=== PATIENT | female | born 1985 | race Caucasian/White ===

== ENCOUNTER 2019-12-02 07:46 | Emergency (ER) | payer MEDICAID, SELFPAY ==
[2019-12-02 07:59] VITALS: BP 133/84; PULSE 75; RESP 17; TEMP 36.7; O2SAT 100; BMI 31.4
--- NOTE | 2019-12-02 08:18 | ED_ITS ---
HPI - Headache General Chief Complaint: Headache Stated Complaint: HEADACHE NAUSEA Time Seen by Provider: 12/02/19 08:18 Source: patient Mode of arrival: ambulatory Limitations: no limitations and language barrier History of Present Illness HPI Narrative: migraine complaining of headache since last night especially behind the eyes similar to headaches in the past with photosensitivity and nausea MD elicited complaint: migraine Location: frontal and retro-orbital Severity: moderate Quality & Timing: throbbing Exacerbating factors: light and noise Context: occurred at rest Associated symptoms: nausea Treatments prior to arrival: ibuprofen Related Data Previous Rx's Medication Instructions Recorded xftfanevlo-hequqdgxqudrb-cscm 1 cap PO Q6H PRN #20 cap 12/02/19 [Fioricet] ondansetron 4 mg PO Q6H PRN #20 tab 12/02/19 sumatriptan succinate [Imitrex] 50 mg PO Q2H PRN #10 tab 12/02/19 Allergies Allergy/AdvReac Type Severity Reaction Status Date / Time Iodinated Contrast Media Allergy Mild NAUSEA & Verified 12/02/19 08:04 [IV CONTRAST] VOMITING Review of Systems Review of Systems: REVIEW OF SYSTEMS: Pertinent positives and negatives are stated above in the history. GEN: no fevers, chills, fatigue HEENT: no nasal congestion, sore throat, ear pain NEURO: no dizziness, focal weakness PULM: no cough, shortness of breath CV: no chest pain, palpitations, LE edema ABD: no abdominal pain vomiting, diarrhea : no dysuria, urgency, frequency SKIN: no rash ROS otherwise negative x 10 PMFSH Past Medical History Medical History Diabetes High blood pressure Social History Social History Alcohol intake: unknown Use of substances other than those prescribed or required for medical reasons: Unknown Advance Directives: No Advance Directives Information Provided: No Physical Exam Vital Signs and I&O and Narrative: Vital Signs and I&O: Vital Signs Temp 98.0 F 12/02/19 07:59 Pulse 81 12/02/19 10:02 Resp 17 12/02/19 07:59 BP 155/95 H 12/02/19 10:02 Pulse Ox 100 12/02/19 10:02 Intake & Output 10/10/1212/02/19 12/02/19 18:59 06:59 18:59 Weight 85.729 kg Body Mass Index 31.4 Appearance: Alert. Oriented X3. No acute distress. Eyes: Pupils equal, round and reactive to light. ENT: Pharynx normal. Neck: Normal inspection. Neck supple. CVS: Normal heart rate and rhythm. Pulses normal. Respiratory: No respiratory distress. Breath sounds normal. Abdomen: Soft and nontender. Skin: Skin warm and dry. Normal skin color. Normal skin turgor. Extremities: No lower extremity edema. No lower extremity edema. Neuro: Oriented X 3. No motor deficit. No sensory deficit. Course Course Course Narrative: patient feeling better after Imitrex will discharge her home on Imitrex, Fioricet, Zofran Discharge Plan Discharge Clinical Impression: Migraine Patient Disposition: Home, Self-Care Instructions: Migraine Headache (ED) Additional Instructions: take medication as prescribed and follow with primary care doctor Prescriptions: New sumatriptan succinate [Imitrex] 50 mg tablet 50 mg PO Q2H PRN (Reason: migraine headache) Qty: 10 RF: 0 ondansetron 4 mg tablet,disintegrating 4 mg PO Q6H PRN (Reason: nausea and vomiting) Qty: 20 RF: 0 aqsegcdxgc-sjuimhrrozpyw-ngdl [Fioricet] 50-300-40 mg capsule 1 cap PO Q6H PRN (Reason: pain) Qty: 20 RF: 0 Print Language: Armenian
--- NOTE | 2019-12-02 09:51 | PC.NURSE ---
INTRODUCED SELF TO PT. REPORTING IMPROVEMENT WITH PAIN 4/10 AND NAUSEA. ONGOING DISCOMFORT IN FOREHEAD AREA. IN NAD. INSTRUCTED ON USE OF CALL DAUGHERTY. WILL CONTINUE TO MONITOR.
[2019-12-02 10:02] VITALS: BP 155/95; PULSE 81; O2SAT 100
== END 2019-12-02 10:58 | disposition home or self-care (01) ==
PROVIDERS: Emergency Provider Internal Medicine
DX: G43.909 Migraine, unspecified, not intractable, without status migrainosus (principal); Z79.899 Other long term (current) drug therapy
CPT/HCPCS: 96372; 99284; J3030

== ENCOUNTER → 2020-04-10 12:50 | Outpatient (BNVA) | payer MEDICAID, SELFPAY | PROVIDERS: PCP Family Medicine; Visit Provider Student in an Organized Health Care Education/Training Program | DX: M79.7 Fibromyalgia (principal) | CPT/HCPCS: 99212 ==

== ENCOUNTER 2020-04-19 09:06 | Outpatient (REF) | payer MEDICAID, SELFPAY ==
[2020-04-20 08:59] LABS: BV Int Neg Control Negative (Negative); BV Int Pos Control Positive (Positive)
[2020-04-20 14:02] LABS: C. trachomatis RNA TMA NOT DETECTED (NOT DETECTED); N. gonorrhoeae RNA TMA NOT DETECTED (NOT DETECTED)
== END 2020-04-19 09:07 | disposition home or self-care (01) ==
LOC: HO.LAB 09:06
PROVIDERS: Visit Provider Advanced Practice Midwife
DX: Z01.419 Encounter for gynecological examination (general) (routine) without abnormal findings (principal); R32 Unspecified urinary incontinence; Z86.19 Personal history of other infectious and parasitic diseases; Z20.2 Contact with and (suspected) exposure to infections with a predominantly sexual mode of transmission; Z79.899 Other long term (current) drug therapy
CPT/HCPCS: 36415; 87480; 87491; 87510; 87591; 87660

== ENCOUNTER 2020-05-03 15:00 | Outpatient (RCR) | payer MEDICAID, SELFPAY ==
[2020-04-16 14:53] VITALS: BP 140/70; PULSE 93
--- NOTE | 2020-04-17 08:45 | MHC.PT.EP ---
[facility] [place] Office [place] Office [place] Office [address] Sandrine Roman [address] [phone] F: [phone] F: [phone] F: [phone] F: [phone] Physical Therapy Plan of Care Date of Evaluation: 04/16/20 Date of Surgery: NA Diagnosis: Bilateral Shoulder and Neck Pain Assessment: Catalina is a 34-year-old female presenting to physical therapy with a diagnosis of bilateral shoulder and neck pain. She was also diagnosed with fibromyalgia one year ago. Pt reports that she is undergoing a lot of stress at home raising her three young children. She displays limitations in cervical ROM, cervical muscle strength, bilateral UE strength, and impaired posture. These impairments limit her tolerance to performing ADLs, caring for her family, and participating in recreational activities. Catalina would benefit from skilled therapy to address the aforementioned impairments, reduce her pain, and improve her overall quality of life. Frequency and Duration: The patient will be seen 2 visits per week for 6 weeks. Short Term Goals: 1.) Pt will report <2/10 pain at rest within 3 weeks to allow her to perform leisure activities without aggravating her symptoms. 2.) Pt will display >75 degrees of B cervical rotation to allow her to check blind spots when driving within 3 weeks. Chcf Goals: 1.) Pt will be independent with HEP for symptom management and maintenance following discharge within 6 weeks. 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 Treatment Plan: Modalities to reduce pain, spasms and effusion. Manual therapy to restore motion and function. Therapeutic exercise to improve strength and flexibility. Neuromuscular re-education for posture and balance. Therapeutic activities to return to functional activities of daily living. Electronically signed by: Mary Lou Thomas, PT, DPT Please sign and return to therapist. Thank you for your referral.
--- NOTE | 2020-05-21 15:21 | MHC.PT.DC ---
[facility] [place] Office [place] Office [place] Office [address] Sandrine Roman [address] [phone] F: [phone] F: [phone] F: [phone] F: [phone] Physical Therapy Discharge Report Diagnosis: Bilateral Shoulder and Neck Pain Date of Surgery: NA Date of Evaluation: 04/16/20 Date of Discharge: 05/21/20 Treatments to Date: 4 Cancellations to Date: 0 No Shows to Date: 5 Discharge Status: Visit Non-compliance Discharge Summary: Pt was d/c from therapy for non compliance. Electronically signed by: Mary Lou Thomas DPT Please sign and return to therapist. Thank you for your referral.
== END 2020-05-21 15:22 | disposition other institution (70) ==
LOC: HO.PT 15:00
PROVIDERS: PCP Emergency Medicine; Visit Provider Student in an Organized Health Care Education/Training Program
DX: M79.7 Fibromyalgia (principal)
CPT/HCPCS: 97110; 97112; 97140; 97162

== ENCOUNTER 2020-11-09 23:42 | Emergency (ER) | payer MEDICAID, SELFPAY ==
[2020-11-10 00:20] VITALS: BP 141/100; PULSE 88; RESP 18; TEMP 36.1; O2SAT 98; BMI 34.4
--- NOTE | 2020-11-10 00:32 | ED.GENADULT ---
HPI - General Adult General Chief complaint: General Medical Stated complaint: Headache/Earache/Nausea Time Seen by Provider: 11/10/20 00:32 Source: patient Mode of arrival: ambulatory Limitations: no limitations History of Present Illness HPI narrative: Patient with history of migraine headache fibromyalgia complain of headache for last 1 week with nausea and vomiting lead sensitivity no fever or chills patient been fully vaccinated against COVID-19 Related Data Home Medications Medication Instructions Recorded Confirmed amitriptyline 25 mg tablet 25 mg PO BEDTIME 04/10/20 04/19/20 escitalopram oxalate 5 mg tablet 5 mg PO DAILY 04/10/20 04/19/20 (Lexapro) lurasidone 20 mg tablet (Latuda) 20 mg PO DAILY 04/10/20 04/19/20 metformin 500 mg tablet 500 mg PO BID 04/10/20 04/19/20 Previous Rx's Medication Instructions Recorded ondansetron 4 mg disintegrating 4 mg PO Q6H PRN #20 tab 12/02/19 tablet metronidazole 0.75 % vaginal gel 1 appful VAGINAL BEDTIME 5 Days 05/08/20 (Metrogel Vaginal) #70 g eksezmhujd-wdbiqvbrhycmz-sjinqaon 1 cap PO Q6H PRN #20 cap 11/10/20 50 mg-300 mg-40 mg capsule (Fioricet) Allergies Allergy/AdvReac Type Severity Reaction Status Date / Time Iodinated Contrast Media Allergy Mild NAUSEA & Verified 04/19/20 09:16 [IV CONTRAST] VOMITING Review of Systems Review of Systems: Yes all other systems are reviewed and are negative PMFSH Past Medical History Medical History Diabetes Fibromyalgia High blood pressure Surgical History Hx of section Hx of hernia repair Family History Family History Father Diabetes Mother HTN (hypertension) Social History Social History Alcohol intake: never Advance Directives: No Patient : No Gender identity: Female Physical Exam Vital Signs: Vital Signs: Last Vital Signs Temp 97 F 11/10/20 00:20 Pulse 88 11/10/20 00:20 Resp 18 11/10/20 00:20 BP 141/100 H 11/10/20 00:20 Pulse Ox 98 11/10/20 00:20 Body Mass Index 34.4 Appearance: Alert. Oriented X3. No acute distress. Eyes: PERRLA, No Nystagmus ENT: Pharynx normal. Oral Mucosa moist Neck: Normal inspection. Neck supple. CVS: Normal heart rate and rhythm. Pulses normal. Respiratory: No respiratory distress. Equal air entry bilateral, no wheezing/rales/rhonchi Abdomen: Soft and nontender. Bowel sounds are present, no mass palpable, no CVA tenderness Skin: Skin warm and dry. Normal skin color. Normal skin turgor. Extremities: No lower extremity edema. No calf tenderness Neuro: Oriented X 3. No motor deficit. No sensory deficit.No cerebellar signs , cranial nerves II-XII intact Medical Decision Making MDM Narrative Medical decision making narrative: Patient with migraine headache give her Fioricet Toradol and Zofran and discharged her home Discharge Plan Discharge Clinical Impression: Migraine Qualifiers: Migraine type: without aura Status migrainosus presence: without status migrainosus Intractability: not intractable Qualified Code(s): G43.009 - Migraine without aura, not intractable, without status migrainosus Patient Disposition: Home, Self-Care Instructions: Migraine Headache (ED) Additional Instructions: Take medication as prescribed for headaches and follow with PCP Prescriptions: New yohlfulpha-fsquexngcfpiw-rooi [Fioricet] 50-300-40 mg capsule 1 cap PO Q6H PRN (Reason: Headache) Qty: 20 RF: 0 No Action metronidazole [Metrogel Vaginal] 0.75 % gel 1 appful vaginal BEDTIME 5 Days Qty: 70 RF: 0 ondansetron 4 mg tablet,disintegrating 4 mg PO Q6H PRN (Reason: nausea and vomiting) Qty: 20 RF: 0 metformin 500 mg tablet 500 mg PO BID RF: 0 amitriptyline 25 mg tablet 25 mg PO BEDTIME RF: 0 Latuda 20 mg tablet 20 mg PO DAILY RF: 0 escitalopram oxalate [Lexapro] 5 mg tablet 5 mg PO DAILY RF: 0
[2020-11-10] MEDS: Ketorolac Tromethamine 60 MG/2 ML VIAL IM (01:02)
[2020-11-10] MEDS: Butalb/Acetamin/Caff 50/325/40 TABLET 1 TAB PO (01:02)
[2020-11-10] MEDS: Ondansetron ODT 4 MG TAB.RAPDIS TRANSLINGU (01:03)
== END 2020-11-10 01:07 | disposition home or self-care (01) ==
PROVIDERS: Emergency Provider Internal Medicine
DX: G43.009 Migraine without aura, not intractable, without status migrainosus (principal); M79.7 Fibromyalgia; Z79.899 Other long term (current) drug therapy
CPT/HCPCS: 96372; 99283; 99284; J1885

== ENCOUNTER → 2021-01-28 14:51 | Outpatient (BNVA) | payer MEDICAID, SELFPAY | PROVIDERS: PCP Family Medicine; Referring Provider Family Medicine; Visit Provider Surgery | DX: K64.8 Other hemorrhoids (principal) | CPT/HCPCS: 46600 ==

== ENCOUNTER → 2021-04-10 11:14 | Outpatient (BNVA) | payer MEDICAID, SELFPAY | PROVIDERS: PCP Family Medicine; Visit Provider Nurse Practitioner Family | DX: M79.7 Fibromyalgia (principal) | CPT/HCPCS: 99212 ==

== ENCOUNTER 2021-05-16 11:00 | Outpatient (RCR) | payer MEDICAID, SELFPAY ==
--- NOTE | 2021-05-08 14:59 | MHC.PT.EP ---
[facility] [place] Office [place] Office [place] Office [address] Sandrine Roman [address] [phone] F: [phone] F: [phone] F: [phone] F: [phone] Physical Therapy Plan of Care Date of Evaluation: Date of Surgery: Diagnosis: LBP, FIBROMYALGIA Assessment: 35 YO FEMALE REF TO PT W 2 YR H/O FIBROMYALGIA AND 2 WK H/O LBP. 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 OBJECTIVE FINDINGS INCLUDE: DECR POSTURAL AWARENESS, INCR / COMPENSATORY LUMBAR PS MM USAGE AND SOFT TISSUE TENSION, LIMITED TRUNK AROM, DECR HIP FLEXIBILITY, AND PAIN IN HER LB (ALSO GLOBALLY AT TIMES DUE TO HER FIBROMYALGIA FLAREUPS). FUNCTIONALLY, Pt HAS DECR DOMINIK TO LIFTING, BENDING, VACUUMING- AND , SHE HAS DECR MECHANICS AND STABILITY W FUNCTIONAL SQUAT MECHANICS. Pt WOULD BENEFIT FROM PT TO ADDRESS PAIN MGMT, DEV A HEP/ SELF-SX STRATEGIES, EASE TISSUE TENSION, AND IMPROVE OVERALL FUNCT MOB DOMINIK FOR HER POSTURAL SYNDROME/ LBP EXACERBATION. Frequency and Duration: The patient will be seen 2x WK x 5 WKS Short Term Goals: *Pt'S LBP DECR TO 2-3/10 IN 2 WKS *Pt DEMON WFL IN DARIEN HIP ROTAT / HS IN 2 WKS * Pt DEMON PROPER FUNCT SQUAT AND POSTURAL SELF-CORRECT TECHN IN 2 WKS Mcc Goals: *Pt SIMUL 3:3 ADLs / WORK TASKS W PROPER MECHANICS IN 5 WKS *Pt DEMON IMPROVED CORE STAB/ STRENGTH EVIDENT IN IMPROVED OSWESTRY SCORE BY 3-5 POINTS (7/50 AT EVAL) IN 5 WKS *Pt INDEP W HEP, PROGRESSIVE STRENGTHENING, AND SELF-SX MGMT STRATEGIES IN 5 WKS Treatment Plan: Modalities to reduce pain, spasms and effusion. Manual therapy to restore motion and function. Therapeutic exercise to improve strength and flexibility. Neuromuscular re-education for posture and balance. Therapeutic activities to return to functional activities of daily living. Electronically signed by: Kell Wilson,PT Please sign and return to therapist. Thank you for your referral.
--- NOTE | 2021-05-29 07:09 | MHC.PT.DC ---
[facility] [place] Office [place] Office [place] Office [address] Sandrine Roman 140 [facility] [phone] F: [phone] F: [phone] F: [phone] F: [phone] Physical Therapy Discharge Report Diagnosis: LBP, FIBROMYALGIA Date of Surgery: Date of Evaluation: 05/08/21 Date of Discharge: 05/29/21 Treatments to Date: 3 Cancellations to Date: No Shows to Date: 3 Discharge Status: Visit Non-compliance Discharge Summary: AN HEP WAS ESTABLISHED W Pt IN PT TO ADDRESS HER LBP, HOWEVER, HER ATTENDANCE HAS WANED AND DESPITE OUR REMINDER CALLS, Pt IS D/C'D AT THIS TIME IN ACCORDANCE W THE PT DEPT NO-SHOW POLICY- SHE DID NOT MEET HER PT GOALS TO FULL POTENTIAL AT THIS TIME. Electronically signed by: Kell Wilson,PT Please sign and return to therapist. Thank you for your referral.
== END 2021-05-29 07:12 | disposition home or self-care (01) ==
LOC: HO.PT 11:00
PROVIDERS: PCP Family Medicine; Visit Provider Nurse Practitioner Family
DX: M79.7 Fibromyalgia (principal); M54.50 Low back pain, unspecified
CPT/HCPCS: 97110; 97140; 97162

== ENCOUNTER → 2022-04-10 10:27 | Outpatient (BNVA) | payer MEDICAID, SELFPAY | PROVIDERS: PCP Family Medicine; Visit Provider Nurse Practitioner Family | DX: M79.7 Fibromyalgia (principal) | CPT/HCPCS: 36415; 80053; 85652; 86140; 99212 ==

== ENCOUNTER 2022-04-10 11:33 | Outpatient (REF) | payer MEDICAID, SELFPAY ==
[2022-04-10 13:48] LABS: Alanine Aminotransferase 11 U/L (0-31); Albumin Level 4.1 g/dL (3.5-5.0); Alkaline Phosphatase 73 U/L (39-117); Anion Gap 14 (12-20); Aspartate Amino Transferase 12 U/L (5-31); Bilirubin Total 0.3 mg/dL (0.0-1.0); Blood Urea Nitrogen 9 mg/dL (9-16); C Reactive Protein 1.18 mg/dL (< or = 0.50); Calcium 9.4 mg/dL (8.4-10.2); Carbon Dioxide 26 mmol/L (22-29); Chloride 104 mmol/L (96-108); Estimated Glomerular Filt Rate > 60; Glucose Random 89 mg/dL (60-115); Potassium 3.7 mmol/L (3.3-5.1); Sodium 140 mmol/L (135-145); Total Protein 6.8 g/dL (6.5-8.0)
[2022-04-10 14:19] LABS: Erythrocyte Sedimentation Rate 14 MM/HR (0-20)
== END 2022-04-10 11:34 | disposition home or self-care (01) ==
LOC: HO.10HDL 11:33
PROVIDERS: Visit Provider Nurse Practitioner Family
DX: M79.7 Fibromyalgia (principal); M54.50 Low back pain, unspecified
CPT/HCPCS: 36415; 80053; 85652; 86140

== ENCOUNTER 2022-07-14 10:08 | Outpatient (REF) | payer MEDICAID, SELFPAY ==
[2022-07-15 06:27] LABS: CT PCR NOT DETECTED (Not Detect.); NG PCR NOT DETECTED (Not Detect.)
[2022-07-15 08:56] LABS: BV Int Neg Control Negative (Negative); BV Int Pos Control Positive (Positive)
[2022-07-17 09:23] LABS: HPV mRNA E6/E7 rflx Not Detected (Not Detected)
== END 2022-07-14 10:09 | disposition home or self-care (01) ==
LOC: HO.LNP 10:08
PROVIDERS: PCP Family Medicine; Visit Provider Advanced Practice Midwife
DX: Z01.419 Encounter for gynecological examination (general) (routine) without abnormal findings (principal); M79.7 Fibromyalgia; I10 Essential (primary) hypertension; E11.9 Type 2 diabetes mellitus without complications; Z79.899 Other long term (current) drug therapy; Z98.891 History of uterine scar from previous surgery; Z79.84 Long term (current) use of oral hypoglycemic drugs; Z20.2 Contact with and (suspected) exposure to infections with a predominantly sexual mode of transmission
CPT/HCPCS: 0353U; 87480; 87510; 87624; 87660; 88142

== ENCOUNTER → 2022-07-15 09:26 | Outpatient (BNVA) | payer MEDICAID, SELFPAY | PROVIDERS: PCP Family Medicine; Visit Provider Physician Assistant Surgical ==

== ENCOUNTER 2022-09-08 19:13 | Outpatient (REF) | payer MEDICAID, SELFPAY ==
[2022-09-08 20:14] LABS: Influenza A PCR NEGATIVE (Negative); Influenza B PCR NEGATIVE (Negative); Resp Syncy Virus RNA Qual PCR NEGATIVE (Negative); SARS COV2 PCR INHOUSE NEGATIVE (Negative)
== END 2022-09-08 19:14 | disposition home or self-care (01) ==
LOC: HO.HHCLNP 19:13
PROVIDERS: Visit Provider Internal Medicine
DX: Z20.822 Contact with and (suspected) exposure to COVID-19 (principal); B34.9 Viral infection, unspecified
CPT/HCPCS: 0241U

== ENCOUNTER 2023-01-22 21:44 | Emergency (ER) | payer MEDICAID, SELFPAY ==
--- NOTE | ~2023-01-22 | XR_ITS ---
EXAMINATION: XR CHEST CLINICAL INFORMATION: Cough for one week. COMPARISON: Chest radiograph 09/30/2019. TECHNIQUE: 2 views of the chest were obtained. FINDINGS: No significant abnormality is noted involving the heart, lungs, mediastinum, bony thorax or soft tissues. XR/XR chest 2V IMPRESSION: Unremarkable examination.
[2023-01-22 21:48] VITALS: BP 143/74; PULSE 74; RESP 18; TEMP 36; O2SAT 97; BMI 31.1
[2023-01-22 22:21] LABS: Appearance Urine Cloudy; Color Urine Yellow; Glucose Urine UA Negative (Negative); Leukocyte Esterase Urine Negative (Negative); Nitrite Urine Negative (Negative); Specific Gravity - Urine >= 1.030 (1.005-1.025); UMIC TRIGGER UACC YES; Urine Blood Moderate (2+) (Negative); Urine Ketones Trace mg/dL (Negative); Urine Protein 30 (1+) mg/dL (Neg-Trace)
[2023-01-22 22:21] LABS: MANUAL DIFF FLAG NO
[2023-01-22 22:22] LABS: Basophils Absolute Auto 0.1 X10*3/uL (0.0-0.2); Basophils Percent Auto 0.7 % (0-2); Eosinophils Absolute Auto 0.4 X10*3/uL (0.0-0.4); Eosinophils Percent Auto 5.3 % (0-4); Hematocrit 35.9 % (37.0-47.0); Hemoglobin 11.8 g/dl (12.0-16.0); Imm Gran Abs Auto 0.02 X10*3/uL (0.00-0.03); Imm Gran Pct Auto 0.2 % (0.0-0.4); Lymphocytes Absolute Auto 2.2 X10*3/uL (1.2-4.9); Mean Corpuscular HGB Conc 32.9 g/dl (31.0-35.0); Mean Corpuscular Hemoglobin 26.7 pg (27.0-33.0); Mean Corpuscular Volume 81.2 fL (80.0-98.0); Mean Platelet Volume 9.2 fL (9.4-12.3); Monocytes Absolute Auto 0.6 X10*3/uL (0.1-1.2); Monocytes Percent Auto 6.8 % (2-11); Neutrophils Absolute Auto 4.9 x10*3/uL (2.0-8.3); Platelet Count 475 X10*3/uL (160-400); Red Blood Count 4.42 X10*6/uL (4.20-5.50); Red Cell Distribution Width 13.7 % (11.0-16.0); White Blood Count 8.1 X10*3/uL (4.8-10.8)
[2023-01-22 22:23] LABS: UPreg QC Valid YES; Urine Pregnancy NEGATIVE (NEGATIVE)
[2023-01-22 22:26] LABS: Bacteria Urine 2+ (None Seen); Hyaline Casts Urine 0-2 /LPF (0-2); RBC Urine >20 /HPF (0-2); Squamous Epithelial Cell Urine >20 /HPF (0-2); WBC Urine 0-5 /HPF (0-5)
[2023-01-22 22:37] LABS: Anion Gap 12 (12-20); Blood Urea Nitrogen 13 mg/dL (9-16); Calcium 9.4 mg/dL (8.4-10.2); Carbon Dioxide 28 mmol/L (22-29); Chloride 104 mmol/L (96-108); Creatinine Clr Calc Pharmacy 130.6; Estimated Glomerular Filt Rate > 60; Glucose Random 102 mg/dL (60-115); Potassium 3.5 mmol/L (3.3-5.1); Sodium 140 mmol/L (135-145)
[2023-01-22 22:58] LABS: Influenza A PCR NEGATIVE (Negative); Influenza B PCR NEGATIVE (Negative); Resp Syncy Virus RNA Qual PCR NEGATIVE (Negative); SARS COV2 PCR INHOUSE POSITIVE (Negative)
[2023-01-23 01:50] LABS: Alanine Aminotransferase 10 U/L (0-31); Albumin Level 4.1 g/dL (3.5-5.0); Alkaline Phosphatase 70 U/L (39-117); Aspartate Amino Transferase 13 U/L (5-31); Bilirubin Direct 0.1 mg/dL (0.0-0.5); Bilirubin Total 0.3 mg/dL (0.0-1.0); Lipase 23 U/L (8-78); Total Protein 7.8 g/dL (6.5-8.0)
--- NOTE | 2023-01-23 01:50 | ED_ITS ---
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 Patient reports that she has been having abdominal pain for about 1 week since . She describes the pain as burning, Center abdomen and rising up into her chest And she reports a history of GERD and she has a take omeprazole but has not been on it for several months She states that she is in between primary doctor Denies any history abdominal surgeries Denies any fevers or chills She complains of a headache but also has been COVID positive for the last 5 days Reports mild intermittent cough but no shortness of breath Related Data Home Medications Medication Instructions Recorded Confirmed escitalopram oxalate 5 mg tablet 5 mg PO DAILY 04/10/20 07/14/22 (Lexapro) lurasidone 20 mg tablet (Latuda) 20 mg PO DAILY 04/10/20 07/14/22 metformin 500 mg tablet 500 mg PO BID 04/10/20 07/14/22 albuterol sulfate 90 mcg/actuation 2 puff PO Q4-6H PRN 01/28/21 07/14/22 aerosol inhaler (ProAir HFA) cholecalciferol (vitamin D3) 25 25 mcg PO DAILY 01/28/21 07/14/22 mcg (1,000 unit) tablet dulaglutide 0.75 mg/0.5 mL mg subcut QWEEK 01/28/21 07/14/22 subcutaneous pen injector (Trulicity) hydroxyzine pamoate 25 mg capsule 25 mg PO BID PRN 01/28/21 07/14/22 losartan 25 mg tablet 25 mg PO DAILY 01/28/21 07/14/22 zolpidem 5 mg tablet 5 mg PO BEDTIME PRN 01/28/21 07/14/22 Previous Rx's Medication Instructions Recorded kywypwriii-rusbqpbwhgeui-vzdkvkbq 1 cap PO Q6H PRN Headache #20 caps 11/10/20 50 mg-300 mg-40 mg capsule (Fioricet) metronidazole 0.75 % (37.5 mg/5 1 appful vaginal BEDTIME 5 days 07/15/22 gram) vaginal gel #70 grams omeprazole 20 mg capsule,delayed 20 mg PO DAILY #30 caps 01/23/23 release ondansetron 4 mg disintegrating 4 mg PO Q8H PRN nausea and 01/23/23 tablet vomiting #20 tabs Allergies Allergy/AdvReac Type Severity Reaction Status Date / Time Iodinated Contrast Media Allergy Mild NAUSEA & Verified 07/14/22 10:36 [IV CONTRAST] VOMITING Review of Systems 2 Constitutional: Constitutional: Denies body ache(s), Denies chills, Denies fever(s) and Reports headache(s) ENT: Reports headache(s) and Denies sore throat Cardiovascular: Cardiovascular: Denies chest pain and Denies dyspnea Respiratory: Respiratory: Reports cough and Denies dyspnea Gastrointestinal: Gastrointestinal: Reports abdominal pain, Reports nausea and Denies vomiting Genitourinary: Genitourinary: Denies difficulty voiding Musculoskeletal: Musculoskeletal: Denies back pain Integumentary/Breasts: Skin/Breast: Denies rash Neurologic: Reports headache(s) Psychiatric: Psychiatric: Denies depression [facility] Past Medical History Medical History (Updated 01/23/23 @ 01:56 by Fabrizio Lopez) Prolapsed hemorrhoids Fibromyalgia High blood pressure Diabetes Surgical History (Updated 07/14/22 @ 11:46 by Rasheeda Urias CNM) Hx of section Hx of hernia repair Family History Family History Father Diabetes Mother HTN (hypertension) Social History Social History Alcohol intake: never Patient Tobacco Use Status: Never used Tobacco Advance Directives: No Advance Directives Information Provided: No Gender identity: Female Physical Exam ED Vital Signs: Vital Signs - 24 hr 01/22/23 21:48 Temperature 96.8 F Pulse Rate 74 Respiratory Rate 18 Blood Pressure 143/74 H Pulse Oximetry 97 Oxygen Delivery Method Room Air BMI result Body Mass Index 31.1 Const General: healthy appearing, comfortable, no acute distress, alert and awake Nutritional Appearance: well nourished Orientation/consciousness: patient oriented x3 HENMT Head: Yes normocephalic and Yes atraumatic Eyes Eyelids: Yes eyelids normal Conjunctivae: conjunctivae normal Sclerae: sclerae normal Corneas: corneas normal Pupils: Equal, round and reactive pupils present EOM: EOMs intact bilaterally Neck Neck: Yes full ROM Resp Effort & Inspection: normal respiratory effort, able to speak in complete sentences and not labored GI Inspection: No distended Palpation (GI): Soft to palpation, not firm, Tenderness to palpation present (GI) in the epigastrum, in the LUQ and in the RUQ; Nicholas's sign negative and with no rebound tenderness, no guarding and not rigid Auscultation: normoactive bowel sounds Skin General skin exam: elasticity normal Neuro General: patient oriented x3 Cranial nerves: Yes Equal, round and reactive pupils present and Yes Bilaterally intact EOM present Cognition (Neuro): normal cognition Extrem Other: Moving all extremities well without any obvious deformities Medical Decision Making Medical Decision Making [facility] Narrative: 37-year-old female presents for evaluation of upper abdominal pain that she describes as burning with nausea worse after eating. She is postmenopausal and has been noncompliant as she has not had medication at home. Will treat with GI cocktail. I added on LFTs to evaluate for biliary disease but I feel that there obstruction is less likely as her pain is described as burning as unsure where pain isn't present for a week, she has no leukocytosis. Differential Diagnosis Differential Diagnoses: The differential diagnosis associated with the presentation includes GERD Cholelithiasis Cholecystitis Gastroenteritis Gastritis Peptic ulcer disease Abdominal pain COVID-19 Lab Data [facility] Lab Attestation statement: I reviewed the patient's lab results. No leukocytosis, patient has a mild anemia consistent with her baseline. This is a normocytic anemia. There is no left shift. Chemistries without any significant abnormalities 01/22/23 22:15 01/22/23 22:15 Labs: Lab Results 01/22/23 01/22/23 Range/Units 22:09 22:15 WBC 8.1 (4.8-10.8) X10*3/uL RBC 4.42 (4.20-5.50) X10*6/uL Hgb 11.8 L (12.0-16.0) g/dl Hct 35.9 L (37.0-47.0) % MCV 81.2 (80.0-98.0) fL MCH 26.7 L (27.0-33.0) pg MCHC 32.9 (31.0-35.0) g/dl RDW 13.7 (11.0-16.0) % Plt Count 475 H (160-400) X10*3/uL MPV 9.2 L (9.4-12.3) fL Immature Gran % (Auto) 0.2 (0.0-0.4) % Neut % (Auto) 60.0 (45-73) % Lymph % (Auto) 27.0 (20-40) % [place] % (Auto) 6.8 (2-11) % Eos % (Auto) 5.3 H (0-4) % Baso % (Auto) 0.7 (0-2) % Lymph # (Auto) 2.2 (1.2-4.9) X10*3/uL [place] # (Auto) 0.6 (0.1-1.2) X10*3/uL Eos # (Auto) 0.4 (0.0-0.4) X10*3/uL Baso # (Auto) 0.1 (0.0-0.2) X10*3/uL Abs Immat Gran (auto) 0.02 (0.00-0.03) X10*3/uL Absolute Neuts (auto) 4.9 (2.0-8.3) x10*3/uL Absolute Nucleated RBC 0.000 (0.0-0.012) X10*3/uL Nucleated RBC % (auto) 0.0 (0.0-0.2) /100WBC Sodium 140 (135-145) mmol/L Potassium 3.5 (3.3-5.1) mmol/L Chloride 104 (96-108) mmol/L Carbon Dioxide 28 (22-29) mmol/L Anion Gap 12 (12-20) BUN 13 (9-16) mg/dL Creatinine 0.64 (0.5-1.4) mg/dL Estim Creat Clear Calc 130.6 Estimated GFR > 60 Random Glucose 102 (60-115) mg/dL Calcium 9.4 (8.4-10.2) mg/dL Total Bilirubin 0.3 (0.0-1.0) mg/dL Direct Bilirubin 0.1 (0.0-0.5) mg/dL AST 13 (5-31) U/L ALT 10 (0-31) U/L Alkaline Phosphatase 70 (39-117) U/L Total Protein 7.8 (6.5-8.0) g/dL Albumin 4.1 (3.5-5.0) g/dL Lipase 23 (8-78) U/L Urine Color Yellow Urine Appearance Cloudy Urine pH 6.0 (5.0-9.0) Ur Specific [place] >= 1.030 H (1.005-1.025) Urine Protein 30 (1+) H (Neg-Trace) mg/dL Urine Glucose (UA) Negative (Negative) mg/dL Urine Ketones Trace (Negative) mg/dL Urine Blood Moderate (2+) H (Negative) Urine Nitrite Negative (Negative) Ur Leukocyte Esterase Negative (Negative) Urine RBC >20 H (0-2) /HPF Urine WBC 0-5 (0-5) /HPF Ur Squamous Epith Cells >20 (0-2) /HPF Urine Bacteria 2+ (None Seen) Hyaline Casts 0-2 (0-2) /LPF Urine Test NEGATIVE (NEGATIVE) Influenza Type A (PCR) NEGATIVE (Negative) Influenza Type B (PCR) NEGATIVE (Negative) RSV RNA Qual (PCR) NEGATIVE (Negative) SARS-CoV-2 RNA (RT-PCR) POSITIVE A (Negative) Discharge Plan Discharge Clinical Impression: Abdominal pain, COVID Patient Disposition: Home, Self-Care Instructions: Gastroesophageal Reflux Disease (ED) Additional Instructions: Your workup in the emergency from today was reassuring. Your symptoms are most likely related to GERD/heartburn Start taking omeprazole daily for heartburn Use Zofran for nausea/vomiting Return for new or worsening symptoms Follow-up with GI at the number provided Prescriptions: New ondansetron 4 mg tablet,disintegrating 4 mg PO Q8H PRN (Reason: nausea and vomiting) Qty: 20 0RF omeprazole 20 mg capsule,delayed release(DR/EC) 20 mg PO DAILY Qty: 30 0RF No Action metronidazole 0.75 % (37.5mg/5 gram) gel 1 appful vaginal BEDTIME 5 Days Qty: 70 0RF lxuhvazxbn-tadwitvweljsk-lcuw [Fioricet] 50-300-40 mg capsule 1 cap PO Q6H PRN (Reason: Headache) Qty: 20 0RF metformin 500 mg tablet 500 mg PO BID Latuda 20 mg tablet 20 mg PO DAILY Rx Instructions: must administer with food (at least 350 calories) escitalopram oxalate [Lexapro] 5 mg tablet 5 mg PO DAILY albuterol sulfate [ProAir HFA] 90 mcg/actuation HFA aerosol inhaler 2 puff PO Q4-6H PRN zolpidem 5 mg tablet 5 mg PO BEDTIME PRN losartan 25 mg tablet 25 mg PO DAILY Trulicity 0.75 mg/0.5 mL pen injector subcut QWEEK hydroxyzine pamoate 25 mg capsule 25 mg PO BID PRN cholecalciferol (vitamin D3) 25 mcg (1,000 unit) tablet 25 mcg PO DAILY Referrals: Mykel Bonner MD [Physician] - (GERD)
[2023-01-23] MEDS: Mag&Al/Sim/Diphenhyd/Lidocaine 10 ML ORAL.SUSP PO (02:22)
[2023-01-23] MEDS: Magnesium Hydrox/Alum Hydrox 30 ML ORAL.SUSP PO (02:22)
[2023-01-23] MEDS: Ondansetron ODT 4 MG TAB.RAPDIS TRANSLINGU (02:22)
== END 2023-01-23 02:29 | disposition home or self-care (01) ==
PROVIDERS: Physician Assistant; Emergency Provider Student in an Organized Health Care Education/Training Program
DX: U07.1 COVID-19 (principal); R10.9 Unspecified abdominal pain; R05.9 Cough, unspecified; R10.11 Right upper quadrant pain; Z79.899 Other long term (current) drug therapy
CPT/HCPCS: 0241U; 71046; 80048; 80076; 81001; 81025; 83690; 85025; 99282; 99283

== ENCOUNTER 2023-02-20 22:24 | Emergency (ER) | payer MEDICAID, SELFPAY ==
[2023-02-20 22:36] VITALS: BP 124/67; PULSE 95; RESP 18; TEMP 36.9; O2SAT 99; BMI 31.1
--- NOTE | 2023-02-20 23:30 | MHC.EDTECH ---
Patient brought into triage area,Labs,Urine,and a Sars/Flu/Rsv obtained and sent to lab,Patient brought back to waiting area.
[2023-02-20 23:36] LABS: Basophils Absolute Auto 0.1 X10*3/uL (0.0-0.2); Basophils Percent Auto 0.6 % (0-2); Eosinophils Absolute Auto 0.3 X10*3/uL (0.0-0.4); Hematocrit 34.6 % (37.0-47.0); Hemoglobin 11.2 g/dl (12.0-16.0); Imm Gran Abs Auto 0.02 X10*3/uL (0.00-0.03); Imm Gran Pct Auto 0.2 % (0.0-0.4); Lymphocytes Absolute Auto 1.7 X10*3/uL (1.2-4.9); Lymphocytes Percent Auto 20.8 % (20-40); MANUAL DIFF FLAG NO; Mean Corpuscular HGB Conc 32.4 g/dl (31.0-35.0); Mean Corpuscular Hemoglobin 26.2 pg (27.0-33.0); Mean Corpuscular Volume 80.8 fL (80.0-98.0); Mean Platelet Volume 9.1 fL (9.4-12.3); Monocytes Absolute Auto 0.4 X10*3/uL (0.1-1.2); Monocytes Percent Auto 5.1 % (2-11); Neutrophils Absolute Auto 5.6 x10*3/uL (2.0-8.3); Neutrophils Percent Auto 69.3 % (45-73); Platelet Count 420 X10*3/uL (160-400); Red Blood Count 4.28 X10*6/uL (4.20-5.50); White Blood Count 8.1 X10*3/uL (4.8-10.8)
[2023-02-20 23:39] LABS: UPreg QC Valid YES; Urine Pregnancy NEGATIVE (NEGATIVE)
[2023-02-20 23:43] LABS: Appearance Urine Clear; Color Urine Yellow; Glucose Urine UA Negative (Negative); Leukocyte Esterase Urine Negative (Negative); Nitrite Urine Negative (Negative); PH 6.5 (5.0-9.0); Specific Gravity - Urine 1.025 (1.005-1.025); UMIC TRIGGER UACC YES; Urine Blood Moderate (2+) (Negative); Urine Ketones Negative (Negative); Urine Protein Trace mg/dL (Neg-Trace)
[2023-02-20 23:47] LABS: Bacteria Urine Trace (None Seen); Hyaline Casts Urine 0-2 /LPF (0-2); RBC Urine >20 /HPF (0-2); WBC Urine 0-5 /HPF (0-5)
[2023-02-20 23:49] LABS: Alanine Aminotransferase 7 U/L (0-31); Alkaline Phosphatase 69 U/L (39-117); Anion Gap 13 (12-20); Aspartate Amino Transferase 10 U/L (5-31); Bilirubin Total 0.2 mg/dL (0.0-1.0); Blood Urea Nitrogen 11 mg/dL (9-16); Calcium 9.1 mg/dL (8.4-10.2); Carbon Dioxide 26 mmol/L (22-29); Chloride 104 mmol/L (96-108); Creatinine Clr Calc Pharmacy 121.2; Estimated Glomerular Filt Rate > 60; Glucose Random 121 mg/dL (60-115); Potassium 3.6 mmol/L (3.3-5.1); Sodium 139 mmol/L (135-145); Total Protein 7.3 g/dL (6.5-8.0)
[2023-02-21 00:14] LABS: Influenza A PCR NEGATIVE (Negative); Influenza B PCR NEGATIVE (Negative); Resp Syncy Virus RNA Qual PCR NEGATIVE (Negative); SARS COV2 PCR INHOUSE POSITIVE (Negative)
[2023-02-21 04:27] VITALS: BP 124/67; PULSE 95; RESP 18; TEMP 36.9; O2SAT 99
--- NOTE | 2023-02-21 04:28 | PC.NURSE ---
Pt ca&ox4, no signs of distress. Pt reports constipation x 4 days. Pt reports a 5/10 headache with n/v that started at 2200 Plan of care ongoing.
--- NOTE | 2023-02-21 06:15 | ED.ABDPAIN ---
HPI - Abdominal Pain General Chief Complaint: Abdominal Pain Stated Complaint: abd pain, nausea, vomiting, headache Time Seen by Provider: 02/21/23 06:06 Source: patient Mode of arrival: ambulatory Limitations: no limitations History of Present Illness HPI narrative: Patient comes to the emergency room complaining of constipation for 4 days. Patient states that she has history of chronic constipation, every time that she cannot move her bowels for 4+ more days, she starts having lightheadedness, feeling unwell, flank pain. Patient states that she takes religiously MiraLax twice a day without any significant results. Patient denies using any opiates, no drugs. Denies taking iron pills. Patient states that she does take psychiatric medications, but has run the list through her PCP and psychiatrist and both agree that her medications are not causing constipation. Patient also complaining of generalize malaise. Related Data Home Medications Medication Instructions Recorded Confirmed escitalopram oxalate 5 mg tablet 5 mg PO DAILY 04/10/20 07/14/22 (Lexapro) lurasidone 20 mg tablet (Latuda) 20 mg PO DAILY 04/10/20 07/14/22 metformin 500 mg tablet 500 mg PO BID 04/10/20 07/14/22 albuterol sulfate 90 mcg/actuation 2 puff PO Q4-6H PRN 01/28/21 07/14/22 aerosol inhaler (ProAir HFA) cholecalciferol (vitamin D3) 25 25 mcg PO DAILY 01/28/21 07/14/22 mcg (1,000 unit) tablet dulaglutide 0.75 mg/0.5 mL mg subcut QWEEK 01/28/21 07/14/22 subcutaneous pen injector (Trulicity) hydroxyzine pamoate 25 mg capsule 25 mg PO BID PRN 01/28/21 07/14/22 losartan 25 mg tablet 25 mg PO DAILY 01/28/21 07/14/22 zolpidem 5 mg tablet 5 mg PO BEDTIME PRN 01/28/21 07/14/22 Previous Rx's Medication Instructions Recorded [id number]-[id number]-[id number] 1 cap PO Q6H PRN Headache #20 caps 11/10/20 50 mg-300 mg-40 mg capsule (Fioricet) metronidazole 0.75 % (37.5 mg/5 1 appful vaginal BEDTIME 5 days 07/15/22 gram) vaginal gel #70 grams omeprazole 20 mg capsule,delayed 20 mg PO DAILY #30 caps 01/23/23 release ondansetron 4 mg disintegrating 4 mg PO Q8H PRN nausea and 01/23/23 tablet vomiting #20 tabs lactulose 10 gram/15 mL oral 10 g (15 mL) PO DAILY PRN laxative 02/21/23 solution effect #237 mL sodium phosphates 19 gram-7 118 ml [place] DAILY PRN constipation 02/21/23 gram/118 mL enema (Fleet Enema) #133 mL Allergies Allergy/AdvReac Type Severity Reaction Status Date / Time Iodinated Contrast Media Allergy Mild NAUSEA & Verified 07/14/22 10:36 [IV CONTRAST] VOMITING Review of Systems Review of Systems Constitutional : No Weight loss, No Fever, No Chills, No Night Sweats, complaining of generalized malaise ENT/Mouth : No Hearing loss, No Ear Pain, No Nasal Congestion, No Sinus Pain, No Hoarseness, No sore throat, No Rhinorrhea, No Swallowing Difficulty Eyes: No Eye Pain, No Swelling, No Redness, No Foreign Body, No Discharge, No Vision Changes Cardiovascular : No Chest Pain, No SOB, No Dyspnea on Exertion, No Orthopnea, No Edema, No Palpitations Respiratory : No Cough, No Sputum, No Wheezing, No Smoke Exposure, No Dyspnea Gastrointestinal : No Nausea, No Vomiting, No Diarrhea, complaining of Constipation, No abdominal Pain, No Hematochezia, No Melena Genitourinary : no irregular bleeding, No Dysuria, No Urinary Frequency, No Hematuria, No Urinary Incontinence, No Urgency, No Flank Pain, No Urinary Flow Changes, No Hesitancy Musculoskeletal : No joint pain, No Myalgias, No Joint Swelling Skin : No Skin Lesions, No rash Neuro : No Weakness, No Numbness, No Paresthesias, No Loss of Consciousness, No Dizziness, No Headache Psych : No Anxiety/Panic, No Depression, No SI/HI/AH/VH, No Social Issues, Heme/Lymph: No Bruising, No Bleeding,No Lymphadenopathy Endocrine : No Polyuria, No Polydipsia, No Temperature Intolerance PMFSH Past Medical History Medical History Prolapsed hemorrhoids Fibromyalgia High blood pressure Diabetes Surgical History Hx of section Hx of hernia repair Family History Family History Father Diabetes Mother HTN (hypertension) Social History Social History Alcohol intake: never Patient Tobacco Use Status: Never used Tobacco Smoked in Last 30 Days: No Use of substances other than those prescribed or required for medical reasons: No Advance Directives: No Advance Directives Information Provided: Yes Gender identity: Female Physical Exam ED Vital Signs: Vital Signs - 24 hr 02/20/23 22:36 02/21/23 04:27 Temperature 98.5 F 98.5 F Pulse Rate 95 95 Respiratory Rate 18 18 Blood Pressure 124/67 124/67 Pulse Oximetry 99 99 Oxygen Delivery Method Room Air Room Air BMI result Body Mass Index 31.1 Const Other: Appearance: Alert. Oriented X3. No acute distress. Eyes: Pupils equal, round and reactive to light. ENT: Pharynx normal. Neck: Normal inspection. Neck supple. No lymph nodes noted. No crepitus CVS: Normal heart rate and rhythm. Pulses normal. Normal S1 and S2 Respiratory: No respiratory distress. Breath sounds normal. No Wheezing. No rales Abdomen: Soft and nontender. No rigidity. No distention. Skin: Skin warm and dry. Normal skin color. Normal skin turgor. Extremities: No lower extremity edema. No Lacerations. No Rash Neuro: Oriented X 3. No motor deficit. No sensory deficit. Moving all extremities. No slurred speech. CN 2 through 12 grossly intact Psych: calm, cooperative, normal affect Medical Decision Making Medical Decision Making [facility] Narrative: -my interpretation of labs: Hematology and chemistry at baseline, patient tested positive for COVID-19. Differential Diagnosis Differential Diagnoses: The differential diagnosis associated with the presentation includes (Chronic constipation, COVID) Lab Data [facility] Lab Attestation statement: I reviewed the patient's lab results. 02/20/23 23:29 02/20/23 23:29 Labs: Lab Results 02/20/23 Range/Units 23:29 WBC 8.1 (4.8-10.8) X10*3/uL RBC 4.28 (4.20-5.50) X10*6/uL Hgb 11.2 L (12.0-16.0) g/dl Hct 34.6 L (37.0-47.0) % MCV 80.8 (80.0-98.0) fL MCH 26.2 L (27.0-33.0) pg MCHC 32.4 (31.0-35.0) g/dl RDW 14.0 (11.0-16.0) % Plt Count 420 H (160-400) X10*3/uL MPV 9.1 L (9.4-12.3) fL Immature Gran % (Auto) 0.2 (0.0-0.4) % Neut % (Auto) 69.3 (45-73) % Lymph % (Auto) 20.8 (20-40) % [place] % (Auto) 5.1 (2-11) % Eos % (Auto) 4.0 (0-4) % Baso % (Auto) 0.6 (0-2) % Lymph # (Auto) 1.7 (1.2-4.9) X10*3/uL [place] # (Auto) 0.4 (0.1-1.2) X10*3/uL Eos # (Auto) 0.3 (0.0-0.4) X10*3/uL Baso # (Auto) 0.1 (0.0-0.2) X10*3/uL Abs Immat Gran (auto) 0.02 (0.00-0.03) X10*3/uL Absolute Neuts (auto) 5.6 (2.0-8.3) x10*3/uL Absolute Nucleated RBC 0.000 (0.0-0.012) X10*3/uL Nucleated RBC % (auto) 0.0 (0.0-0.2) /100WBC Sodium 139 (135-145) mmol/L Potassium 3.6 (3.3-5.1) mmol/L Chloride 104 (96-108) mmol/L Carbon Dioxide 26 (22-29) mmol/L Anion Gap 13 (12-20) BUN 11 (9-16) mg/dL Creatinine 0.69 (0.5-1.4) mg/dL Estim Creat Clear Calc 121.2 Estimated GFR > 60 Random Glucose 121 H (60-115) mg/dL Calcium 9.1 (8.4-10.2) mg/dL Total Bilirubin 0.2 (0.0-1.0) mg/dL AST 10 (5-31) U/L ALT 7 (0-31) U/L Alkaline Phosphatase 69 (39-117) U/L Total Protein 7.3 (6.5-8.0) g/dL Albumin 4.0 (3.5-5.0) g/dL Urine Color Yellow Urine Appearance Clear Urine pH 6.5 (5.0-9.0) Ur Specific [place] 1.025 (1.005-1.025) Urine Protein Trace (Neg-Trace) mg/dL Urine Glucose (UA) Negative (Negative) mg/dL Urine Ketones Negative (Negative) mg/dL Urine Blood Moderate (2+) H (Negative) Urine Nitrite Negative (Negative) Ur Leukocyte Esterase Negative (Negative) Urine RBC >20 H (0-2) /HPF Urine WBC 0-5 (0-5) /HPF Ur Squamous Epith Cells 6-10 (0-2) /HPF Urine Bacteria Trace (None Seen) Hyaline Casts 0-2 (0-2) /LPF Urine Test NEGATIVE (NEGATIVE) Influenza Type A (PCR) NEGATIVE (Negative) Influenza Type B (PCR) NEGATIVE (Negative) RSV RNA Qual (PCR) NEGATIVE (Negative) SARS-CoV-2 RNA (RT-PCR) POSITIVE A (Negative) Discharge Plan Discharge Clinical Impression: Constipation, COVID-19 Patient Disposition: Home, Self-Care Instructions: Constipation (ED) Additional Instructions: Please follow-up with your primary care physician tomorrow. If you have any worsening or new symptoms, please return to the emergency room or call 911 Prescriptions: [place] Enema 19-7 gram/118 mL enema 118 ml [place] DAILY PRN (Reason: constipation) Qty: 133 2RF lactulose 10 gram/15 mL solution 10 g PO DAILY PRN (Reason: laxative effect) Qty: 237 0RF No Action metronidazole 0.75 % (37.5mg/5 gram) gel 1 appful vaginal BEDTIME 5 Days Qty: 70 0RF evfoqrqpgq-ypdtqvlewlaku-svrz [Fioricet] 50-300-40 mg capsule 1 cap PO Q6H PRN (Reason: Headache) Qty: 20 0RF ondansetron 4 mg tablet,disintegrating 4 mg PO Q8H PRN (Reason: nausea and vomiting) Qty: 20 0RF omeprazole 20 mg capsule,delayed release(DR/EC) 20 mg PO DAILY Qty: 30 0RF metformin 500 mg tablet 500 mg PO BID Latuda 20 mg tablet 20 mg PO DAILY Rx Instructions: must administer with food (at least 350 calories) escitalopram oxalate [Lexapro] 5 mg tablet 5 mg PO DAILY albuterol sulfate [ProAir HFA] 90 mcg/actuation HFA aerosol inhaler 2 puff PO Q4-6H PRN zolpidem 5 mg tablet 5 mg PO BEDTIME PRN losartan 25 mg tablet 25 mg PO DAILY Trulicity 0.75 mg/0.5 mL pen injector subcut QWEEK hydroxyzine pamoate 25 mg capsule 25 mg PO BID PRN cholecalciferol (vitamin D3) 25 mcg (1,000 unit) tablet 25 mcg PO DAILY Referrals: Mykel Bonner MD [Physician] - 02/24/23 (Chronic constipation)
== END 2023-02-21 06:45 | disposition home or self-care (01) ==
PROVIDERS: Emergency Provider Emergency Medicine
DX: U07.1 COVID-19 (principal); R11.2 Nausea with vomiting, unspecified; K59.00 Constipation, unspecified; Z79.899 Other long term (current) drug therapy
CPT/HCPCS: 0241U; 36415; 80053; 81001; 81025; 85025; 99283; 99284

== ENCOUNTER 2023-04-10 10:47 | Outpatient (AMB) | payer MEDICAID, SELFPAY ==
--- NOTE | 2023-04-10 10:49 | A.OFFVIS_ITS ---
Intake Vital Signs 04/10/23 10:57 Height 5 ft 5 in Weight 190 lb 11.198 oz BMI 31.7 BP 122/80 Blood Pressure Location Rt brachial Position Sitting Pulse 91 Pulse Source Pulse Oximeter Temp 97 F Temp Source Skin Pulse Oximetry (%) 99 Oxygen Delivery Method Room Air Intake Visit Reasons: fibromyalgia. Intake Note: Patient last seen 04/10/22 by Odette Jerez presents today for 1 yr follow up. c/o emily knee pain x 2-3 wks [employer] Required: Yes [employer] Estimator Name: [id number] Information Interpreted: clinical only Accompanied by: Self / Same As Patient Allergies Iodinated Contrast Media [IV CONTRAST] Allergy (Mild, Verified 04/10/23 10:57) NAUSEA & VOMITING HPI HPI Comments History of Present Illness Details 66yoF presents for follow-up of Fibromya lgia. Last visit was in March 2022. Her main concern today is her right knee. She reports she has been feeling some discomfort when she walks. This started two weeks ago when she wast at a concern and she got to walk and stumbled when it felt like her knees buckled. She wants to know if this is related to the fibromyalgia. Otherwise, the patient states that overall she has been feeling well. She reports chronic pain in her trapezius muscles, otherwise her fibromyalgia symptoms are stable. She has previously tried amitriptyline and gabapentin but did not find these medications helpful. She reports continued sleep disruption. She continues on Lexapro and Latuda, also takes hydroxyzine. Follows with psychiatry. She is using zolpidem to sleep at night. She denies any history of iritis, uveitis, inflammatory bowel, oral ulcer or Raynaud's. Denies history of miscarriage. [facility] Medical History (Updated 04/10/23 @ 11:26 by ARMIN Saleh-PATRICIO) Right knee pain Prolapsed hemorrhoids Fibromyalgia High blood pressure Diabetes Surgical History Hx of section Hx of hernia repair Family History Father Diabetes Mother HTN (hypertension) Social History Alcohol intake: never Patient Tobacco Use Status: Never used Tobacco Gender identity: Female Review of Systems Const All systems reviewed & are unremarkable except as noted in HPI and below Physical Exam APPEARANCE: Patient in no acute distress EYES: no redness, pupils equal and reactive to light, eyelids normal EARS: External ear normal, canal clear and tympanic membrane normal. NOSE/SINUS: Airflow through both nares, no nasal discharge, no bleeding THROAT: Oral mucosa moist, no ulcerations NECK: No thyromegaly or masses, no adenopathy, trachea midline. HEART: Regular rhythm, S1-S2 heard, no murmurs, rubs or gallops. LUNG: Clear to auscultation, respiratory rate regular nonlabored. ABD: Normal bowel sounds, abdomen soft, no tenderness. EXTREMITIES: No edema, no calf tenderness, normal peripheral pulses. NEURO: Oriented and alert x3. No focal weakness. Gait normal. SKIN: No inflammatory or neoplastic lesions. Normal color and turgor JOINT EXAM:?? Cervical Spine: Full range of motion without pain; no tenderness. Thoracic Spine: No scoliosis.? No tenderness on palpation. Lumbar Spine: Alignment normal.? Full range of motion without pain, no tenderness. Hands:? Normal pain-free range of motion without tenderness, swelling, increased warmth or erythema. Able to make a full fist and has a good finance director strength. Wrists:? Normal pain-free range of motion without tenderness, swelling, increased warmth or erythema. Elbows: Normal pain-free range of motion without tenderness, swelling, increased warmth or erythema. Widespread diffuse tenderness to palpation down both forearms. Shoulders:? Full range of motion without pain. No tenderness, weakness, swelling, increased warmth or erythema. Widespread diffuse tenderness to palpation over bilateral trapezius muscles and over bilateral upper arms. Hips: Full range of motion without pain. Hip bursa:? No tenderness. Knees:? Left: Normal pain-free range of motion without tenderness, swelling, increased warmth or erythema.? Right: mild tenderness to palpation at joint lines: There is no effusion or crepitation, swelling, increased warmth or erythema. Ankles: Normal pain-free range of motion without tenderness, swelling, increased warmth or erythema. Feet:? Normal pain-free range of motion without tenderness, swelling, increased warmth or erythema. Tender points: Tenderness to digital palpation at the occiput, trapezius, second rib, lateral epicondyle. Results Reviewed Results Reviewed: Laboratory Tests 02/20/23 23:29 WBC 8.1 RBC 4.28 Hgb 11.2 L Hct 34.6 L Plt Count 420 H AST 10 ALT 7 Assessment & Plan Assessment & Plan (1) Fibromyalgia: Code(s): M79.7 - Fibromyalgia Plan: (2) Right knee pain: Code(s): M25.561 - Pain in right knee Qualifiers: Chronicity: acute Qualified Code(s): M25.561 - Pain in right knee Plan #Right Knee pain: Pain is not constant per patient but feels dull discomfort with use. This is less than 6 weeks, If persists in 1 month, will refer to ortho. Will obtain Xray and give Voltaren. Previous serology with negative rheumatoid factor, negative CCP and negative NENO. There is no evidence active synovitis on exam to. Patient with widespread diffuse tenderness to palpation over muscles and multiple fibromyalgia tender points on exam. Patient understands management and process of fibromyalgia. It is a noninflammatory, non-autoimmune central afferent processing disorder leading to a diffuse pain syndrome. Reinforced that patient would benefit from increased physical activity, either through formal physical therapy or by joining a gym. Advised patient that she should start activity slowly and increase as tolerated. She will continue on current medications. Will also check inflammatory markers. Patient is on multiple mental health medications, will defer management of fibromyalgia to patient's PCP/mental health team. Follow-up 1 year or sooner if needed. 20 minutes spent reviewing chart, evaluating patient using medical support assistant and documenting. Orders: Orders XR knee RT 3V Today M25.561 - Pain in right knee C Reactive Protein Today M25.561 - Pain in right knee Erythrocyte Sedimentation Rate Today M25.561 - Pain in right knee Medications: New diclofenac sodium 1% (Voltaren Arthritis Pain) apply to single knee, ankle, foot; for foot includes sole/toes/top of foot 4 grams topical QID 100 grams 1RF M25.561 - Pain in right knee Coding Level of Care Code Est Pt Level 3 (97211) Diagnoses Fibromyalgia M79.7 Acute pain of right knee M25.561 Chronicity: acute
[2023-04-10 10:57] VITALS: BP 122/80; PULSE 91; TEMP 36.1; O2SAT 99; BMI 31.7
== END 2023-04-10 11:16 | disposition home or self-care (01) ==
PROVIDERS: PCP Family Medicine; Visit Provider Nurse Practitioner Family
DX: M79.7 Fibromyalgia (principal); M25.561 Pain in right knee
CPT/HCPCS: 99213

== ENCOUNTER → 2023-04-10 10:47 | Outpatient (BNVA) | payer MEDICAID, SELFPAY | PROVIDERS: PCP Family Medicine; Visit Provider Nurse Practitioner Family | DX: M79.7 Fibromyalgia (principal); M25.561 Pain in right knee | CPT/HCPCS: 99212 ==

== ENCOUNTER 2023-04-14 09:56 | Outpatient (REF) | payer MEDICAID, SELFPAY ==
--- NOTE | ~2023-04-14 | XR_ITS ---
EXAMINATION: XR KNEE, RIGHT CLINICAL INFORMATION: Pain in right knee. COMPARISON: None available. TECHNIQUE: Four views of the right knee. FINDINGS: No effusion. Small quadriceps enthesophyte. Small sclerotic focus at the distal femoral metaphysis, possibly a bone island. Mild medial joint space narrowing. Tiny medial marginal and posterior patellar osteophyte. XR/XR knee RT 3V IMPRESSION: Mild degenerative changes.
[2023-04-14 11:29] LABS: Hematocrit 38.5 % (37.0-47.0); Hemoglobin 12.3 g/dl (12.0-16.0); Mean Corpuscular HGB Conc 31.9 g/dl (31.0-35.0); Mean Corpuscular Hemoglobin 26.3 pg (27.0-33.0); Mean Corpuscular Volume 82.3 fL (80.0-98.0); Mean Platelet Volume 11.6 fL (9.4-12.3); Platelet Count 282 X10*3/uL (160-400); Red Blood Count 4.68 X10*6/uL (4.20-5.50); Red Cell Distribution Width 14.4 % (11.0-16.0); White Blood Count 7.2 X10*3/uL (4.8-10.8)
[2023-04-14 11:40] LABS: Estimated Average Glucose 97 mg/dL
[2023-04-14 12:06] LABS: Alanine Aminotransferase 12 U/L (0-31); Albumin Level 4.2 g/dL (3.5-5.0); Alkaline Phosphatase 75 U/L (39-117); Anion Gap 13 (12-20); Aspartate Amino Transferase 15 U/L (5-31); Bilirubin Total 0.4 mg/dL (0.0-1.0); Blood Urea Nitrogen 8 mg/dL (9-16); Calcium 9.4 mg/dL (8.4-10.2); Carbon Dioxide 24 mmol/L (22-29); Chloride 107 mmol/L (96-108); Cholesterol 225 mg/dL (<200); Estimated Glomerular Filt Rate > 60; Glucose Random 93 mg/dL (60-115); HDL Cholesterol 60 mg/dL (>40); LDL Cholesterol Calculated 147 mg/dL (<100); Potassium 3.7 mmol/L (3.3-5.1); Sodium 140 mmol/L (135-145); TSH reflex Free T4 1.28 uIU/mL (0.32-4.0); Total Protein 7.8 g/dL (6.5-8.0); Triglycerides 92 mg/dL (<150)
[2023-04-14 12:12] LABS: HBS Num1 68.83 mIU/mL (0-7.99); HBc Num1 0.06 S/CO (0.00-0.79); ~Hepatitis B Surface Antibody REACTIVE (Nonreactive)
[2023-04-14 12:13] LABS: HBsAGNum1 0.35 S/CO (0.00-0.99); HIV AB/AG Nonreactive (Nonreactive); HIV Num 1 0.06 S/CO (0.00-0.99); Hepatitis B Core Antibody Nonreactive (Nonreactive); Hepatitis B Surface Antigen Negative (Negative); ~Hepatitis C Antibody Nonreactive (Nonreactive)
[2023-04-14 12:16] LABS: C Reactive Protein 1.18 mg/dL (< or = 0.50)
[2023-04-14 12:27] LABS: Syphilis Screen Reactive (Nonreactive)
[2023-04-14 12:28] LABS: Creatinine Urine 225.07 mg/dL; Microalbum/Creatinine Ratio Ur 23.9 ug/mg cr (<30)
[2023-04-14 12:35] LABS: Folate 8.3 ng/mL (> or = 4.0); Vitamin B12 417 pg/mL (200-900)
[2023-04-14 13:23] LABS: Erythrocyte Sedimentation Rate 16 MM/HR (0-20)
[2023-04-14 13:41] LABS: CT PCR NOT DETECTED (Not Detect.); NG PCR NOT DETECTED (Not Detect.)
[2023-04-17 21:04] LABS: TS Negative Control Passed; TS Panel A 3; TS Panel B 3; TS Positive Control Passed; TSpotTB Negative (Negative)
[2023-04-19 15:34] LABS: RPR Quantitative Non-Reactive (Nonreactive)
[2023-04-19 15:35] LABS: T.Pallidum Particle Agg Test Reactive (Nonreactive)
== END 2023-04-14 09:57 | disposition home or self-care (01) ==
LOC: HO.HHCL 09:56
PROVIDERS: Absent Provider Nurse Practitioner Family; PCP Student in an Organized Health Care Education/Training Program; Visit Provider Student in an Organized Health Care Education/Training Program
DX: Z00.00 Encounter for general adult medical examination without abnormal findings (principal); M25.561 Pain in right knee; M79.7 Fibromyalgia; Z11.1 Encounter for screening for respiratory tuberculosis
CPT/HCPCS: 0353U; 36415; 73562; 80053; 80061; 82043; 82306; 82570; 82607; 82746; 83036; 84443; 85027; 85652; 86140; 86481; 86592; 86704; 86706; 86780; 86803; 87340; 87389

== ENCOUNTER 2023-04-25 06:39 | Emergency (ER) | payer MEDICAID, SELFPAY ==
[2023-04-25 06:42] VITALS: BP 148/85; PULSE 86; RESP 14; TEMP 35.7; O2SAT 100; BMI 31.9
--- NOTE | 2023-04-25 07:12 | ED.HA ---
HPI - Headache General Chief Complaint: Headache Stated Complaint: ?High blood pressure/Headache Time Seen by Provider: 04/25/23 07:02 History of Present Illness HPI Narrative: 37 years old history of hypertension presents today with having headaches that is mainly frontal in nature. Associated with some mild nausea. Patient does not think she is there is no coughing there has no fever no chills. There has no focal weakness. There was no trauma. Not on blood thinners. Has a history of migraine in the past. No chest pain or shortness of breath no diaphoresis. No abdominal pain. Symptoms been ongoing for 2 days. Been taking her blood pressure medication on and off. Related Data Home Medications Medication Instructions Recorded Confirmed escitalopram oxalate 5 mg tablet 5 mg PO DAILY 04/10/20 07/14/22 (Lexapro) lurasidone 20 mg tablet (Latuda) 20 mg PO DAILY 04/10/20 07/14/22 metformin 500 mg tablet 500 mg PO BID 04/10/20 07/14/22 albuterol sulfate 90 mcg/actuation 2 puff PO Q4-6H PRN 01/28/21 07/14/22 aerosol inhaler (ProAir HFA) cholecalciferol (vitamin D3) 25 25 mcg PO DAILY 01/28/21 07/14/22 mcg (1,000 unit) tablet dulaglutide 0.75 mg/0.5 mL mg subcut QWEEK 01/28/21 07/14/22 subcutaneous pen injector (Trulicity) hydroxyzine pamoate 25 mg capsule 25 mg PO BID PRN 01/28/21 07/14/22 losartan 25 mg tablet 25 mg PO DAILY 01/28/21 07/14/22 zolpidem 5 mg tablet 5 mg PO BEDTIME PRN 01/28/21 07/14/22 Previous Rx's Medication Instructions Recorded xjoxgfzzom-wweauuudgnlgk-ywgfkist 1 cap PO Q6H PRN Headache #20 caps 11/10/20 50 mg-300 mg-40 mg capsule (Fioricet) metronidazole 0.75 % (37.5 mg/5 1 appful vaginal BEDTIME 5 days 07/15/22 gram) vaginal gel #70 grams omeprazole 20 mg capsule,delayed 20 mg PO DAILY #30 caps 01/23/23 release ondansetron 4 mg disintegrating 4 mg PO Q8H PRN nausea and 01/23/23 tablet vomiting #20 tabs lactulose 10 gram/15 mL oral 10 g (15 mL) PO DAILY PRN laxative 02/21/23 solution effect #237 mL sodium phosphates 19 gram-7 118 ml [place] DAILY PRN constipation 02/21/23 gram/118 mL enema (Fleet Enema) #133 mL diclofenac sodium 1 % topical gel 4 g topical QID #100 grams 04/10/23 (Voltaren Arthritis Pain) ibuprofen 400 mg tablet 400 mg PO Q6H PRN pain #20 tabs 04/25/23 ondansetron 4 mg disintegrating 4 mg PO TID PRN nausea and 04/25/23 tablet vomiting 5 days #10 tabs Allergies Allergy/AdvReac Type Severity Reaction Status Date / Time Iodinated Contrast Media Allergy Mild NAUSEA & Verified 04/25/23 06:42 [IV CONTRAST] VOMITING Review of Systems Review of Systems: Positive headache Yes all other systems are reviewed and are negative PMFSH Past Medical History Attestation statement: The following information was validated with the patient. Medical History Right knee pain Prolapsed hemorrhoids Fibromyalgia High blood pressure Diabetes Surgical History Hx of section Hx of hernia repair Family History Family History Father Diabetes Mother HTN (hypertension) Social History Social History Alcohol intake: never Patient Tobacco Use Status: Never used Tobacco Advance Directives: No Advance Directives Information Provided: No Gender identity: Female Physical Exam Vital Signs: Vital Signs: Last Vital Signs Temp 96.2 F L 04/25/23 06:42 Pulse 86 04/25/23 06:42 Resp 14 04/25/23 06:42 BP 148/85 H 04/25/23 06:42 Pulse Ox 100 04/25/23 06:42 O2 Del Method Room Air 04/25/23 06:42 BMI result Body Mass Index 31.9 Appearance: Alert. Oriented X3. No acute distress. Eyes: Pupils equal, round and reactive to light. ENT: Pharynx normal. Neck: Normal inspection. Neck supple. No lymph nodes noted. No crepitus CVS: Normal heart rate and rhythm. Pulses normal. Normal S1 and S2 Respiratory: No respiratory distress. Breath sounds normal. No Wheezing. No rales Abdomen: Soft and nontender. No rigidity. No distention. good BS x4 Skin: Skin warm and dry. Normal skin color. Normal skin turgor. Extremities: No lower extremity edema. Neurovascular intact to all extremities. No Lacerations. No Rash Neuro: Oriented X 3. No motor deficit. No sensory deficit. Moving all extermities. No slurred speech Medications Administered Discontinued Medications Generic Name Dose Route Start Last Admin Trade Name Freq PRN Reason Stop Dose Admin Diphenhydramine HCl 50 mg 04/25/23 07:09 04/25/23 07:34 Diphenhydramine Hcl 50 Mg/Ml Vial IVPUSH 04/25/23 07:10 50 mg ONCE ONE Administration Sodium Chloride 1,000 mls @ 999 mls/hr 04/25/23 07:15 04/25/23 07:34 Ns IV 04/25/23 08:15 999 mls/hr .Q1H1M VALERY Administration Ketorolac Tromethamine 30 mg 04/25/23 07:09 04/25/23 07:34 Ketorolac Tromethamine 30 Mg/Ml Vial IVPUSH 04/25/23 07:10 30 mg ONCE ONE Administration Metoclopramide HCl 10 mg 04/25/23 07:08 04/25/23 07:34 Metoclopramide Hcl 10 Mg/2 Ml Vial IVPUSH 04/25/23 07:09 10 mg ONCE ONE Administration Medical Decision Making Medical Decision Making [facility] Narrative: Patient well-appearing neurologically intact there is no fever no signs of meningitis. Neurologically intact. Headache consistent with having migraine. History not consistent with having intracranial bleeding. Will discharge patient home. After treatment with Reglan Toradol IV fluids and Benadryl symptom resolved. Patient in no distress. test negative. COVID test negative. RSV flu negative. In stable condition Differential Diagnosis Differential Diagnoses: The differential diagnosis associated with the presentation includes Migraine headache, intracranial bleed, intracranial mass, meningitis Admission/Observation Consideration of admission/observation: Escalation of care including admission/observation considered Lab Data [facility] Lab Attestation statement: I reviewed the patient's lab results. 04/25/23 07:22 04/25/23 07:22 Labs: Lab Results 04/25/23 Range/Units 07:22 WBC 8.3 (4.8-10.8) X10*3/uL RBC 4.56 (4.20-5.50) X10*6/uL Hgb 12.3 (12.0-16.0) g/dl Hct 37.6 (37.0-47.0) % MCV 82.5 (80.0-98.0) fL MCH 27.0 (27.0-33.0) pg MCHC 32.7 (31.0-35.0) g/dl RDW 14.5 (11.0-16.0) % Plt Count 464 H D (160-400) X10*3/uL MPV 9.3 L (9.4-12.3) fL Immature Gran % (Auto) 0.2 (0.0-0.4) % Neut % (Auto) 61.1 (45-73) % Lymph % (Auto) 28.5 (20-40) % Bath % (Auto) 6.0 (2-11) % Eos % (Auto) 3.4 (0-4) % Baso % (Auto) 0.8 (0-2) % Lymph # (Auto) 2.4 (1.2-4.9) X10*3/uL Bath # (Auto) 0.5 (0.1-1.2) X10*3/uL Eos # (Auto) 0.3 (0.0-0.4) X10*3/uL Baso # (Auto) 0.1 (0.0-0.2) X10*3/uL Abs Immat Gran (auto) 0.02 (0.00-0.03) X10*3/uL Absolute Neuts (auto) 5.1 (2.0-8.3) x10*3/uL Absolute Nucleated RBC 0.000 (0.0-0.012) X10*3/uL Nucleated RBC % (auto) 0.0 (0.0-0.2) /100WBC Sodium 136 (135-145) mmol/L Potassium 4.0 (3.3-5.1) mmol/L Chloride 107 (96-108) mmol/L Carbon Dioxide 22 (22-29) mmol/L Anion Gap 11 L (12-20) BUN 9 (9-16) mg/dL Creatinine 0.63 (0.5-1.4) mg/dL Estim Creat Clear Calc 134.4 Estimated GFR > 60 Random Glucose 116 H (60-115) mg/dL Calcium 9.2 (8.4-10.2) mg/dL Beta HCG, Quant < 2 mIU/mL Influenza Type A (PCR) NEGATIVE (Negative) Influenza Type B (PCR) NEGATIVE (Negative) RSV RNA Qual (PCR) NEGATIVE (Negative) SARS-CoV-2 RNA (RT-PCR) NEGATIVE (Negative) Prescription Management I considered prescription management with: Pain Medication Discharge Plan Discharge Clinical Impression: Migraine Patient Disposition: Home, Self-Care Instructions: Migraine Headache (ED) Prescriptions: New ibuprofen 400 mg tablet 400 mg PO Q6H PRN (Reason: pain) Qty: 20 0RF ondansetron 4 mg tablet,disintegrating 4 mg PO TID PRN (Reason: nausea and vomiting) 5 Days Qty: 10 0RF No Action metronidazole 0.75 % (37.5mg/5 gram) gel 1 appful vaginal BEDTIME 5 Days Qty: 70 0RF kdikfzxqnf-wmmejcwtvuebn-rvkg [Fioricet] 50-300-40 mg capsule 1 cap PO Q6H PRN (Reason: Headache) Qty: 20 0RF ondansetron 4 mg tablet,disintegrating 4 mg PO Q8H PRN (Reason: nausea and vomiting) Qty: 20 0RF omeprazole 20 mg capsule,delayed release(DR/EC) 20 mg PO DAILY Qty: 30 0RF Fleet Enema 19-7 gram/118 mL enema 118 ml [place] DAILY PRN (Reason: constipation) Qty: 133 2RF lactulose 10 gram/15 mL solution 10 g PO DAILY PRN (Reason: laxative effect) Qty: 237 0RF metformin 500 mg tablet 500 mg PO BID Latuda 20 mg tablet 20 mg PO DAILY Rx Instructions: must administer with food (at least 350 calories) escitalopram oxalate [Lexapro] 5 mg tablet 5 mg PO DAILY albuterol sulfate [ProAir HFA] 90 mcg/actuation HFA aerosol inhaler 2 puff PO Q4-6H PRN zolpidem 5 mg tablet 5 mg PO BEDTIME PRN losartan 25 mg tablet 25 mg PO DAILY Trulicity 0.75 mg/0.5 mL pen injector subcut QWEEK hydroxyzine pamoate 25 mg capsule 25 mg PO BID PRN cholecalciferol (vitamin D3) 25 mcg (1,000 unit) tablet 25 mcg PO DAILY diclofenac sodium [Voltaren Arthritis Pain] 1 % gel 4 g topical QID Qty: 100 1RF Rx Instructions: apply to single knee, ankle, foot; for foot includes sole/toes/top of foot Referrals: Una Webb MD [Primary Care Provider] -
[2023-04-25 07:26] LABS: MANUAL DIFF FLAG NO
[2023-04-25 07:27] LABS: Basophils Absolute Auto 0.1 X10*3/uL (0.0-0.2); Basophils Percent Auto 0.8 % (0-2); Eosinophils Absolute Auto 0.3 X10*3/uL (0.0-0.4); Eosinophils Percent Auto 3.4 % (0-4); Hematocrit 37.6 % (37.0-47.0); Hemoglobin 12.3 g/dl (12.0-16.0); Imm Gran Abs Auto 0.02 X10*3/uL (0.00-0.03); Imm Gran Pct Auto 0.2 % (0.0-0.4); Lymphocytes Absolute Auto 2.4 X10*3/uL (1.2-4.9); Lymphocytes Percent Auto 28.5 % (20-40); Mean Corpuscular HGB Conc 32.7 g/dl (31.0-35.0); Mean Corpuscular Volume 82.5 fL (80.0-98.0); Mean Platelet Volume 9.3 fL (9.4-12.3); Monocytes Absolute Auto 0.5 X10*3/uL (0.1-1.2); Neutrophils Absolute Auto 5.1 x10*3/uL (2.0-8.3); Neutrophils Percent Auto 61.1 % (45-73); Platelet Count 464 X10*3/uL (160-400); Red Blood Count 4.56 X10*6/uL (4.20-5.50); Red Cell Distribution Width 14.5 % (11.0-16.0); White Blood Count 8.3 X10*3/uL (4.8-10.8)
[2023-04-25] MEDS: diphenhydrAMINE HCL 50 MG/ML VIAL IVPUSH (07:34)
[2023-04-25] MEDS: Metoclopramide HCl 10 MG/2 ML VIAL IVPUSH (07:34)
[2023-04-25] MEDS: 0.9 % Sodium Chloride 1,000 ML 999 ML IV (07:34)
[2023-04-25] MEDS: Ketorolac Tromethamine 30 MG/ML VIAL IVPUSH (07:34)
[2023-04-25 07:42] LABS: Anion Gap 11 (12-20); Blood Urea Nitrogen 9 mg/dL (9-16); Calcium 9.2 mg/dL (8.4-10.2); Carbon Dioxide 22 mmol/L (22-29); Chloride 107 mmol/L (96-108); Creatinine Clr Calc Pharmacy 134.4; Estimated Glomerular Filt Rate > 60; Glucose Random 116 mg/dL (60-115); Sodium 136 mmol/L (135-145)
--- NOTE | 2023-04-25 07:43 | PC.NURSE ---
patient reports two episodes of vomiting this morning, once prior to arrival and once while here. reports jello-like consistency. also complaining of a headache. IV established, labs drawn and sent. medicated per the APR w/ call da silva within reach.
[2023-04-25 07:49] LABS: HCG Quantitative < 2 mIU/mL
[2023-04-25 08:05] LABS: Influenza A PCR NEGATIVE (Negative); Influenza B PCR NEGATIVE (Negative); Resp Syncy Virus RNA Qual PCR NEGATIVE (Negative); SARS COV2 PCR INHOUSE NEGATIVE (Negative)
[2023-04-25 08:40] VITALS: BP 126/81; PULSE 78; RESP 16; TEMP 36.5; O2SAT 99
--- NOTE | 2023-04-25 08:43 | PC.NURSE ---
patient reports no vomiting since the medication. sleeping when this RN entered the room with discharge paperwork.
== END 2023-04-25 08:44 | disposition home or self-care (01) ==
PROVIDERS: Emergency Provider Emergency Medicine Emergency Medical Services; PCP Student in an Organized Health Care Education/Training Program
DX: G43.909 Migraine, unspecified, not intractable, without status migrainosus (principal); R11.0 Nausea; I10 Essential (primary) hypertension; E11.9 Type 2 diabetes mellitus without complications; Z79.899 Other long term (current) drug therapy; Z79.84 Long term (current) use of oral hypoglycemic drugs; Z79.85 Long-term (current) use of injectable non-insulin antidiabetic drugs; Z11.52 Encounter for screening for COVID-19; Z20.828 Contact with and (suspected) exposure to other viral communicable diseases
CPT/HCPCS: 0241U; 36415; 80048; 84702; 85025; 96361; 96374; 96375; 99284; 99285; J1200; J1885; J2765

== ENCOUNTER 2023-05-30 19:26 | Emergency (ER) | payer MEDICAID, SELFPAY ==
--- NOTE | ~2023-05-30 | CT_ITS ---
EXAMINATION: CT HEAD WITHOUT CONTRAST CLINICAL INFORMATION: Left facial numbness headache COMPARISON: None available. TECHNIQUE: Contiguous axial imaging was performed from the skull base to vertex without intravenous administration of contrast. This CT examination was performed using dose optimization techniques as appropriate, variously including the following: *Automated exposure control *Adjustment of mA and/or kV according to patient size (this includes techniques or standardized protocols for targeted exams where dose is matched to indication/reason for exam; i.e. extremities or head) *Use of iterative reconstruction technique DLP: 664 mGy-cm FINDINGS: There is no evidence of acute intracranial hemorrhage or territorial infarction. Hypodense focus in the right mid centrum semiovale measuring 3 mm (series 2, image 34) nonspecific though potentially representing a prominent Virchow Carter space. No abnormal mass effect or midline shift is seen. Navas to white matter differentiation is well preserved. No extra-axial fluid collections are identified. The ventricles are normal in size. There is no abnormal attenuation within the brain parenchyma. The osseous structures and soft tissues are normal. The mastoid air cells and visualized portions of the paranasal sinuses are well aerated. CT/CT head/brain wo IV con IMPRESSION: 1. No acute intracranial pathology. 2. Hypodense focus in the right centrum semiovale measuring 3 mm nonspecific though potentially representing a prominent Virchow Carter space.
[2023-05-30 20:25] VITALS: BP 148/84; PULSE 86; RESP 18; TEMP 36.1; O2SAT 99; BMI 31.9
--- NOTE | 2023-05-30 20:25 | ED.GENADULT ---
HPI - General Adult General Chief complaint: Headache Stated complaint: head pain/neck/shoulder/vomiting Related Data Home Medications ?Medication ?Instructions ?Recorded ?Confirmed escitalopram oxalate 5 mg tablet 5 mg PO DAILY 04/10/20 07/14/22 (Lexapro) lurasidone 20 mg tablet (Latuda) 20 mg PO DAILY 04/10/20 07/14/22 metformin 500 mg tablet 500 mg PO BID 04/10/20 07/14/22 albuterol sulfate 90 mcg/actuation 2 puff PO Q4-6H PRN 01/28/21 07/14/22 aerosol inhaler (ProAir HFA) cholecalciferol (vitamin D3) 25 25 mcg PO DAILY 01/28/21 07/14/22 mcg (1,000 unit) tablet dulaglutide 0.75 mg/0.5 mL mg subcut QWEEK 01/28/21 07/14/22 subcutaneous pen injector (Trulicity) hydroxyzine pamoate 25 mg capsule 25 mg PO BID PRN 01/28/21 07/14/22 losartan 25 mg tablet 25 mg PO DAILY 01/28/21 07/14/22 zolpidem 5 mg tablet 5 mg PO BEDTIME PRN 01/28/21 07/14/22 Previous Rx's ?Medication ?Instructions ?Recorded pjevwgdoyh-mhnqpmsoceyai-pojvjcmi 1 cap PO Q6H PRN Headache #20 caps 11/10/20 50 mg-300 mg-40 mg capsule (Fioricet) metronidazole 0.75 % (37.5 mg/5 1 appful vaginal BEDTIME 5 days 07/15/22 gram) vaginal gel #70 grams omeprazole 20 mg capsule,delayed 20 mg PO DAILY #30 caps 01/23/23 release ondansetron 4 mg disintegrating 4 mg PO Q8H PRN nausea and 01/23/23 tablet vomiting #20 tabs lactulose 10 gram/15 mL oral 10 g (15 mL) PO DAILY PRN laxative 02/21/23 solution effect #237 mL sodium phosphates 19 gram-7 118 ml [place] DAILY PRN constipation 02/21/23 gram/118 mL enema (Fleet Enema) #133 mL diclofenac sodium 1 % topical gel 4 g topical QID #100 grams 04/10/23 (Voltaren Arthritis Pain) ibuprofen 400 mg tablet 400 mg PO Q6H PRN pain #20 tabs 04/25/23 ondansetron 4 mg disintegrating 4 mg PO TID PRN nausea and 04/25/23 tablet vomiting 5 days #10 tabs Allergies Allergy/AdvReac Type Severity Reaction Status Date / Time Iodinated Contrast Media Allergy Mild NAUSEA & Verified 05/30/23 20:30 [IV CONTRAST] VOMITING PMFSH Past Medical History Medical History Right knee pain Prolapsed hemorrhoids Fibromyalgia High blood pressure Diabetes Surgical History Hx of section Hx of hernia repair Family History Family History Father Diabetes Mother HTN (hypertension) Social History Social History Alcohol intake: never Patient Tobacco Use Status: Never used Tobacco Advance Directives: No Advance Directives Information Provided: Yes Gender identity: Female Physical Exam ED Vital Signs: Vital Signs - 24 hr 05/30/23 20:25 05/30/23 22:22 Temperature 97 F 97.1 F Pulse Rate 86 83 Respiratory Rate 18 18 Blood Pressure 148/84 H 133/91 H Pulse Oximetry 99 99 Oxygen Delivery Method Room Air Room Air BMI result Body Mass Index 31.9 Course Course Course Narrative: This is a Rapid Medical Examination (RME) in triage, full HPI, ROS, assessment and plan per primary provider in the Main ED. 37 y/o female with history of migraines, HTN, diabetes presents today for evaluation of headaches, shoulder pain, malaise for 3 days. Yesterday had tingling and numbness of the left side of her face. Reports pain is strong today and more bothersome. Plan: CT head/brain w/o IV contrast Discharge Plan Discharge Clinical Impression: Headache Patient Disposition: Left W/O Completing Treatment Prescriptions: No Action metronidazole 0.75 % (37.5mg/5 gram) gel 1 appful vaginal BEDTIME 5 Days Qty: 70 0RF kmnwwqzszh-ihgrhfibivrjb-ttan [Fioricet] 50-300-40 mg capsule 1 cap PO Q6H PRN (Reason: Headache) Qty: 20 0RF ondansetron 4 mg tablet,disintegrating 4 mg PO Q8H PRN (Reason: nausea and vomiting) Qty: 20 0RF omeprazole 20 mg capsule,delayed release(DR/EC) 20 mg PO DAILY Qty: 30 0RF Fleet Enema 19-7 gram/118 mL enema 118 ml [place] DAILY PRN (Reason: constipation) Qty: 133 2RF lactulose 10 gram/15 mL solution 10 g PO DAILY PRN (Reason: laxative effect) Qty: 237 0RF ibuprofen 400 mg tablet 400 mg PO Q6H PRN (Reason: pain) Qty: 20 0RF ondansetron 4 mg tablet,disintegrating 4 mg PO TID PRN (Reason: nausea and vomiting) 5 Days Qty: 10 0RF metformin 500 mg tablet 500 mg PO BID Latuda 20 mg tablet 20 mg PO DAILY Rx Instructions: must administer with food (at least 350 calories) escitalopram oxalate [Lexapro] 5 mg tablet 5 mg PO DAILY albuterol sulfate [ProAir HFA] 90 mcg/actuation HFA aerosol inhaler 2 puff PO Q4-6H PRN zolpidem 5 mg tablet 5 mg PO BEDTIME PRN losartan 25 mg tablet 25 mg PO DAILY Trulicity 0.75 mg/0.5 mL pen injector subcut QWEEK hydroxyzine pamoate 25 mg capsule 25 mg PO BID PRN cholecalciferol (vitamin D3) 25 mcg (1,000 unit) tablet 25 mcg PO DAILY diclofenac sodium [Voltaren Arthritis Pain] 1 % gel 4 g topical QID Qty: 100 1RF Rx Instructions: apply to single knee, ankle, foot; for foot includes sole/toes/top of foot Discharge Date/Time: 05/31/23 00:57
[2023-05-30 22:22] VITALS: BP 133/91; PULSE 83; RESP 18; TEMP 36.2; O2SAT 99
== END 2023-05-31 00:57 | disposition left against medical advice (07) ==
PROVIDERS: Emergency Provider Emergency Medicine; PCP Student in an Organized Health Care Education/Training Program
DX: R51.9 Headache, unspecified (principal); R11.2 Nausea with vomiting, unspecified; M25.512 Pain in left shoulder; Z79.899 Other long term (current) drug therapy
CPT/HCPCS: 70450; 99281; 99284

== ENCOUNTER 2023-12-09 12:53 | Outpatient (AMB) | payer MEDICAID, SELFPAY ==
--- NOTE | 2023-12-09 13:08 | MHC.OFFVIS ---
Vital Signs 12/09/23 13:17 Height 5 ft 5 in Weight 194 lb 0.108 oz BMI 32.3 BP 125/84 Blood Pressure Location Lt brachial Position Sitting Pulse 100 Intake Visit Reasons: GERD, CIC Intake Note: Catalina presents in the office as a new patient for GERD and CIC. CC: She states that she is having acid reflux, constipation, and pains in the stomach. She states that she has inflammation in her stomach and her stomach will get very hard to the point that it hurts her and she feels that it is giving her a headache. She gets a hot sensation in her stomach. 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 Reports longtanding hx of retrosternal burning pain and bloating. Used to see a GI doc in [place]. Was last seen a year ago. USed to be on omeprazole but stopped after symptoms were controlled for a while. Now worse for the past few months. Also assoc with bloating. This is accompanied by severe constipation. Pain sometimes gets worse with defecation but not always related. No blood ins tool. No fam hx of crc. [facility] Medical History Right knee pain Prolapsed hemorrhoids Fibromyalgia High blood pressure Diabetes Surgical History Hx of colonoscopy Hx of section Hx of hernia repair Family History Father Diabetes Mother HTN (hypertension) Social History Alcohol intake: never Patient Tobacco Use Status: Never used Tobacco Gender identity: Female Review of Systems Const All systems reviewed & are unremarkable except as noted in HPI and below Physical Exam Vital Signs: Last Vital Signs Pulse 100 12/09/23 13:17 BP 125/84 12/09/23 13:17 BMI result Body Mass Index 32.3 No apparent distress Nonicteric Abdomen soft, nondistended Alert and oriented x3, normal gait Assessment & Plan Assessment & Plan (1) GERD (gastroesophageal reflux disease): Code(s): K21.9 - Gastro-esophageal reflux disease without esophagitis Category: Medical (2) Constipation: Code(s): K59.00 - Constipation, unspecified Category: Medical Plan 1. Discussed that sx likely gerd vs gastritis vs duodenitis vs PUD. Will reocmmend resuming omeprazole 20 Barium swallow Stay upright for at least 45-60 mins post meals 2. Constipation Some but not all criteria met for DGBI. Will check metabolic factors contributing to this. In the meantime, pt counseled to increase hydration Add fiber Take senna or miralax prn elevate legs while having BM Follow up after testing Orders: Orders Complete Blood Count no Diff 12/09/23 K59.00 - Constipation, unspecified TSH reflex Free T4 12/09/23 K59.00 - Constipation, unspecified Magnesium 12/09/23 K59.00 - Constipation, unspecified Calcium 12/09/23 K59.00 - Constipation, unspecified Comprehensive Met. Panel 12/09/23 K59.00 - Constipation, unspecified Transglutaminase IgA 12/09/23 K59.00 - Constipation, unspecified Immunoglobulin A 12/09/23 K59.00 - Constipation, unspecified [place] barium swallow 12/09/23 K21.9 - Gastro-esophageal reflux disease without esophagitis Medications: New omeprazole 20 mg PO DAILY 90 caps 0RF Coding Level of Care Code New Pt Level 4 (24248) Diagnoses GERD (gastroesophageal reflux disease) K21.9 Constipation K59.00
[2023-12-09 13:17] VITALS: BP 125/84; PULSE 100; BMI 32.3
== END 2023-12-09 14:39 | disposition home or self-care (01) ==
PROVIDERS: PCP Student in an Organized Health Care Education/Training Program; Visit Provider Internal Medicine
DX: K21.9 Gastro-esophageal reflux disease without esophagitis (principal); K59.00 Constipation, unspecified
CPT/HCPCS: 99204

== ENCOUNTER → 2023-12-09 12:53 | Outpatient (BNVA) | payer MEDICAID, SELFPAY | PROVIDERS: PCP Student in an Organized Health Care Education/Training Program; Visit Provider Internal Medicine | DX: K21.9 Gastro-esophageal reflux disease without esophagitis (principal); K59.04 Chronic idiopathic constipation | CPT/HCPCS: 99202 ==

== ENCOUNTER 2023-12-21 09:16 | Outpatient (REF) | payer MEDICAID, SELFPAY ==
[2023-12-21 11:32] LABS: Hematocrit 36.4 % (37.0-47.0); Hemoglobin 12.3 g/dl (12.0-16.0); Mean Corpuscular HGB Conc 33.8 g/dl (31.0-35.0); Mean Corpuscular Hemoglobin 28.3 pg (27.0-33.0); Mean Corpuscular Volume 83.9 fL (80.0-98.0); Mean Platelet Volume 9.3 fL (9.4-12.3); Platelet Count 458 X10*3/uL (160-400); Red Blood Count 4.34 X10*6/uL (4.20-5.50); Red Cell Distribution Width 13.9 % (11.0-16.0); White Blood Count 6.4 X10*3/uL (4.8-10.8)
[2023-12-21 11:43] LABS: Estimated Average Glucose 103 mg/dL; Hemoglobin A1C 103.5799 umol/L; Hemoglobin A1c % 5.2 % (<6.0); Total Hemoglobin (HGBA1C) 3069.4468 umol/L
[2023-12-21 11:58] LABS: Alanine Aminotransferase 10 U/L (0-31); Albumin Level 4.1 g/dL (3.5-5.0); Alkaline Phosphatase 75 U/L (39-117); Anion Gap 8 (12-20); Aspartate Amino Transferase 19 U/L (5-31); Bilirubin Total 0.3 mg/dL (0.0-1.0); Blood Urea Nitrogen 9 mg/dL (9-16); C Reactive Protein 0.83 mg/dL (< or = 0.50); Calcium 8.8 mg/dL (8.4-10.2); Carbon Dioxide 25 mmol/L (22-29); Chloride 107 mmol/L (96-108); Cholesterol 193 mg/dL (<200); Estimated Glomerular Filt Rate > 60; Glucose Random 86 mg/dL (60-115); HDL Cholesterol 49 mg/dL (>40); LDL Cholesterol Calculated 127 mg/dL (<100); Potassium 3.7 mmol/L (3.3-5.1); Sodium 136 mmol/L (135-145); Total Protein 7.3 g/dL (6.5-8.0); Triglycerides 87 mg/dL (<150)
[2023-12-21 12:07] LABS: Vitamin D 25-OH Total 26.2 ng/mL (>30)
[2023-12-21 12:11] LABS: Microalbum/Creatinine Ratio Ur 17.1 ug/mg cr (<30)
[2023-12-21 12:25] LABS: Folate 9.4 ng/mL (> or = 4.0); Vitamin B12 451 pg/mL (200-900)
[2023-12-21 12:29] LABS: TSH reflex Free T4 1.06 uIU/mL (0.32-4.0)
[2023-12-23 01:13] LABS: Immunoglobulin A 264 mg/dL (47-310)
[2023-12-23 21:14] LABS: Transglutaminase IgA <1.0 U/mL
== END 2023-12-21 09:17 | disposition home or self-care (01) ==
LOC: HO.HHCL 09:16
PROVIDERS: PCP Student in an Organized Health Care Education/Training Program; Referring Provider Nurse Practitioner Family; Visit Provider Internal Medicine
DX: Z00.00 Encounter for general adult medical examination without abnormal findings (principal); M25.561 Pain in right knee; K59.00 Constipation, unspecified; E11.9 Type 2 diabetes mellitus without complications
CPT/HCPCS: 36415; 80053; 80061; 82043; 82306; 82570; 82607; 82746; 82784; 83036; 83735; 84443; 85027; 86140; 86364

== ENCOUNTER 2024-01-06 07:24 | Outpatient (AMB) | payer MEDICAID, SELFPAY ==
--- NOTE | 2024-01-06 07:25 | A.OFFVIS_ITS ---
Vital Signs 01/06/24 07:30 Height 5 ft 5 in Weight 188 lb 7.924 oz BMI 31.4 BP 122/80 Blood Pressure Location Lt brachial Position Sitting Respiration 18 Pulse 104 H Pulse Source Pulse Oximeter Pulse Oximetry (%) 98 Oxygen Delivery Method Room Air Intake Visit Reasons: abnormal lab/CM Intake Note: Patient presents for abnormal lab. Peoplesoft Consultant Required: Yes Peoplesoft Consultant Language: Pipe Installer Services: Peoplesoft Consultant Present Peoplesoft Consultant Name: Jaya [id number] Information Interpreted: non-clinical & clinical Allergies Iodinated Contrast Media [IV CONTRAST] Allergy (Mild, Verified 01/06/24 07:29) NAUSEA & VOMITING Medication List - Last Reconciled 01/06/24 by Isela Martinez MD albuterol sulfate 90 mcg/actuation (ProAir HFA) 2 puffs PO Q4-6H PRN ihjbzqvfam-qlbjxsiqvwwat-dnae 50-300-40 mg (Fioricet) 1 cap PO Q6H PRN cetirizine 10 mg PO QAM cholecalciferol (vitamin D3) 25 mcg PO DAILY cholecalciferol (vitamin D3) 1,250 mcg PO QWEEK 90 days diclofenac sodium 1% 4 grams topical QID PRN ergocalciferol (vitamin D2) 1,250 mcg PO QWEEK escitalopram oxalate 10 mg PO BEDTIME esomeprazole magnesium 40 mg PO DAILY hydroxyzine pamoate 25 mg PO BID PRN losartan 25 mg PO DAILY lurasidone (Latuda) 20 mg PO DAILY magnesium oxide 400 mg PO DAILY metronidazole 0.75%(37.5mg/5gram) 1 appful vaginal BEDTIME 5 days omeprazole 20 mg PO DAILY ondansetron 4 mg PO TID PRN 5 days semaglutide (Ozempic) mg subcut sodium phosphates 19-7 gram/118 mL (Fleet Enema) 118 mL MD DAILY PRN topiramate 25 mg PO DAILY zolpidem 5 mg PO BEDTIME PRN HPI Comments Details: Patient is a 38-year-old female migraine headaches, hypertension, GERD and depression who presents for follow up of fibromyalgia Interval History: Last seen 04/10/2023 with Xiomara Tee. At that time patient was complaining of right knee pain. No injection was given at that time her other fibromyalgia symptoms were stable. Today patient reports pain involving her neck, upper back, lower back. Knee pain still persists Rheumatologic History: Patient referred for polyarthralgias and whole-body pain. Evaluation including history and physical exam consistent with fibromyalgia. She has trialed amitriptyline and gabapentin with no improvement in her pain Current Rheumatology Medication(s): [facility] Medical History Right knee pain Prolapsed hemorrhoids Fibromyalgia High blood pressure Diabetes Surgical History Hx of colonoscopy Hx of section Hx of hernia repair Family History Father Diabetes Mother HTN (hypertension) Social History Alcohol intake: never Patient Tobacco Use Status: Never used Tobacco Gender identity: Female Review of Systems Const Details: Review of Systems Constitutional: Denies fever, chills, weight loss ENT: Denies vision changes, eye pain or eye redness, dental caries, dry mouth GI: Denies nausea, vomiting, diarrhea, abdominal pain, change in BM Pulm: Denies SOB, VALENCIA, hemoptysis, wheezing Cards: Denies chest pain, palpitations Skin: Denies Raynaud's, rash, nail changes, photosensitivity, GROUP ART SUPERVISOR: Denies headaches, weakness, paresthesias, recurrent falls MSK: as per HPI All other systems reviewed and are unremarkable except noted above Physical Exam Vital Signs: Last Vital Signs Pulse 104 H 01/06/24 07:30 Resp 18 01/06/24 07:30 BP 122/80 01/06/24 07:30 Pulse Ox 98 01/06/24 07:30 Oxygen Delivery Method Room Air 01/06/24 07:30 BMI result Body Mass Index 31.4 Physical Examination CONSTITUITIONAL Patient alert and cooperative. Well appearing and in no apparent painful distress HEENT Conjunctiva and sclera clear. ?Pupils equal round and reactive to light. ?No lymphadenopathy. ?No oral or nasal ulcers noted. No evidence of discoid rash to the bekah of ears CHEST/RESPIRATORY SYSTEM Normal respiratory effort and able to speak in complete sentences. ?Clear to auscultation bilaterally. ?No crackles, rales, rhonchi, wheezes heard. CARDIAC SYSTEM Regular rate and rhythm. ?S1 and S2 heard no murmurs. ?Radial pulses intact bilaterally MSK Hands: ?Good lab support service tech strength bilaterally - 5/5. ?No deformities noted. ?No synovitis noted to the MCPs, PIPs or DIPs. ?No tenderness to palpation of these joints. Wrists: ?Full range of motion at the wrists without pain. ?No tenderness to palpation or synovitis noted to the wrists. Elbows: Full range of motion without pain. No tenderness, weakness, swelling, increased warmth or erythema. Shoulders: Full range of motion without pain. No tenderness, weakness, swelling, increased warmth or erythema. Hips: Full range of motion without pain. Hip bursa: Bilateral tenderness to palpation Knees: ?Full range of motion. ?No tenderness, swelling, increased warmth or erythema.?No effusion or crepitations Ankles: Full range of motion. ?No tenderness, swelling, increased warmth or erythema.? Feet: ?Negative squeeze test. ?No tenderness to palpation or swelling of the MTPs. Tender points:??Tenderness to palpation of the neck, shoulders, chest, elbows, hips, buttocks or knees. SKIN Skin intact without rashes. Results Reviewed Results Reviewed: Laboratory Tests 10/21/18 03/08/19 02/20/23 08:35 15:15 23:29 WBC RBC Hgb Hct Plt Count Sodium Potassium Chloride Carbon Dioxide BUN Creatinine AST ALT C-Reactive Protein TSH Urine Color Yellow Urine Appearance Clear Urine pH 6.5 Ur Specific Martell 1.025 Urine Protein Trace Urine Blood Moderate (2+) H Urine RBC >20 H Rheumatoid Factor < 15.0 Cycl Citrul Peptide IgG <16 NENO Screen Negative SS-A/Ro Antibody <1.0 SS-B/La Antibody <1.0 Complement C3 197 H Complement C4 57 12/21/23 09:20 WBC 6.4 RBC 4.34 Hgb 12.3 Hct 36.4 L Plt Count 458 H Sodium 136 Potassium 3.7 Chloride 107 Carbon Dioxide 25 BUN 9 Creatinine 0.62 AST 19 ALT 10 C-Reactive Protein 0.83 H TSH 1.06 Urine Color Urine Appearance Urine pH Ur Specific Martell Urine Protein Urine Blood Urine RBC Rheumatoid Factor Cycl Citrul Peptide IgG NENO Screen SS-A/Ro Antibody SS-B/La Antibody Complement C3 Complement C4 Assessment & Plan Assessment & Plan (1) Fibromyalgia: Code(s): M79.7 - Fibromyalgia Category: Medical Plan: #Fibromyalgia Patient with fibromyalgia. Had a long discussion with patient about lifestyle changes including stretches under warm shower. We will trial duloxetine. Patient also said that Flexeril helped so we will represcribe seen. Plan I spent 30 minutes reviewing the record and labs, seeing the patient, discussing the treatment plan and documenting in the medical record ? Orders: Orders Erythrocyte Sedimentation Rate Today M79.7 - Fibromyalgia Protein Creatinine Ratio, Ur Today M79.7 - Fibromyalgia Complete Blood Count Auto Diff Today M79.7 - Fibromyalgia Comprehensive Met. Panel Today M79.7 - Fibromyalgia C Reactive Protein Today M79.7 - Fibromyalgia UA w Microscopic Today M79.7 - Fibromyalgia Medications: New duloxetine (Cymbalta) 30 mg PO BID 180 caps 0RF M79.7 - Fibromyalgia cyclobenzaprine 5 mg PO BEDTIME PRN 90 tabs 0RF muscle spasm M79.7 - Fibromyalgia Coding Level of Care Code Est Pt Level 4 (47704) Diagnoses Fibromyalgia M79.7
[2024-01-06 07:30] VITALS: BP 122/80; PULSE 104; RESP 18; O2SAT 98; BMI 31.4
== END 2024-01-06 08:18 | disposition home or self-care (01) ==
PROVIDERS: PCP Student in an Organized Health Care Education/Training Program; Visit Provider Student in an Organized Health Care Education/Training Program
DX: M79.7 Fibromyalgia (principal)
CPT/HCPCS: 99214

== ENCOUNTER → 2024-01-06 07:24 | Outpatient (BNVA) | payer MEDICAID, SELFPAY | PROVIDERS: PCP Student in an Organized Health Care Education/Training Program; Visit Provider Student in an Organized Health Care Education/Training Program | DX: M79.7 Fibromyalgia (principal); G43.909 Migraine, unspecified, not intractable, without status migrainosus | CPT/HCPCS: 99212 ==

== ENCOUNTER 2024-02-02 08:02 | Outpatient (REF) | payer MEDICAID, SELFPAY ==
[2024-02-02 08:29] LABS: MANUAL DIFF FLAG NO
[2024-02-02 08:47] LABS: Basophils Absolute Auto 0.1 X10*3/uL (0.0-0.2); Basophils Percent Auto 0.8 % (0-2); Eosinophils Absolute Auto 0.6 X10*3/uL (0.0-0.4); Eosinophils Percent Auto 7.5 % (0-4); Hematocrit 35.3 % (37.0-47.0); Hemoglobin 11.7 g/dl (12.0-16.0); Imm Gran Abs Auto 0.02 X10*3/uL (0.00-0.03); Imm Gran Pct Auto 0.3 % (0.0-0.4); Lymphocytes Absolute Auto 2.4 X10*3/uL (1.2-4.9); Lymphocytes Percent Auto 31.9 % (20-40); Mean Corpuscular HGB Conc 33.1 g/dl (31.0-35.0); Mean Corpuscular Hemoglobin 27.5 pg (27.0-33.0); Mean Corpuscular Volume 83.1 fL (80.0-98.0); Mean Platelet Volume 9.1 fL (9.4-12.3); Monocytes Absolute Auto 0.5 X10*3/uL (0.1-1.2); Monocytes Percent Auto 7.1 % (2-11); Neutrophils Absolute Auto 3.9 x10*3/uL (2.0-8.3); Neutrophils Percent Auto 52.4 % (45-73); Platelet Count 437 X10*3/uL (160-400); Red Blood Count 4.25 X10*6/uL (4.20-5.50); Red Cell Distribution Width 14.5 % (11.0-16.0); White Blood Count 7.4 X10*3/uL (4.8-10.8)
[2024-02-02 09:02] LABS: Calcium 9.2 mg/dL (8.4-10.2)
[2024-02-02 09:12] LABS: Alanine Aminotransferase 14 U/L (0-31); Albumin Level 4.2 g/dL (3.5-5.0); Alkaline Phosphatase 67 U/L (39-117); Anion Gap 11 (12-20); Aspartate Amino Transferase 16 U/L (5-31); Bilirubin Total 0.5 mg/dL (0.0-1.0); Blood Urea Nitrogen 6 mg/dL (9-16); C Reactive Protein 1.54 mg/dL (< or = 0.50); Calcium 9.1 mg/dL (8.4-10.2); Carbon Dioxide 23 mmol/L (22-29); Chloride 107 mmol/L (96-108); Estimated Glomerular Filt Rate > 60; Glucose Random 88 mg/dL (60-115); Iron 36 mcg/dL (30-160); Percent Iron Saturation 13 % (15-50); Potassium 3.6 mmol/L (3.3-5.1); Sodium 137 mmol/L (135-145); Total Iron Binding Capacity 288 mcg/dL (228-428); Total Protein 7.7 g/dL (6.5-8.0); Unsaturated Iron Binding 252 ug/dL
[2024-02-02 09:12] LABS: Appearance Urine Clear; Color Urine Yellow; Glucose Urine UA Negative (Negative); Leukocyte Esterase Urine Trace (Negative); Nitrite Urine Negative (Negative); PH 8.5 (5.0-9.0); Specific Gravity - Urine 1.025 (1.005-1.025); UMIC TRIGGER UA YES; Urine Blood Large (3+) (Negative); Urine Ketones Negative (Negative); Urine Protein 30 (1+) mg/dL (Neg-Trace)
[2024-02-02 09:16] LABS: Alanine Aminotransferase 12 U/L (0-31); Albumin Level 4.2 g/dL (3.5-5.0); Alkaline Phosphatase 69 U/L (39-117); Anion Gap 11 (12-20); Aspartate Amino Transferase 18 U/L (5-31); Bilirubin Total 0.5 mg/dL (0.0-1.0); Blood Urea Nitrogen 6 mg/dL (9-16); Calcium 9.1 mg/dL (8.4-10.2); Carbon Dioxide 23 mmol/L (22-29); Chloride 107 mmol/L (96-108); Estimated Glomerular Filt Rate > 60; Glucose Random 88 mg/dL (60-115); Potassium 3.6 mmol/L (3.3-5.1); Sodium 137 mmol/L (135-145); Total Protein 7.7 g/dL (6.5-8.0)
[2024-02-02 09:18] LABS: Bacteria Urine None Seen (None Seen); Hyaline Casts Urine 0-2 /LPF (0-2); RBC Urine >20 /HPF (0-2); Squamous Epithelial Cell Urine 0-2 /HPF (0-2); WBC Urine 0-5 /HPF (0-5)
[2024-02-02 09:25] LABS: Erythrocyte Sedimentation Rate 18 MM/HR (0-20)
[2024-02-02 09:33] LABS: Ferritin 78 ng/mL (10-122); Vitamin D 25-OH Total 20.9 ng/mL (>30)
[2024-02-02 09:57] LABS: Creatinine Urine 245.17 mg/dL; Protein/Creatinine Ratio, Ur 0.07 (<0.2); Total Protein Urine Random 17 mg/dL (<12)
== END 2024-02-02 08:03 | disposition home or self-care (01) ==
LOC: HO.LAB 08:02
PROVIDERS: Absent Provider Student in an Organized Health Care Education/Training Program; PCP Student in an Organized Health Care Education/Training Program; Referring Provider Internal Medicine; Visit Provider Student in an Organized Health Care Education/Training Program
DX: M79.7 Fibromyalgia (principal); D75.839 Thrombocytosis, unspecified; E55.9 Vitamin D deficiency, unspecified; K59.00 Constipation, unspecified
CPT/HCPCS: 36415; 80053; 81001; 82306; 82310; 82570; 82728; 83540; 84156; 85025; 85652; 86140

== ENCOUNTER 2024-03-01 08:37 | Outpatient (REF) | payer MEDICAID, SELFPAY ==
--- NOTE | ~2024-03-01 | FL_ITS ---
EXAMINATION: XR FLUOROSCOPY UPPER GI WITH AIR CLINICAL INFORMATION: Reflux. COMPARISON: None TECHNIQUE: Fluoroscopic air contrast upper GI examination was performed utilizing standard techniques with thin and thick barium and effervescent granules. Numerous spot images were obtained. FINDINGS: Dual and single contrast images of the esophagus demonstrate normal caliber, contour, and mucosal pattern. No evidence of stricture, mass, or ulcerations identified. There is mild cricopharyngeal achalasia present. Esophageal peristalsis was normal. No evidence of hiatus hernia identified. No significant gastroesophageal reflux was seen during the course of the examination and on reflux views. Dual contrast and single contrast images of the stomach demonstrated normal contour and mucosal pattern without evidence of mass, ulceration, or other abnormality. Contrast freely passed into the gastric antrum and duodenal bulb without delay. Single and air-contrast images of the duodenal bulb demonstrate no abnormality. The duodenal sweep has a normal appearance, course, and mucosal fold appearance. The imaged proximal jejunum has a normal fold pattern and caliber. FLUOROSCOPY TIME: 3 minutes 20 seconds Number of Spot Images: 8 Number of Cine: 11 DOSE AREA PRODUCT: 2141 uGy-m2 (microgray-meter squared) FL/FL barium swallow IMPRESSION: 1. Mild cricopharyngeal achalasia, otherwise unremarkable upper GI series. This procedure was performed by Fabrizio Elmore PA-C, and supervised by Dr. Yao Electronically signed by: Ankush Bautista MD 03/03/2024 03:04 PM [facility] [place]
== END 2024-03-01 08:38 | disposition home or self-care (01) ==
LOC: HO.XRAY 08:37
PROVIDERS: PCP Student in an Organized Health Care Education/Training Program; Visit Provider Internal Medicine
DX: K21.9 Gastro-esophageal reflux disease without esophagitis (principal)
CPT/HCPCS: 74220

== ENCOUNTER → 2024-03-01 08:40 | Outpatient (BNV) | payer MEDICAID, SELFPAY | PROVIDERS: PCP Student in an Organized Health Care Education/Training Program; Visit Provider Physician Assistant Surgical | DX: K21.9 Gastro-esophageal reflux disease without esophagitis (principal) | CPT/HCPCS: 74246 ==

== ENCOUNTER 2024-03-14 12:36 | Outpatient (AMB) | payer MEDICAID, SELFPAY ==
--- NOTE | 2024-03-14 12:38 | MHC.OFFVIS ---
Vital Signs 03/14/24 12:47 Height 5 ft 5 in Weight 188 lb 4.396 oz BMI 31.3 BP 128/84 Blood Pressure Location Lt brachial Position Sitting Pulse 98 Pulse Source Pulse Oximeter Pulse Oximetry (%) 97 Oxygen Delivery Method Room Air Intake Visit Reasons: follow up BA swallow Intake Note: ESTABLISHED PATIENT Reason; FUV s/p BA FL Changes/concerns? No significant concerns (GI) per pt. Reservoir Engineer Required: Yes Reservoir Engineer Services: Reservoir Engineer Present Reservoir Engineer Name: Phyllis Bryant Information Interpreted: non-clinical & clinical Accompanied by: Self / Same As Patient Allergies Iodinated Contrast Media [IV CONTRAST] Allergy (Mild, Verified 03/14/24 12:39) NAUSEA & VOMITING HPI Comments Details: 38 y.o F with PMH who is here for reflux sx and constipation. Reports longtanding hx of retrosternal burning pain and bloating. Used to see a GI doc in [place]. Was last seen a year ago. Used to be on omeprazole but stopped after symptoms were controlled for a while. Now worse for the past few months. Also assoc with bloating. This is accompanied by severe constipation. Pain sometimes gets worse with defecation but not always related. No blood ins tool. No fam hx of crc. Barium swallow 03/01/24: Dual and single contrast images of the esophagus demonstrate normal caliber, contour, and mucosal pattern. No evidence of stricture, mass, or ulcerations identified. There is mild cricopharyngeal achalasia present. Esophageal peristalsis was normal. No evidence of hiatus hernia identified. No significant gastroesophageal reflux was seen during the course of the examination and on reflux views. Dual contrast and single contrast images of the stomach demonstrated normal contour and mucosal pattern without evidence of mass, ulceration, or other abnormality. Contrast freely passed into the gastric antrum and duodenal bulb without delay. Single and air-contrast images of the duodenal bulb demonstrate no abnormality. The duodenal sweep has a normal appearance, course, and mucosal fold appearance. The imaged proximal jejunum has a normal fold pattern and caliber. 03/14/24: Here for follow up. Seen with grocery bagger # [id number] Reports improvement with constipation. Has soft stool daily with senna. Tried miralax once daily x week without any effect. Pt also reports a hemorrhoid prolapsing that she can palpate but doesnt bleed or is painful. In terms of reflux, that is not better either. Taking omeprazole 20 once daily in the morning on empty stomach. Trying to avoid dietary triggers. [facility] Medical History Right knee pain Prolapsed hemorrhoids Fibromyalgia High blood pressure Diabetes Surgical History Hx of colonoscopy Hx of section Hx of hernia repair Family History Father Diabetes Mother HTN (hypertension) Social History Alcohol intake: never Patient Tobacco Use Status: Never used Tobacco Gender identity: Female Review of Systems Const All systems reviewed & are unremarkable except as noted in HPI and below Physical Exam Vital Signs: Last Vital Signs Pulse 98 03/14/24 12:47 BP 128/84 03/14/24 12:47 Pulse Ox 97 03/14/24 12:47 Oxygen Delivery Method Room Air 03/14/24 12:47 BMI result Body Mass Index 31.3 No apparent distress Nonicteric Abdomen soft, nondistended Alert and oriented x3, normal gait Results Reviewed Results Reviewed: Dual and single contrast images of the esophagus demonstrate normal caliber, contour, and mucosal pattern. No evidence of stricture, mass, or ulcerations identified. There is mild cricopharyngeal achalasia present. Esophageal peristalsis was normal. No evidence of hiatus hernia identified. No significant gastroesophageal reflux was seen during the course of the examination and on reflux views. Dual contrast and single contrast images of the stomach demonstrated normal contour and mucosal pattern without evidence of mass, ulceration, or other abnormality. Contrast freely passed into the gastric antrum and duodenal bulb without delay. Single and air-contrast images of the duodenal bulb demonstrate no abnormality. The duodenal sweep has a normal appearance, course, and mucosal fold appearance. The imaged proximal jejunum has a normal fold pattern and caliber. Assessment & Plan Assessment & Plan (1) GERD (gastroesophageal reflux disease): Code(s): K21.9 - Gastro-esophageal reflux disease without esophagitis Category: Medical (2) Constipation: Code(s): K59.00 - Constipation, unspecified Category: Medical Plan 1. Discussed with the pt that barium swallow without any significant reflux noted. ? EoE vs NERD vs hypersensitive esophagus. Plan: - EGD to be booked. Cricopharyngeal narrowing noted but pt not c/o dysphagia - Increase omeprazole 20 BID 2. Constipation Limited response to adding fiber, miralax and senna. Plan: - Add linzess 72 mcg - Pt advised to call us if minimal improvement x 1 week, to increase the dose. Follow up after egd Medications: New linaclotide (Linzess) 72 mcg PO DAILY 90 caps 0RF Changed From omeprazole 20 mg PO DAILY 90 caps 0RF To omeprazole 20 mg PO BID 180 caps 0RF Coding Level of Care Code Est Pt Level 4 (85844) Diagnoses GERD (gastroesophageal reflux disease) K21.9 Constipation K59.00
[2024-03-14 12:47] VITALS: BP 128/84; PULSE 98; O2SAT 97; BMI 31.3
== END 2024-03-14 13:17 | disposition home or self-care (01) ==
PROVIDERS: PCP Student in an Organized Health Care Education/Training Program; Visit Provider Internal Medicine
DX: K21.9 Gastro-esophageal reflux disease without esophagitis (principal); K59.00 Constipation, unspecified
CPT/HCPCS: 99214

== ENCOUNTER → 2024-03-14 12:36 | Outpatient (BNVA) | payer MEDICAID, SELFPAY | PROVIDERS: PCP Student in an Organized Health Care Education/Training Program; Visit Provider Internal Medicine | DX: K21.9 Gastro-esophageal reflux disease without esophagitis (principal); K59.00 Constipation, unspecified | CPT/HCPCS: 99212 ==

== ENCOUNTER 2024-03-20 23:22 | Emergency (ER) | payer MEDICAID, SELFPAY ==
--- NOTE | ~2024-03-20 | XR_ITS ---
CLINICAL HISTORY: fall, pain 3 view left elbow Comparison: None Findings: Bones intact. No dislocations. No significant loss of joint space, osteophytes, or erosions. No joint effusion. No radiopaque foreign body. There is a punctate ossific density along the inferior aspect of the medial epicondyle. IMPRESSION: Punctate ossific density at the inferior aspect of the medial epicondyle which may be a small dystrophic calcification versus small chip fracture. This document has been electronically signed by: Kyler Marquez MD on 03/21/2024 00:43:10
--- NOTE | ~2024-03-20 | XR_ITS ---
CLINICAL HISTORY: fall, pain 2 view left forearm Comparison: None Findings: Ulna minus variance. No fracture deformity identified. No joint effusion. No significant arthritic change. No radiopaque foreign body. IMPRESSION: 1. Normal left forearm This document has been electronically signed by: Kyler Marquez MD on 03/21/2024 00:41:40
[2024-03-20 23:25] VITALS: BP 127/84; PULSE 98; RESP 18; TEMP 36.1; O2SAT 99; BMI 30.8
[2024-03-21 01:05] VITALS: BP 147/95; PULSE 99; RESP 16; TEMP 36.9; O2SAT 99
--- OUTSIDE RECORDS SUMMARY | 2024-03-21 01:10 | XMS_ITS | Encounter Summary ---
Author Organization [employer] Address [address] [place] [address] [place] [address] Care Team Providers Care Fabrication Department Supervisor Name Role Phone Una Webb MD Primary Care Pro vider Morris Haney RN Unavailable [phone] Estefany Haney Unavailable Unavailable Reason for Visit * Reason Comments Med Change Request Encounter Details Date Type Department Care Team (Late st Contact Info) Description 05/21/2023 Refill [facility] [address] [place], [place] [phone] Una Webb MD [address], [place] [id number] Social History Tobacco Use Types Packs/Day Years Used Date Smoking Tobacco: Never Passive Smoke Exposure: Never Smokeless Tobacco: Never Alcohol Use Standard Drinks/Week Comments Not Currently 0 (1 standard drink = 0.6 oz pur e alcohol) Depression Answer Date Recorded Patient Health Questionnaire-9 Score 4 03/18/2023 Patient Health Questionnaire-9 Score 4 03/18/2023 Last PHQ-9: Questionnaire Data Not on file 0 03/18/2023 Housing Stability Answer Date Recorded What is your housing situation today? I have noe yimi 12/10/[address] you li ve. Do you have problems with any of the following? None of the above 12/10/2022 Food Insecurity Answer Date Recorded Within the past 12 months, y ou worried that your food would run out before you got money to buy more: Never True 12/10/2022 Within the past 12 months,th e food you bought just didn't last and you didn't have enough money to get more: Never True Transportation Answer Date Recorded In the past 12 months, has l ack of transportation kept you from medical appts, meetings, work or from getting things needed for daily living? No 12/10/2022 Utilities Answer Date Recorded In the past 12 months, has t he electric, gas, oil or water company threatened to shut off services in your home? No 12/10/2022 Depression Answer Date Recorded Patient Health Questionnaire-2 Score 2 03/18/2023 Comments Unknown Sex and Gender Information Value Date Recorded Sex Assigned at Female 12/23/2021 10:21 AM EDT Legal Sex Female 10:21 AM EDT Gender Identity Female 12/23/2021 10:21 AM EDT Sexual Orientation Straight 12/23/2021 10 :21 AM EDT documented as of this encounter Plan of Treatment Not on file documented as of this encounter Visit Diagnoses Not on filedocumented in this encounter Additional Health Concerns Assessment Noted Time PHQ-9 Depression Total Score: 4 03/18/19 24 11:06 AM EST documented as of this encounter Care Teams Fabrication Department Supervisor Relationship Specialty Start Date End Date Una Webb MD [address] [place] [id number] PCP - General Internal Medicine 11/17/22 Morris Haney RN [address] [place] [id number] Gem TechnicianSteam Table Worker 08/31/23 Estefany Haney Community Health Worker 09/09/23 documented as of this encounter
--- OUTSIDE RECORDS SUMMARY | 2024-03-21 01:10 | XMS_ITS | Clinical Summary ---
Author Organization [employer] Address [address] [place] [address] [address] [place] [address] Care Team Providers Care Tool Shaper Set Up Operator Name Role Phone Una Webb MD Primary Care Pro vider Morris Haney RN Unavailable [phone] Estefany Haney Unavailable Unavailable Allergies Active Allergy Reactions Criticality Noted Date Comments Green Dye Anaphylaxis High 11/12/2020 Iodinated Contrast Media 03/07/2024 Ioversol 10/07/2019 Prednisone & Diphenhydramine 022 Medications chlorhexidine (Peridex) 0.12 % solution Place 15 mL into mouth between cheek and gum every 12 (twelve) hours. 2 Active ketotifen (Zaditor) 0.025 % ophthalmic solution Administer 1 drop into affected eye(s) in the morning and 1 drop in the evening. 1 Active Blood Pressure Monitoring (Omron 3 Series BP Monitor) device USE DIRECTED DAILY 2 Active zolpidem (Ambien) 5 MG tablet Take 5 mg by mouth if needed at bedtime. 2 Active Latuda 20 MG tablet Take 20 mg by mouth in the morning. 2 Active hydrOXYzine pamoate (Vistaril) 25 MG capsule TAKE 1 CAPSULE BY MOUTH TWICE DAILY NEEDED 2 Active TRUEplus Lancets 33G misc 1 each 2 times daily. TEST BLOOD SUGAR TWICE A DAY 100 each 11 3 Active ondansetron (Zofran) 4 MG tabletIndications :Nausea and vomiting, unspecified vomiting type TAKE 1 TABLET BY MOUTH EVERY 12 HOURS IF NEEDED FOR NAUSEA OR VOMITING 10 tablet 3 Active albuterol 108 (90 Base) MCG/ACT inhaler Inhale 2 puffs every 4 (four) hours. 18 g 2 4 Active cetirizine (ZyrTEC) 10 MG tabletIndications :COVID-19 TAKE 1 TABLET BY MOUTH EVERY MORNING 90 tablet 4 Active FREESTYLE LITE test strip TEST BLOOD SUGAR TWICE DAILY 50 strip 5 4 Active riboflavin (vitamin B2) 100 mg tablet tabletIndications :Gastroesophageal reflux disease without esophagitis Take 1 tablet (100 mg) by mouth Once per day. 90 tablet 1 4 11/03/19 25 Active ergocalciferol (Vitamin D2) 1.25 MG (94293 UT) capsule Take 1 capsule (1.25 mg) by mouth 1 (one) time per week. 12 capsule 1 4 Active escitalopram (Lexapro) 10 MG tablet Take 1 tablet (10 mg) by mouth Once per day. 90 tablet 4 Active semaglutide (Ozempic, 1 MG/DOSE,) 2 MG/1.5ML solution pen-injectorIndic ations:Type 2 Diabetes Mellitus Inject 1 mg under the skin 1 (one) time per week. 3 mL 11 4 Active topiramate 50 MG tablet Take 1 tablet (50 mg) by mouth Once per day. 90 tablet 4 Active olmesartan (Benicar) 40 MG tabletIndications :Primary hypertension Take 1 tablet (40 mg) by mouth Once per day. 90 tablet 4 Active SUMAtriptan (Imitrex) 25 MG tabletIndications :Chronic migraine without aura without status migrainosus, not intractable TAKE 1 TABLET BY MOUTH AT ONSET OF MIGRAINE. MAY REPEAT ONCE AFTER 2 HOURS IF NEEDED. DO NOT EXCEED 2 DOSES IN 24 HOURS. 9 tablet 2 4 Active magnesium oxide (Mag-Ox) 400 (240 Mg) MG tablet TAKE 1 TABLET BY MOUTH EVERY DAY 90 tablet 1 4 Active cholecalciferol (Vitamin D-3) 25 MCG (1000 UT) tabletIndications :Vitamin D Deficiency Take 1 tablet (25 mcg) by mouth Once per day. 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 Tipped teeth 01/26/2023 Dental plaque 01/26/2023 Gingival bleeding 01/26/2023 Missing teeth, acquired 01/26/2023 Dental caries 01/26/2023 Gingivitis due to dental plaque 01/26/2023 Chronic idiopathic constipation 11/17/2022 Overview (11/17/2022): Care managed by GI Chronic, worsening Not improved with Miralax Also taking Docusate Sodium 100 mg BID Assessment & Plan (11/17/2022 2:15 PM EDT): Will task RN to locate ED records from recent ED visit Educated pt to call GI and request f/u appt Will increase Docusate sodium dose to 300 mg daily, cannot exceed 360mg/day per up to date Discontinue Miralax since it is not improving sx Drink 8 bottles water/day ED precautions: severe worsening rectal bleeding, vomiting blood, black tarry stools F/u 3 months with new PCP or sooner PRN Type 2 diabetes mellitus wit hout complication, without long-term current use of insulin 09/02/2022 Overview (11/17/2022): A1c: 5.7 on 07/30/22; increased from 5.0 on 10/04/21. Glucose controlled at home Pt wants to continue to lose weight Will increase Trulicity dose to 3mg/0.5ml Reports GI upset resolved with Metformin discontinuation Microalbumin/Cr:Alb: Not performed yet. Lipids: Elevated slightly 10/04/21 Eye exam: appt 07/02/22, no retinopathy or macular edema Dental: Discuss next visit PNA (PPSV, then PCV 13): Due PCV 20, discuss next visit TDap/Td: 07/30/22 Foot exam/peripheral pulses: Discuss next visit PETER/ARB: Olmesartan 20 mg Statin: None Assessment & Plan (11/17/2022 2:09 PM EDT): Glucose 103 on 11/17/22 Continue Trulicity as prescribed Educated pt on safe injection sites, rotate injection site weekly F/u PRN with new PCP Health care maintenance 07/30/2022 Overview (07/30/2022): Immunizations: Receive Tdap 07/30/22. All others up to date HIV: Non reactive 09/27/2013 Hep C: Non reactive 05/07/21 Hepatitis B: 2022 guidelines CDC recommends screen all adults aged 18 years and older at least once in their lifetime using a triple panel test. patients screen every . Discuss next visit Pap Smear: 07/14/22 NILM, HPV neg Colonoscopy: Not due Lung cancer: Never Primary hypertension 03/03/2022 Overview (09/02/2022): States taking Olmesartan 20 mg daily Reports she does not think medication is controlling her BP. Checks BID, in the morning before the medicine and before bedtime; Ranges 120/80s in the morning and some readings 140/90s 3-4 days in the last 2 weeks pt had symptoms of Migraine Headache, eye pain. Believes sx are r/t Blood pressure. Had 1 episode of feeling lightheaded and dizzy. States BP may have been low. Did not check BP at that time. Assessment & Plan (11/17/2022 2:06 PM EDT): BP elevated initially at clinic Took medication today, Pt was anxious, speaking rapidly, and fidgeting Checked BP again and it improved BP elevated most likely d/t agitation Continue Olmesartan 20 mg Encouraged pt to monitor BP at home daily F/u PRN Assessment & Plan (09/02/2022 8:28 PM EDT): BP appears well controlled on olmesartan Episodes of headache may be r/t poorly controlled migraines Continue Olmesartan Monitor for HTN sx of headache, chest pain, SOB and sx of low BP: dizziness Contact clinic if BP starts to trend < 90/60 or continue to have above sx. 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 Pt did not keep sched appts x 3. Letter sent to the referring source. Vitamin D deficiency 09/17/2012 Migraine 09/15/2012 Overview (09/02/2022): Now followed by neurology. continue magnesium as recommended by neurology continue Riboflavin 400mg daily Assessment & Plan (09/02/2022 8:27 PM EDT): Encouraged pt to call neurology and notify them of worsening migraines Discontinue nortryptiline 10 mg daily since pt states it is not improving her sx Will trial Sumatriptan, no known allergies to sumatriptan Educated on how to use, notify clinic if having > 2 migraines/week. RTC if migraines/headaches not improved F/u 3 months with new PCP or sooner PRN Allergic rhinitis 09/02/2012 Overview (11/17/2022): Worsening Aggravated by changes in the weather Assessment & Plan (11/17/2022 2:04 PM EDT): Rx zyrtec and Fluticasone spray F/u PRN Resolved Problems Problem Noted Date Diagnosed Date Resolved Date Viral illness 09/08/2022 09/08/2022 Indigestion 11/19/2017 03/03/2022 Encounters Date Type Department Care Team Description 03/07/2024 8:00 AM EST Office Visit [facility] [address] [facility], [place] [id number] Chun, Yoly Dental calculus (Primary Dx); Dental plaque 02/03/2024 Refill [facility] [address] [place] [address] Sariah Ramirez RN 02/02/2024 Orders Only GENERIC EXTERNAL DATA DEPARTMENT Provider, Generic External Data 01/25/2024 Refill [facility] [address] [place] [address] Una Webb MD 01/11/2024 Refill [facility] [address] [place] [address] Una Webb MD Chronic migraine without aura without status migrainosus, not intractable 01/01/2024 9:30 AM EST Office Visit [facility] [address] [place] [address] Una Webb MD Thrombocytosis (Primary Dx); Primary hypertension; Vitamin D deficiency; Encounter for immunization; Mixed hyperlipidemia; Chronic migraine without aura without status migrainosus, not intractable; Health care maintenance; Chronic depression; Type 2 diabetes mellitus without complication, without long-term current use of insulin ([facility]) 01/01/2024 Travel 12/21/2023 Orders Only GENERIC EXTERNAL DATA DEPARTMENT Provider, Generic External Data from Last 3 Months Immunizations Name Administration Dates Next Due HPV, Quadrivalent 09/17/2012,05/20/2012 Influenza injectable quadriv alent IIV4 with preservative 02/03/2019,01/22/2015 Influenza injectable quadriv alent preservative free 03/18/2023,11/12/2020 Influenza, IIV3, injectable 12/22/2011 Influenza, seasonal, injecta ble, preservative free 01/01/2024 Pfizer Covid-19 Vaccine 12+ 03/18/2023 Pneumococcal Conjugate PCV 20 07/28/2023 Tdap 07/30/2022,12/22/2011,08/16/2010 Family History Medical History Relation Name Comments heart dx Maternal Grandmother Lupus Mother's Sister Relation Name Status Comments Maternal Grandmother Mother's Sister Social History Tobacco Use Types Packs/Day Years Used Date Smoking Tobacco: Never Passive Smoke Exposure: Never Smokeless Tobacco: Never Tobacco Cessation:Counseling Given: Not Answered Alcohol Use Standard Drinks/Week Comments Not Currently 0 (1 standard drink = 0.6 oz pur e alcohol) Depression Answer Date Recorded Patient Health Questionnaire-9 Score 4 03/18/2023 Patient Health Questionnaire-9 Score 4 03/18/2023 Last PHQ-9: Questionnaire Data Not on file 0 03/18/2023 Housing Stability Answer Date Recorded What is your housing situation today? I have housing today, but I am worried about losing housing in the future 09/09/[address] you li ve. Do you have problems with any of the following? None of the above 09/09/2023 Food Insecurity Answer Date Recorded Within the past 12 months, y ou worried that your food would run out before you got money to buy more: Often true 09/09/2023 Within the past 12 months,th e food you bought just didn't last and you didn't have enough money to get more: Often true Transportation Answer Date Recorded In the past 12 months, has l ack of transportation kept you from medical appts, meetings, work or from getting things needed for daily living? Yes, it has kept me from medical appointments or getting medications. 09/09/2023 Utilities Answer Date Recorded In the past 12 months, has t he electric, gas, oil or water company threatened to shut off services in your home? No 07/28/2023 Depression Answer Date Recorded Patient Health Questionnaire-2 Score 2 03/18/2023 Internet Access Answer Date Recorded Internet Access Q1 No 10/26/2023 Internet Access Q2 I cannot afford it 10/26/2023 Comments No Sex and Gender Information Value Date Recorded Sex Assigned at Female 12/23/2021 10:21 AM EDT Legal Sex Female 10:21 AM EDT Gender Identity Female 12/23/2021 10:21 AM EDT Sexual Orientation Straight 12/23/2021 10 :21 AM EDT Last Filed Vital Signs Vital Sign Reading Time Taken Comments Blood Pressure 142/88 03/07/2024 8:07 AM EST Pulse 95 01/01/2024 10:07 AM EST Temperature 36.5 ??C (97.7 ??F) 01/01/2024 10:[address] Respiratory Rate 18 01/01/2024 10:07 AM EST Oxygen Saturation 100% 01/01/2024 10:07 AM EST Inhaled Oxygen Concentration - - Weight 86.5 kg (190 lb 9.6 oz) 01/01/2024 10:07 AM EST Height 165.1 cm (5' 5 ) 01/01/2024 10:07 AM EST Body Mass Index 31.72 01/01/2024 10:07 AM EST Plan of Treatment Health Maintenance Due Date Last Done Comments Diabetes: Foot Exam 1996 Eye Exam 1996 Alcohol/Substance Use Screening 1998 Family Planning (PISQ) 2001 Hepatitis B Vaccines (1 of 3 - 19+ 3-dose series) 2005 HPV Vaccines (3 - 3-dose series) 12/10/2012 09/17/2012, 05/20/2012 COVID-19 Vaccine ( season) 2023 03/18/2023, 02/18/2021, 08/17/2020, Additional history exists Depression Screening 03/18/2024 03/18/2023, 03/18/19 Diabetes: Hemoglobin A1C 06/20/2024 024, 11/03/2023, 04/14/2023, Additional history exists Dental Oral Exam 09/05/2024 03/07/2024, 05/2022, 03/14/2020, Additional history exists Dental Prophylaxis 09/05/2024 03/07/2024, 1 03/29/2022, 03/26/2020, Additional history exists SDOH Screening 09/08/2024 09/09/2023 Lipid Panel 12/20/2024 12/21/2023, 03/27, 10/04/2021, Additional history exists Diabetes: Urine Protein Screening 02/01/2025 02/02/2024, 12/21/2023, 04/14/2023, Additional history exists Tobacco Screening 03/07/2025 03/07/2024 Dental X-Ray: Bitewings 03/08/2025 03/07/19, 01/26/2023, 03/27/2020, Additional history exists Pap Smear 07/14/2025 07/14/2022 Dental X-Ray: Full Mouth 01/27/2026 01/26/2023, 11/23 Cervical Cancer Screening 07/15/2027 HPV/Cotest 07/15/2027 07/14/2022 DTaP/Tdap/Td Vaccines (4 - Td or Tdap) 07/30/2032 07/30/2022, 12/22/2011, 08/16/2010 Zoster Vaccines (1 of 2) 2036 RSV Patients and Patients Aged 60 years or older (1 - 1-dose 75+ series) 2061 HIV Screening Completed 04/14/2023 Hepatitis C Screening Completed 04/14/2023, 022 Pneumococcal Vaccine: Pediatrics (0 to 5 Years) and At-Risk Patients (6 to 64 Years) Completed 07/28/2023 Influenza Vaccine Completed 01/01/2024, , 11/12/2020, Additional history exists HIB Vaccines Aged Out No longer eligi ble based on patient's age to complete this topic Hepatitis A Vaccines Aged Out No long er eligible based on patient's age to complete this topic IPV Vaccines Aged Out No longer eligi ble based on patient's age to complete this topic Meningococcal Vaccine Aged Out No regina prabhakar eligible based on patient's age to complete this topic RSV under 20 months Aged Out No longe r eligible based on patient's age to complete this topic Rotavirus Vaccines Aged Out No longer eligible based on patient's age to complete this topic Procedures Procedure Name Priority Date/Time Associated Diagnosis Comments PERIODIC ORAL EVALUATION - ESTABLISHED PATIENT Routine 03/07/2024 8:00 AM EST BITEWINGS - 4 RADIOGRAPHIC IMAGES Routine 03/07/2024 8:00 AM EST ORAL HYGIENE INSTRUCTIONS Routine 03/07/2024 8:00 AM EST Dental calculus Dental plaque ADJUNCTIVE GENERAL SERVICES - PROFESSIONAL VISITS - CASE PRESENTATION, SUBSEQUENT TO DETAILED AND EXTENSIVE TREATMENT PLANNING Routine 03/07/2024 8:00 AM EST PROPHYLAXIS - ADULT Routine 03/07/2024 8 :00 AM EST Dental calculus Dental plaque FL ESOPHAGUS BARIUM SWALLOW Routine 03/01/2024 9:00 AM EST SED RATE BY MODIFIED WESTERGREN Routine 02/02/2024 8:28 AM EST COMPREHENSIVE METABOLIC PANEL Routine 02/02/2024 8:28 AM EST C-REACTIVE PROTEIN Routine 02/02/2024 8: 28 AM EST COMPREHENSIVE METABOLIC PANEL Routine 02/02/2024 8:28 AM EST CALCIUM Routine 02/02/2024 8:28 AM EST CBC WITH AUTO DIFFERENTIAL Routine 02/02/2024 8:28 AM EST VITAMIN D,25-OH,TOTAL,IA Routine 024 8:28 AM EST Vitamin D deficiency IRON AND TOTAL IRON BINDING CAPACITY Routine 02/02/2024 8:28 AM EST Thrombocytosis FERRITIN Routine 02/02/2024 8:28 AM EST Thrombocytosis PROTEIN CREATININE RATIO, URINE Routine 02/02/2024 8:27 AM EST URINALYSIS, COMPLETE Routine 02/02/2024 8:27 AM EST TISSUE TRANSGLUTAMINASE AB, IGA Routine 12/21/2023 9:20 AM EDT IMMUNOGLOBULIN A Routine 12/21/2023 9:20 AM EDT TSH W/REFLEX TO FT4 Routine 12/21/2023 9 :20 AM EDT C-REACTIVE PROTEIN Routine 12/21/2023 9: 20 AM EDT CBC Routine 12/21/2023 9:20 AM EDT LIPID PANEL, STANDARD Routine 12/21/2023 9:20 AM EDT Type 2 diabetes mellitus without complication, without long-term current use of insulin ([facility]) HEMOGLOBIN A1C Routine 12/21/2023 9:20 AM EDT Type 2 diabetes mellitus without complication, without long-term current use of insulin ([facility]) COMPREHENSIVE METABOLIC PANEL Routine 12/21/2023 9:20 AM EDT Type 2 diabetes mellitus without complication, without long-term current use of insulin (CMS/HCC) ALBUMIN, RANDOM URINE W/CREATININE Routine 12/21/2023 9:20 AM EDT Type 2 diabetes mellitus without complication, without long-term current use of insulin (CMS/HCC) VITAMIN B12/FOLATE, SERUM PANEL Routine 12/21/2023 8:05 AM EDT Type 2 diabetes mellitus without complication, without long-term current use of insulin (CMS/HCC) HEPATITIS C AB W/REFL TO HCV RNA, QN, PCR Routine 04/14/2023 10:03 AM EST Annual physical exam HIV 1/2 ANTIGEN/ANTIBODY, FOURTH GENERATION W/RFL Routine 04/14/2023 10:03 AM EST Annual physical exam DIAGNOSTIC - DIAGNOSTIC IMAGING - INTRAORAL - COMPREHENSIVE SERIES OF RADIOGRAPHIC IMAGES Routine 01/26/2023 10:00 AM EST Dental calculus Gingival bleeding Missing teeth, acquired Dental caries Gingivitis due to dental plaque HPV MRNA E6/E7 REFLEX TO HPV 16, 18/45 Routine 07/14/2022 11:43 AM EDT PAP SMEAR Routine 07/14/2022 11:43 AM EDT from Last 3 Months or Most Recently Relevant to Health Maintenance Results * FL Esophagus Barium Swallow (03/01/2024 9:00 AM EST) Anatomical Region Laterality Modality Head, Neck Radiographic Marta ging 03/01/2024 9:00 AM EST Narrative 03/03/2024 3:07 PM EST ? [facility] ?[address] ?[place] [address] ? Fluoroscopy Report ? Signed ? Patient: Tin,Catalina A ?M ?? R#: [id number] ? : 1985 ?Acct:[id number] ? Age/Sex: 38 / F ?ADM Date: 03/01/25 ? Loc: HO.XRAY ? Attending Dr: Sabra Godfrey MD ? Ordering Physician: Sabra Godfrey MD ?? Date of Service: 03/01/24 ?? Procedure(s): FL barium swallow ?? Accession Number(s): [id number] ? cc: Una Webb MD; Sabra Godfrey MD ? EXAMINATION: ?? XR FLUOROSCOPY UPPER GI WITH AIR ? CLINICAL INFORMATION: ?? Reflux. ? COMPARISON: ?? None ? TECHNIQUE: ?? Fluoroscopic air contrast upper GI examination was performed utilizing ?? standard techniques with thin and thick barium and effervescent ?? granules. Numerous spot images were obtained. ? FINDINGS: ?? Dual and single contrast images of the esophagus demonstrate normal ?? caliber, contour, and mucosal pattern. No evidence of stricture, mass, ?? or ulcerations identified. 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 Esophageal peristalsis was normal. ? No evidence of hiatus hernia identified. No significant ?? gastroesophageal reflux was seen during the course of the examination ?? and on reflux views. ? Dual contrast and single contrast images of the stomach demonstrated ?? normal contour and mucosal pattern without evidence of mass, ?? ulceration, or other abnormality. Contrast freely passed into the ?? gastric antrum and duodenal bulb without delay. ? Single and air-contrast images of the duodenal bulb demonstrate no ?? abnormality. The duodenal sweep has a normal appearance, course, and ?? mucosal fold appearance. The imaged proximal jejunum has a normal fold ?? pattern and caliber. ? FLUOROSCOPY TIME: ?? 3 minutes 20 seconds ? Number of Spot Images: 8 ?? Number of Cine: 11 ? DOSE AREA PRODUCT: ?? 2141 uGy-m2 (microgray-meter squared) ? FL/FL barium swallow ?? IMPRESSION: ?? 1. Mild cricopharyngeal achalasia, otherwise unremarkable upper GI ?? series. ? This procedure was performed by Fabrizio Elmore PA-C, and supervised by ?? Dr. Yao ? Electronically signed by: ??Ankush Lily MD ??03/03/2024 03:04 PM EST RP ? Dictated By: ?Fabrizio Elmore ? Signed By: ?<Electronically signed by Fabrizio Elmore in OV> ? 03/03/24 1504 ?<Electronically signed by Ankush S Lily MD in OV> ? 03/03/24 1507 ? DD/ 0900 ? TD/TT: 03/01/24 0920 ? Machine Cage Maker: ? Procedure Note Donotuseinterpreter, Image - 03/03/2024 [place] [address] Fluoroscopy Report Signed Patient: Catalina Castle AM R#: [id number] : 1985Acct:[id number] Age/Sex: 38 / FADM Date: 03/01/24 Loc: HO.BHARATHI Attending Dr: Sabra Godfrey MD Ordering Physician: Sabra Godfrey MD Date of Service: 03/01/24 Procedure(s): FL barium swallow Accession Number(s): [id number] cc: Una Webb MD; Sabra Godfrey MD EXAMINATION: XR FLUOROSCOPY UPPER GI WITH AIR CLINICAL INFORMATION: Reflux. COMPARISON: None TECHNIQUE: Fluoroscopic air contrast upper GI examination was performed utilizing standard techniques with thin and thick barium and effervescent granules. Numerous spot images were obtained. FINDINGS: Dual and single contrast images of the esophagus demonstrate normal caliber, contour, and mucosal pattern. No evidence of stricture, mass, or ulcerations identified. There is mild cricopharyngeal achalasia present. Esophageal peristalsis was normal. No evidence of hiatus hernia identified. No significant gastroesophageal reflux was seen during the course of the examination and on reflux views. Dual contrast and single contrast images of the stomach demonstrated normal contour and mucosal pattern without evidence of mass, ulceration, or other abnormality. Contrast freely passed into the gastric antrum and duodenal bulb without delay. Single and air-contrast images of the duodenal bulb demonstrate no abnormality. The duodenal sweep has a normal appearance, course, and mucosal fold appearance. The imaged proximal jejunum has a normal fold pattern and caliber. FLUOROSCOPY TIME: 3 minutes 20 seconds Number of Spot Images: 8 Number of Cine: 11 DOSE AREA PRODUCT: 2141 uGy-m2 (microgray-meter squared) FL/FL barium swallow IMPRESSION: 1. Mild cricopharyngeal achalasia, otherwise unremarkable upper GI series. This procedure was performed by Fabrizio Elmore PA-C, and supervised by Dr. Yao Electronically signed by: Ankush Bautista MD 03/03/2024 03:04 PM EST RP Dictated By: Fabrizio Elmore Signed By: <Electronically signed by Fabrizio Elmore in OV> 03/03/24 1504 <Electronically signed by Ankush Bautista MD in OV> 03/03/24 1507 DD/ 0900 TD/TT: 03/01/24 0920 Machine Cage Maker: [facility] External Provider IMG FLU OROSCOPY PROCEDURES Final Result * (ABNORMAL) Vitamin D, 25-Hydroxy, Total, Immunoassay (02/02/2024 8:28 AM EST) Vitamin D 25-OH Total 20.9(L) >30 ng/mL [facility] Comment:Health Based Referen ce Values*< 20 ng/mL Ulibaqpyh53-49 ng/mL Insufficient> 30 ng/mL Sufficient*[place] NYE. N Engl J Med. 2007;357:266-280Care must be taken in interpreting Vitamin D results fromdifferent laboratories and methodologies. Published datademonstrated that results from patients undergoinghemodialysis may show a negative bias when tested withvarious automated 25-OH vitamin D assays when compared toLC-MS/MS.When testing samples from patients whose predominant form ofVitamin D is Vitamin D2, such as patients receiving VitaminD2 supplementation, results that are subtherapeutic shouldbe confirmed with another method such as LC-MS/MS. Blood Venous blood specimen / Unknown 02/02/2024 8:28 AM EST 02/02/2024 8:28 AM EST Una Arenas MD LAB BLOOD ORDERAB LES Final Result [facility] [address] [place] [phone] * (ABNORMAL) CBC auto differential (02/02/2024 8:28 AM EST) White Blood Count 7.4 4.8 - 10.8 X10*3/uL [facility] Red Blood Count 4.25 4.20 - 5.50 X10*6/uL [facility] Hemoglobin 11.7(L) 12.0 - 16.0 g/dl [facility] Hematocrit 35.3(L) 37.0 - 47.0 % [facility] Mean Corpuscular Volume 83.1 80.0 - 98.0 fL [facility] Mean Corpuscular Hemoglobin 27.5 27.0 - 33.0 pg [facility] Mean Corpuscular HGB Conc 33.1 31.0 - 35.0 g/dl [facility] Red Cell Distribution Width 14.5 11.0 - 16.0 % [facility] Platelet Count 437(H) 160 - 400 X10*3/uL [facility] [facility] Mean Platelet Volume 9.1(L) 9.4 - 12.3 fL [facility] Neutrophils Percent Auto 52.4 45 - 73 % [facility] Imm Gran Pct Auto 0.3 0.0 - 0.4 % [facility] Lymphocytes Percent Auto 31.9 20 - 40 % [facility] Monocytes Percent Auto 7.1 2 - 11 % [facility] Eosinophils Percent Auto 7.5(H) 0 - 4 % [facility] Basophils Percent Auto 0.8 0 - 2 % [facility] NRBC Pct Auto 0.0 0.0 - 0.2 /100WBC [facility] Neutrophils Absolute Auto 3.9 2.0 - 8.3 x10*3/uL [facility] Imm Gran Abs Auto 0.02 0.00 - 0.03 X10*3/uL [facility] Lymphocytes Absolute Auto 2.4 1.2 - 4.9 X10*3/uL [facility] Monocytes Absolute Auto 0.5 0.1 - 1.2 X10*3/uL [facility] Eosinophils Absolute Auto 0.6(H) 0.0 - 0.4 X10*3/uL [facility] Basophils Absolute Auto 0.1 0.0 - 0.2 X10*3/uL [facility] NRBC Abs Auto 0.000 0.0 - 0.012 X10*3/uL [facility] 02/02/2024 8:28 AM EST 02/02/2024 8:28 AM EST us Generic External Data Provider LAB BLOOD ORDERAB LES Final Result Performing Organization Address [facility] Co de Phone Number [facility] [address] [place] [phone] * (ABNORMAL) Iron And Total Iron Binding Capacity (02/02/2024 8:28 AM EST) Iron 36 30 - 160 mcg/dL [facility] Total Iron Binding Capacity 288 228 - 428 mcg/dL [facility] Percent Iron Saturation 13(L) 15 - 50 % [facility] Unsaturated Iron Binding 252 ug/dL [facility] Blood Venous blood specimen / Unknown 02/02/2024 8:28 AM EST 02/02/2024 8:28 AM EST us Una Arenas MD LAB BLOOD ORDERAB LES Final Result Performing Organization Address [facility] de Phone Number [facility] [address] [place] [phone] * Sed Rate by Modified Benigno (02/02/2024 8:28 AM EST) Erythrocyte Sedimentation Rate 18 0 - 20 MM/HR [facility] Comment:Patients with polycy themia and many hemoglobin abnormalitiesmay have depressed sed rates whereas patients with anemiamay have elevated sed rates. 02/02/2024 8:2 8 AM EST 02/02/2024 8:28 AM EST us Generic External Data Provider LAB BLOOD ORDERAB LES Final Result Performing Organization Address [facility] Co de Phone Number [facility] [address] [place] [address] [phone] * (ABNORMAL) C-reactive Protein (02/02/2024 8:28 AM EST) Only the most recent of2 resultswithin the time period is included. C Reactive Protein 1.54(H) < or = 0.50 mg/dL [facility] 02/02/2024 8:28 AM EST 02/02/2024 8:28 AM EST us Generic External Data Provider LAB BLOOD ORDERAB LES Final Result Performing Organization Address [facility] Phone Number [facility] [address] [place] [address] [phone] * Ferritin (02/02/2024 8:28 AM EST) Ferritin 78 10 - 122 ng/mL [facility] Blood Venous blood specimen / Unknown 02/02/2024 8:28 AM EST 02/02/2024 8:28 AM EST us Una Arenas MD LAB BLOOD ORDERAB LES Final Result Performing Organization Address [facility] de Phone Number [facility] [address] [place] [address] [phone] * Calcium (02/02/2024 8:28 AM EST) Calcium 9.2 8.4 - 10.2 mg/dL [facility] 02/02/2024 8:28 AM EST 02/02/2024 8:28 AM EST us Generic External Data Provider LAB BLOOD ORDERAB LES Final Result Performing Organization Address [facility] Co de Phone Number [facility] [address] [place] [address] [phone] * (ABNORMAL) Comprehensive Metabolic Panel (02/02/2024 8:28 AM EST) Only the most recent of3 resultswithin the time period is included. Sodium 137 135 - 145 mmol/L [facility] Potassium 3.6 3.3 - 5.1 mmol/L [facility] Chloride 107 96 - 108 mmol/L [facility] Carbon Dioxide 23 22 - 29 mmol/L [facility] Anion Gap 11(L) 12 - 20 [facility] Urea Nitrogen (BUN) 6(L) 9 - 16 mg/dL [facility] Creatinine, Serum 0.72 0.5 - 1.4 mg/dL [facility] Estimated Glomerular Filt Rate >60 [facility] Comment:Chronic Kidney Disea se: Estimated GFR < 60 mL/min/1.24x4Hdaqzl Kidney Disease: Estimated GFR < 15 mL/min/1.73m2 Glucose 88 60 - 115 mg/dL [facility] Calcium 9.1 8.4 - 10.2 mg/dL [facility] Bilirubin, Total 0.5 0.0 - 1.0 mg/dL [facility] Aspartate Amino Transferase 18 5 - 31 U/L [facility] Alanine Aminotransferase 12 0 - 31 U/L [facility] Total Protein 7.7 6.5 - 8.0 g/dL [facility] Albumin Level 4.2 3.5 - 5.0 g/dL [facility] Alkaline Phosphatase 69 39 - 117 U/L [facility] 02/02/2024 8:28 AM EST 02/02/2024 8:28 AM EST us Generic External Data Provider LAB BLOOD ORDERAB LES Final Result [facility] [address] [place] [address] [phone] * (ABNORMAL) Protein Creatinine Ratio, Urine (02/02/2024 8:27 AM EST) Creatinine, Urine 245.17 mg/dL [facility] Protein, Total, Random Urine 17(H) <12 mg/dL [facility] Protein/Creati nine Ratio, Ur 0.07 <0.2 [facility] Comment:The spot urine prote in:creatinine ratio may increase to 0.3during normal . 02/02/2024 8:27 AM EST 02/02/2024 8:43 AM EST us Generic External Data Provider LAB URINE ORDERAB LES Final Result Performing Organization Address [facility] de Phone Number [facility] [address] [place] [address] [phone] * (ABNORMAL) Urinalysis Complete (02/02/2024 8:27 AM EST) Color Urine Yellow [facility] Appearance Urine Clear [facility] PH 8.5 5.0 - 9.0 [facility] Glucose Urine UA Negative Negative mg/dL [facility] Urine Blood Large (3+)(A) Negative [facility] Specific [place] - Urine 1.025 1.005 - 1.025 [facility] Urine Protein 30 (1+)(A) Neg-Trace mg/dL [facility] Urine Ketones Negative Negative mg/dL [facility] Nitrite Urine Negative Negative [facility] Leukocyte Esterase Urine Trace(A) Negative [facility] RBC Urine >20(A) 0 - 2 /HPF [facility] Urine WBC 0-5 0 - 5 /HPF [facility] Urine Squamous Epithelial Cell 0-2 0 - 2 /HPF [facility] Urine Bacteria None Seen None Seen [facility] Hyaline Casts, Urine 0-2 0 - 2 /LPF [facility] 02/02/2024 8:27 AM EST 02/02/2024 8:43 AM EST us Generic External Data Provider LAB URINE ORDERAB LES Final Result Performing Organization Address [facility] Co de Phone Number [facility] [address] [place] [phone] * TSH with Reflex to Free T4 (12/21/2023 9:20 AM EDT) TSH reflex Free T4 1.06 0.32 - 4.0 uIU/mL [facility] 12/21/2023 9:20 AM EDT 12/21/2023 11:10 AM EDT us Generic External Data Provider LAB BLOOD ORDERAB LES Final Result Performing Organization Address [facility] Co de Phone Number [facility] [address] [place] [address] [phone] * Albumin, Random Urine W/Creatinine (12/21/2023 9:20 AM EDT) Creatinine, Urine 250.90 mg/dL [facility] Microalbumin Urine 43.0 mg/L [facility] Microalbum Creatinine Ratio Ur 17.1 <30 ug/mg cr [facility] Comment:Albumin/Creatinine R atio Reference Ranges: Normal: < 30 ug/mg creatinine Microalbuminuria: 30 - 300 ug/mg creatinineClinical Albuminuria: > 300 ug/mg creatinine Urine (Urine, Random) 12/21/2023 9:20 AM EDT 12/21/2023 11:01 AM EDT us Una Arenas MD LAB URINE ORDERAB LES Final Result [facility] [address] [place] [phone] * Tissue Transglutaminase Antibody, IgA (12/21/2023 9:20 AM EDT) Transglutaminase IgA <1.0 U/mL [facility] Comment:Value Interpretation ----- <15.0 Antibody not detected> or = 15.0 Antibody detectedTHIS TEST WAS PERFORMED AT:[employer] [place] [id number] ULLOA MD 12/21/2023 9:20 AM EDT 12/21/2023 11:10 AM EDT us Generic External Data Provider LAB BLOOD ORDERAB LES Final Result [facility] [address] [place] [phone] [phone] * (ABNORMAL) CBC (12/21/2023 9:20 AM EDT) White Blood Count 6.4 4.8 - 10.8 X10*3/uL [facility] Red Blood Count 4.34 4.20 - 5.50 X10*6/uL [facility] Hemoglobin 12.3 12.0 - 16.0 g/dl [facility] Hematocrit 36.4(L) 37.0 - 47.0 % [facility] Mean Corpuscular Volume 83.9 80.0 - 98.0 fL [facility] Mean Corpuscular Hemoglobin 28.3 27.0 - 33.0 pg [facility] Mean Corpuscular HGB Conc 33.8 31.0 - 35.0 g/dl [facility] Red Cell Distribution Width 13.9 11.0 - 16.0 % [facility] Platelet Count 458(H) 160 - 400 X10*3/uL [facility] Mean Platelet Volume 9.3(L) 9.4 - 12.3 fL [facility] NRBC Pct Auto 0.0 0.0 - 0.2 /100WBC [facility] NRBC Abs Auto 0.000 0.0 - 0.012 X10*3/uL [facility] 12/21/2023 9:20 AM EDT 12/21/2023 11:10 AM EDT us Generic External Data Provider LAB BLOOD ORDERAB LES Final Result Performing Organization Address [facility]/ZIP Co de Phone Number [facility] [address] [place] [phone] * Hemoglobin A1c (12/21/2023 9:20 AM EDT) Hemoglobin A1c 5.2 <6.0 % [facility] Comment:Hemoglobin A1C Refer ence Range Adults: 4.8 - 6.0 % Non diabetic: < 6.0 % Goal: < 7.0 %Additional Action Suggested: > 8.0 %Note: Hemoglobin A1c results are invalid for patients with abnormal amounts of HbF. Blood transfusions may impact the HbA1c concentration in the patient sample. Estimated Average Glucose 103 mg/dL [facility] Comment:eAG = Estimated ave rage glucose which is %A1C expressed asaverage glucose, using the formula of the Y4P-XgxlhpmQhmdxir Glucose study (ADAG), Diabetes Care, Vol.31,#8,Sep. 2007 Blood Venous blood specimen / Unknown 12/21/2023 9:20 AM EDT 12/21/2023 11:20 AM EDT us Una Arenas MD LAB BLOOD ORDERAB LES Final Result Performing Organization Address [facility] Co de Phone Number [facility] [address] [place] [phone] * Immunoglobulin A (12/21/2023 9:20 AM EDT) Immunoglobulin A 264 47 - 310 mg/dL [facility] Comment:THIS TEST WAS PERFOR MED AT:[employer] [address] [id number] ULLOA MD 12/21/2023 9:20 AM EDT 12/21/2023 11:10 AM EDT us Generic External Data Provider LAB BLOOD ORDERAB LES Final Result Performing Organization Address [facility]/ZIP Co de Phone Number [facility] [address] [place] [address] [phone] * (ABNORMAL) Lipid Panel, Standard (12/21/2023 9:20 AM EDT) Triglycerides 87 <150 mg/dL [facility] Comment:Desirable Triglyceri de: less than 150 mg/dLBorderline High Triglyceride 150-199 mg/dLHigh Triglyceride: 200-499 mg/dLVery High Triglyceride: greater than or equal to 5OO mg/dL Cholesterol 193 <200 mg/dL [facility] Comment:Desirable Cholestero l: less than 200 mg/dLBorderline High Cholesterol: 200-239 mg/dLHigh Cholesterol: greater than 239 mg/dL LDL Cholesterol Calculated 127(H) <100 mg/dL [facility] Comment:Desirable LDL: less than 100 mg/dLNear Optimal/Above Optimal LDL: 110- 129 mg/dLBorderline High LDL: 130-159 mg/dLHigh LDL: 160-189 mg/dLVery High LDL: greater than or equal to 190 mg/dL HDL Cholesterol 49 >40 mg/dL [facility] Comment:Desirable HDL: great er than 40 mg/dL Note: This HDL assay may give artificially low results in patients with liver disease. Blood Venous blood specimen / Unknown 12/21/2023 9:20 AM EDT 12/21/2023 11:20 AM EDT us Una Arenas MD LAB BLOOD ORDERAB LES Final Result [facility] [address] [place] [phone] * Vitamin B12 (Cobalamin) and Folate Panel, Serum (12/21/2023 8:05 AM EDT) Vitamin B12 451 200 - 900 pg/mL [facility] Comment:NORMAL 200-900 PG/ML INDETERMINATE 160-199 PG/ML DEFICIENT < 160 PG/ML Folate 9.4 > or = 4.0 ng/mL [facility] Comment:Reference Values:> o r = 4.0 ng/mL< 4.0 ng/mL suggests folate deficiency Methotrexate, aminopterin and folinic acid(leucovorin) are chemotherapeutic agents whose molecularstructures are similar to folate; therefore, the Architectfolate assay cannot be used for patients using these drugs. Blood 12/21/2023 8:05 AM EDT 12/21/2023 11:10 AM EDT us Una Arenas MD LAB BLOOD ORDERAB LES Final Result Performing Organization Address [facility]/ZIP Co de Phone Number [facility] [address] [place] [phone] * Hepatitis C Antibody with Reflex to HCV, RNA, Quantitative, Real-Time PCR (04/14/2023 10:03 AM EST) Hepatitis C Antibody Nonreactive Nonreactive [facility] Comment:Antibodies to HCV no t detected; does not exclude early acuteHCV infection. Blood Venous blood specimen / Unknown 04/14/2023 10:03 AM EST 04/14/2023 11:22 AM EST us Una Arenas MD LAB BLOOD ORDERAB LES Final Result Performing Organization Address [facility] Co de Phone Number [facility] [address] [place] [phone] * HIV-1/2 Antigen and Antibodies, Fourth Generation, with Reflexes (04/14/2023 10:03 AM EST) HIV AB/AG Nonreactive Nonreactive [facility] Comment:HIV-1 p24 Ag and/or HIV-1/HIV-2 Ab not detected.A test result that is nonreactive does not exclude thepossibility of exposure to or infection with HIV-1 and/orHIV-2. Nonreactive results in this assay for individualswith prior exposure to HIV-1 and/or HIV-2 may be due toantigen and antibody levels that are below the limit ofdetection of this assay.The [employer] Alinity HIV Ag/Ab Combo assay result andsupplemental assay results should be interpreted inconjunction with the patient's clinical presentation,history and other laboratory results. If the results areinconsistent with clinical evidence, additional testing issuggested to confirm the result. Blood Venous blood specimen / Unknown 04/14/2023 10:03 AM EST 04/14/2023 11:22 AM EST Una Arenas MD LAB BLOOD ORDERAB LES Final Result Performing Organization Address [facility]/ZIP Co de Phone Number [facility] [address] [place] [phone] * HPV mRNA E6/E7 w/Reflex to HPV Genotypes 16, 18/45 (07/14/2022 11:43 AM EDT) HPV nRNA E6/E7 Not Detected Not Detected [facility] Comment:Methodology: Transcr iption-Mediated AmplificationThis assay detects E6/E7 viral messenger RNA (mRNA) from 14high-risk HPV types (16,18,31,33,35,39,45,51,52,56,58,59,66,68).Cervical sources are required for HPV testing.If a vaginal source from a patient who has had atotal hysterectomy with removal of cervix wassubmitted, please contact the testing laboratoryfor alternative testing options.For additional information, please refer [email or web address]/faq/FIK890c5(This link if provided for information/educational purposes only.)THIS TEST WAS PERFORMED AT:[employer] [place] [phone] ULLOA MD HPV mRNA E6/E7 [facility] HPV 16 RNA [facility] HPV 18/45 RNA [facility] 07/14/2022 11:4 3 AM EDT 07/15/2022 8:30 AM EDT [facility] External Provider LAB CYT OLOGY ORDERABLES Final Result Performing Organization Address [facility]/ZIP Co de Phone Number [facility] [address] [place] [phone] * Pap Smear (07/14/2022 11:43 AM EDT) 07/14/2022 11:4 3 AM EDT 07/15/2022 8:30 AM EDT Narrative [facility] - 07/28/2022 1:14 PM EDT ----- ------- Name: Catalina Castle ? Age/Sex: 36/F ? : 1985 Unit#: [id number] ?? Attend Dr: Rasheeda Urias CNM ?Re07/14/22 ?Status: DEP REF ? Location: HO.LNP ?Disch: ? ----- ------- SPEC : [id number] ? RECD: 07/15/22-829 ? STATUS: ??SOUT ? REQ NUM: [id number] ? VINCENT: 07/14/22-1143 ? SUBM DR: Rasheeda Urias CNM ? ENTERED: ??07/15/22-1007 ?SP TYPE: Pap Smr ?OTHR DR: Sara Newsome DO ? ORDERED: ??Pap Smear ? Interpretation ?? Satisfactory for evaluation. ?? Negative for intraepithelial lesion or malignancy. ?HPV mRNA E6/E7: ?NOT DETECTED ? This assay detects E6/E7 viral messenger RNA (mRNA) from 14 high-risk HPV types (16, 18, ?? 31, 33, 35, 39, 45, 51, 52, 56, 58, 59, 66, 68) ?? HPV testing performed by [facility], [place], [place]. ??See reference laboratory ?? pion of the EMR for entire report. ?Clinical Information LMP: 06/23/22 Previous PAP test: 10/30/16, WNL ? Material Received ?? ThinPrep-Cervical Copies To: ?? Sara Newsoem DO ?? [address] ?? [place] [address] ? Rasheeda Urias CNM ?? [address] ?? [place] [address] ?? [phone] ----- ------- Signed (signature on file) REBECCA Andrade ([facility]) 07/28/22 1314 ? ----- ------- ? END OF REPORT ? [facility] External Provider LAB [facility] ORDERABLES Final Result [facility] [address] [place], [place] [phone] from Last 3 Months or Most Recently Relevant to Health Maintenance Insurance [facility] [place] AD[place] Care Teams Tool Shaper Set Up Operator Relationship Specialty Start Date End Date Una Webb MD [address] [place] [phone] PCP - General Internal Medicine 11/17/22 Morris Haney RN [address] [place] [phone] Abalone FishermanEdger Machine Helper 08/31/23 Estefany Haney Community Health Worker 09/09/23
--- OUTSIDE RECORDS SUMMARY | 2024-03-21 01:10 | XMS_ITS | Encounter Summary ---
Author Organization [employer] Address [address] [place] [address] Care Team Providers Care Planer Setter Name Role Phone Una Webb MD Primary Care Pro vider Morris Haney RN Unavailable [phone] Estefany Haney Unavailable Unavailable Encounter Details Date Type Department Care Team (Late st Contact Info) Description 11/17/2022 Abstract [facility] [address] [place] [address] Cora Wolfe FNP [address] [place] [address] Dept [place] [address] Social History Tobacco Use Types Packs/Day Years Used Date Smoking Tobacco: Never Smokeless Tobacco: Never Alcohol Use Standard Drinks/Week Comments Not Currently 0 (1 standard drink = 0.6 oz pur e alcohol) Depression Answer Date Recorded Patient Health Questionnaire-9 Score 2 02/27/2022 Depression Answer Date Recorded Patient Health Questionnaire-2 Score 1 02/27/2022 Comments Unknown Sex and Gender Information Value [...] Assessment Noted Time PHQ-9 Depression Total Score: 2 02/27/19 23 10:36 AM EST documented as of this encounter Care Teams Planer Setter Relationship Specialty Start Date End Date Una Webb MD [address] [place] [phone] PCP - General Internal Medicine 11/17/22 Morris Haney RN [address] [place] [phone] Technical BuyerNamed Account Executive 08/31/23 Estefany Haney Community Health Worker 09/09/23 documented as of this encounter
--- OUTSIDE RECORDS SUMMARY | 2024-03-21 01:10 | XMS_ITS | Encounter Summary ---
Author Organization [employer] Address [address] [facility] 7t [place] [address] Care Team Providers Care Asset Protection Assistant Name Role Phone Una Webb MD Primary Care Pro vider Morris Haney RN Unavailable [phone] Estefany Haney Unavailable Unavailable Reason for Visit * Reason Comments Routine Cleaning Dental Exam Encounter Details Date Type Department Care Team (Late st Contact Info) Description 03/07/2024 8:00 AM EST Office Visit [facility] ADULT DENTAL [address] [place] [address] Yoly Chun Dental calculus (Primary Dx); Dental plaque Social History Tobacco Use Types Packs/Day Years [...] AM EDT documented as of this encounter Last Filed Vital Signs Vital Sign Reading Time Taken Comments Blood Pressure 142/88 03/07/2024 8:07 AM EST Pulse - - Temperature - - Respiratory Rate - - Oxygen Saturation - - Inhaled Oxygen Concentration - - Weight - - Height - - Body Mass Index - - documented in this encounter Progress Notes * Yoly Chun - 03/07/2024 8:00 AM EST Patient ID: Catalina Arenas is a 38 y.o. female. Time Out: Timeout Date: 03/07/24, Timeout Time: 805 (Dental Prophy Adult) Location: [facility] Tooth: Maxilla and Mandible Procedure: Exam, X-rays, and Prophylaxis Verified the above with patient, medical office assistant instructor, and provider. Confirmed via patient's chart, intraorally and by radiographs. Commercial Escrow Assistant: not applicable Medical Hx: Vitals: Blood pressure (!) 142/88. Medications, Med Hx reviewed with patient and updated in chart. Treatment Provided Dental procedures in this visit D1110 - PROPHYLAXIS - ADULT (Completed) Service provider: Yoly Yu provider: Dagoberto Witt DDS D1330 - ORAL HYGIENE INSTRUCTIONS (Completed) Service provider: Yoly Yu provider: Dagoberto Witt DDS D0274 - BITEWINGS - 4 RADIOGRAPHIC IMAGES (Completed) Service provider: Yoly Chun Billing provider: Dagoberto Witt DDS D9450 - CASE PRESENTATION, DETAILED AND EXTENSIVE TREATMENT PLANNING (Completed) Service provider: Yoly Chun Billing provider: Dagoberto Wtit DDS Instruments Used: Ultrasonic Scalers, Hand Scalers, Prophy angle, and floss Fluoride: N/A Oral Cancer Screening: No lesions Head/Neck Exam: No Lesions Calculus: Moderate, Generalized, and Subgingival Plaque: Moderate and Generalized Stain: Light and Generalized Bleeding: Moderate and Generalized Gingiva: Perio Charting Completed, Bleeding on probing, Erythematous, and Inflamed OH: Poor Perio Chart: Completed Patient presents with periodontal disease. Calculus present Subgingivally, Supragingivally, and Generalized that can be seen radiographically. BOP: Generalized and Moderate Exudate: Not Present Mobility: 0 Generalized Probing Depths Range: 4 to 6 mm Recession: 0 ranging from 0 to 0 mm. Gingiva: Inflamed and Erythematous Bone loss visible radiographically: Generalized Pre Authorization requested for SRP. SRP treatment needed to promote gingival health, arrest disease progression of periodontal disease and prevent tooth loss. Provider: Yoly Chun Oral hygiene instructions provided to patient including brushing technique and flossing. Recommendations: Pickett two times daily, modified mercado technique, Floss daily, Electric toothbrush, Soft bristle toothbrush, Pickett Tongue, Anti-sensitivity toothpaste Recall Frequency: 6 mo NV: 6mrc Hygienist: Yoly Chun RDH * Dagoberto Witt DDS - 03/07/2024 8:00 AM EST Dental procedures in this visit D1110 - PROPHYLAXIS - ADULT (Completed) Service provider: Yoly Chun Billing provider: Dagoberto Witt DDS D1330 - ORAL HYGIENE INSTRUCTIONS (Completed) Service provider: Yoly Chun Billing provider: Dagoberto Witt DDS D0274 - BITEWINGS - 4 RADIOGRAPHIC IMAGES (Completed) Service provider: Yoly Chun Billing provider: Dagoberto Witt DDS D9450 - CASE PRESENTATION, DETAILED AND EXTENSIVE TREATMENT PLANNING (Completed) Service provider: Yoly Chun Billing provider: MARA Mendiola120 - PERIODIC ORAL EVALUATION - ESTABLISHED PATIENT (Completed) Service provider: Dagoberto Witt DDS Billing provider: Dagoberto Witt DDS Patient ID: Catalina Arenas is a 38 y.o. female. Time Out: Timeout Date: 03/07/24, Timeout Time: 0806 (Dental Prophy Adult) Location: [facility] Tooth: Maxilla and Mandible Procedure: Exam, X-rays, and Prophylaxis Verified the above with patient, medical office assistant instructor, and provider. Confirmed via patient's chart, intraorally and by radiographs. Commercial Escrow Assistant: not applicable Chief Complaint Patient presents with Routine Cleaning Dental Exam Medical Hx: Vitals: Blood pressure (!) 142/88. Past Medical History: Diagnosis Date Anxiety Constipation GERD (gastroesophageal reflux disease) Medications: Outpatient Encounter Medications as of 03/07/2024 Medication Sig Dispense Refill albuterol 108 (90 Base) MCG/ACT inhaler Inhale 2 puffs every 4 (four) hours. 18 g 2 Blood Pressure Monitoring (Omron 3 Series BP Monitor) device USE DIRECTED DAILY cetirizine (ZyrTEC) 10 MG tablet TAKE 1 TABLET BY MOUTH EVERY MORNING 90 tablet 0 cholecalciferol (Vitamin D-3) 25 MCG (1000 UT) tablet Take 1 tablet (25 mcg) by mouth Once per day.90 tablet 3 ergocalciferol (Vitamin D2) 1.25 MG (50422 UT) capsule Take 1 capsule (1.25 mg) by mouth 1 (one) time per week. 12 capsule 1 escitalopram (Lexapro) 10 MG tablet Take 1 tablet (10 mg) by mouth Once per day. 90 tablet 0 FREESTYLE LITE test strip TEST BLOOD SUGAR TWICE DAILY 50 strip 5 hydrOXYzine pamoate (Vistaril) 25 MG capsule TAKE 1 CAPSULE BY MOUTH TWICE DAILY NEEDED ketotifen (Zaditor) 0.025 % ophthalmic solution Administer 1 drop into affected eye(s) in the morning and 1 drop in the evening. Latuda 20 MG tablet Take 20 mg by mouth in the morning. magnesium oxide (Mag-Ox) 400 (240 Mg) MG tablet TAKE 1 TABLET BY MOUTH EVERY DAY 90 tablet 1 olmesartan (Benicar) 40 MG tablet Take 1 tablet (40 mg) by mouth Once per day. 90 tablet 0 ondansetron (Zofran) 4 MG tablet TAKE 1 TABLET BY MOUTH EVERY 12 HOURS IF NEEDED FOR NAUSEA OR VOMITING 10 tablet 0 riboflavin (vitamin B2) 100 mg tablet tablet Take 1 tablet (100 mg) by mouth Once per day. 90 tablet 1 semaglutide (Ozempic, 1 MG/DOSE,) 2 MG/1.5ML solution pen-injector Inject 1 mg under the skin 1 (one) time per week. 3 mL 11 SUMAtriptan (Imitrex) 25 MG tablet TAKE 1 TABLET BY MOUTH AT ONSET OF MIGRAINE. MAY REPEAT ONCE AFTER 2 HOURS IF NEEDED. DO NOT EXCEED 2 DOSES IN 24 HOURS. 9 tablet 2 topiramate 50 MG tablet Take 1 tablet (50 mg) by mouth Once per day. 90 tablet 0 TRUEplus Lancets 33G misc 1 each 2 times daily. TEST BLOOD SUGAR TWICE A DAY 100 each 11 zolpidem (Ambien) 5 MG tablet Take 5 mg by mouth if needed at bedtime. chlorhexidine (Peridex) 0.12 % solution Place 15 mL into mouth between cheek and gum every 12 (twelve) hours. (Patient not taking: Reported on 03/07/2024) No facility-administered encounter medications on file as of 03/07/2024. Objective HPI Asymptomatic Head and Neck Exam: Lymph Nodes, Lips, Palate, Buccal Mucosa, Floor of Mouth, Tongue, Tonsils, Alveolar Ridges, Oropharynx, Salivary Ducts, and Vestibules normal appearance Details: Skin WNL OCS: negative Dental Exam As charted Third molar # 17 asymptomatic pending for extraction when pt decided Reference tooth chart for additional findings. Oral Cancer Risk: Low Risk Oral Hygiene Instructions: Pickett two times daily, modified mercado technique, Floss daily, Electric toothbrush, Soft bristle toothbrush, Pickett Tongue Caries Risk Assessment: Medium- one risk factor Assessment/Plan Patient tolerated procedure well, all questions answered and expressed understanding. Dismissed in good condition. NV: 6 mos recall Surgical Endoscopist: Yoly Chun Dentist: Dagoberto Witt DDS documented in this encounter Plan of Treatment Scheduled Orders Name Type Priority Associated Diagnoses Orde r Schedule UR UR PERIODONTAL SCALING AND ROOT PLANING - 4 OR MORE TEETH PER QUADRANT Dental Routine [address] arting 03/07/2024 UL UL PERIODONTAL SCALING AND ROOT PLANING - 4 OR MORE TEETH PER QUADRANT Dental Routine [address] arting 03/07/2024 LL LL PERIODONTAL SCALING AND ROOT PLANING - 1 TO 3 TEETH PER QUADRANT Dental Routine [address] arting 03/07/2024 LR LR PERIODONTAL SCALING AND ROOT PLANING - 4 OR MORE TEETH PER QUADRANT Dental Routine [address] arting 03/07/2024 documented as of this encounter Procedures Procedure Name Priority Date/Time Associated Diagnosis Comments PROPHYLAXIS - ADULT Routine 03/07/2024 8 :00 AM EST Dental calculus Dental plaque PERIODIC ORAL EVALUATION - ESTABLISHED PATIENT Routine 03/07/2024 8:00 AM EST ORAL HYGIENE INSTRUCTIONS Routine 03/07/2024 8:00 AM EST Dental calculus Dental plaque ADJUNCTIVE GENERAL SERVICES - PROFESSIONAL VISITS - CASE PRESENTATION, SUBSEQUENT TO DETAILED AND EXTENSIVE TREATMENT PLANNING Routine 03/07/2024 8:00 AM EST BITEWINGS - 4 RADIOGRAPHIC IMAGES Routine 03/07/2024 8:00 AM EST documented in this encounter Visit Diagnoses Diagnosis Dental calculus- Primary Accretions on teeth Dental plaque Accretions on teeth documented in this encounter Additional Health Concerns Assessment Noted Time PHQ-9 Depression Total Score: 4 03/18/19 11:06 AM EST documented as of this encounter Care Teams Asset Protection Assistant Relationship Specialty Start Date End Date Una Webb MD [address] [place] [address] PCP - General Internal Medicine 11/17/22 Morris Haney RN [address] [place] [address] Production Line WelderDeputy County Counsel 08/31/23 Estefany Haney Community Health Worker 09/09/23 documented as of this encounter
--- OUTSIDE RECORDS SUMMARY | 2024-03-21 01:10 | XMS_ITS | Encounter Summary ---
Author Organization [employer] Address [address] [place] [address] [place] [address] Care Team Providers Care Crime Specialist Name Role Phone nUa Webb MD Primary Care Pro vider Morris Haney RN Unavailable Estefany Haney Unavailable Unavailable Reason for Visit * Reason Onset Date Comments Med Refill 12/10/2022 Encounter Details Date Type Department Care Team (Late st Contact Info) Description 12/10/2022 Refill [facility] MEDICINE [address] [place] [address] Cora Wolfe FNP [address] [place] [address] Dept [place] [address] Type 2 diabetes mellitus without complication, without long-term current use of insulin (CMS/[facility]); Class 2 obesity due to excess calories without serious comorbidity in adult, unspecified BMI Social History Tobacco Use Types Packs/Day Years Used Date Smoking Tobacco: Never Smokeless Tobacco: Never Alcohol Use Standard Drinks/Week Comments Not Currently 0 (1 standard drink = 0.6 oz pur e alcohol) Depression Answer Date Recorded Patient Health Questionnaire-9 Score 2 02/27/2022 Housing Stability Answer Date Recorded What is your housing situation today? I have noe geller 12/10/[address] you li [...] documented as of this encounter Visit Diagnoses Diagnosis Type 2 diabetes mellitus without complication, without long-term current use of insulin ([facility]) Class 2 obesity due to excess calories without serious comorbidity in adult, unspecified BMI documented in this encounter Additional Health Concerns Assessment Noted Time PHQ-9 Depression Total Score: 2 02/27/19 23 10:36 AM EST documented as of this encounter Care Teams Crime Specialist Relationship Specialty Start Date End Date Una Webb MD [address] [place] [address] PCP - General Internal Medicine 11/17/22 Morris Haney RN [address] [place] [phone] Construction Project EngineerSeasonal Clerk 08/31/23 Estefany Haney Community Health Worker 09/09/23 documented as of this encounter
--- OUTSIDE RECORDS SUMMARY | 2024-03-21 01:10 | XMS_ITS | Encounter Summary ---
Author Organization [employer] Address [address] [facility] 7t [place] [address] Care Team Providers Care Electrical Engineering Designer Name Role Phone Una Webb MD Primary Care Pro vider Morris Haney RN Unavailable [phone] Estefany Haney Unavailable Unavailable Reason for Visit * Reason Onset Date Comments Med Refill 12/10/2022 Encounter Details Date Type Department Care Team (Late st Contact Info) Description 12/10/2022 Refill [facility] MEDICINE [address] [place] [address] Cora Wolfe FNP [address] [facility] Dept [place] [address] Primary hypertension Social History Tobacco Use Types Packs/Day Years [...] as of this encounter Visit Diagnoses Diagnosis Primary hypertension Unspecified essential hypertension documented in this encounter Additional Health Concerns Assessment Noted Time PHQ-9 Depression Total Score: 2 02/27/19 23 10:36 AM EST documented as of this encounter Care Teams Electrical Engineering Designer Relationship Specialty Start Date End Date Una Webb MD [address] [place] [address] PCP - General Internal Medicine 11/17/22 Morris Haney RN [address] [place] [address] Hospital InternshipAdvertising Sales Agent 08/31/23 Estefany Haney Community Health Worker 09/09/23 documented as of this encounter
--- OUTSIDE RECORDS SUMMARY | 2024-03-21 01:10 | XMS_ITS | Encounter Summary ---
Author Organization [employer] Address [address] [place] [address] [place] [address] Care Team Providers Care Rehab Manager Name Role Phone Una Webb MD Primary Care Pro vider Morris Haney RN Unavailable [phone] Estefany Haney Unavailable Unavailable Reason for Visit * Reason Comments Med Refill Encounter Details Date Type Department Care Team (Late st Contact Info) Description 10/04/2023 Refill [facility] MEDICINE [address] [place], [place] [phone] Una Webb MD [address] [place], [place] [phone] Social History Tobacco Use Types Packs/Day Years [...] Patient Health Questionnaire-2 Score 2 03/18/2023 Comments No Sex and Gender Information Value [...] documented as of this encounter Care Teams Rehab Manager Relationship Specialty Start Date End Date Una Webb MD [address] [place] [address] PCP - General Internal Medicine 11/17/22 Morris Haney RN [address] [place] [address] Apprentice EmbalmerForm Setter Supervisor 08/31/23 Estefany Haney Community Health Worker 09/09/23 documented as of this encounter
--- OUTSIDE RECORDS SUMMARY | 2024-03-21 01:10 | XMS_ITS | Encounter Summary ---
Author Organization [employer] Address [address] [facility] 7 [place] [address] Care Team Providers Care Cost Control Specialist Name Role Phone Una Webb MD Primary Care Pro vider Morris Haney RN Unavailable [phone] Estefany Haney Unavailable Unavailable Encounter Details Date Type Department Care Team (Late st Contact Info) Description 11/17/2022 Abstract [facility] MEDICINE [address] [place] [address] Cora Wolfe FNP [address] [place] [address] Dept [place] [address] Social History Tobacco Use Types Packs/Day Years [...] documented as of this encounter Care Teams Cost Control Specialist Relationship Specialty Start Date End Date Una Webb MD [address] [place] [address] PCP - General Internal Medicine 11/17/22 Morris Haney RN [address] [place] [address] Watch Engine OperatorPersonal Finance Instructor 08/31/23 Estefany Haney Community Health Worker 09/09/23 documented as of this encounter
--- OUTSIDE RECORDS SUMMARY | 2024-03-21 01:10 | XMS_ITS | Encounter Summary ---
Author Organization [employer] Address [address] [facility] 7 [place] [address] Care Team Providers Care Automation And Control Engineer Name Role Phone Una Webb MD Primary Care Pro vider Morris Haney RN Unavailable [phone] Estefany Haney Unavailable Unavailable Encounter Details Date Type Department Care Team (Late st Contact Info) Description 11/17/2022 Abstract [facility] MEDICINE [address] [place] [address] Cora Wolfe FNP [address] [place] [address] Dept [place] [address] Social History Tobacco Use Types Packs/Day Years [...] documented as of this encounter Care Teams Automation And Control Engineer Relationship Specialty Start Date End Date Una Webb MD [address] [place] [address] PCP - General Internal Medicine 11/17/22 Morris Haney RN [address] [place] [address] Semiconductor Package Symbol StamperEr Tech 08/31/23 Estefany Haney Community Health Worker 09/09/23 documented as of this encounter
--- OUTSIDE RECORDS SUMMARY | 2024-03-21 01:10 | XMS_ITS | Encounter Summary ---
Author Organization [employer] Address [address] [place] [address] [place] [address] Care Team Providers Care Accounting Specialist Name Role Phone Una Webb MD Primary Care Pro vider Morris Haney RN Unavailable [phone] Estefany Haney Unavailable Unavailable Reason for Visit * Reason Onset Date Comments Med Refill 11/17/2022 Encounter Details Date Type Department Care Team (Late st Contact Info) Description 11/17/2022 Refill [facility] MEDICINE [address] [place] [address] Cora Wolfe FNP [address] [place] [address] Dept [place] [address] Type 2 diabetes mellitus without complication, without long-term current use of insulin (CMS/[facility]); Class 2 obesity due to excess calories [...] complication, without long-term current use of insulin ([facility]) Class 2 obesity due to excess calories without serious comorbidity in adult, unspecified BMI documented in this encounter Additional Health Concerns Assessment Noted Time PHQ-9 Depression Total Score: 2 02/27/19 23 10:36 AM EST documented as of this encounter Care Teams Accounting Specialist Relationship Specialty Start Date End Date Una Webb MD [address] [place] [address] PCP - General Internal Medicine 11/17/22 Morris Haney RN [address] [place] [address] Associate AccountantRoller Skates Assembler 08/31/23 Estefany Haney Community Health Worker 09/09/23 documented as of this encounter
--- OUTSIDE RECORDS SUMMARY | 2024-03-21 01:10 | XMS_ITS | Encounter Summary ---
Author Organization [employer] Address [address] [place] [address] Care Team Providers Care Dark Room Attendant Name Role Phone Cora Wolfe Primary Care Provider [phone] Una Webb MD Primary Care Pro vider Morris Haney RN Unavailable [phone] Estefany Haney Unavailable Unavailable Encounter Details Date Type Department Care Team (Latest Contact Info) Description 03/26/2020 Abstract [facility] CONVERSIONS Dental, Provider, DDS Social History Tobacco Use Types Packs/Day Years Used Date Smoking Tobacco: Never Assessed Comments Unknown Sex and Gender Information Value Date Recorded Sex Assigned at Female 12/23/2021 10:21 AM EDT Legal Sex Female 10:21 AM EDT Gender Identity Female 12/23/2021 10:21 AM EDT Sexual Orientation Straight 12/23/2021 10 :21 AM EDT documented as of this encounter Plan of Treatment Not on file documented as of this encounter Visit Diagnoses Not on filedocumented in this encounter Care Teams Dark Room Attendant Relationship Specialty Start Date End Date Cora Wolfe FNP PCP - General Family Medicine 10/19/21 11/16/22 Una Webb MD [address] [place] [address] PCP - General Internal Medicine 11/17/22 Morris Haney RN [address] [place] [address] Associate Professor Of Library ScienceCircuit Board Assembler 08/31/23 Estefany Haney Community Health Worker 09/09/23 documented as of this encounter
--- NOTE | 2024-03-21 01:43 | ED.EXTPRO ---
HPI - Extremity Problem General Chief complaint: Extremity Injury, Upper Stated complaint: Left arm issue Time Seen by Provider: 03/21/24 01:25 Source: patient, RN notes reviewed and old records reviewed Mode of arrival: ambulatory Limitations: no limitations History of Present Illness ED Provider: Jessica HPI Narrative: 38-year-old female presents for evaluation of left elbow pain. Patient reports that she stubbed her toe and tripped onto her left side. She reports pain to the left elbow and indicates the medial aspect. She has good range of motion but has pain with extension. Denies hitting her head or losing consciousness. She is not anticoagulated. Her pain is 8/10, stabbing Related Data Home Medications ?Medication ?Instructions ?Recorded ?Confirmed lurasidone 20 mg tablet (Latuda) 20 mg PO DAILY 04/10/20 01/06/24 albuterol sulfate 90 mcg/actuation 2 puff PO Q4-6H PRN 01/28/21 01/06/24 aerosol inhaler (ProAir HFA) hydroxyzine pamoate 25 mg capsule 25 mg PO BID PRN 01/28/21 01/06/24 losartan 25 mg tablet 25 mg PO DAILY 01/28/21 01/06/24 zolpidem 5 mg tablet 5 mg PO BEDTIME PRN 01/28/21 01/06/24 cetirizine 10 mg tablet 10 mg PO QAM 12/09/23 01/06/24 ergocalciferol (vitamin D2) 1,250 1,250 mcg PO QWEEK 12/09/23 01/06/24 mcg (50,000 unit) capsule esomeprazole magnesium 40 mg 40 mg PO DAILY 12/09/23 01/06/24 capsule,delayed release magnesium oxide 400 mg (241.3 mg 400 mg PO DAILY 12/09/23 01/06/24 magnesium) tablet blood sugar diagnostic (FreeStyle #10 ea 03/14/24 Lite Strips) escitalopram oxalate 10 mg tablet 10 mg PO BEDTIME 03/14/24 riboflavin (vitamin B2) 100 mg 100 mg PO DAILY 03/14/24 tablet (Vitamin B-2) semaglutide 1 mg/dose (4 mg/3 mL) 1 mg subcut QWEEK 03/14/24 subcutaneous pen injector (Ozempic) topiramate 50 mg tablet 50 mg PO DAILY 03/14/24 Previous Rx's ?Medication ?Instructions ?Recorded [id number] 1 cap PO Q6H PRN Headache #20 caps 11/10/20 50 mg-300 mg-40 mg capsule (Fioricet) metronidazole 0.75 % (37.5 mg/5 1 appful vaginal BEDTIME 5 days 07/15/22 gram) vaginal gel #70 grams sodium phosphates 19 gram-7 118 ml OR DAILY PRN constipation 02/21/23 gram/118 mL enema (Fleet Enema) #133 mL ondansetron 4 mg disintegrating 4 mg PO TID PRN nausea and 04/25/23 tablet vomiting 5 days #10 tabs diclofenac sodium 1 % topical gel 4 g topical QID PRN for pain #100 10/28/23 grams cholecalciferol (vitamin D3) 1,250 1,250 mcg PO QWEEK 90 days #13 caps 12/24/23 mcg (50,000 unit) capsule cyclobenzaprine 5 mg tablet 5 mg PO BEDTIME PRN muscle spasm 01/06/24 #90 tabs duloxetine 30 mg capsule,delayed 30 mg PO BID #180 caps 01/06/24 release (Cymbalta) linaclotide 72 mcg capsule 72 mcg PO DAILY #90 caps 03/14/24 (Linzess) omeprazole 20 mg capsule,delayed 20 mg PO BID #180 caps 03/14/24 release Allergies Allergy/AdvReac Type Severity Reaction Status Date / Time Iodinated Contrast Media Allergy Mild NAUSEA & Verified 03/20/24 23:28 [IV CONTRAST] VOMITING Review of Systems Constitutional: Constitutional: Denies body ache(s), Denies chills, Denies fever(s) and Denies headache(s) Eyes: Eyes: Denies blurry vision ENT: Denies vertigo and Denies headache(s) Cardiovascular: Cardiovascular: Denies chest pain Musculoskeletal: Musculoskeletal: Reports arthralgias, Reports joint swelling and Reports limited range of motion Integumentary/Breasts: Skin/Breast: Denies rash Neurologic: Denies vertigo and Denies headache(s) [facility] Past Medical History Medical History (Reviewed 03/14/24 @ 12:39 by Song Haywood [facility]) Right knee pain Prolapsed hemorrhoids Fibromyalgia High blood pressure Diabetes Surgical History Hx of colonoscopy Hx of section Hx of hernia repair Family History Family History Father Diabetes Mother HTN (hypertension) Social History Social History Alcohol intake: never Patient Tobacco Use Status: Never used Tobacco Smoked in Last 30 Days: No Use of substances other than those prescribed or required for medical reasons: No Advance Directives: No Advance Directives Information Provided: Yes Do you have a plan to hurt others: No Plan Patient : No Gender identity: Female Physical Exam Vital Signs: Vital Signs: Last Vital Signs Temp 98.4 F 03/21/24 01:05 Pulse 99 03/21/24 01:05 Resp 16 03/21/24 01:05 BP 147/95 H 03/21/24 01:05 Pulse Ox 99 03/21/24 01:05 O2 Del Method Room Air 03/21/24 01:05 BMI result Body Mass Index 30.8 Const: General: healthy appearing, comfortable, no acute distress, alert and awake Nutritional Appearance: well nourished Orientation/consciousness: patient oriented x3 HEENT: Head: Yes normocephalic and Yes atraumatic Eyes: Eyelids: Yes eyelids normal Conjunctivae: conjunctivae normal Sclerae: sclerae normal Corneas: corneas normal Pupils: Equal, round and reactive pupils present EOM: EOMs intact bilaterally Neck: Neck: Yes full ROM Resp: Effort & Inspection: normal respiratory effort, able to speak in complete sentences and not labored Skin: General skin exam: elasticity normal Neuro: General: patient oriented x3 Cranial nerves: Yes Equal, round and reactive pupils present and Yes Bilaterally intact EOM present Cognition (Neuro): normal cognition Extrem: Other: Patient has good range of motion with flexion and extension of the left elbow. She does have some difficulty with supination of the left elbow. She is tender mostly over the medial epicondyle. This area is edematous. No open wounds or lacerations. No left wrist edema, tenderness Medical Decision Making Medical Decision Making MDM Narrative: 38-year-old female presents for evaluation of left elbow injury. She tripped after stubbing her toe. This was a nonsyncopal fall. X-ray show a possible avulsion fracture of the left medial epicondyle. This is the area of the patient's maximum pain and tenderness. This likely is an avulsion fracture and will be treated as such with a sling. We will discharge the patient with the orthopedic follow-up. There was no head strike, no headache or neck pain to warrant any additional imaging at this time. Differential Diagnosis Differential Diagnoses: The differential diagnosis associated with the presentation includes Elbow fracture Contusion Elbow sprain Dislocation Independent Interpretation I performed an independent interpretation of an: Plain X-Ray (Agree with Radiology interpretation, small avulsion fracture to the left medial epicondyle) Radiology Impression Discussion of test interpretation with radiology: I have reviewed the radiologist's reading. Radiologist Impression: Findings: Bones intact. No dislocations. No significant loss of joint space, osteophytes, or erosions. No joint effusion. No radiopaque foreign body. There is a punctate ossific density along the inferior aspect of the medial epicondyle. IMPRESSION: Punctate ossific density at the inferior aspect of the medial epicondyle which may be a small dystrophic calcification versus small chip fracture. This document has been electronically signed by: Kyler Marquez MD on 03/21/2024 00:43:10 Discharge Plan Discharge Clinical Impression: Closed fracture of left elbow Patient Disposition: Home, Self-Care Instructions: Elbow Fracture (ED) Additional Instructions: Your x-ray shows a very small fracture to the left elbow. This is an avulsion type fracture. You may use the sling throughout the day for comfort. Use ibuprofen/Tylenol for pain. You may also use ice to the swollen area. Follow up with Orthopedics at the number provided Prescriptions: No Action metronidazole 0.75 % (37.5mg/5 gram) gel 1 appful vaginal BEDTIME 5 Days Qty: 70 0RF diclofenac sodium 1 % gel 4 g topical QID PRN (Reason: for pain) Qty: 100 1RF cholecalciferol (vitamin D3) 1,250 mcg (50,000 unit) capsule 1,250 mcg PO QWEEK 90 Days Qty: 13 0RF gamrxmcmog-ldrqrhhsjntlg-kuxm [Fioricet] 50-300-40 mg capsule 1 cap PO Q6H PRN (Reason: Headache) Qty: 20 0RF Fleet Enema 19-7 gram/118 mL enema 118 ml OR DAILY PRN (Reason: constipation) Qty: 133 2RF ondansetron 4 mg tablet,disintegrating 4 mg PO TID PRN (Reason: nausea and vomiting) 5 Days Qty: 10 0RF Latuda 20 mg tablet 20 mg PO DAILY Rx Instructions: must administer with food (at least 350 calories) albuterol sulfate [ProAir HFA] 90 mcg/actuation HFA aerosol inhaler 2 puff PO Q4-6H PRN zolpidem 5 mg tablet 5 mg PO BEDTIME PRN losartan 25 mg tablet 25 mg PO DAILY hydroxyzine pamoate 25 mg capsule 25 mg PO BID PRN cetirizine 10 mg tablet 10 mg PO QAM ergocalciferol (vitamin D2) 1,250 mcg (50,000 unit) capsule 1,250 mcg PO QWEEK esomeprazole magnesium 40 mg capsule,delayed release(DR/EC) 40 mg PO DAILY magnesium oxide 400 mg (241.3 mg magnesium) tablet 400 mg PO DAILY escitalopram oxalate 10 mg tablet 10 mg PO BEDTIME Ozempic 1 mg/dose (4 mg/3 mL) pen injector 1 mg subcut QWEEK (DME) FreeStyle Lite Strips Strip See Rx Instructions .ROUTE BID Qty: 10 Rx Instructions: As directed riboflavin (vitamin B2) [Vitamin B-2] 100 mg tablet 100 mg PO DAILY topiramate 50 mg tablet 50 mg PO DAILY Linzess 72 mcg capsule 72 mcg PO DAILY Qty: 90 0RF omeprazole 20 mg capsule,delayed release(DR/EC) 20 mg PO BID Qty: 180 0RF duloxetine [Cymbalta] 30 mg capsule,delayed release(DR/EC) 30 mg PO BID Qty: 180 0RF cyclobenzaprine 5 mg tablet 5 mg PO BEDTIME PRN (Reason: muscle spasm) Qty: 90 0RF Referrals: Meng Cameron MD [Physician] - (left elbow avulsion fracture) Print Language: Nepali
[2024-03-21] MEDS: Ibuprofen 600 MG TABLET PO (01:52)
[2024-03-21 02:00] VITALS: BP 147/95; PULSE 99; RESP 16; TEMP 36.9; O2SAT 99
== END 2024-03-21 02:00 | disposition home or self-care (01) ==
PROVIDERS: Emergency Provider Emergency Medicine Emergency Medical Services; PCP Student in an Organized Health Care Education/Training Program
DX: S42.402A Unspecified fracture of lower end of left humerus, initial encounter for closed fracture (principal); W01.0XXA Fall on same level from slipping, tripping and stumbling without subsequent striking against object, initial encounter; M25.522 Pain in left elbow; Y93.9 Activity, unspecified; Y92.009 Unspecified place in unspecified non-institutional (private) residence as the place of occurrence of the external cause; Y99.9 Unspecified external cause status
CPT/HCPCS: 73070; 73090; 99283; 99284

== ENCOUNTER → 2024-03-20 23:40 | Outpatient (BNV) | payer MEDICAID, SELFPAY | PROVIDERS: PCP Student in an Organized Health Care Education/Training Program; Visit Provider Radiology Diagnostic Radiology | DX: M25.522 Pain in left elbow (principal); M79.632 Pain in left forearm | CPT/HCPCS: 73070; 73090 ==

== ENCOUNTER → 2024-03-25 13:48 | Outpatient (BNVA) | payer MEDICAID, SELFPAY | PROVIDERS: PCP Student in an Organized Health Care Education/Training Program; Visit Provider Physician Assistant | DX: S53.449A Ulnar collateral ligament sprain of unspecified elbow, initial encounter (principal) | CPT/HCPCS: 99212 ==

== ENCOUNTER 2024-04-04 08:51 | Outpatient (RCR) | payer MEDICAID, SELFPAY ==
--- NOTE | 2024-03-31 11:29 | MHC.OT.EP ---
[address] [phone] Occupational Therapy Plan of Care Patient Name: Catalina Arenas Date of Evaluation: 03/31/24 Diagnosis: Left ulnar collateral ligament sprain Pain Location: Left medial elbow Pain Score: 5 Pain Scale Used: Numeric (0 - 10) Aggravating Factors: Forceful grasp, weightbearing, full extension Alleviating Factors: Medicated cream Assessment: Catalina is a 38 year old right hand dominant female s/p trip and fall, landing on her left elbow. She presented to [facility] where x-rays were taken and referred to orthopedics. Pt noted to have avulsion fracture of the medial epicondyle from an ulnar collateral ligament strain. Pt presents with 5/10 pain in medial elbow, limited elbow extension, and difficulty performing IADLs. Pt. to avoid any pushing/pulling and carrying activities at work greater than 5 lb. Pt would benefit from skilled OT services to address noted barriers and regain strength. Frequency and Duration: The patient will be seen 2x/wk for 6 weeks Short Term Goals: Decrease elbow pain <3/10 IND with edema management techniques to reduce swelling by 50% Elbow extension WNL's Halfway Goals: Pain free with ADL's/IADLS Improve L living supervisor strength >35# Improve elbow strength to 4+/5 IND with HEP Treatment Plan: Therapeutic Exercise Therapeutic Activity Home Exercise Program Patient Education Edema Control Ultrasound Iontophoresis MHP Cold Packs Soft Tissue Mobilization Kinesiotaping Electronically Signed By: Radha Hickman MS OTR/L Please Sign and return to therapist. Thank you once again for your referral.
== END 2024-12-21 10:53 | disposition home or self-care (01) ==
LOC: HO.OT 08:51
PROVIDERS: PCP Student in an Organized Health Care Education/Training Program; Visit Provider Physician Assistant
DX: S53.442D Ulnar collateral ligament sprain of left elbow, subsequent encounter (principal)
CPT/HCPCS: 97035; 97110; 97140; 97165

== ENCOUNTER 2024-05-03 13:41 | Outpatient (AMB) | payer MEDICAID, SELFPAY ==
[2024-05-03 13:44] VITALS: BMI 30.8
--- NOTE | 2024-05-03 13:44 | MHC.OFFVIS ---
Vital Signs 05/03/24 13:44 Height 5 ft 5 in Weight 185 lb BMI 30.8 Intake Visit Reasons: OV- 6wk f/u left elbow sprain DOI 03/20/24 Intake Note: Catalina is a 38 year old right hand dominant [place] speaking female who presents today for a follow up of left elbow fracture, DOI 03/20/24. Patient last visit she was referred to OT to work on ROM of the elbow forearm and wrist. Patient reports she attended O.T sessions and felt it has improved. She was not able to attend the last few sessions due to work schedule. [employer] Attendant Name: Selena CHEW/BRENDA Allergies Iodinated Contrast Media [IV CONTRAST] Allergy (Mild, Verified 05/03/24 13:49) NAUSEA & VOMITING HPI HPI OV- 6wk f/u left elbow sprain DOI 03/20/24: Details: 38-year-old female returns to the office today for a follow-up left elbow sprain 03/20/2024. She states she has worked with physical therapy and has had great relief from this. She has mild discomfort if she leans on the elbow in a certain position overall she has no concerns today. 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 She has no tenderness to palpation. She has full range of motion in all planes. She can supinate and pronate without pain. No discomfort with resisted flexion or extension of the wrist. Neurovascularly intact. Assessment & Plan Assessment & Plan (1) Ulnar collateral ligament sprain: Code(s): S53.449A - Ulnar collateral ligament sprain of unspecified elbow, initial encounter Category: Medical Plan: At this time she can continue with her activities as tolerated. I did encourage her to avoid pressure on the elbow if there is discomfort until this fully resolves. If there is any concerns or she has symptoms that limit her activity she should contact our office otherwise follow up as needed. Coding Level of Care Code Est Pt Level 3 (70429) Complex EM visit Add On G2211 Diagnoses Ulnar collateral ligament sprain S53.449A
--- OUTSIDE RECORDS SUMMARY | 2024-05-03 16:40 | XMS_ITS | Encounter Summary ---
Author Organization [employer] Address [address] [place] [address] [address] [place] [address] Care Team Providers Care Manager Business Planning Name Role Phone Cora Wolfe [employer] MEDICAL SALES ASSOCIATE Primary Care Provider [phone] Una Webb MD Primary Care Pro vider Morris Haney RN Unavailable [phone] Estefany Haney Unavailable Unavailable Encounter Details Date Type Department Care Team (Latest Contact Info) Description 03/26/2020 Abstract [facility] CONVERSIONS Dental, Provider, DDS Social History Tobacco Use Types Packs/Day Years Used Date Smoking Tobacco: Never Assessed Comments Unknown Sex and Gender Information Value Date Recorded Sex Assigned at Female 12/23/2021 10:21 AM EDT Legal Sex Female 10:21 AM EDT Gender Identity Female 12/23/2021 10:21 AM EDT Sexual Orientation Straight 12/23/2021 10 :21 AM EDT documented as of this encounter Plan of Treatment Upcoming Encounters Date Type Department Care Team (Late st Contact Info) Description 05/16/2024 9:00 AM EDT Office Visit [facility] ADULT DENTAL [address] [place] [address] Yoly Chun 05/23/2024 9:00 AM EDT Office Visit [facility] AD[facility] DENT[facility] [address] [place] [address] Yoly Chun 06/07/2024 10:45 AM EDT Office Visit [facility] MEDICINE [address] [place] [address], [place] [phone] Una Webb MD [address] [place] [address] documented as of this encounter Visit Diagnoses Not on filedocumented in this encounter Care Teams Manager Business Planning Relationship Specialty Start Date End Date Cora Wolfe FNP PCP - General Family Medicine 10/19/21 11/16/22 Una Webb MD [address] [place] [id number] PCP - General Internal Medicine 11/17/22 Morris Haney RN [address] [place] [id number] [employer] Chief EngineerStorm Chaser 08/31/23 Estefany Haney Community Health Worker 09/09/23 documented as of this encounter
--- OUTSIDE RECORDS SUMMARY | 2024-05-03 16:40 | XMS_ITS | Clinical Summary ---
Author Organization [employer] Address [address] [place] [address] 7t [place] [address] Care Team Providers Care Bag Machine Helper Name Role Phone Una Webb MD Primary Care Pro vider Morris Haney RN Unavailable [phone] Estefany Haney Unavailable Unavailable Allergies Active Allergy Reactions Criticality Noted Date Comments Green Dye Anaphylaxis High 11/12/2020 Iodinated Contrast Media 03/07/2024 Ioversol 10/07/2019 Prednisone & Diphenhydramine 022 Medications chlorhexidine (Peridex) 0.12 % solution Place 15 mL into mouth between cheek and gum every 12 (twelve) hours. 03/13/19 22 Active ketotifen (Zaditor) 0.025 % ophthalmic solution Administer 1 drop into affected eye(s) in the morning and 1 drop in the evening. 11/28/19 21 Active Blood Pressure Monitoring (Omron 3 Series BP Monitor) device USE DIRECTED DAILY 05/08/19 22 Active zolpidem (Ambien) 5 MG tablet Take 5 mg by mouth if needed at bedtime. 01/29/20 22 Active Latuda 20 MG tablet Take 20 mg by mouth in the morning. 02/11/20 22 Active hydrOXYzine pamoate (Vistaril) 25 MG capsule TAKE 1 CAPSULE BY MOUTH TWICE DAILY NEEDED 01/29/20 22 Active TRUEplus Lancets 33G misc 1 each 2 times daily. TEST BLOOD SUGAR TWICE A DAY 100 each 11 06/06/19 23 Active ondansetron (Zofran) 4 MG tabletIndication s:Nausea and vomiting, unspecified vomiting type TAKE 1 TABLET BY MOUTH EVERY 12 HOURS IF NEEDED FOR NAUSEA OR VOMITING 10 tablet 12/12/19 23 Active albuterol 108 (90 Base) MCG/ACT inhaler Inhale 2 puffs every 4 (four) hours. 18 g 2 07/28/19 24 Active cetirizine (ZyrTEC) 10 MG tabletIndication s:COVID-19 TAKE 1 TABLET BY MOUTH EVERY MORNING 90 tablet 08/10/19 24 Active riboflavin (vitamin B2) 100 mg tablet tabletIndication s:Gastroesophage al reflux disease without esophagitis Take 1 tablet (100 mg) by mouth Once per day. 90 tablet 1 11/03/19 24 025 Active ergocalciferol (Vitamin D2) 1.25 MG (22529 UT) capsule Take 1 capsule (1.25 mg) by mouth 1 (one) time per week. 12 capsule 1 11/03/19 24 Active escitalopram (Lexapro) 10 MG tablet Take 1 tablet (10 mg) by mouth Once per day. 90 tablet 11/03/19 24 Active semaglutide (Ozempic, 1 MG/DOSE,) 2 MG/1.5ML solution pen-injectorIndi cations:Type 2 Diabetes Mellitus Inject 1 mg under the skin 1 (one) time per week. 3 mL 11 11/03/19 24 Active SUMAtriptan (Imitrex) 25 MG tabletIndication s:Chronic migraine without aura without status migrainosus, not intractable TAKE 1 TABLET BY MOUTH AT ONSET OF MIGRAINE. MAY REPEAT ONCE AFTER 2 HOURS IF NEEDED. DO NOT EXCEED 2 DOSES IN 24 HOURS. 9 tablet 2 01/12/20 24 Active magnesium oxide (Mag-Ox) 400 (240 Mg) MG tablet TAKE 1 TABLET BY MOUTH EVERY DAY 90 tablet 1 01/26/20 24 Active cholecalciferol (Vitamin D-3) 25 MCG (1000 UT) tabletIndication s:Vitamin D Deficiency Take 1 tablet (25 mcg) by mouth Once per day. 90 tablet 3 02/03/20 24 025 Active topiramate 50 MG tablet TAKE 1 TABLET BY MOUTH ONCE DAILY 90 tablet 04/13/19 25 Active olmesartan (BENIcar) 40 MG tabletIndication s:Primary hypertension TAKE 1 TABLET BY MOUTH ONCE DAILY 90 tablet 04/13/19 25 Active glucose blood (FREESTYLE LITE) test strip USE DIRECTED TO TEST BLOOD SUGAR TWICE DAILY 50 strip 5 05/03/19 Active FREESTYLE LITE test strip TEST BLOOD SUGAR TWICE DAILY 50 strip 5 10/12/19 025 Discontinued topiramate 50 MG tablet Take 1 tablet (50 mg) by mouth Once per day. 90 tablet 01/01/20 025 Discontinued olmesartan (Benicar) 40 MG tabletIndication s:Primary hypertension Take 1 tablet (40 mg) by mouth Once per day. 90 tablet 01/01/20 025 Discontinued Active Problems Problem Noted Date Diagnosed Date [...] Encounters Date Type Department Care Team Description 04/30/2024 Refill [facility] PEDS [address] [place], [place] [phone] Una Webb MD 04/12/2024 Refill [facility] MEDICINE [address] [place] [address] Una Webb MD Primary hypertension 03/20/2024 Orders Only [facility] External Provider, [facility] 03/07/2024 8:00 AM EST Office Visit [facility] ADULT DENTAL [address] [place], [place] [phone] Yoly Chun Dental calculus (Primary Dx); Dental plaque 02/03/2024 Refill [facility] MEDICINE [address] [place], [place] [phone] Sariah Ramirez, JAEL from Last 3 Months Immunizations Name Administration [...] 01/01/2024 10:07 AM EST Plan of Treatment Upcoming Encounters Date Type Department Care Team (Late st Contact Info) Description 05/16/2024 9:00 AM EDT Office Visit [facility] ADULT DENTAL [address] [place] [address] Yoly Chun 05/23/2024 9:00 AM EDT Office Visit [facility] ADULT DENTAL [address] [place] [address] Yoly Chun 06/07/2024 10:45 AM EDT Office Visit [facility] MEDICINE [address] [place] [phone] Una Webb MD [address] [place] [address] Health Maintenance Due Date Last Done Comments Alcohol/Substance Use Screening 1998 Family Planning (PISQ) 2001 Hepatitis B Vaccines (1 of 3 - 19+ 3-dose series) 2005 HPV Vaccines (3 - 3-dose series) 12/10/2012 09/17/2012, 05/20/2012 COVID-19 Vaccine ( season) 2023 03/18/2023, 02/18/2021, 08/17/2020, Additional history exists Depression Screening 03/18/2024 03/18/2023, 03/18/19 Dental Oral Exam 09/05/2024 03/07/2024, 05/2022, 03/14/2020, Additional history exists Dental Prophylaxis 09/05/2024 03/07/2024, 1 03/29/2022, 03/26/2020, Additional history exists SDOH Screening 09/08/2024 09/09/2023 Tobacco Screening 03/07/2025 03/07/2024 Dental X-Ray: Bitewings 03/08/2025 03/07/19, 01/26/2023, 03/27/2020, Additional history exists Pap Smear 07/14/2025 07/14/2022 Dental X-Ray: Full Mouth 01/27/2026 01/26/2023, 11/23 Cervical Cancer Screening 07/15/2027 HPV/Cotest 07/15/2027 07/14/2022 Lipid Panel 12/20/2028 12/21/2023, 03/27, 10/04/2021, Additional history exists DTaP/Tdap/Td Vaccines (4 - Td or Tdap) 07/30/2032 07/30/2022, 12/22/2011, 08/16/2010 Zoster Vaccines (1 of 2) 2036 RSV Patients and Patients Aged 60 years or older (1 - 1-dose 75+ series) 2061 HIV Screening Completed 04/14/2023 Hepatitis C Screening Completed 04/14/2023, 022 Pneumococcal Vaccine: Pediatrics (0 to 5 Years) and At-Risk Patients (6 to 49) Years) Aged Out 07/28/2023 No longer eligible based on patient's age to complete this topic Influenza Vaccine Completed 01/01/2024, , 11/12/2020, Additional [...] Procedure Name Priority Date/Time Associated Diagnosis Comments XR ELBOW 1-2 VIEWS LEFT Routine 03/21/2024 12:43 AM EST XR FOREARM 2 VIEWS LEFT Routine 03/21/2024 12:41 AM EST PERIODIC ORAL EVALUATION - ESTABLISHED PATIENT Routine 03/07/2024 8:00 AM EST BITEWINGS - 4 RADIOGRAPHIC IMAGES Routine 03/07/2024 8:00 AM EST ORAL HYGIENE INSTRUCTIONS Routine 03/07/2024 8:00 AM EST Dental calculus Dental plaque CASE PRESENTATION, DETAILED AND EXTENSIVE TREATMENT PLANNING Routine 03/07/2024 8:00 AM EST PROPHYLAXIS - ADULT Routine 03/07/2024 8 :00 AM EST Dental calculus Dental plaque FL ESOPHAGUS BARIUM SWALLOW Routine 03/01/2024 9:00 AM EST LIPID PANEL, STANDARD Routine 12/21/2023 9:20 AM EDT Type 2 diabetes mellitus without complication, without long-term current use of insulin (CMS/HCC) HEPATITIS C AB W/REFL TO HCV RNA, QN, PCR Routine 04/14/2023 10:03 AM EST Annual physical exam HIV 1/2 ANTIGEN/ANTIBODY, FOURTH GENERATION W/RFL Routine 04/14/2023 10:03 AM EST Annual physical exam INTRAORAL - COMPLETE SERIES OF RADIOGRAPHIC IMAGES Routine 01/26/2023 10:00 AM EST Dental calculus Gingival bleeding Missing teeth, acquired Dental caries Gingivitis due to dental plaque HPV MRNA E6/E7 REFLEX TO HPV 16, 18/45 Routine 07/14/2022 11:43 AM EDT PAP SMEAR Routine 07/14/2022 11:43 AM EDT from Last 3 Months or Most Recently Relevant to Health Maintenance Results * XR Elbow 1-2 Views Left (03/21/2024 12:43 AM EST) Anatomical Region Laterality Modality Upper Extremities, Elbow Left Radiogr aphic Imaging 03/21/2024 12:4 3 AM EST Narrative 03/21/2024 12:44 AM EST ? [facility] ?[address] ?[place] [address] ?XRay Report ? Signed ? Patient: Tin,Catalina A ?M ?? R#: [id number] ? : 1985 ?Acct:[id number] ? Age/Sex: 38 / F ?ADM Date: 01/26/25 ? Loc: HO.ED ? Attending Dr: ? Ordering Physician: Generic ED Physician ?? Date of Service: 03/20/24 ?? Procedure(s): XR elbow LT 2V ?? Accession Number(s): [id number] ? cc: Generic ED Physician; Una Webb MD ? CLINICAL HISTORY: fall, pain ? 3 view left elbow ? Comparison: None ? Findings: ?? Bones intact. No dislocations. ?? No significant loss of joint space, osteophytes, or erosions. ?? No joint effusion. ?? No radiopaque foreign body. ? There is a punctate ossific density along the inferior aspect of the ?? medial epicondyle. ? IMPRESSION: ?? Punctate ossific density at the inferior aspect of the medial epicondyle ?? which may be a small dystrophic calcification versus small chip fracture. ? This document has been electronically signed by: Kyler Marquez MD on ?? 03/21/2024 00:43:10 ? Dictated By: ?Kyler Marquez MD ? Signed By: ?<Electronically signed by Kyler Marquez MD in OV> ? 03/21/24 0044 ? DD/ 0043 ? TD/TT: 03/21/243 ? Signal Operator: ? Procedure Note Dondaphneangelesmarter, Image - 03/21/[address] [address] XRay Report Signed Patient: Catalina Castle AM R#: [id number] : 1985Acct:[id number] Age/Sex: 38 / FADM Date: 03/20/24 Loc: HO.ED Attending Dr: Ordering Physician: Generic ED Physician Date of Service: 03/20/24 Procedure(s): XR elbow LT 2V Accession Number(s): [id number] cc: Generic ED Physician; Una Webb MD CLINICAL HISTORY: fall, pain 3 view left elbow Comparison: None Findings: Bones intact. No dislocations. No significant loss of joint space, osteophytes, or erosions. No joint effusion. No radiopaque foreign body. There is a punctate ossific density along the inferior aspect of the medial epicondyle. IMPRESSION: Punctate ossific density at the inferior aspect of the medial epicondyle which may be a small dystrophic calcification versus small chip fracture. This document has been electronically signed by: Kyler Marquez MD on 03/21/2024 00:43:10 Dictated By: Kyler Marquez MD Signed By: <Electronically signed by Kyler Marquez MD in OV> 03/21/2443 DD/ TD/TT: 03/21/2442 Signal Operator: us [facility] External Provider IMG XR PROCEDURES Edited Result - Final * XR Forearm 2 Views Left (03/21/2024 12:41 AM EST) Anatomical Region Laterality Modality Upper Extremities, Forearm Left Radio graphic Imaging 03/21/2024 12:4 1 AM EST Narrative 03/21/2024 12:43 AM EST ? [facility] ?[address] ?[place] [address] ?XRay Report ? Signed ? Patient: Catalina Castle A ?M ?? R#: [id number] ? : 1985 ?Acct:[id number] ? Age/Sex: 38 / F ?ADM Date: 03/20/24 ? Loc: HO.ED ? Attending Dr: ? Ordering Physician: Generic ED Physician ?? Date of Service: 03/20/24 ?? Procedure(s): XR forearm LT 2V ?? Accession Number(s): [id number] ? cc: Generic ED Physician; Una Webb MD ? CLINICAL HISTORY: fall, pain ? 2 view left forearm ? Comparison: None ? Findings: ?? Ulna minus variance. ?? No fracture deformity identified. ?? No joint effusion. ?? No significant arthritic change. ?? No radiopaque foreign body. ? IMPRESSION: ?? 1. Normal left forearm ? This document has been electronically signed by: Kyler Marquez MD on ?? 03/21/2024 00:41:40 ? Dictated By: ?Kyler Marquez MD ? Signed By: ?<Electronically signed by Kyler Marquez MD in OV> ? 03/21/24 004 ? DD/ 004 ? TD/TT: 03/21/24 004 ? Signal Operator: ? Procedure Note Alysia, Ally - 03/21/2024 [address] [place] [address] XRay Report Signed Patient: Catalina Castle AM R#: [id number] : 1985Acct:[id number] Age/Sex: 38 / FADM Date: 03/20/24 Loc: HO.ED Attending Dr: Ordering Physician: Generic ED Physician Date of Service: 03/20/24 Procedure(s): XR forearm LT 2V Accession Number(s): [id number] cc: Generic ED Physician; Una Webb MD CLINICAL HISTORY: fall, pain 2 view left forearm Comparison: None Findings: Ulna minus variance. No fracture deformity identified. No joint effusion. No significant arthritic change. No radiopaque foreign body. IMPRESSION: 1. Normal left forearm This document has been electronically signed by: Kyler Marquez MD on 03/21/2024 00:41:40 Dictated By: Kyler Marquez MD Signed By: <Electronically signed by Kyler Marquez MD in OV> 03/21/242 DD/ TD/TT: 03/21/2440 Signal Operator: [facility] External Provider IMG XR PROCEDURES Edited Result - Final * FL Esophagus Barium Swallow (03/01/2024 9:00 AM EST) Anatomical Region Laterality Modality Head, Neck Radiographic Marta ging 03/01/2024 9:00 AM EST Narrative 03/03/2024 3:07 PM EST ? [facility] ?[address] ?[place] [address] ? Fluoroscopy Report ? Signed ? Patient: Tin,Catalina A ?M ?? R#: [id number] ? : 1985 ?Acct:[id number] ? Age/Sex: 38 / F ?ADM Date: 01/07/25 ? Loc: HO.XRAY ? Attending Dr: Sabra Godfrey MD ? Ordering Physician: Sabra Godfrey MD ?? Date of Service: 03/01/24 ?? Procedure(s): FL barium swallow ?? Accession Number(s): [id number] ? cc: Una Webb MD; Sabra Godfrey [...] DD/ 0900 ? TD/TT: 03/01/24 0920 ? Signal Operator: ? Procedure Note Alysia, Image - 01/09/[address] [address] Fluoroscopy Report Signed Patient: Catalina Castle AM R#: [id number] : 1985Acct:[id number] Age/Sex: 38 / FADM Date: 03/01/24 Loc: HO.XRAY Attending Dr: Sabra Godfrey MD Ordering Physician: Sabra Godfrey MD Date of Service: 03/01/24 Procedure(s): FL barium swallow Accession Number(s): [id number] cc: Una Webb MD; Sabra Godfrey MD [...] by: Ankush Bautista MD 03/03/2024 03:04 PM [facility] Dictated By: Fabrizio Elmore Signed By: <Electronically signed by Fabrizio Elmore in OV> 03/03/24 1504 <Electronically signed by Ankush Bautista MD in OV> 03/03/24 1507 DD/ 9 TD/TT: 03/01/24919 Signal Operator: [facility] External Provider IMG FLU OROSCOPY PROCEDURES Final Result * (ABNORMAL) Lipid Panel, Standard (12/21/2023 9:20 AM EDT) Triglycerides 87 <150 mg/dL [facility] Comment:Desirable Triglyceri de: less than 150 mg/dLBorderline High Triglyceride 150-199 mg/dLHigh Triglyceride: 200-499 mg/dLVery High Triglyceride: greater than or equal to 5OO mg/dL Cholesterol 193 <200 mg/dL [facility] Comment:Desirable Cholestero l: less than 200 mg/dLBorderline High Cholesterol: 200-239 mg/dLHigh Cholesterol: greater than 239 mg/dL LDL Cholesterol Calculated 127(H) <100 mg/dL [facility] Comment:Desirable LDL: less than 100 mg/dLNear Optimal/Above Optimal LDL: 110- 129 mg/dLBorderline High LDL: 130-159 mg/dLHigh LDL: 160-189 mg/dLVery High LDL: greater than or equal to 190 mg/dL HDL Cholesterol 49 >40 mg/dL [facility] Comment:Desirable HDL: great er than 40 mg/dL Note: This HDL assay may give artificially low results in patients with liver disease. Blood Venous blood specimen / Unknown 12/21/2023 9:20 AM EDT 12/21/2023 11:20 AM EDT Una Arenas MD LAB BLOOD ORDERAB LES Final Result [facility] [address] [place] [phone] * Hepatitis C Antibody with Reflex to HCV, RNA, Quantitative, Real-Time PCR (04/14/2023 10:03 AM EST) Hepatitis C Antibody Nonreactive Nonreactive [facility] Comment:Antibodies to HCV no t detected; does not exclude early acuteHCV infection. Blood Venous blood specimen / Unknown 04/14/2023 10:03 AM EST 04/14/2023 11:22 AM EST us Una Arenas MD LAB BLOOD ORDERAB LES Final Result Performing Organization Address City/[facility]/ZIP Co de Phone Number [facility] [address] [place] [phone] * HIV-1/2 Antigen and Antibodies, Fourth Generation, with Reflexes (04/14/2023 10:03 AM EST) HIV AB/AG Nonreactive Nonreactive [facility] Comment:HIV-1 p24 Ag and/or HIV-1/HIV-2 Ab not detected.A test result that is nonreactive does not exclude thepossibility of exposure to or infection with HIV-1 and/orHIV-2. Nonreactive results in this assay for individualswith prior exposure to HIV-1 and/or HIV-2 may be due toantigen and antibody levels that are below the limit ofdetection of this assay.The [employer] HIV Ag/Ab Combo assay result andsupplemental assay results should be interpreted inconjunction with the patient's clinical presentation,history and other laboratory results. If the results areinconsistent with clinical evidence, additional testing issuggested to confirm the result. Blood Venous blood specimen / Unknown 04/14/2023 10:03 AM EST 04/14/2023 11:22 AM EST us Una Arenas MD LAB BLOOD ORDERAB LES Final Result Performing Organization Address City/[facility]/ZIP Co de Phone Number [facility] [address] [place] [address] [phone] * HPV mRNA E6/E7 w/Reflex to HPV Genotypes 16, 18/45 (07/14/2022 11:43 AM EDT) HPV nRNA E6/E7 Not Detected Not Detected [facility] Comment:Methodology: Transcr iption-Mediated AmplificationThis assay detects E6/E7 viral messenger RNA (mRNA) from 14high-risk HPV types (16,18,31,33,35,39,45,51,52,56,58,59,66,68).Cervical sources are required for HPV testing.If a vaginal source from a patient who has had atotal hysterectomy with removal of cervix wassubmitted, please contact the testing laboratoryfor alternative testing options.For additional information, please refer tohttp://education.Myngle/faq/WWL774x3(This link if provided for information/educational purposes only.)THIS TEST WAS PERFORMED AT:[facility] [place] [phone] ULLOA MD HPV mRNA E6/E7 [facility] HPV 16 RNA [facility] HPV 18/45 RNA [facility] 07/14/2022 11:4 3 AM EDT 07/15/2022 8:30 AM EDT [facility] External Provider LAB CYT OLOGY ORDERABLES Final Result Performing Organization Address City/State/[facility] Co de Phone Number [facility] [address] [place] [phone] * Pap Smear (07/14/2022 11:43 AM EDT) 07/14/2022 11:4 3 AM EDT 07/15/2022 8:30 AM EDT Narrative [facility] - 07/28/2022 1:14 PM EDT ----- ------- Name: Catalina Castle ? Age/Sex: 36/F ? : 1985 Unit#: [id number] ?? Attend Dr: BridgettRasheeda CNM ?Re07/14/22 ?Status: DEP REF ? Location: HO.LNP ?Disch: ? ----- ------- SPEC : [id number] ? RECD: 07/15/22 ? STATUS: ??SOUT ? REQ NUM: [id number] ? VINCENT: 07/14/22-1143 ? SUBM DR: BridgettRasheeda CNM ? ENTERED: ??07/15/22-1007 ?SP TYPE: Pap [...] 66, 68) ?? HPV testing performed by [email or web address], [place], [place]. ??See reference laboratory ?? pion of the EMR for entire report. ?Clinical Information LMP: 06/23/22 Previous PAP test: 10/30/16, WNL ? Material Received ?? ThinPrep-Cervical Copies To: ?? Sara Newsome DO ?? [address] [facility] ?? [place] [address] ? Rasheeda Urias CNM ?? [address] [facility] ?? [place] [address] ?? [phone] ----- ------- Signed (signature on file) REBECCA Andrade (ASCP) 07/28/22 1314 ? ----- ------- ? END OF REPORT ? [facility] External Provider LAB CYT OLOGY ORDERABLES Final Result [facility] [address] [place] [address] [phone] from Last 3 Months or Most Recently Relevant to Health Maintenance Insurance [facility] C3 DENTAL-[facility] MEDICAID STAND ADULT Care Teams Bag Machine Helper Relationship Specialty Start Date End Date Una Webb MD [address] [place] [phone] PCP - General Internal Medicine 11/17/22 Morris Haney, JAEL [address] [place] [phone] Fabric WorkerFiltering Machine Tender Helper 08/31/23 Estefany Haney Community Health Worker 09/09/23
--- OUTSIDE RECORDS SUMMARY | 2024-05-03 16:40 | XMS_ITS | Encounter Summary ---
Author Organization [employer] Address [address] [place] [address] [place] [address] Care Team Providers Care Hedge Fund Manager Name Role Phone Una Webb MD Primary Care Pro vider Morris Haney RN Unavailable [phone] Estefany Haney Unavailable Unavailable Reason for Visit * Reason Onset Date Comments Med Refill 11/17/2022 Encounter Details Date Type Department Care Team (Late st Contact Info) Description 11/17/2022 Refill [facility] MEDICINE [address] [place] [address] Cora Wolfe FNP [address] [place] [address] Dept [place] [address] Type 2 diabetes mellitus without complication, without long-term current use of insulin (CMS/[facility]); Class 2 obesity due to [...] Description 05/16/2024 9:00 AM EDT Office Visit [facility] ADULT DENTAL [address] [place] [address] Yoly Chun 05/23/2024 9:00 AM EDT Office Visit [facility] ADULT DENTAL [address] [place] [address] Yoly Chun 06/07/2024 10:45 AM EDT Office Visit [facility] MEDICINE [address] [place] [address] Una Webb MD [address] [place] [address] documented as of this encounter Visit Diagnoses Diagnosis Type 2 diabetes mellitus without complication, without long-term current use of insulin ([facility]) Class 2 obesity due to excess calories without serious comorbidity in adult, unspecified BMI documented in this encounter Additional Health Concerns Assessment Noted Time PHQ-9 Depression Total Score: 2 02/27/19 10:36 AM EST documented as of this encounter Care Teams Hedge Fund Manager Relationship Specialty Start Date End Date Una Webb MD [address] [place], [place] [phone] PCP - General Internal Medicine 11/17/22 Morris Haney, RN [address] [place] [phone] Patent ChemistCabin Crew 08/31/23 Estefany Haney Community Health Worker 09/09/23 documented as of this encounter
--- OUTSIDE RECORDS SUMMARY | 2024-05-03 16:40 | XMS_ITS | Encounter Summary ---
Author Organization [employer] Address [address] [place] [address] [place] [address] Care Team Providers Care Head Boys Tennis Coach Name Role Phone Una Webb MD Primary Care Pro vider Morris aHney RN Unavailable [phone] Estefany Haney Unavailable Unavailable Encounter Details Date Type Department Care Team (Late st Contact Info) Description 11/17/2022 Abstract [facility] MED[facility]INE [address] [place] [address] Cora Wolfe FNP [address] [place] [address] Dept of [place] [address] Social History Tobacco Use Types Packs/Day Years [...] Description 05/16/2024 9:00 AM EDT Office Visit [facility] ADULT DENTAL [address] [place] [address] Yoly Chun 05/23/2024 9:00 AM EDT Office Visit [facility] ADULT DENTAL [address] [place] [address] Yoly Chun 06/07/2024 10:45 AM EDT Office Visit [facility] MEDICINE [address] [place] [address] Una Webb MD [address] [place] [phone] documented as of this encounter Visit Diagnoses Not on filedocumented in this encounter Additional Health Concerns Assessment Noted Time PHQ-9 Depression Total Score: 2 02/27/19 10:36 AM EST documented as of this encounter Care Teams Head Boys Tennis Coach Relationship Specialty Start Date End Date Una Webb MD [address] [place] [phone] PCP - General Internal Medicine 11/17/22 Morris Haney RN [address] [place] [phone] Journeyman PlumberReeling Machine Setup Operator 08/31/23 Estefany Haney Community Health Worker 09/09/23 documented as of this encounter
--- OUTSIDE RECORDS SUMMARY | 2024-05-03 16:40 | XMS_ITS | Encounter Summary ---
Author Organization [employer] Address 75 [facility] 7 [place] [address] Care Team Providers Care Energy Control Officer Name Role Phone Una Webb MD Primary Care Pro vider Morris Haney RN Unavailable [phone] Estefany Haney Unavailable Unavailable Reason for Visit * Reason Comments Med Refill Encounter Details Date Type Department Care Team (Late st Contact Info) Description 04/30/2024 Refill [facility] MED & PEDS [address] [place] [address] Una Webb MD 230 [place] [address] Social History Tobacco Use Types Packs/Day Years [...] Description 05/16/2024 9:00 AM EDT Office Visit [facility] ADULT DENTAL [address] [place] [address] Yoly Chun 05/23/2024 9:00 AM EDT Office Visit [facility] ADULT DENTAL [address] [place] [address] Yoly Chun 06/07/2024 10:45 AM EDT Office Visit [facility] MEDICINE [address] [place] [address] Una Webb MD [address] [place] [address] documented as of this encounter Visit Diagnoses Not on filedocumented in this encounter Additional Health Concerns Assessment Noted Time PHQ-9 Depression Total Score: 4 03/18/19 24 11:06 AM EST documented as of this encounter Care Teams Energy Control Officer Relationship Specialty Start Date End Date Una Webb MD [address] [place] [address] PCP - General Internal Medicine 11/17/22 Morris Haney RN [address] [place] [address] MAGGI Joya [address] Swatch PasterNewsperson 08/31/23 Estefany Haney Community Health Worker 09/09/23 documented as of this encounter
--- OUTSIDE RECORDS SUMMARY | 2024-05-03 16:40 | XMS_ITS | Encounter Summary ---
Author Organization [employer] Address [address] [place] [address] [place] [address] Care Team Providers Care Transportation Security Officer Name Role Phone Una Webb MD Primary Care Pro vider Morris Haney RN Unavailable [phone] Estefany Haney Unavailable Unavailable Encounter Details Date Type Department Care Team (Late st Contact Info) Description 11/17/2022 Abstract [facility] MEDICINE [address] [place] [address] Cora Wolfe FNP [address] [place] [address] Dept [place] [address] Social History Tobacco Use Types Packs/Day Years [...] Description 05/16/2024 9:00 AM EDT Office Visit [facility] ADULT DENTAL [address] [place] [address] Yoly Chun 05/23/2024 9:00 AM EDT Office Visit [facility] ADULT DENTAL [address] [place] [address] Yoly Chun 06/07/2024 10:45 AM EDT Office Visit [facility] MEDICINE [address] [place] [address] Una Webb MD [address] [place] [address] documented as of this encounter Visit Diagnoses Not on filedocumented in this encounter Additional Health Concerns Assessment Noted Time PHQ-9 Depression Total Score: 2 02/27/19 10:36 AM EST documented as of this encounter Care Teams Transportation Security Officer Relationship Specialty Start Date End Date Una Webb MD [address] [place] [address] PCP - General Internal Medicine 11/17/22 Morris Haney RN [address] [place] [address] Lead Technical ArchitectContact Center Rep 08/31/23 Estefany Haney Community Health Worker 09/09/23 documented as of this encounter
--- OUTSIDE RECORDS SUMMARY | 2024-05-03 16:40 | XMS_ITS | Encounter Summary ---
Author Organization [employer] Address [address] [place] [address] [place] [address] Care Team Providers Care Lead Cargo Mover Name Role Phone Una Webb MD Primary Care Pro vider Morris Haney RN Unavailable [phone] Estefany Haney Unavailable Unavailable Reason for Visit * Reason Comments Med Change Request Encounter Details Date Type Department Care Team (Late st Contact Info) Description 05/21/2023 Refill [facility] MEDICINE 230 [place], [place] [phone] Una Webb MD 230 [place], [place] [phone] Social History Tobacco Use Types Packs/Day Years [...] Description 05/16/2024 9:00 AM EDT Office Visit [facility] ADULT DENTAL [address] [place] [address] Yoly Chun 05/23/2024 9:00 AM EDT Office Visit [facility] ADULT DENTAL [address] [place] [address] 77[address] Yoly Chun 06/07/2024 10:45 AM EDT Office Visit [facility] MEDICINE [address] [place] [address] Una Webb MD [address] [place] [address] documented as of this encounter Visit Diagnoses Not on filedocumented in this encounter Additional Health Concerns Assessment Noted Time PHQ-9 Depression Total Score: 4 03/18/19 24 11:06 AM EST documented as of this encounter Care Teams Lead Cargo Mover Relationship Specialty Start Date End Date Una Webb MD [address] [place] [address]47 PCP - General Internal Medicine 11/17/22 Morris Haney RN [address] [place] [address] 43790 Minor League Baseball PlayerZinc Etcher 08/31/23 Estefany Haney Community Health Worker 09/09/23 documented as of this encounter
--- OUTSIDE RECORDS SUMMARY | 2024-05-03 16:40 | XMS_ITS | Encounter Summary ---
Author Organization [employer] Address [address] [place] [address] [place] [address] Care Team Providers Care Aquatic Physiotherapist Name Role Phone Una Webb MD Primary Care Pro vider Morris Haney RN Unavailable [phone] Estefany Haney Unavailable Unavailable Encounter Details Date Type Department Care Team (Late st Contact Info) Description 11/17/2022 Abstract [facility] MEDICINE [address] [place] [address] Cora Wolfe FNP [address] [place] [address] Dept [place] [address] Social History Tobacco Use Types Packs/Day Years [...] 9:00 AM EDT Office Visit [facility] ADULT DENTAL [address] [place] [address] Yoly Chun 05/23/2024 9:00 AM EDT Office Visit [facility] ADULT DENTAL [address] [place] [address] Yoly Chun 06/07/2024 10:45 AM EDT Office Visit [facility] MEDICINE 230 [place] [address] Una Webb MD [address] [place] [address] documented as of this encounter Visit Diagnoses Not on filedocumented in this encounter Additional Health Concerns Assessment Noted Time PHQ-9 Depression Total Score: 2 02/27/19 10:36 AM EST documented as of this encounter Care Teams Aquatic Physiotherapist Relationship Specialty Start Date End Date Una Webb MD [address] [place] [address]11 PCP - General Internal Medicine 11/17/22 Morris Haney RN [address] [place] [address] 138[address] Toolroom MachinistPensions Retirement Plan Specialist 08/31/23 Estefany Haney Community Health Worker 09/09/23 documented as of this encounter
--- OUTSIDE RECORDS SUMMARY | 2024-05-03 16:40 | XMS_ITS | Encounter Summary ---
Author Organization [employer] Address [address] [place] [address] [place] [address] Care Team Providers Care Abrasive Water Jet Cutter Operator Name Role Phone Una Webb MD Primary Care Pro vider Morris Haney RN Unavailable [phone] Estefany Haney Unavailable Unavailable Reason for Visit * Reason Comments Med Refill Encounter Details Date Type Department Care Team (Late st Contact Info) Description 04/12/2024 Refill [facility] MEDICINE 230 [place], [place] [phone] Una Webb MD 230 [place], [place] [phone] Primary hypertension Social History Tobacco Use Types [...] Description 05/16/2024 9:00 AM EDT Office Visit [facility] ADULT DENTAL [address] [place] [address] Yoly Chun 05/23/2024 9:00 AM EDT Office Visit [facility] ADULT DENTAL [address] [place] [address] Yoly Chun 06/07/2024 10:45 AM EDT Office Visit [facility] MEDICINE [address] [place] [address] Una Webb MD [address] [place] [address] documented as of this encounter Visit Diagnoses Diagnosis Primary hypertension Unspecified essential hypertension documented in this encounter Additional Health Concerns Assessment Noted Time PHQ-9 Depression Total Score: 4 03/18/19 24 11:06 AM EST documented as of this encounter Care Teams Abrasive Water Jet Cutter Operator Relationship Specialty Start Date End Date Una Webb MD [address] [place] [address] 31617 PCP - General Internal Medicine 11/17/22 Morris Haney RN [address] [place] [address] MAGGI Joya [address] Painter SetRetail Merchandising Specialist 08/31/23 Estefany Haney Community Health Worker 09/09/23 documented as of this encounter
--- OUTSIDE RECORDS SUMMARY | 2024-05-03 16:40 | XMS_ITS | Encounter Summary ---
Author Organization [employer] Address 75 [facility] 7t [place] [address] Care Team Providers Care Equity Sales Assistant Name Role Phone Una Webb MD Primary Care Pro vider Morris Haney RN Unavailable [phone] Estefany Haney Unavailable Unavailable Reason for Visit * Reason Onset Date Comments Med Refill 12/10/2022 Encounter Details Date Type Department Care Team (Late st Contact Info) Description 12/10/2022 Refill [facility] MEDICINE [address] [place] [address] Cora Wolfe FNP 75 [facility] Dept [place] [address] Primary hypertension Social History Tobacco Use Types [...] 05/16/2024 9:00 AM EDT Office Visit [facility] ADULT DENTAL [address] [place] [address] Estelle Chunsa 05/23/2024 9:00 AM EDT Office Visit [facility] ADULT DENTAL [address] [place] [address] Lay Yoly 06/07/2024 10:45 AM EDT Office Visit [facility] MEDICINE [address] [place] [address] Una Webb MD [address] [place] [address] 289[address] documented as of this encounter Visit Diagnoses Diagnosis Primary hypertension Unspecified essential hypertension documented in this encounter Additional Health Concerns Assessment Noted Time PHQ-9 Depression Total Score: 2 02/27/19 23 10:36 AM EST documented as of this encounter Care Teams Equity Sales Assistant Relationship Specialty Start Date End Date Una Webb MD 230 [place] [address] PCP - General Internal Medicine 11/17/22 Morris Haney RN 505 [place] [address] Hopper AttendantFiberglass Container Winding Operator 08/31/23 Estefany Haney Community Health Worker 09/09/23 documented as of this encounter
--- OUTSIDE RECORDS SUMMARY | 2024-05-03 16:40 | XMS_ITS | Encounter Summary ---
Author Organization [employer] Address [address] [place] [address] [place] [address] Care Team Providers Care Blindmaker Name Role Phone Una Webb MD Primary Care Pro vider Morris Haney RN Unavailable Estefany Haney Unavailable Unavailable Reason for Visit * Reason Onset Date Comments Med Refill 12/10/2022 Encounter Details Date Type Department Care Team (Late st Contact Info) Description 12/10/2022 Refill [facility] MEDICINE 230 [place] [address] Cora Wolfe FNP [address] [place] [address] Dept [place] [address] Type 2 diabetes mellitus without complication, without long-term current use of insulin (CMS/[facility]); Class 2 obesity due to excess calories [...] Description 05/16/2024 9:00 AM EDT Office Visit [facility] ADULT DENTAL [address] [place] [address] Yoly Chun 05/23/2024 9:00 AM EDT Office Visit [facility] ADULT DENTAL [address] [place] [address] Estelle Chunsa 06/07/2024 10:45 AM EDT Office Visit [facility] MEDICINE [address] [place] [address] Una Webb MD [address] [place] [address] 19[address] documented as of this encounter Visit Diagnoses Diagnosis Type 2 diabetes mellitus without complication, without long-term current use of insulin (CMS/[facility]) Class 2 obesity due to excess calories without serious comorbidity in adult, unspecified BMI documented in this encounter Additional Health Concerns Assessment Noted Time PHQ-9 Depression Total Score: 2 02/27/19 23 10:36 AM EST documented as of this encounter Care Teams Blindmaker Relationship Specialty Start Date End Date Una Webb MD [address] [place] [address] PCP - General Internal Medicine 11/17/22 Morris Haney RN [address] [place] [address] 24037 Heatset Winder OperatorOracle R12 Developer 08/31/23 Estefany Haney Community Health Worker 09/09/23 documented as of this encounter
--- OUTSIDE RECORDS SUMMARY | 2024-05-03 16:40 | XMS_ITS | Encounter Summary ---
Author Organization [employer] Address [address] [place] [address] [place] [address] Care Team Providers Care Head Inspector Name Role Phone Una Webb MD Primary Care Pro vider Morris Haney RN Unavailable [phone] Estefany Haney Unavailable Unavailable Reason for Visit * Reason Comments Med Refill Encounter Details Date Type Department Care Team (Late st Contact Info) Description 10/04/2023 Refill [facility] MEDICINE 230 [place], [place] [phone] Una Webb MD 230 [place], [place] [phone] Social History Tobacco Use Types Packs/Day Years [...] Description 05/16/2024 9:00 AM EDT Office Visit [facility] ADULT DENTAL [address] [place] [address]80 Lay Yoly 05/23/2024 9:00 AM EDT Office Visit [facility] ADULT DENTAL [address] [place] [address] Lay Yoly 06/07/2024 10:45 AM EDT Office Visit [facility] MEDICINE [address] [place] [address]68 Una Webb MD [address] [place] [address] documented as of this encounter Visit Diagnoses Not on filedocumented in this encounter Additional Health Concerns Assessment Noted Time PHQ-9 Depression Total Score: 4 03/18/19 24 11:06 AM EST documented as of this encounter Care Teams Head Inspector Relationship Specialty Start Date End Date Una Webb MD [address] [place] [address] 57352 PCP - General Internal Medicine 11/17/22 Morris Haney RN [address] [place] [address] 50486 Broadband EngineerFixture Maker 08/31/23 Estefany Haney Community Health Worker 09/09/23 documented as of this encounter
== END 2024-05-03 14:29 | disposition home or self-care (01) ==
LOC: HO.HOS 13:42
PROVIDERS: PCP Student in an Organized Health Care Education/Training Program; Visit Provider Physician Assistant
DX: S53.449A Ulnar collateral ligament sprain of unspecified elbow, initial encounter (principal)
CPT/HCPCS: 99213

== ENCOUNTER → 2024-05-03 13:41 | Outpatient (BNVA) | payer MEDICAID, SELFPAY | PROVIDERS: PCP Student in an Organized Health Care Education/Training Program; Visit Provider Physician Assistant | DX: S53.449D Ulnar collateral ligament sprain of unspecified elbow, subsequent encounter (principal) | CPT/HCPCS: 99212 ==

== ENCOUNTER 2024-07-06 07:26 | Outpatient (AMB) | payer MEDICAID, SELFPAY ==
--- OUTSIDE RECORDS SUMMARY | 2024-07-06 07:29 | XMS_ITS | Encounter Summary ---
Author Organization [employer] Address [address] [place] [address] 7 [place] [address] Care Team Providers Care Epic Kaleidoscope Analyst Name Role Phone Una Webb MD Primary Care Pro vider Morris Haney RN Unavailable [phone] Estefany Haney Unavailable Morris Haney RN Unavailable [phone] Reason for Visit * Reason Comments Med Refill Encounter Details Date Type Department Care Team (Late st Contact Info) Description 10/04/2023 Refill [facility] MEDICINE 230 [place], [place] [phone] Una eWbb MD 230 [place], [place] [phone] Social History Tobacco Use Types Packs/Day Years [...] Care Team (Late st Contact Info) Description 08/02/2024 9:00 AM EDT Office Visit [facility] MEDICINE [address] [place] [address] Una Webb MD [address] [place] [address] 08/03/2024 9:00 AM EDT Office Visit [facility] ADULT DENTAL [address] [place] [address] Yoly Chun documented as of this encounter Visit Diagnoses Not on filedocumented in this encounter Additional Health Concerns Assessment Noted Time PHQ-9 Depression Total Score: 4 03/18/19 24 11:06 AM EST documented as of this encounter Care Teams Epic Kaleidoscope Analyst Relationship Specialty Start Date End Date Una Webb MD [address] [place] [address]10 PCP - General Internal Medicine 11/17/22 Morris Haney RN [address] [place] [address]999 Lone Lead LinemanWash House Worker 08/31/23 06/05/24 Estefany Haney Community Health Worker 09/09/2306/05 Morris Haney RN [address] [place] [address] Lone Lead LinemanWash House Worker 06/29/24 documented as of this encounter
--- OUTSIDE RECORDS SUMMARY | 2024-07-06 07:29 | XMS_ITS ---
Author Organization [employer] Address [address] [place] [address] Care Team Providers Care Head Librarian Name Role Phone Una Webb MD Primary Care Pro vider Morris Haney RN Unavailable [phone] [phone] Status:Enrolled (Active) Start date:06/06/2024 Enrollment date:06/30/2024 Enrollment reason:ADT Feed Overview ADT-[facility] ED 06/03/24. Please outreach for enrollment. Case Team Name Relationship Phone Rita Noble(Responsible Staff) [phone] Continued Care and Services Coordination
--- OUTSIDE RECORDS SUMMARY | 2024-07-06 07:29 | XMS_ITS | Encounter Summary ---
Author Organization [employer] Address [address] [place] [address] 7 [place] [address] Care Team Providers Care Room Worker Name Role Phone Una Webb MD Primary Care Pro vider Morris Haney RN Unavailable [phone] Estefany Haney Unavailable Morris Haney RN Unavailable [phone] Reason for Visit * Reason Onset Date Comments Med Refill 12/10/2022 Encounter Details Date Type Department Care Team (Late st Contact Info) Description 12/10/2022 Refill [facility] MEDICINE 230 [place] [address] Cora Wolfe FNP [address] [place] [address] Dept [place] [address] Type 2 diabetes mellitus without complication, without long-term current use of insulin (CMS/[facility]); Class 2 obesity due to excess calories [...] Description 08/02/2024 9:00 AM EDT Office Visit [facility] MEDICINE [address] [place] [address] Una Webb MD [address] [place] [address] 08/03/2024 9:00 AM EDT Office Visit [facility] ADULT DENTAL [address] [place] [address] Yloy Chun documented as of this encounter Visit Diagnoses Diagnosis Type 2 diabetes mellitus without complication, without long-term current use of insulin (CMS/[facility]) Class 2 obesity due to excess calories without serious comorbidity in adult, unspecified BMI documented in this encounter Additional Health Concerns Assessment Noted Time PHQ-9 Depression Total Score: 2 02/27/19 10:36 AM EST documented as of this encounter Care Teams Room Worker Relationship Specialty Start Date End Date Una Webb MD [address] [place] [address] PCP - General Internal Medicine 11/17/22 Morris Haney RN [address] [place] [address] Tape Edge Machine OperatorSet Up Mechanic Coating Machines 08/31/23 06/05/24 Estefany Haney Community Health Worker 09/09/2306/05 Morris Haney RN [address] [place] [address] Tape Edge Machine OperatorSet Up Mechanic Coating Machines 06/29/24 documented as of this encounter
--- OUTSIDE RECORDS SUMMARY | 2024-07-06 07:29 | XMS_ITS | Encounter Summary ---
Author Organization [employer] Address [address] [place] [address] 7 [place] [address] Care Team Providers Care Chairman Ceo Name Role Phone Una Webb MD Primary Care Pro vider Morris Haney RN Unavailable [phone] Estefany Haney Unavailable Morris Haney RN Unavailable [phone] Encounter Details Date Type Department Care Team (Late Contact Info) Description 11/17/2022 Abstract [facility] MEDICINE [address] [place] [address] Cora Wolfe FNP [address] [place] [address] Dept [place] [address] Social History Tobacco Use Types Packs/Day Years [...] Encounters Date Type Department Care Team (Late Contact Info) Description 08/02/2024 9:00 AM EDT Office Visit [facility] MEDICINE [address] [place] [address] [phone] Una Webb MD 230 [place] [address] 08/03/2024 9:00 AM EDT Office Visit [facility] ADULT DENTAL 230 [place] [address] Chun Yoly documented as of this encounter Visit Diagnoses Not on filedocumented in this encounter Additional Health Concerns Assessment Noted Time PHQ-9 Depression Total Score: 2 02/27/19 10:36 AM EST documented as of this encounter Care Teams Chairman Ceo Relationship Specialty Start Date End Date Una Webb MD 230 [place], [place] [phone] PCP - General Internal Medicine 11/17/22 Morris Haney, RN 505 [place] [address] Seed Corn Production ManagerVeterinary Medicine Scientist 08/31/23 06/05/24 Estefany Haney Community Health Worker 09/09/2306/05 Morris Haney, JAEL [address] [place] [address] Seed Corn Production ManagerVeterinary Medicine Scientist 06/29/24 documented as of this encounter
--- OUTSIDE RECORDS SUMMARY | 2024-07-06 07:29 | XMS_ITS | Encounter Summary ---
Author Organization [employer] Address [address] [place] [address] 7 [place] [address] Care Team Providers Care Orthotic Aide Name Role Phone Una Webb MD Primary Care Pro vider Morris Haney RN Unavailable [phone] Estefany Haney Unavailable Morris Haney RN Unavailable [phone] Encounter Details Date Type Department Care Team (Late Contact Info) Description 11/17/[address] [facility] MEDICINE [address] [place] [address] Cora Wolfe FNP [address] [place] [address] Dept [place] [address] Social History Tobacco Use Types Packs/Day Years [...] Description 08/02/2024 9:00 AM EDT Office Visit [facility] MEDICINE [address] [place] [address] [phone] Una Webb MD 230 [place] [address] 08/03/2024 9:00 AM EDT Office Visit [facility] ADULT DENTAL 230 [place] [address] Chun Yoly documented as of this encounter Visit Diagnoses Not on filedocumented in this encounter Additional Health Concerns Assessment Noted Time PHQ-9 Depression Total Score: 2 02/27/19 10:36 AM EST documented as of this encounter Care Teams Orthotic Aide Relationship Specialty Start Date End Date Una Webb MD 230 [place], [place] [phone] PCP - General Internal Medicine 11/17/22 Morris Haney, RN [address] [place] [address] Head Kiln OperatorGlobal Marketing Intern 08/31/23 06/05/24 Estefany Haney Community Health Worker 09/09/2306/05 Morris Haney, JAEL [address] [place] [address] Head Kiln OperatorGlobal Marketing Intern 06/29/24 documented as of this encounter
--- OUTSIDE RECORDS SUMMARY | 2024-07-06 07:29 | XMS_ITS | Encounter Summary ---
Author Organization [employer] Address 75 [facility] 7 [place] [address] Care Team Providers Care Cane Pusher Name Role Phone Una Webb MD Primary Care Pro vider Morris Haney RN Unavailable [phone] Estefany Haney Unavailable Morris Haney RN Unavailable [phone] Reason for Visit * Reason Onset Date Comments Med Refill 12/10/2022 Encounter Details Date Type Department Care Team (Late st Contact Info) Description 12/10/2022 Refill [facility] MEDICINE [address] [place] [address] Cora Wolfe FNP [address] [place] [address] Dept [place] [address] Primary hypertension Social History Tobacco Use Types [...] Description 08/02/2024 9:00 AM EDT Office Visit [facility] MEDICINE [address] [place] [address] Una Webb MD [address] [place] [address] 08/03/2024 9:00 AM EDT Office Visit [facility] ADULT DENTAL [address] [place] [address] Yoly Chun documented as of this encounter Visit Diagnoses Diagnosis Primary hypertension Unspecified essential hypertension documented in this encounter Additional Health Concerns Assessment Noted Time PHQ-9 Depression Total Score: 2 02/27/19 23 10:36 AM EST documented as of this encounter Care Teams Cane Pusher Relationship Specialty Start Date End Date Una Webb MD 230 [place] [address] PCP - General Internal Medicine 11/17/22 Morris Haney RN [address] [place] [address] Hoe RunnerStudent Services Vice President 08/31/23 06/05/24 Estefany Haney Community Health Worker 09/09/2306/05 Morris Haney RN [address] [place] [address] Hoe RunnerStudent Services Vice President 06/29/24 documented as of this encounter
--- OUTSIDE RECORDS SUMMARY | 2024-07-06 07:29 | XMS_ITS | Encounter Summary ---
Author Organization [employer] Address [address] [place] [address] 7 [place] [address] Care Team Providers Care Tour Coordinator Name Role Phone Coar Wolfe Halima STRIPPING MACHINE OPERATOR Primary Care Provider [phone] Una Webb MD Primary Care Pro vider Morris Haney RN Unavailable [phone] Estefany Haney Unavailable Morris Haney RN Unavailable [phone] Encounter Details Date Type Department Care Team (Latest Contact Info) Description 03/26/2020 Abstract [facility] CONVERSIONS Dental, Provider, DDS Social History Tobacco [...] Description 08/02/2024 9:00 AM EDT Office Visit [facility] MEDICINE [address] [place], [place] [phone] Una Webb MD [address] [place], [place] [phone] 08/03/2024 9:00 AM EDT Office Visit [facility] ADULT DENTAL [address] [place], [place] [phone] Yoly Chun documented as of this encounter Visit Diagnoses Not on filedocumented in this encounter Care Teams Tour Coordinator Relationship Specialty Start Date End Date Cora Wolfe FNP PCP - General Family Medicine 10/19/21 11/16/22 Una Webb MD [address] [place] [address] PCP - General Internal Medicine 11/17/22 Morris Haney, JAEL [address] [place], [place] [phone] Greens PickerCamp Cook 08/31/23 06/05/24 Estefany Haney Community Health Worker 09/09/2306/05 Morris Haney, RN [address] [place] [address] Greens PickerCamp Cook 06/29/24 documented as of this encounter
--- OUTSIDE RECORDS SUMMARY | 2024-07-06 07:29 | XMS_ITS | Encounter Summary ---
Author Organization [employer] Address [address] [place] [address] 7 [place] [address] Care Team Providers Care Director Women Name Role Phone Una Webb MD Primary Care Pro vider Morris Haney RN Unavailable [phone] Estefany Haney Unavailable Morris Haney RN Unavailable [phone] Reason for Visit * Reason Onset Date Comments Med Refill 11/17/2022 Encounter Details Date Type Department Care Team (Late st Contact Info) Description 11/17/2022 Refill [facility] [address] [place] [address] Cora Wolfe FNP [address] [place] [address] Dept [place] [address] Type 2 diabetes mellitus without complication, without long-term current use of insulin (CMS/[facility]); Class 2 obesity due to excess calories [...] Description 08/02/2024 9:00 AM EDT Office Visit [facility] [address] [place] [address] Una Webb MD [address] [place] [address] 08/03/2024 9:00 AM EDT Office Visit [facility] ADULT DENTAL [address] [place] [address] Yoly Chun documented as of this encounter Visit Diagnoses Diagnosis Type 2 diabetes mellitus without complication, without long-term current use of insulin ([facility]) Class 2 obesity due to excess calories without serious comorbidity in adult, unspecified BMI documented in this encounter Additional Health Concerns Assessment Noted Time PHQ-9 Depression Total Score: 2 02/27/19 10:36 AM EST documented as of this encounter Care Teams Director Women Relationship Specialty Start Date End Date Una Webb MD [address] [place] [address] PCP - General Internal Medicine 11/17/22 Morris Haney, JAEL [address] [place] [address] Napkin Band WrapperChemist Food 08/31/23 06/05/24 Estefany Haney Community Health Worker 09/09/2306/05 Morris Haney, JAEL [address] [place] [address] Napkin Band WrapperChemist Food 06/29/24 documented as of this encounter
--- OUTSIDE RECORDS SUMMARY | 2024-07-06 07:29 | XMS_ITS | Encounter Summary ---
Author Organization [employer] Address [address] [place] [address] 7 [place] [address] Care Team Providers Care E Business Consultant Name Role Phone Una Webb MD Primary Care Pro vider Morris Haney RN Unavailable [phone] Estefany Haney Unavailable Morris Haney RN Unavailable [phone] Reason for Visit * Reason Comments Med Change Request Encounter Details Date Type Department Care Team (Late st Contact Info) Description 05/21/2023 Refill [facility] [address] [place], [place] [phone] Una Webb MD [address] [place], [place] [phone] Social History Tobacco Use Types Packs/Day Years [...] 9:00 AM EDT Office Visit [facility] MED[facility]INE [address] [place] [address] Una Webb MD [address] [place] [address] 08/03/2024 9:00 AM EDT Office Visit [facility] ADULT DENTAL [address] [place] [address] Yoly Chun documented as of this encounter Visit Diagnoses Not on filedocumented in this encounter Additional Health Concerns Assessment Noted Time PHQ-9 Depression Total Score: 4 03/18/19 24 11:06 AM EST documented as of this encounter Care Teams E Business Consultant Relationship Specialty Start Date End Date Una Webb MD [address] [place] [address] PCP - General Internal Medicine 11/17/22 Morris Haney RN [address] [place] [address] Agriculture SpecialistFlame Channeler 08/31/23 06/05/24 Estefany Haney Community Health Worker 09/09/2306/05 Morris Haney RN [address] [place] [address] Agriculture SpecialistFlame Channeler 06/29/24 documented as of this encounter
--- OUTSIDE RECORDS SUMMARY | 2024-07-06 07:29 | XMS_ITS | Encounter Summary ---
Author Organization [employer] Address [address] [place] [address] 7 [place] [address] Care Team Providers Care Cadmium Burner Name Role Phone Una Webb MD Primary Care Pro vider Morris Haney RN Unavailable [phone] Estefany Haney Unavailable Morris Haney RN Unavailable [phone] Encounter Details Date Type Department Care Team (Late Contact Info) Description 11/17/2022 Abstract [facility] [address] [place] [address] Cora Wolfe FNP [address] [place] [address] Dept [place] [address] Social History Tobacco Use Types Packs/Day Years [...] Description 08/02/2024 9:00 AM EDT Office Visit [facility] [address] [place] [address] [phone] Una Webb MD [address] [place] [address] 08/03/2024 9:00 AM EDT Office Visit [facility] ADULT DENTAL [address] [place] [address] Chun Yoly documented as of this encounter Visit Diagnoses Not on filedocumented in this encounter Additional Health Concerns Assessment Noted Time PHQ-9 Depression Total Score: 2 02/27/19 10:36 AM EST documented as of this encounter Care Teams Cadmium Burner Relationship Specialty Start Date End Date Una Webb MD [address] [place], [place] [phone] PCP - General Internal Medicine 11/17/22 Morris Haney, RN [address] [place] [address] Care TakerTextbook Associate 08/31/23 06/05/24 Estefany Haney Community Health Worker 09/09/2306/05 Morris Haney, JAEL [address] [place] [address] Care TakerTextbook Associate 06/29/24 documented as of this encounter
--- OUTSIDE RECORDS SUMMARY | 2024-07-06 07:29 | XMS_ITS | Encounter Summary ---
Author Organization [employer] Address [address] [place] [address] 7 [place] [address] Care Team Providers Care Information Technology Assistant Name Role Phone Una Webb MD Primary Care Pro vider Morris Haney RN Unavailable [phone] Estefany Haney Unavailable Morris Haney RN Unavailable [phone] Reason for Visit * Reason Comments Med Refill Encounter Details Date Type Department Care Team (Late st Contact Info) Description 05/13/2024 Refill [facility] MED[facility]INE [address] [place], [place] [phone] Una Webb MD [address] [place], [place] [phone] Chronic migraine without aura without status migrainosus, not intractable Social History Tobacco Use Types Packs/Day Years [...] Description 08/02/2024 9:00 AM EDT Office Visit [facility] MEDICINE [address] [place] [address] Una Webb MD [address] [place] [address] 08/03/2024 9:00 AM EDT Office Visit [facility] ADULT DENTAL [address] [place] [address] Yoly Chun documented as of this encounter Visit Diagnoses Diagnosis Chronic migraine without aura without status migrainosus, not intractable documented in this encounter Additional Health Concerns Assessment Noted Time PHQ-9 Depression Total Score: 4 03/18/19 24 11:06 AM EST documented as of this encounter Care Teams Information Technology Assistant Relationship Specialty Start Date End Date Una Webb MD [address] [place] [address] PCP - General Internal Medicine 11/17/22 Morris Haney, RN [address] [place] [address] Formula Room WorkerCeramic Tile Mechanic 08/31/23 06/05/24 Estefany Haney Community Health Worker 09/09/2306/05 Morris Haney RN [address] [place] [address] Formula Room WorkerCeramic Tile Mechanic 06/29/24 documented as of this encounter
--- OUTSIDE RECORDS SUMMARY | 2024-07-06 07:29 | XMS_ITS ---
Author Organization [employer] Address [address] [place] [address] 7 [place] [address] Care Team Providers Care Lasting Room Machine Operator Name Role Phone Una Webb MD Primary Care Pro vider Morris Haney RN Unavailable [phone] CM Complex Status:Enrolled (Active) Start date:06/06/2024 Enrollment date:06/29/2024 Enrollment reason:ADT Feed Overview [facility] ED 06/03/24 Case Team Name Relationship Phone Morris Haney RN(Responsible Staff) Registered Nurse [phone] Continued Care and Services Coordination
--- OUTSIDE RECORDS SUMMARY | 2024-07-06 07:29 | XMS_ITS | Clinical Summary ---
Author Organization [employer] Address [address] [facility] [address] [place] [address] Care Team Providers Care Head Shipper Name Role Phone Una Webb MD Primary Care Pro vider Morris Haney RN Unavailable [phone] Allergies Active Allergy Reactions Criticality Noted Date Comments Green Dye Anaphylaxis High 11/12/2020 Iodinated Contrast Media 03/07/2024 Ioversol 10/07/2019 Prednisone & Diphenhydramine 022 Medications * This document contains information received from the source organization and may not represent a complete record from that organization. chlorhexidine (Peridex) 0.12 % solution Place 15 [...] 06/06/19 23 Active ondansetron (Zofran) 4 MG tabletIndicatio ns:Nausea and vomiting, unspecified vomiting type TAKE 1 TABLET BY MOUTH EVERY 12 HOURS IF NEEDED FOR NAUSEA OR VOMITING 10 tablet 12/12/19 23 Active albuterol 108 (90 Base) MCG/ACT inhaler Inhale 2 puffs every 4 (four) hours. 18 g 2 07/28/19 24 Active cetirizine (ZyrTEC) 10 MG tabletIndicatio ns:COVID-19 TAKE 1 TABLET BY MOUTH EVERY MORNING 90 tablet 08/10/19 24 Active ergocalciferol (Vitamin D2) 1.25 MG (78040 UT) capsule Take 1 capsule (1.25 mg) by mouth 1 (one) time per week. 12 capsule 1 11/03/19 24 Active escitalopram (Lexapro) 10 MG tablet Take 1 tablet (10 mg) by mouth Once per day. 90 tablet 11/03/19 24 Active SUMAtriptan (Imitrex) 25 MG tabletIndicatio ns:Chronic migraine without aura without status migrainosus, not intractable TAKE 1 TABLET BY MOUTH AT ONSET OF MIGRAINE. MAY REPEAT ONCE AFTER 2 HOURS IF NEEDED. DO NOT EXCEED 2 DOSES IN 24 HOURS. 9 tablet 2 01/12/20 24 Active magnesium oxide (Mag-Ox) 400 (240 Mg) MG tablet TAKE 1 TABLET BY MOUTH EVERY DAY 90 tablet 1 01/26/20 24 Active topiramate 50 MG tablet TAKE 1 TABLET BY MOUTH ONCE DAILY 90 tablet 04/13/19 25 Active olmesartan (BENIcar) 40 MG tabletIndicatio ns:Primary hypertension TAKE 1 TABLET BY MOUTH ONCE DAILY 90 tablet 04/13/19 25 Active glucose blood (FREESTYLE LITE) test strip USE DIRECTED TO TEST BLOOD SUGAR TWICE DAILY 50 strip 5 05/03/19 25 Active riboflavin (vitamin B2) 100 mg tablet tabletIndicatio ns:Gastroesopha geal reflux disease without esophagitis TAKE 1 TABLET BY MOUTH EVERY DAY 90 tablet 1 05/12/19 25 Active Semaglutide, 2 MG/DOSE, (Ozempic, 2 MG/DOSE,) 8 MG/3ML solution pen-injector Inject 0.75 mL (2 mg) under the skin 1 (one) time per week. 3 mL 3 06/08/19 25 Active semaglutide (Ozempic, 1 MG/DOSE,) 2 MG/1.5ML solution pen-injectorInd ications:Type 2 Diabetes Mellitus Inject 1 mg under the skin 1 (one) time per week. 3 mL 11 11/03/19 24 025 Discontinued cholecalciferol (Vitamin D-3) 25 MCG (1000 UT) tabletIndicatio ns:Vitamin D Deficiency Take 1 tablet (25 mcg) by mouth Once per day. 90 tablet 3 02/03/20 24 025 Discontinued(O ther) Active Problems Problem Noted Date Diagnosed Date Bipolar affective disorder, remission status uns pecified 06/07/2024 Microscopic hematuria 06/07/2024 Iron deficiency anemia secon franki to inadequate dietary iron intake 06/07/2024 Loud snoring 06/07/2024 H/O syphilis 04/28/2023 LTBI (latent tuberculosis infection) [...] illness 09/08/2022 09/08/2022 Indigestion 11/19/2017 03/03/2022 Encounters * This document contains information received from the source organization and may not represent a complete record from that organization. Date Type Department Care Team Description 06/30/2024 Telephone [facility] [place] [address] Una Webb MD 06/30/2024 Patient Outreach [facility] [place] [address] Rita Noble 06/29/2024 Plan of Care Documentation [facility] [place] [address] 06/29/2024 Patient Outreach [facility] [place] [address] Una Webb MD Care Management (C3CM- initial assessment/ enrollment) 06/28/2024 Patient Outreach [facility] [place] [address] Una Webb MD Care Coordination (CM/CHW appt reminder) 06/21/2024 Patient Outreach [facility] [place] [address] Una Webb MD 06/20/2024 Patient Outreach [facility] [place] [address] Una Webb MD 06/14/2024 Patient Outreach [facility] [place] [address] Una Webb MD 06/07/2024 10:45 AM EDT Office Visit [facility] [place] [address] Una Webb MD Annual physical exam (Primary Dx); Hematuria, unspecified type; Loud snoring; Cognitive impairment; Dietary counseling; Exercise counseling; Bipolar affective disorder, remission status unspecified ([facility]); Type 2 diabetes mellitus without complication, without long-term current use of insulin ([facility]); Health care maintenance; Class 1 obesity due to excess calories with serious comorbidity and body mass index (BMI) of 31.0 to 31.9 in adult; Microscopic hematuria; Iron deficiency anemia secondary to inadequate dietary iron intake 06/07/2024 Travel 06/06/2024 Patient Outreach [address] [address] Una Webb MD Care Coordination (CM/W outreach) 06/06/2024 Patient Outreach [address] [address] Una Webb MD Care Coordination (W Chart Review) 06/06/2024 Patient Outreach [address] [address] Una Webb MD Care Coordination ([facility]- chart review) 06/06/2024 Patient Outreach [address] [address] Una Webb MD 05/30/[address] [address] Una Webb MD chart prep 05/24/2024 Patient Outreach [address] [address] Una Webb MD Pre-visit Planning (Pre-visit planning - LVM ) 05/17/[address] [address] Una Webb MD Prior Auth Prescription (Ozempic 1mg) 05/16/2024 9:00 AM EDT Office Visit [facility] [address] [place] [phone] Yoly Chun Dental calculus (Primary Dx); Dental plaque 05/13/[address] [address] Una Webb MD Chronic migraine without aura without status migrainosus, not intractable 05/11/2024 Refill [facility] [address] [place] [address] Una Webb MD Gastroesophageal reflux disease without esophagitis 05/06/2024 Population Health Risk Score [facility] () Department [address] [phone] Provider, Population Health Generic 04/30/2024 Refill [facility] [address] [place] [address] Una Webb MD 04/12/2024 Refill [facility] [address] [place] [address] Una Webb MD Primary hypertension from Last 3 Months Immunizations Immunization Administration Dates Next Due HPV, Quadrivalent 09/17/2012,05/20/2012 [...] Answer Date Recorded Patient Health Questionnaire-9 Score 0 06/29/2024 Patient Health Questionnaire-9 Score 0 06/29/2024 Last PHQ-9: Questionnaire Data Not on file 0 06/29/2024 Housing Stability Answer Date Recorded What is your housing situation today? I have noe geller 06/30/[address] you li ve. Do you have problems with any of the following? None of the above 06/30/2024 Food Insecurity Answer Date Recorded Within the [...] getting things needed for daily living? No 06/30/2024 Utilities Answer Date Recorded In the past 12 months, has t he electric, gas, oil or water company threatened to shut off services in your home? Yes 06/30/2024 Depression Answer Date Recorded Patient Health Questionnaire-2 Score 0 06/29/2024 Internet Access Answer Date Recorded Internet Access Q1 Yes 06/30/2024 Internet Access Q2 I cannot afford it 06/30/2024 Comments No Sex and Gender Information Value Date Recorded Sex Assigned at Female 12/23/2021 10:21 AM EDT Legal Sex Female 10:21 AM EDT Gender Identity Female 12/23/2021 10:21 AM EDT Sexual Orientation Straight 12/23/2021 10 :21 AM EDT Last Filed Vital Signs Vital Sign Reading Time Taken Comments Blood Pressure 136/82 06/07/2024 10:38 AM EDT Pulse 92 06/07/2024 10:38 AM EDT Temperature 36.1 ??C (97 ??F) 06/07/2024 10:38 AM EDT Respiratory Rate 20 06/07/2024 10:38 AM EDT Oxygen Saturation 99% 06/07/2024 10:38 AM EDT Inhaled Oxygen Concentration - - Weight 83.9 kg (185 lb) 06/07/2024 10:38 AM EDT Height 165.1 cm (5' 5 ) 06/07/2024 10:38 AM EDT Body Mass Index 30.79 06/07/2024 10:38 AM EDT Plan of Treatment Upcoming Encounters Date Type Department Care Team (Late st Contact Info) Description 08/02/2024 9:00 AM EDT Office Visit [facility] [address] [place], [place] [phone] Una Webb MD [address] [place] [address] 08/03/2024 9:00 AM EDT Office Visit [facility] [address] [place] [address] Yoly Chun Health Maintenance Due Date Last Done Comments Diabetes: Foot Exam 1996 Eye Exam 1996 Family Planning (PISQ) 2001 Hepatitis B Vaccines (1 of 3 - 19+ 3-dose series) 2005 HPV Vaccines (3 - 3-dose series) 12/10/2012 09/17/2012, 05/20/2012 COVID-19 Vaccine ( season) 2023 03/18/2023, 02/18/2021, 08/17/2020, Additional history exists Diabetes: Hemoglobin A1C 06/20/2024 024, 11/03/2023, 04/14/2023, Additional history exists Dental Oral Exam 09/05/2024 03/07/2024, 05/2022, 03/14/2020, Additional history exists Dental Prophylaxis 09/05/2024 03/07/2024, 1 03/29/2022, 03/26/2020, Additional history exists Lipid Panel 12/20/2024 12/21/2023, 03/27, 10/04/2021, Additional history exists Diabetes: Urine Protein Screening 02/01/2025 02/02/2024, 12/21/2023, 04/14/2023, Additional history exists Dental X-Ray: Bitewings 03/08/2025 03/07/19 25, 01/26/2023, 03/27/2020, Additional history exists Alcohol/Substance Use Screening 06/07/2025 06/07/2024 Tobacco Screening 06/07/2025 06/07/2024 Depression Screening 06/29/2025 06/29/2024, 06/30/19 SDOH Screening 06/30/2025 06/30/2024 Pap Smear 07/14/2025 07/14/2022 Dental X-Ray: Full [...] and At-Risk Patients (6 to 49) Years) Completed 07/28/2023 Influenza Vaccine Completed 01/01/2024, [...] Procedure Name Priority Date/Time Associated Diagnosis Comments CASE PRESENTATION, DETAILED AND EXTENSIVE TREATMENT PLANNING Routine 05/16/2024 9:00 AM EDT ORAL HYGIENE INSTRUCTIONS Routine 05/16/2024 9:00 AM EDT Dental calculus Dental plaque LL PERIODONTAL SCALING AND ROOT PLANING - 1 TO 3 TEETH PER QUADRANT Routine 05/16/2024 9:00 AM EDT Dental calculus Dental plaque UL PERIODONTAL SCALING AND ROOT PLANING - 1 TO 3 TEETH PER QUADRANT Routine 05/16/2024 9:00 AM EDT Dental calculus Dental plaque PROPHYLAXIS - ADULT Routine 03/07/2024 8 :00 AM EST Dental calculus Dental plaque BITEWINGS - 4 RADIOGRAPHIC IMAGES Routine 03/07/2024 8:00 AM EST PERIODIC ORAL EVALUATION - ESTABLISHED PATIENT Routine 03/07/2024 8:00 AM EST PROTEIN CREATININE RATIO, URINE Routine 02/02/2024 8:27 AM EST HEMOGLOBIN A1C Routine 12/21/2023 9:20 AM EDT Type 2 diabetes mellitus without complication, without long-term current use of insulin (CMS/HCC) LIPID PANEL, STANDARD Routine 12/21/2023 9:20 AM [...] Recently Relevant to Health Maintenance Results * (ABNORMAL) Protein Creatinine Ratio, Urine (02/02/2024 8:27 AM EST) Creatinine, Urine 245.17 mg/dL [facility] Protein, Total, Random Urine 17(H) <12 mg/dL [facility] Protein/Creati nine Ratio, Ur 0.07 <0.2 [facility] Comment:The spot urine prote in:creatinine ratio may increase to 0.3during normal . 02/02/2024 8:27 AM EST 02/02/2024 8:43 AM EST us Generic External Data Provider LAB URINE ORDERAB LES Final Result [facility] [address] [place] [phone] * Hemoglobin A1c (12/21/2023 9:20 AM EDT) Hemoglobin A1c 5.2 <6.0 % [facility] Comment:Hemoglobin A1C Refer ence Range Adults: 4.8 - 6.0 % Non diabetic: < 6.0 % Goal: < 7.0 %Additional Action Suggested: > 8.0 %Note: Hemoglobin A1c results are invalid for patients with abnormal amounts of HbF. Blood transfusions may impact the HbA1c concentration in the patient sample. Estimated Average Glucose 103 mg/dL [facility] Comment:eAG = Estimated ave rage glucose which is %A1C expressed asaverage glucose, using the formula of the E1F-HztngteJlecfiv Glucose study (ADAG), Diabetes Care, Vol.31,#8,Sep. 2007 Blood Venous blood specimen / Unknown 12/21/2023 9:20 AM EDT 12/21/2023 11:20 AM EDT us Una Arenas MD LAB BLOOD ORDERAB LES Final Result [facility] [address] [place] [phone] [phone] * (ABNORMAL) Lipid Panel, Standard (12/21/2023 9:20 AM EDT) Triglycerides 87 <150 mg/dL [facility] Comment:Desirable Triglyceri de: less than 150 mg/dLBorderline High Triglyceride 150-199 mg/dLHigh Triglyceride: 200-499 mg/dLVery High Triglyceride: greater than or equal to 5OO mg/dL Cholesterol 193 <200 mg/dL [facility] Comment:Desirable Cholestero l: less than 200 mg/dLBorderline High Cholesterol: 200-239 mg/dLHigh Cholesterol: greater than 239 mg/dL LDL Cholesterol Calculated 127(H) <100 mg/dL [facility] Comment:Desirable LDL: less than 100 mg/dLNear Optimal/Above Optimal LDL: 110- 129 mg/dLBorderline High LDL: 130-159 mg/dLHigh LDL: 160-189 mg/dLVery High LDL: greater than or equal to 190 mg/dL HDL Cholesterol 49 >40 mg/dL [facility] Comment:Desirable HDL: great er than 40 mg/dL Note: This HDL assay may give artificially low results in patients with liver disease. Blood Venous blood specimen / Unknown 12/21/2023 9:20 AM EDT 12/21/2023 11:20 AM EDT us Una Arenas MD LAB BLOOD ORDERAB LES Final Result Performing Organization Address [facility]/ZIP Co de Phone Number [facility] [address] [place] [phone] * Hepatitis C Antibody with Reflex to HCV, RNA, Quantitative, Real-Time PCR (04/14/2023 10:03 AM EST) Hepatitis C Antibody Nonreactive Nonreactive [facility] Comment:Antibodies to HCV no t detected; does not exclude early acuteHCV infection. Blood Venous blood specimen / Unknown 04/14/2023 10:03 AM EST 04/14/2023 11:22 AM EST us Una Arenas MD LAB BLOOD ORDERAB LES Final Result Performing Organization Address [facility] Co de Phone Number [facility] [address] [place] [phone] * HIV-1/2 Antigen and Antibodies, Fourth Generation, with Reflexes (04/14/2023 10:03 AM EST) HIV AB/AG Nonreactive Nonreactive [facility] Comment:HIV-1 p24 Ag and/or HIV-1/HIV-2 Ab not detected.A test result that is nonreactive does not exclude thepossibility of exposure to or infection with HIV-1 and/orHIV-2. Nonreactive results in this assay for individualswith prior exposure to HIV-1 and/or HIV-2 may be due toantigen and antibody levels that are below the limit ofdetection of this assay.The MYR HIV Ag/Ab Combo assay result andsupplemental assay results should be interpreted inconjunction with the patient's clinical presentation,history and other laboratory results. If the results areinconsistent with clinical evidence, additional testing issuggested to confirm the result. Blood Venous blood specimen / Unknown 04/14/2023 10:03 AM EST 04/14/2023 11:22 AM EST Una Arenas MD LAB BLOOD ORDERAB LES Final Result [facility] [address] [place] [phone] [phone] * HPV mRNA E6/E7 w/Reflex to HPV Genotypes 16, 18/45 (07/14/2022 11:43 AM EDT) HPV nRNA E6/E7 Not Detected Not Detected [facility] Comment:Methodology: Transcr iption-Mediated AmplificationThis assay detects E6/E7 viral messenger RNA (mRNA) from 14high-risk HPV types (16,18,31,33,35,39,45,51,52,56,58,59,66,68).Cervical sources are required for HPV testing.If a vaginal source from a patient who has had atotal hysterectomy with removal of cervix wassubmitted, please contact the testing laboratoryfor alternative testing options.For additional information, please refer tohttp://education.[employer].com/faq/BUG424v6(This link if provided for information/educational purposes only.)THIS TEST WAS PERFORMED AT:[employer] [facility] [employer] [place] [phone] ULLOA MD HPV mRNA E6/E7 [facility] HPV 16 RNA [facility] HPV 18/45 RNA [facility] 07/14/2022 11:4 3 AM EDT 07/15/2022 8:30 AM EDT [facility] External Provider LAB CYT OLOGY ORDERABLES Final Result [facility] [address] [place] [address] [phone] * Pap Smear (07/14/2022 11:43 AM EDT) 07/14/2022 11:4 3 AM EDT 07/15/2022 8:30 AM EDT Kimberly [facility] - 07/28/2022 1:14 PM EDT ----- ------- Name: Catalina Castle ? Age/Sex: 36/F ? : 1985 Unit#: [id number] ?? Attend Dr: Rasheeda Urias CNM ?Re07/14/22 ?Status: DEP REF ? Location: HO.LNP ?Disch: ? ----- ------- SPEC : [id number] ? RECD: 07/15/22-829 ? STATUS: ??SOUT ? REQ NUM: [id number] ? VINCENT: 07/14/22-1143 ? SUBM DR: Rasheeda [...] 66, 68) ?? HPV testing performed by [facility], [place], [place]. ??See reference laboratory ?? pion of the EMR for entire report. ?Clinical Information LMP: 06/23/22 Previous PAP test: 10/30/16, WNL ? Material Received ?? ThinPrep-Cervical Copies To: ?? Sara Newsome DO ?? [address] ?? [place] [address] ? Rasheeda Urias CNM ?? [address] [facility] [address] ?? [place] [address] ?? [phone] ----- ------- Signed (signature on file) REBECCA Andrade ([facility]) 07/28/22 1314 ? ----- ------- ? END OF REPORT ? [facility] External Provider LAB [facility] ORDERABLES Final Result [facility] [address] [place] [phone] from Last 3 Months or Most Recently Relevant to Health Maintenance [place] [place] [address] [employer] AD[place] Care Teams Head Shipper Relationship Specialty Start Date End Date Una Webb MD [address] [place] [phone] PCP - General Internal Medicine 11/17/22 Morris Haney RN [address] [place] [phone] Healthcare LiaisonOceanologist 06/29/24
--- OUTSIDE RECORDS SUMMARY | 2024-07-06 07:29 | XMS_ITS | Encounter Summary ---
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 Name Role Phone Una Webb MD Primary Care Pro vider Morris Haney RN Unavailable [phone] Reason for Visit * Reason Comments Care Management [facility]- initial assess ment/ enrollment Encounter Details Date Type Department Care Team (Late st Contact Info) Description 06/29/2024 Patient Outreach [facility] [address] [place] [phone] Una Webb MD [address] [place] [address] Care Management ([facility]- initial assessment/ enrollment) Social History Tobacco Use Types Packs/Day Years [...] AM EDT documented as of this encounter Functional Status * Over the past 2 weeks, how often have you been bothered by any of the following problems? Question Answer Date of Assessment Author Patient Health Questionnaire -2 Score 0 06/29/2024 6:16 PM EDT Morris Haney RN * Little interest or pleasure in doing things Answer Date of Assessment Author Not at all 06/29/2024 6:16 PM EDT Morris Haney RN * Feeling down, depressed, or hopeless Answer Date of Assessment Author Not at all 06/29/2024 6:16 PM CANDELARIOT Morris Haney RN * Trouble falling or staying asleep, or sleeping too much Answer Date of Assessment Author Not at all 06/29/2024 6:16 PM EDT Morris Haney, JAEL * Feeling tired or having little energy Answer Date of Assessment Author Not at all 06/29/2024 6:16 PM CANDELARIOT Morris Haney, JAEL * Poor appetite or overeating Answer Date of Assessment Author Not at all 06/29/2024 6:16 PM EDT Morris Haney, RN * Feeling bad about yourself - or that you are a failure or have let yourself or your family down Answer Date of Assessment Author Not at all 06/29/2024 6:16 PM EDT Morris Haney RN * Trouble concentrating on things, such as reading the newspaper or watching television Answer Date of Assessment Author Not at all 06/29/2024 6:16 PM EDT Morris Haney RN * Moving or speaking so slowly that other people could have noticed? Or the opposite - being so fidgety or restless that you have been moving around a lot more than usual. Answer Date of Assessment Author Not at all 06/29/2024 6:16 PM EDT Morris Haney RN * Thoughts that you would be better off or hurting yourself in some way Answer Date of Assessment Author Not at all 06/29/2024 6:16 PM EDT Morris Haney RN * Patient Health Questionnaire-9 Score Answer Date of Assessment Author 0 06/29/2024 6:16 PM EDT Morris Haney RN * Over the last 2 weeks, how often have you been bothered by any of the following problems? Question Answer Date of Assessment Author Feeling nervous, anxious, or on edge 0 06/29/2024 6:16 PM EDT Morris Haney RN Not being able to stop or co ntrol worrying 0 06/29/2024 6:16 PM EDT Morris Haney RN Worrying too much about diff erent things 0 06/29/2024 6:16 PM EDT Morris Haney RN Trouble relaxing 0 06/29/2024 6:16 PM EDT Morris Castro RN Being so restless that it is hard to sit still 0 06/29/2024 6:16 PM EDT Morris Haney RN Becoming easily annoyed or irritable 0 06/29/2024 6:16 PM EDT Morris Haney RN Feeling afraid as if somethi ng awful might happen 0 06/29/2024 6:16 PM EDT Morris Haney RN GABRIEL-7 Total Score 0 06/29/2024 6:16 PM EDT Morris Haney RN documented as of this encounter Progress Notes * Morris Haney RN - 06/29/2024 2:25 PM EDT CM Morris Haney RN placed outbound call to patient for agreed upon time for initial assessment for enrollment into Adult Care Management Program. Patient's name, , and address were verified. Catalina is a 38 year old female with Hx of allergic rhinitis, fibromyalgia, H.Pylori infection, GERD, migraine, chronic depression, mixed hyperlipidemia, obesity, positive reaction to TB skin test, latent TB infection, vitamin D deficiency, HTN, Type 2 DM without long-term current use of insulin, chronic idiopathic constipation, bipolar affective disorder, microscopic hematuria, iron deficiency anemia, and loud snoring. Patient reports being followed by [facility] Rhe[facility]ology and GI. She states she as an upcoming visit scheduled with Rheumatology but does not yet have a f/u scheduled with GI. She also states she is being followed by [facility] for therapy and psych. She states she sees her therapist every 2 weeks and her psychiatrist ever 2-3 months. Patient states she has been doing very well emotionally in the last several weeks. She states she has not noted any changes in her mood. Per patient, taking her psych meds as directed. She denies any concerns or side effects. Patient recently referred [place] [facility]. She states she has not been contacted with appt details yet. Patient also states she was supposed to f/u with Podiatry and Neurology some time ago but was unable to stating the offices did not accept her insurance. She would like assistance withcoordinating these visits. CM will assist. Patient also states she received a call from [facility] pharmacy and was informed that her insurance is no longer covering the cost of her medications. She states she is not sure if its a specific medication that is not being covered. CM will contact the pharmacyto clarify and will f/u with patient. Patient states she has all of her meds currently and denies need for refills at this time. She reports having 1 week left on the Ozempic. Per patient, taking allmedications as directed. She denies any concerns with current medication regimen. Patient states she is established with both vision and dental. She reports having visits scheduled with Ophthalmologyand Dental in July 2024. In regards to BP, patient states she has a monitor but does not like it asit is not comfortable. She states this monitor was prescribed to her by PCP. Per patient, intends on buying a new monitor so that she can begin to self-monitor. Patient states is able to recognize s/s hypo/hypertension. She states she is also aware of BP parameters and knows to contact the office if readings outside of normal range and/ or if symptomatic. Patient reports monitoring glucose BID. She states she has had DM for some time and is aware of s/s hypo/hyperglycemia. She states she tries to follow a diet that is low in salt, carbs/sugar, and fat. She states she is working on eating smaller portions as well. CM will provide patient with educational material as well and BP/BS sugars. Patient agreeable to begin to monitor blood sugars and blood pressures. Patient will keep log and willreview with CM during subsequent calls. Patient reports Hx migraine headaches. She states she takesimitrex and topiramate which have helped alleviate symptoms. She states she has not had a migraine in several weeks. Per patient, independent with ADLs. She denies use of or needing any DME at this time. Patient with several SDOH needs. 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 Per patient, behind on her utilities. She is also requesting assistance with connecting to food resources. Samy Salinas outreach and will help connect patient to resources. Patient denies any further needs or concerns at this time. Care management program explained and contact information given. Patient verbalizes understanding, and able to repeat back to speech writer. A follow up call will be placed within 10 days, patient agrees with plan. documented in this encounter Miscellaneous Notes * Patient Education Note - Morris Haney RN - 06/29/2024 10:56 PM EDT Images from the original note were not included. Patient Education Table of Contents Control de la glucemia, en adultos (Blood Glucose Monitoring, Adult) To view videos and all your education online visit, [email or web address] or scan this QR code with your smartphone. Access to this content will in one year. Control de la glucemia, en adultos Blood Glucose Monitoring, Adult Para controlar la diabetes, deber?? llevar un registro de bryant nivel de az?car en la heike. [place] se denomina control de la glucemia. Controle bryant nivel de glucemia con la frecuencia que le hayan indicado. Lleve un cuaderno de jess resultados a lo radha del tiempo. Puede resultarle ?til para: Saber cu?ndo ajustar bryant plan de control de la diabetes con bryant m?dico. Izabela de qu?? manera los alimentos, la actividad f?josue, las enfermedades y los medicamentos inciden en bryant glucemia. Saber cu?l es bryant nivel de glucemia en cualquier momento. El m?dico establecer?? objetivos espec?ficos para jess niveles de glucemia. En muchos casos, estos objetivos pueden ser los siguientes: Antes de las comidas: de 80 a 130?mg/dl (de 4.4 a 7.2?mmol/l). Despu?s de las comidas: por debajo de 180?mg/dl (10?mmol/l). Nivel de A1c: menos del 7?%. Materiales necesarios: Medidor de glucemia. Tiras reactivas para el medidor. Cada zunilda de medidor tiene jess propias tiras reactivas. Debe usarlas tiras reactivas que trajo bryant medidor. Felisha lanceta. Namita es un dispositivo afilado que se usa para pinchar el dedo. No use felisha misma lanceta m?s de felisha vez. Un diario o cuaderno de anotaciones para escribir jess resultados. C?mo controlar bryant glucemia Control de la glucemia 1. L?vese las shimon con agua y jab?n avril al menos 20?segundos. Utilice la lanceta para pinchar el costado de un dedo. No se pinche la punta del dedo. Adem?s, trate de no usar el mismo dedo todas las veces. Apriete suavemente el dedo hasta que aparezca felisha maryana?a gota de heike. Siga las instrucciones del medidor sobre c?mo insertar la arya reactiva, aplicar la heike sobre latira y usar el medidor. Registre bryant resultado y las observaciones que desee. Uso de otros lugares Algunos medidores de glucemia permiten realizar la prueba en otras partes del cuerpo para analizar la heike. Los lugares m?s frecuentes son el antebrazo, el muslo, la parte superior del brazo y la brown de la mano. Consulte las instrucciones del medidor. Es posible que el uso de otros lugares no sea maria preciso pura los dedos. Si ernestina que tiene un nivel bajo de glucemia, use solo el dedo. Consejos generales Registro diario de glucemia Anote el resultado cada vez que controle bryant glucemia. Anote todo lo que pueda estar afectando bryant glucemia. [place] puede ayudarlos a usted y a bryant m?dico: ? A buscar patrones a lo radha del tiempo. ? A ajustar bryant plan de control de la diabetes seg?n sea necesario. A averiguar si bryant medidor tiene felisha aplicaci?n o le permite descargar jess registros en felisha computadora. La mayor?a de los medidores guardan un registro de las lecturas de glucosa en el medidor. Si usted tiene diabetes tipo 1: Controle bryant nivel de glucemia con la frecuencia que le hayan indicado. Puede ser: ? Antes de cada comida y colaci?n. ? Dos horas despu?s de felisha comida. ? Antes de ir a acostarse. ? Si tiene s?ntomas de hipoglucemia. ? Despu?s de tratar la hipoglucemia. ? Antes de hacer cosas con riesgo de lesiones, pura conducir o usar maquinaria. ? Antes y despu?s de hacer ejercicio. ? Entre las 2:00?a.?m. y las 3:00?a.?m. Es posible que deba controlar con m?s frecuencia jses niveles de glucemia, pura hasta 6 a 10?veces por d?a, si: ? Tiene diabetes que no est?? nandini controlada. ? Est?? enfermo. ? Tiene antecedentes de hipoglucemia grave. ? Tiene hipoglucemia asintom?joanne. Si usted tiene diabetes tipo 2: Es posible que tenga que controlar bryant glucemia 2 o m?s veces al d?a. Contr?lese la glucemia con la frecuencia que le haya indicado el m?dico. [place] puede incluir: ? Antes y despu?s de hacer ejercicio. ? Antes de hacer cosas con riesgo de lesiones, pura conducir o usar maquinaria. Es posible que deba controlar con m?s frecuencia bryant nivel de glucemia si: ? Necesita ajustar la dosis de jess medicamentos. ? Bryant diabetes no est?? nandini controlada. ? Est?? enfermo. Consejos generales Lleve siempre consigo el medidor de glucemia y los suministros. Despu?s de usar algunas tita de tiras reactivas, ajuste el medidor de glucemia seg?n sea necesario. Siga las instrucciones del medidor. Todos los medidores de glucemia incluyen un n?kiran de tel?fono de l?jose directa, disponible las 24 horas, al que podr?? llamar si tiene preguntas o necesita ayuda. Adem?s, comun?quese con bryant m?dico si tiene preguntas o inquietudes. D?nde obtener m?s informaci?n [place] Diabetes Association (Asociaci?n Estadounidense de la Diabetes): diabetes.org The Association of Diabetes Care & Education Specialists (Asociaci?n de Especialistas en Atenci?n y Educaci?n sobre la Diabetes): diabeteseducator.org Comun?quese con un m?dico si: El nivel de glucemia es mayor o igual que 240?mg/dl (13.3?mmol/dl) avril 2?d?as seguidos. Warner estado enfermo o warner tenido fiebre avril 2?d?as o m?s, y no mejora. Tiene alguno de estos problemas avril m?s de 6?horas: ? No puede comer ni beber. ? Tiene n?useas o v?mitos. ? Tiene diarrea. Solicite ayuda de inmediato si: Bryant nivel de glucemia est?? por debajo de 54?mg/dl (3?mmol/l). Siente confusi?n o tiene dificultad para pensar con claridad. Tiene dificultad para respirar. Tiene un nivel moderado o alto de cetonas en la orina. Estos s?ntomas pueden indicar felisha emergencia. Solicite ayuda de inmediato. Llame al 911. No espere a [place] si los s?ntomas desaparecen. No conduzca por jess propios medios hasta el hospital. Esta informaci?n no tiene pura fin reemplazar el consejo del m?dico. Aseg?rese de hacerle al m?dicocualquier pregunta que tenga. Document Released: 2006-02-09 Document Updated: 2023-10-15 Document Reviewed: 2023-02-18 [employer] Patient Education ? 2024 eventblimp. * Patient Education Note - Morris Haney RN - 06/29/2024 10:55 PM EDT Images from the original note were not included. Patient Education Table of Contents Diabetes mellitus y nutrici?n, en adultos (Diabetes Mellitus and Nutrition, Adult) To view videos and all your education online visit, [email or web address] or scan this QR code with your smartphone. Access to this content will in one year. Diabetes mellitus y nutrici?n, en adultos Diabetes Mellitus and Nutrition, Adult Si sufre de diabetes, o diabetes mellitus, es muy importante tener h?bitos alimenticios saludables debido a que jess niveles de az?car en la heike (glucosa) se newton afectados en gran medida por lo quecome y aroldo. [place] alimentos saludables en las cantidades correctas, aproximadamente a la misma hora todos los d?as, lo ayudar?? a: Controlar bryant glucemia. Disminuir el riesgo de sufrir felisha enfermedad card?juan. Mejorar la presi?n arterial. Alcanzar o mantener un peso saludable. ?Qu?? puede afectar mi plan de alimentaci?n? Todas las personas que sufren de diabetes son diferentes y cada felisha tiene necesidades diferentes encuanto a un plan de alimentaci?n. El m?dico puede recomendarle que trabaje con un nutricionista para elaborar el mejor plan para usted. Bryant plan de alimentaci?n puede variar seg?n factores pura: Las calor?as que necesita. Los medicamentos que gage. Bryant peso. Jess niveles de glucemia, presi?n arterial y colesterol. Bryant nivel de actividad. Otras afecciones que tenga, pura enfermedades card?acas o renales. ?C?mo me afectan los carbohidratos? Los carbohidratos, o hidratos de carbono, afectan bryant nivel de glucemia m?s que cualquier otro tipo de alimento. La ingesta de carbohidratos aumenta la cantidad de glucosa en la heike. Es importante conocer la cantidad de carbohidratos que se pueden ingerir en cada comida sin correr nicholas?n riesgo. [place] es diferente en cada persona. [place] nutricionista puede ayudarlo a calcular la cantidad de carbohidratos que debe ingerir en cada comida y en cada refrigerio. ?C?mo me afecta el alcohol? El alcohol puede provocar felisha disminuci?n de la glucemia (hipoglucemia), especialmente si usa insulina o gage determinados medicamentos por v?a oral para la diabetes. La hipoglucemia es felisha afecci?n potencialmente mortal. Los s?ntomas de la hipoglucemia, pura somnolencia, mareos y confusi?n, son similares a los s?ntomas de jak consumido demasiado alcohol. No eduardo alcohol si: ? Bryant m?dico le indica no hacerlo. ? Est?? embarazada, puede estar embarazada o est?? tratando de quedar embarazada. Si aroldo alcohol: ? Limite la cantidad que aroldo a lo siguiente: ? De 0 a 1 medida por d?a para las mujeres. ? De 0 a 2 medidas por d?a para los hombres. ? Sepa cu?nta cantidad de alcohol hay en las bebidas que gage. En los [place], felisha medida equivale a felisha botella de cerveza de 12?oz (355?ml), un vaso de vino de 5?oz (148?ml) o un vaso de unabebida alcoh?lica de negra graduaci?n de 1??oz (44?ml). ? Mant?ngase hidratado bebiendo agua, refrescos diet?ticos o t?? helado sin az?car. Tenga en cuentaque los refrescos comunes, los jugos y otras bebidas para mezclar pueden contener grecia az?car y sedeben contar pura carbohidratos. Consejos para seguir namita plan Leer las etiquetas de los alimentos Comience por leer el karie?o de la porci?n en la etiqueta de Informaci?n nutricional de los alimentos envasados y las bebidas. La cantidad de calor?as, carbohidratos, grasas y otros nutrientes detallados en la etiqueta se basan en felisha porci?n del alimento. Muchos alimentos contienen m?s de felisha porci?n por envase. Verifique la cantidad total de gramos (g) de carbohidratos totales en felisha porci?n. Verifique la cantidad de gramos de grasas saturadas y grasas trans en felisha porci?n. Escoja alimentosque no contengan estas grasas o que bryant contenido de estas sea bajo. Verifique la cantidad de miligramos (mg) de stacey (sodio) en felisha porci?n. La mayor?a de las personas deben limitar la ingesta de sodio total a menos de 2300?mg por d?a. Siempre consulte la informaci?n nutricional de los alimentos etiquetados pura ?con bajo contenido de grasa? o ?sin grasa?. Estos alimentos pueden tener un mayor contenido de az?car agregada o carbohidratos refinados, y deben evitarse. Hable con bryant nutricionista para identificar jess objetivos diarios en cuanto a los nutrientes mencionados en la etiqueta. Al ir de compras Evite comprar alimentos procesados, enlatados o precocidos. Estos alimentos tienden a tener felisha mayor cantidad de grasa, sodio y az?car agregada. Compre en la shady exterior de la bettina de comestibles. Esta es la shady donde se encuentran con mayor frecuencia las frutas y las verduras frescas, los cereales a granel, las larisa frescas y los productos l?cteos frescos. Al cocinar Use m?todos de cocci?n a baja temperatura, pura hornear, en lugar de m?todos de cocci?n a negra temperatura, pura duc?r en abundante aceite. Cocine con aceites saludables, pura el aceite de park, canola o girasol. Evite cocinar con manteca, crema o larisa con alto contenido de grasa. Planificaci?n de las comidas Coma las comidas y los refrigerios regularmente, preferentemente a la misma hora todos los d?as. Evite pasar largos per?odos de tiempo sin comer. Consuma alimentos ricos en fibra, pura frutas frescas, verduras, frijoles y cereales integrales. Consuma entre 4 y 6 onzas (entre 112 y 168?g) de prote?skip magras por d?a, pura larisa magras, oj-ann, pescado, huevos o tofu. Felisha onza (oz) (28?g) de prote?na magra equivale a: ? 1 onza (28?g) de carne, jo-ann o pescado. ? 1?huevo. ? ? taza (62 g) de tofu. Coma algunos alimentos por d?a que contengan grasas saludables, pura aguacates, dirk secos, semillas y pescado. ?Qu?? alimentos ashanti comer? Frutas Bayas. Manzanas. Naranjas. Duraznos. Damascos. Ciruelas. Uvas. Mangos. Papayas. Granadas. Kiwi. Cerezas. Verduras Verduras de hoja marta, que incluyen glendy, espinaca, col rizada, acelga, hojas de berza, hojas de mostaza y repollo. Remolachas. Coliflor. Br?coli. Zanahorias. Hawa?as verdes. Tomates. Pimientos. Cebollas. Pepinos. Ponce de Bruselas. Granos Granos integrales, pura panes, galletas, tortillas, cereales y pastas de salvado o integrales. Siri sin az?car. Quinua. Arroz integral o kelvin. Larisa y otras prote?skip Dirk de mar. Carne de ave sin piel. Villaseñor magros de ave y carne de res. Tofu. Dirk secos. Semillas. L?cteos Productos l?cteos sin grasa o con bajo contenido de grasa, pura leche, yogur y queso. Es posible que los productos detallados arriba no constituyan feilsha lista completa de los alimentos ylas bebidas que puede huang. Consulte a un nutricionista para obtener m?s informaci?n. ?Qu?? alimentos ashanti evitar? Frutas Frutas enlatadas al cong?bar. Verduras Verduras enlatadas. Verduras congeladas con mantequilla o salsa de crema. Granos Productos elaborados con harina y harina joseph refinada, pura panes, pastas, bocadillos y cereales. Evite todos los alimentos procesados. Larisa y otras prote?skip Villaseñor de carne con alto contenido de grasa. Carne de ave con piel. Larisa empanizadas o fritas. Carne procesada. Evite las grasas saturadas. L?cteos Yogur, queso o leche enteros. Bebidas Bebidas azucaradas, pura gaseosas o t?? helado. Es posible que los productos que se enumeran m?s arriba no constituyan felisha lista completa de los alimentos y las bebidas que debe evitar. Consulte a un nutricionista para obtener m?s informaci?n. Preguntas para hacerle al m?dico ?Ashanti consultar con un especialista certificado en atenci?n y educaci?n sobre la diabetes? ?Es necesario que me re?na con un nutricionista? ?A qu?? n?kiran puedo llamar si tengo preguntas? ?Cu?les son los mejores momentos para controlar la glucemia? D?nde encontrar m?s informaci?n: [place] Diabetes Association (Asociaci?n Estadounidense de la Diabetes): diabetes.org Academy of Nutrition and Dietetics (Academia de Nutrici?n y Diet?joanne): eatright.org National [place] of Diabetes and Digestive and Kidney Diseases (Instituto Nacional de la Diabetesy las Enfermedades Digestivas y Renales): niddk.nih.gov Association of Diabetes Care & Education Specialists (Asociaci?n de Especialistas en Atenci?n yEducaci?n sobre la Diabetes): diabeteseducator.org Resumen Es importante tener h?bitos alimenticios saludables debido a que jess niveles de az?car en la heike(glucosa) se newton afectados en gran medida por lo que come y aroldo. Es importante consumir alcohol con christel. Un plan de comidas saludable lo ayudar?? a controlar la glucosa en heike y a reducir el riesgo de enfermedades card?acas. El m?dico puede recomendarle que trabaje con un nutricionista para elaborar el mejor plan para usted. Esta informaci?n no tiene pura fin reemplazar el consejo del m?dico. Aseg?rese de hacerle al m?dicocualquier pregunta que tenga. Document Released: 2008-05-18 Document Updated: 2020-10-17 Document Reviewed: 2020-10-17 Elsevier Patient Education ? 2023 [employer] Inc. * Patient Education Note - Morris Haney RN - 06/29/2024 10:55 PM EDT Images from the original note were not included. Patient Education Table of Contents Hipertensi?n en los adultos (Hypertension, Adult) To view videos and all your education online visit, [email or web address] or scan this QR code with your smartphone. Access to this content will in one year. Hipertensi?n en los adultos Hypertension, Adult La presi?n arterial negra (hipertensi?n) se produce cuando la fuerza de la heike bombea a jeramie?s delas arterias con grecia fuerza. Las arterias son los vasos sangu?neos que transportan la heike desde el coraz?n al chaz del cuerpo. La hipertensi?n hace que el coraz?n dylan m?s esfuerzo para bombearsangre y puede provocar que las arterias se estrechen o endurezcan. La hipertensi?n no tratada o nocontrolada puede causar infarto de miocardio, insuficiencia card?juan, accidente cerebrovascular, enfermedad renal y otros problemas. Felisha lectura de la presi?n arterial consta de un n?kiran m?s alto sobre un n?kiran m?s bajo. En condiciones ideales, la presi?n arterial debe estar por debajo de 120/80. El primer n?kiran (?superior?) esla presi?n sist?lica. Es la medida de la presi?n de las arterias cuando el coraz?n late. El segundon?kiran (?inferior?) es la presi?n diast?lica. Es la medida de la presi?n en las arterias cuando el c oraz?n se relaja. ?Cu?les son las causas? Se desconoce la causa exacta de esta afecci?n. Hay algunas afecciones que causan presi?n arterial negra. ?Qu?? incrementa el riesgo? Ciertos factores pueden hacer que felisha persona sea m?s propensa a desarrollar presi?n arterial negra.Algunos de estos factores de riesgo est?n bajo bryant control, por ejemplo, los siguientes: Fumar. No hacer la cantidad suficiente de actividad f?josue o ejercicio. Tener sobrepeso. Consumir grecia grasa, az?car, calor?as o stacey (sodio) en bryant dieta. Beber alcohol en exceso. Otros factores de riesgo son los siguientes: Tener antecedentes personales de enfermedad card?juan, diabetes, colesterol alto o enfermedad renal. Estr?s. Tener antecedentes familiares de presi?n arterial negra y colesterol alto. Tener apnea obstructiva del yamil?o. Edad. El riesgo aumenta con la edad. ?Cu?les son los signos o s?ntomas? Es posible que la presi?n arterial negra no cause s?ntomas. La presi?n arterial muy negra (crisis hipertensiva) puede provocar: Dolor de aida. Latidos card?acos acelerados o irregulares (palpitaciones). Falta de aire. Hemorragia nasal. N?useas y v?mitos. Cambios en la visi?n. Dolor intenso en el pecho, mareos y convulsiones. ?C?mo se diagnostica? Esta afecci?n se diagnostica al medir bryant presi?n arterial mientras se encuentra sentado, con el brazo apoyado sobre felisha superficie plana, las piernas sin cruzar y los pies nandini apoyados en el piso. El brazalete del tensi?metro debe colocarse directamente sobre la piel de la parte superior del brazoy al nivel de bryant coraz?n. La presi?n arterial debe medirse al menos dos veces en el mismo brazo. Determinadas condiciones pueden causar felisha diferencia de presi?n arterial entre el brazo sterling y el derecho. Si tiene felisha lectura de presi?n arterial negra avril felisha visita o si tiene presi?n arterial normalcon otros factores de riesgo, se le podr?? pedir que dylan lo siguiente: Que regrese otro d?a para volver a controlar bryant presi?n arterial nuevamente. Que se controle la presi?n arterial en bryant casa avril 1 semana o m?s. Si se le diagnostica hipertensi?n, es posible que se le realicen otros an?lisis de heike o estudios de diagn?stico por im?genes para ayudar a bryant m?dico a comprender bryant riesgo general de tener otras afecciones. ?C?mo se trata? Esta afecci?n se trata haciendo cambios saludables en el estilo de jamia, tales pura ingerir alimentos saludables, realizar m?s ejercicio y reducir el consumo de alcohol. Es posible que lo deriven para que reciba asesoramiento sobre felisha dieta saludable y actividad f?josue. El m?dico puede recetarle medicamentos si los cambios en el estilo de jamia no son suficientes para lograr controlar la presi?n arterial y si: Bryant presi?n arterial sist?lica est?? por encima de 130. Bryant presi?n arterial diast?lica est?? por encima de 80. La presi?n arterial deseada puede variar en funci?n de las enfermedades, la edad y otros factores personales. Siga estas instrucciones en bryant casa: Comida y bebida Siga felisha dieta con alto contenido de fibras y potasio, y con bajo contenido de sodio, az?car agregada y grasas. Un ejemplo de namita plan de alimentaci?n se denomina dieta DASH. DASH es la sigla en ingl?s de ?Enfoques alimentarios para detener la hipertensi?n?. Para alimentarse de esta manera: ? Coma grecia fruta y verdura fresca. Trate de que la mitad del plato de cada comida sea de frutas yverduras. ? Coma cereales integrales, pura pasta integral, arroz integral o santiago integral. Llene aproximadamente un cuarto del plato con cereales integrales. ? Coma y eduardo productos l?cteos con bajo contenido de grasa, pura leche descremada o yogur bajo en grasas. ? Evite la ingesta de villaseñor de carne grasa, carne procesada o curada, y carne de ave con piel. Llene aproximadamente un cuarto del plato con prote?skip magras, pura pescado, jo-ann sin piel, frijoles,huevos o tofu. ? Evite ingerir alimentos prehechos y procesados. En general, estos tienen mayor cantidad de sodio,az?car agregada y grasa. Reduzca bryant ingesta diaria de sodio. Muchas personas que tienen hipertensi?n deben comer menos de 1,500?mg de sodio por d?a. No eduardo alcohol si: ? Bryant m?dico le indica no hacerlo. ? Est?? embarazada, puede estar embarazada o est?? tratando de quedar embarazada. Si aroldo alcohol: ? Limite la cantidad que aroldo a lo siguiente: ? De 0 a 1 medida por d?a para las mujeres. ? De 0 a 2 medidas por d?a para los hombres. ? Sepa cu?nta cantidad de alcohol hay en las bebidas que gage. En los [place], felisha medida equivale a felisha botella de cerveza de 12?oz (355?ml), un vaso de vino de 5?oz (148?ml) o un vaso de unabebida alcoh?lica de negra graduaci?n de 1??oz (44?ml). Estilo de jamia Trabaje con bryant m?dico para mantener un peso saludable o perder peso. Preg?ntele cu?l es el peso recomendado para usted. Realice al menos 30 minutos de ejercicio que dylan que se acelere bryant coraz?n (ejercicio aer?bico) lamayor?a de los d?as de la semana. Estas actividades pueden incluir caminar, nadar o andar en bicicleta. Incluya ejercicios para fortalecer jess m?sculos (ejercicios de resistencia), pura Pilates o levantamiento de pesas, pura parte de bryant rutina semanal de ejercicios. Intente realizar 30?minutos de namita tipo de ejercicios al menos abhay d?as a la semana. No consuma nicholas?n producto que contenga nicotina o tabaco. Estos productos incluyen cigarrillos, tabaco para mascar y aparatos de vapeo, pura los cigarrillos electr?nicos. Si necesita ayuda para dejar de fumar, consulte al m?dico. Contr?lese la presi?n arterial en bryant casa seg?n las indicaciones del m?dico. Concurra a todas las visitas de seguimiento. [place] es importante. Medicamentos Use los medicamentos de venta ana y los recetados solamente pura se lo haya indicado el m?dico. Siga cuidadosamente las indicaciones. Los medicamentos para la presi?n arterial deben tomarse seg?n las indicaciones. No omita las dosis de medicamentos para la presi?n arterial. Si lo hace, estar?? en riesgo de tenerproblemas y puede hacer que los medicamentos paul menos eficaces. Preg?ntele a bryant m?dico a qu?? efectos secundarios o reacciones a los medicamentos debe prestar atenci?n. Comun?quese con un m?dico si: Piensa que tiene felisha reacci?n a un medicamento que est?? tomando. Tiene john de aida frecuentes (recurrentes). Se siente mareado. Tiene hinchaz?n en los tobillos. Tiene problemas de visi?n. Solicite ayuda inmediatamente si: Siente un dolor de aida intenso o confusi?n. Siente debilidad inusual o adormecimiento. Siente que va a desmayarse. Siente un dolor intenso en el pecho o el abdomen. Vomita repetidas veces. Tiene dificultad para respirar. Estos s?ntomas pueden indicar felisha emergencia. Solicite ayuda de inmediato. Llame al 911. No espere a [place] si los s?ntomas desaparecen. No conduzca por jess propios medios hasta el hospital. Resumen La hipertensi?n se produce cuando la heike bombea en las arterias con grecia fuerza. Si esta afecci?n no se controla, podr?a correr riesgo de tener complicaciones graves. La presi?n arterial deseada puede variar en funci?n de las enfermedades, la edad y otros factores personales. Para la mayor?a de las personas, felisha presi?n arterial normal es sho que 120/80. La hipertensi?n se trata con cambios en el estilo de jamia, medicamentos o felisha combinaci?n de ambos.Los cambios en el estilo de jamia incluyen p?rdida de peso, ingerir alimentos sanos, seguir felisha dieta baja en sodio, hacer m?s ejercicio y limitar el consumo de alcohol. Esta informaci?n no tiene pura fin reemplazar el consejo del m?dico. Aseg?rese de hacerle al m?dicocualquier pregunta que tenga. Document Released: 2006-02-09 Document Updated: 2022-01-01 Document Reviewed: 2022-01-01 Elsevier Patient Education ? 2024 eventblimp. documented in this encounter Plan of Treatment Upcoming Encounters Date Type Department Care Team (Late st Contact Info) Description 08/02/2024 9:00 AM EDT Office Visit [facility] [address] [place] [id number] Una Webb MD [address] [place] [id number] 08/03/2024 9:00 AM EDT Office Visit [facility] [address] [place] [id number] Yoly Chun documented as of this encounter Visit Diagnoses Not on filedocumented in this encounter Additional Health Concerns Assessment Noted Time PHQ-9 Depression Total Score: 0 06/30/19 25 6:16 PM EDT documented as of this encounter 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
--- NOTE | 2024-07-06 07:39 | MHC.OFFVIS ---
Vital Signs 07/06/24 07:44 Height 5 ft 5 in Weight 180 lb 12.465 oz BMI 30.1 BP 140/92 H Blood Pressure Location Rt brachial Position Sitting Respiration 16 Pulse 85 Pulse Source Pulse Oximeter Pulse Oximetry (%) 98 Oxygen Delivery Method Room Air Intake Visit Reasons: 6 mnts f/u for FM Intake Note: Patient presents for FM and 6 months follow up. Theology Professor Required: Yes Theology Professor Language: Head Of Talent Management Services: Theology Professor Present Theology Professor Name: Jasmine Stafford Information Interpreted: non-clinical & clinical Allergies Iodinated Contrast Media [IV CONTRAST] Allergy (Mild, Verified 07/06/24 07:44) NAUSEA & VOMITING Medication List - Last Reconciled 07/06/24 by Isela Martinez MD albuterol sulfate 90 mcg/actuation (ProAir HFA) 2 puffs PO Q4-6H PRN blood sugar diagnostic (FreeStyle Lite Strips) As directed xkonwwazii-[id number]-yhwb 50-300-40 mg (Fioricet) 1 cap PO Q6H PRN cetirizine 10 mg PO QAM cholecalciferol (vitamin D3) 1,250 mcg PO QWEEK 90 days cyclobenzaprine 5 mg PO BEDTIME PRN diclofenac sodium 1% 4 grams topical QID PRN duloxetine (Cymbalta) 30 mg PO BID ergocalciferol (vitamin D2) 1,250 mcg PO QWEEK escitalopram oxalate 10 mg PO BEDTIME esomeprazole magnesium 40 mg PO DAILY hydroxyzine pamoate 25 mg PO BID PRN linaclotide (Linzess) 72 mcg PO DAILY losartan 25 mg PO DAILY lurasidone (Latuda) 20 mg PO DAILY magnesium oxide 400 mg PO DAILY metronidazole 0.75%(37.5mg/5gram) 1 appful vaginal BEDTIME 5 days omeprazole 20 mg PO BID ondansetron 4 mg PO TID PRN 5 days riboflavin (vitamin B2) (Vitamin B-2) 100 mg PO DAILY semaglutide (Ozempic) 1 mg subcut QWEEK sodium phosphates 19-7 gram/118 mL (Fleet Enema) 118 mL MT DAILY PRN topiramate 50 mg PO DAILY zolpidem 5 mg PO BEDTIME PRN HPI Comments Details: Patient is a 38-year-old female migraine headaches, hypertension, GERD and depression who presents for follow up of fibromyalgia Interval History: Last seen 01/06/24 with me. At that time she was following up for her fibromyalgia on cyclobenzaprine. A long discussion about fibromyalgia was had and she was started on duloxetine to see if it would be beneficial for her pain. Patient was able to start the duloxetine and she reports it has been helpful The duloxetine along with cyclobenzaprine has been able to mitigate the pain Has not been exercising stating that she works alot and that is her exercise Rheumatologic History: Patient referred for polyarthralgias and whole-body pain. Evaluation including history and physical exam consistent with fibromyalgia. 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 Gender identity: Female Review of Systems Const Details: Review of Systems Constitutional: Denies fever, chills, weight loss ENT: Denies vision changes, eye pain or eye redness, dental caries, dry mouth GI: Denies nausea, vomiting, diarrhea, abdominal pain, change in BM Pulm: Denies SOB, VALENCIA, hemoptysis, wheezing Cards: Denies chest pain, palpitations Skin: Denies Raynaud's, rash, nail changes, photosensitivity, SECURITY ASSESSOR: Denies headaches, weakness, paresthesias, recurrent falls MSK: as per HPI All other systems reviewed and are unremarkable except noted above Physical Exam Vital Signs: BMI result Body Mass Index 30.1 Vital signs reviewed Physical Examination CONSTITUITIONAL Patient alert and cooperative. Well appearing and in no apparent painful distress HEENT Conjunctiva and sclera clear. ?Pupils equal round and reactive to light. ?No lymphadenopathy. ? CHEST/RESPIRATORY SYSTEM Normal respiratory effort and able to speak in complete sentences. ?Clear to auscultation bilaterally. ?No crackles, rales, rhonchi, wheezes heard. CARDIAC SYSTEM Regular rate and rhythm. ?S1 and S2 heard no murmurs. ?Radial pulses intact bilaterally MSK Hands: ?Able to make a fist. No synovitis noted to the MCPs, PIPs or DIPs. ?No tenderness to palpation of these joints. No deformities noted. ? Wrists: ?Full range of motion at the wrists without pain. ?No tenderness to palpation or synovitis noted to the wrists. Elbows: Full range of motion without pain. No tenderness, weakness, swelling, increased warmth or erythema. Shoulders: Full range of active range of motion without pain. No tenderness, weakness, swelling, increased warmth or erythema. Hips: Full range of motion without pain. Hip bursa: No tenderness to palpation Knees: ?Full range of motion. ?No tenderness, swelling, increased warmth or erythema.?No effusion or crepitations Ankles: Full range of motion. ?No tenderness, swelling, increased warmth or erythema.? Feet: ?Negative squeeze test. ?No tenderness to palpation or swelling of the MTPs. Tender points:?Tenderness to palpation of the bilateral trapezius and supraspinatus but no TTP of the greater trochanters, anterior costochondral junctions, bilateral gluteal areas, bilateral suboccipital muscle insertions SKIN Skin intact without rashes. Results Reviewed Results Reviewed: Laboratory Tests 02/02/24 08:28 WBC 7.4 RBC 4.25 Hgb 11.7 L Hct 35.3 L Plt Count 437 H ESR 18 Sodium 137 Potassium 3.6 Chloride 107 Carbon Dioxide 23 BUN 6 L Creatinine 0.72 AST 18 ALT 12 Alkaline Phosphatase 69 C-Reactive Protein 1.54 H 25-OH Vitamin D Total 20.9 L Immunology Labs 10/21/18 03/08/19 08:35 15:15 Rheumatoid Factor < 15.0 Cycl Citrul Peptide IgG <16 NENO Screen Negative XR Right Knee 03/2023 FINDINGS: No effusion. Small quadriceps enthesophyte. Small sclerotic focus at the distal femoral metaphysis, possibly a bone island. Mild medial joint space narrowing. Tiny medial marginal and posterior patellar osteophyte. IMPRESSION: Mild degenerative changes Assessment & Plan Assessment & Plan (1) Fibromyalgia: Code(s): M79.7 - Fibromyalgia Category: Medical Plan: #Fibromyalgia Patient is a 38 y.o. female with fibromylagia here today for follow up. Able to manage her pain with duloxetine and cyclobenzaprine. Encouraged daily stretches to decrease her muscle tension Plan - Duloxetine 30mg bid - Cylcobenzaprine 5mg nightly - RTC 6 months Plan I spent 20 minutes reviewing the record and labs, taking a history, examining the patient, discussing the treatment plan, ordering diagnostic work up and documenting in the medical record Medications: Refilled cyclobenzaprine 5 mg PO BEDTIME PRN 90 tabs 1RF muscle spasm M79.7 - Fibromyalgia duloxetine (Cymbalta) 30 mg PO BID 180 caps 1RF M79.7 - Fibromyalgia Coding Level of Care Code Est Pt Level 3 (72684) Diagnoses Fibromyalgia M79.7
[2024-07-06 07:44] VITALS: BP 140/92; PULSE 85; RESP 16; O2SAT 98; BMI 30.1
== END 2024-07-06 08:01 | disposition home or self-care (01) ==
LOC: HO.RHE 07:27
PROVIDERS: PCP Student in an Organized Health Care Education/Training Program; Visit Provider Student in an Organized Health Care Education/Training Program
DX: M79.7 Fibromyalgia (principal)
CPT/HCPCS: 99213

== ENCOUNTER → 2024-07-06 07:26 | Outpatient (BNVA) | payer MEDICAID, SELFPAY | PROVIDERS: PCP Student in an Organized Health Care Education/Training Program; Visit Provider Student in an Organized Health Care Education/Training Program | DX: M79.7 Fibromyalgia (principal) | CPT/HCPCS: 99212 ==

== ENCOUNTER 2024-07-22 07:58 | Outpatient (REF) | payer MEDICAID, SELFPAY ==
--- OUTSIDE RECORDS SUMMARY | 2024-07-22 08:00 | XMS_ITS | Clinical Summary ---
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 Fish Hatchery Inspector Name Role Phone Una Webb MD Primary Care Pro vider Morris Haney RN Unavailable [phone] Allergies Active Allergy Reactions Criticality Noted [...] MOUTH EVERY MORNING 90 tablet 4 Active ergocalciferol (Vitamin D2) 1.25 MG (59863 UT) capsule Take 1 capsule (1.25 mg) [...] EVERY DAY 90 tablet 1 4 Active topiramate 50 MG tablet TAKE 1 TABLET BY MOUTH ONCE DAILY 90 tablet 5 Active olmesartan (BENIcar) 40 MG tabletIndications :Primary hypertension TAKE 1 TABLET BY MOUTH ONCE DAILY 90 tablet 5 Active glucose blood (FREESTYLE LITE) test strip USE DIRECTED TO TEST BLOOD SUGAR TWICE DAILY 50 strip 5 5 Active riboflavin (vitamin B2) 100 mg tablet tabletIndications :Gastroesophageal reflux disease without esophagitis TAKE 1 TABLET BY MOUTH EVERY DAY 90 tablet 1 5 Active Semaglutide, 2 MG/DOSE, (Ozempic, 2 MG/DOSE,) 8 MG/3ML solution pen-injector Inject 0.75 mL (2 mg) under the skin 1 (one) time per week. 3 mL 3 5 Active Active Problems Problem Noted Date Diagnosed [...] organization. Date Type Department Care Team Description 07/21/2024 Patient Outreach [facility] MEDICINE [address] [place] [address] Una Webb MD Care Management (C3- f/u call) 07/13/2024 Patient Outreach [address] [address] Una Webb MD Care Coordination (SDOH) 07/11/2024 Orders Only [address] [address] Una Webb MD Type 2 diabetes mellitus without complication, without long-term current use of insulin ([facility]) (Primary Dx) 07/11/2024 Patient Outreach [address] [address] Una Wbeb MD Care Coordination (NMOH f/u) 07/11/2024 Patient Outreach [address] [address] Una Webb MD Care Management ([facility]- 1st f/u call) 07/07/2024 Patient Outreach [address] [address] Una Webb MD Care Coordination (NMOH f/u) 06/30/[address] [address] Una Webb MD 06/30/2024 Patient Outreach [address] [address] Rita Noble 06/29/2024 Plan of Care Documentation [address] [address] 06/29/2024 Patient Outreach [address] [address] Una Webb MD Care Management ([facility]- initial assessment/ enrollment) 06/28/2024 Patient Outreach [address] [address] Una Webb MD Care Coordination (CM/CHW appt reminder) 06/21/2024 Patient Outreach [address] [address] Una Webb MD 06/20/2024 Patient Outreach [address] [address] Una Webb MD 06/14/2024 Patient Outreach [address] [address] Una Webb MD 06/07/2024 10:45 AM EDT Office Visit [address] [address] Una Webb MD Annual physical exam (Primary Dx); Hematuria, unspecified type; Loud snoring; Cognitive impairment; Dietary counseling; Exercise counseling; Bipolar affective disorder, remission status unspecified ([facility]); Type 2 diabetes mellitus without complication, without long-term current use of insulin ([facility]); Health care maintenance; Class 1 obesity due to excess calories with serious comorbidity and body mass index (BMI) of 31.0 to 31.9 in adult; Microscopic hematuria; Iron deficiency anemia secondary to inadequate dietary iron intake 06/07/2024 Travel 06/06/2024 Patient Outreach [address] [address] Una Webb MD Care Coordination (CM/CHW outreach) 06/06/2024 Patient Outreach [address] [address] Una Webb MD Care Coordination (CHW Chart Review) 06/06/2024 Patient Outreach [address] [address] Una Webb MD Care Coordination ([facility]- chart review) 06/06/2024 Patient Outreach [address] [address] Una Webb MD 05/30/[address] [address] Una Webb MD chart prep 05/24/2024 Patient Outreach [address] [address] Una Webb MD Pre-visit Planning (Pre-visit planning - LVM ) 05/17/2024 Telephone [facility] MEDICINE [address] [place] [address] Una Webb MD Prior Auth Prescription (Ozempic 1mg) 05/16/2024 9:00 AM EDT Office Visit [facility] ADULT DENTAL [address] [place] [address] Yoly Chun Dental calculus (Primary Dx); Dental plaque 05/13/2024 Refill [facility] MEDICINE [address] [place] [address] Una Webb MD Chronic migraine without aura without status migrainosus, not intractable 05/11/2024 Refill [facility] MEDICINE [address] [place] [address] Una Webb MD Gastroesophageal reflux disease without esophagitis 05/06/2024 Population Health Risk Score [facility] Department [address] [place] [phone] Provider, Population Health Generic 04/30/2024 Refill [facility] CHC MED & PEDS [address] [place], [place] [phone] Una Webb MD from Last 3 Months Immunizations Immunization Administration [...] shut off services in your home? No 07/11/2024 Depression Answer Date Recorded Patient Health Questionnaire-2 [...] Description 08/02/2024 9:00 AM EDT Office Visit [facility] MEDICINE [address], [place] [phone] Una Webb MD [address], [place] [phone] 08/03/2024 9:00 AM EDT Office Visit [facility] ADULT DENTAL [address] [place] [address] [phone] Yoly Chun Health Maintenance Due Date Last [...] history exists Alcohol/Substance Use Screening 06/07/2025 06/07/2024 Disability Screening 06/07/2025 06/07/2024 Tobacco Screening 06/07/2025 06/07/2024 Depression Screening 06/29/2025 06/29/2024, 06/30/19 SDOH Screening 07/11/2025 07/11/2024 Pap Smear 07/14/2025 07/14/2022 Dental X-Ray: Full [...] patient's age to complete this topic Meningococcal B Vaccine Aged Out No l onger eligible based on patient's age to complete [...] without long-term current use of insulin ([facility]) LIPID PANEL, STANDARD Routine 12/21/2023 9:20 AM EDT Type 2 diabetes mellitus without complication, without long-term current use of insulin ([facility]) HEPATITIS C AB W/REFL TO HCV RNA, [...] 8:27 AM EST) Creatinine, Urine 245.17 mg/dL [facility] Protein, Total, Random Urine 17(H) <12 mg/dL [facility] Protein/Creati nine Ratio, Ur 0.07 <0.2 [facility] Comment:The spot urine prote in:creatinine ratio may increase to 0.3during normal . 02/02/2024 8:27 AM EST 02/02/2024 8:43 AM EST us Generic External Data Provider LAB URINE ORDERAB LES Final Result Performing Organization Address [facility]/ZIP Co de Phone Number [facility] [address], [place] [phone] * Hemoglobin A1c (12/21/2023 9:20 AM EDT) Hemoglobin A1c 5.2 <6.0 % [facility] Comment:Hemoglobin A1C Refer ence Range Adults: 4.8 - 6.0 % Non diabetic: < 6.0 % Goal: < 7.0 %Additional Action Suggested: > 8.0 %Note: Hemoglobin A1c results are invalid for patients with abnormal amounts of HbF. Blood transfusions may impact the HbA1c concentration in the patient sample. Estimated Average Glucose 103 mg/dL [facility] Comment:eAG = Estimated ave rage glucose which is %A1C expressed asaverage glucose, using the formula of the Z4S-XwcjhqdSnspvql Glucose study (ADAG), Diabetes Care, Vol.31,#8,Sep. 2007 Blood Venous blood specimen / Unknown 12/21/2023 9:20 AM EDT 12/21/2023 11:20 AM EDT us Una Arenas MD LAB BLOOD ORDERAB LES Final Result Performing Organization Address City/[facility]/ZIP Co de Phone Number [facility] [address] [place] [phone] * (ABNORMAL) Lipid Panel, Standard (12/21/2023 9:20 AM EDT) Triglycerides 87 <150 mg/dL [facility] Comment:Desirable Triglyceri de: less than 150 mg/dLBorderline High Triglyceride 150-199 mg/dLHigh Triglyceride: 200-499 mg/dLVery High Triglyceride: greater than or equal to 5OO mg/dL Cholesterol 193 <200 mg/dL [facility] Comment:Desirable Cholestero l: less than 200 mg/dLBorderline High Cholesterol: 200-239 mg/dLHigh Cholesterol: greater than 239 mg/dL LDL Cholesterol Calculated 127(H) <100 mg/dL [facility] Comment:Desirable LDL: less than 100 mg/dLNear Optimal/Above Optimal LDL: 110- 129 mg/dLBorderline High LDL: 130-159 mg/dLHigh LDL: 160-189 mg/dLVery High LDL: greater than or equal to 190 mg/dL HDL Cholesterol 49 >40 mg/dL [facility] Comment:Desirable HDL: great er than 40 mg/dL Note: This HDL assay may give artificially low results in patients with liver disease. Blood Venous blood specimen / Unknown 12/21/2023 9:20 AM EDT 12/21/2023 11:20 AM EDT us Una Arenas MD LAB BLOOD ORDERAB LES Final Result Performing Organization Address City/[facility]/ZIP Co de Phone Number [facility] [address] [place] [phone] * Hepatitis C Antibody with Reflex to HCV, RNA, Quantitative, Real-Time PCR (04/14/2023 10:03 AM EST) Hepatitis C Antibody Nonreactive Nonreactive [facility] Comment:Antibodies to HCV no t detected; does not exclude early acuteHCV infection. Blood Venous blood specimen / Unknown 04/14/2023 10:03 AM EST 04/14/2023 11:22 AM EST us Una Arenas MD LAB BLOOD ORDERAB LES Final Result Performing Organization Address City/[facility]/ZIP Co de Phone Number [facility] [address] [place] [phone] * HIV-1/2 Antigen and Antibodies, Fourth Generation, with Reflexes (04/14/2023 10:03 AM EST) Pathologist [facility] HIV AB/AG Nonreactive Nonreactive [facility] Comment:HIV-1 p24 Ag and/or HIV-1/HIV-2 Ab not detected.A test result that is nonreactive does not exclude thepossibility of exposure to or infection with HIV-1 and/orHIV-2. Nonreactive results in this assay for individualswith prior exposure to HIV-1 and/or HIV-2 may be due toantigen and antibody levels that are below the limit ofdetection of this assay.The [employer] HIV Ag/Ab Combo assay result andsupplemental assay results should be interpreted inconjunction with the patient's clinical presentation,history and other laboratory results. If the results areinconsistent with clinical evidence, additional testing issuggested to confirm the result. Blood Venous blood specimen / Unknown 04/14/2023 10:03 AM EST 04/14/2023 11:22 AM EST us Una Arenas MD LAB BLOOD ORDERAB LES Final Result [facility] [address] [place] [phone] * HPV mRNA E6/E7 w/Reflex to HPV Genotypes 16, 18/45 (07/14/2022 11:43 AM EDT) [facility] HPV nRNA E6/E7 Not Detected Not Detected [facility] Comment:Methodology: Transcr iption-Mediated AmplificationThis assay detects E6/E7 viral messenger RNA (mRNA) from 14high-risk HPV types (16,18,31,33,35,39,45,51,52,56,58,59,66,68).Cervical sources are required for HPV testing.If a vaginal source from a patient who has had atotal hysterectomy with removal of cervix wassubmitted, please contact the testing laboratoryfor alternative testing options.For additional information, please refer [email or web address]/JSO129e9(This link if provided for information/educational purposes only.)THIS TEST WAS PERFORMED AT:[employer] [place] [phone] ULLOA MD HPV mRNA E6/E7 TNP [facility] HPV 16 RNA TNP [facility] HPV 18/45 RNA TNP [facility] 07/14/2022 11:4 3 AM EDT 07/15/2022 8:30 AM EDT us [facility] External Provider LAB CYT OLOGY ORDERABLES Final Result Performing Organization Address City/State/[facility] Co de Phone Number [facility] [address] [place] [phone] * Pap Smear (07/14/2022 11:43 AM EDT) 07/14/2022 11:4 3 AM EDT 07/15/2022 8:30 AM EDT Narrative [facility] - 07/28/2022 1:14 PM EDT ----- ------- Name: Catalina Castle ? Age/Sex: 36/F ? : 1985 Unit#: [id number] ?? Attend Dr: Rasheeda Urias CNM ?Re07/14/22 ?Status: DEP REF ? Location: HO.LNP ?Disch: ? ----- ------- SPEC : [id number] ? RECD: 07/15/22 ? STATUS: ??SOUT ? REQ NUM: [id number] ? VINCENT: 07/14/22114 ? SUBM DR: Rasheeda Urias CNM ? [...] 66, 68) ?? HPV testing performed by [facility], [place], [place]. ??See reference laboratory ?? pion of the EMR for entire report. ?Clinical Information LMP: 06/23/22 Previous PAP test: 10/30/16, WNL ? Material Received ?? ThinPrep-Cervical Copies To: ?? Sara Newsome DO ?? [address] [facility] ?? [place] [address] ? BridgettRasheeda ELVER ?? [address] [facility] ?? Alicia [place] ?? [phone] ----- ------- Signed (signature on file) REBECCA Andrade (ASCP) 07/28/22 1314 ? ----- ------- ? END OF REPORT ? us [facility] External Provider LAB CYT OLOGY ORDERABLES Final Result [facility] [address] [place] [address] [phone] from Last 3 Months or Most Recently Relevant to Health Maintenance Insurance [place] [facility] MEDICAID STAND ADULT Care Teams Fish Hatchery Inspector Relationship Specialty Start Date End Date Una Webb MD [address] [place] [phone] PCP - General Internal Medicine 11/17/22 Morris Haney RN [address] [place] [phone] Camera Control OperatorPayroll Tax Analyst 06/29/24
[2024-07-22 11:49] LABS: Hematocrit 37.8 % (37.0-47.0); Hemoglobin 11.9 g/dl (12.0-16.0); Mean Corpuscular HGB Conc 31.5 g/dl (31.0-35.0); Mean Corpuscular Volume 82.5 fL (80.0-98.0); Mean Platelet Volume 9.6 fL (9.4-12.3); Platelet Count 501 X10*3/uL (160-400); Red Blood Count 4.58 X10*6/uL (4.20-5.50); Red Cell Distribution Width 14.7 % (11.0-16.0); White Blood Count 6.5 X10*3/uL (4.8-10.8)
[2024-07-22 12:03] LABS: Creatinine Urine 231.74 mg/dL; Microalbum/Creatinine Ratio Ur 14.2 ug/mg cr (<30)
[2024-07-22 12:09] LABS: Estimated Average Glucose 100 mg/dL; Hemoglobin A1c % 5.1 % (<6.0)
[2024-07-22 12:56] LABS: HBS Num1 71.39 mIU/mL (0-7.99); HBc Num1 0.04 S/CO (0.00-0.79); HBsAGNum1 0.35 S/CO (0.00-0.99); HIV AB/AG Nonreactive (Nonreactive); HIV Num 1 0.06 S/CO (0.00-0.99); Hepatitis B Core Antibody Nonreactive (Nonreactive); Hepatitis B Surface Antigen Negative (Negative); ~HepC Num1 0.11 S/CO (0.00-0.79); ~Hepatitis B Surface Antibody REACTIVE (Nonreactive); ~Hepatitis C Antibody Nonreactive (Nonreactive)
[2024-07-22 12:57] LABS: Alanine Aminotransferase 10 U/L (0-31); Albumin Level 4.4 g/dL (3.5-5.0); Alkaline Phosphatase 76 U/L (39-117); Anion Gap 12 (12-20); Aspartate Amino Transferase 16 U/L (5-31); Bilirubin Total 0.6 mg/dL (0.0-1.0); Blood Urea Nitrogen 8 mg/dL (9-16); Calcium 9.7 mg/dL (8.4-10.2); Carbon Dioxide 28 mmol/L (22-29); Chloride 104 mmol/L (96-108); Cholesterol 209 mg/dL (<200); Estimated Glomerular Filt Rate > 60; Ferritin 48 ng/mL (10-122); Glucose Random 86 mg/dL (60-115); HDL Cholesterol 50 mg/dL (>40); Iron 40 mcg/dL (30-160); LDL Cholesterol Calculated 144 mg/dL (<100); Percent Iron Saturation 13 % (15-50); Potassium 3.7 mmol/L (3.3-5.1); Sodium 140 mmol/L (135-145); TSH reflex Free T4 1.16 uIU/mL (0.32-4.0); Total Iron Binding Capacity 300 mcg/dL (228-428); Total Protein 7.8 g/dL (6.5-8.0); Triglycerides 76 mg/dL (<150); Unsaturated Iron Binding 260 ug/dL; Vitamin D 25-OH Total 21.6 ng/mL (>30)
[2024-07-22 13:16] LABS: Syphilis Screen Reactive (Nonreactive)
[2024-07-28 13:01] LABS: RPR Quantitative Non-Reactive (Nonreactive); T.Pallidum Particle Agg Test Reactive (Nonreactive)
== END 2024-07-22 07:59 | disposition home or self-care (01) ==
LOC: HO.HHCL 07:58
PROVIDERS: Visit Provider Student in an Organized Health Care Education/Training Program
DX: Z00.00 Encounter for general adult medical examination without abnormal findings (principal)
CPT/HCPCS: 36415; 80053; 80061; 82043; 82306; 82570; 82728; 83036; 83540; 84443; 85027; 86592; 86704; 86706; 86780; 86803; 87340; 87389

== ENCOUNTER 2024-08-02 08:53 | Outpatient (REF) | payer MEDICAID, SELFPAY ==
--- OUTSIDE RECORDS SUMMARY | 2024-08-02 09:23 | XMS_ITS | Clinical Summary ---
Author Organization [employer] Address [address] [place] [address] [address] [place] [address] Care Team Providers Care Sr Risk Management Consultant Name Role Phone Una Webb MD Primary Care Pro vider Morris Haney RN Unavailable [phone] Allergies Active Allergy Reactions Criticality Noted [...] EVERY MORNING 90 tablet 08/10/19 24 Active escitalopram (Lexapro) 10 MG tablet [...] week. 3 mL 3 06/08/19 25 Active ergocalciferol (Vitamin D2) 1.25 MG (67310 UT) capsule TAKE 1 CAPSULE BY MOUTH ONCE A WEEK 12 capsule 07/30/19 25 Active omeprazole (PriLOSEC) [address] capsule Take 1 capsule (20 mg) by mouth 2 times daily. 180 capsule 08/03/19 25 025 Active ergocalciferol (Vitamin D2) 1.25 MG (81325 UT) capsule Take 1 capsule (1.25 mg) by mouth 1 (one) time per week. 12 capsule 1 11/03/19 24 025 Discontinued omeprazole (PriLOSEC) [address] capsule Take 1 capsule by mouth 2 times daily. 03/15/19 25 025 Discontinued(R eorder (will not trigger notification to Pharmacy)) Active Problems Problem Noted Date Diagnosed Date [...] organization. Date Type Department Care Team Description 08/02/2024 9:00 AM EDT Office Visit [facility] [place] [address] Una Webb MD Type 2 diabetes mellitus without complication, without long-term current use of insulin ([facility]) 08/02/2024 Travel 08/01/2024 Patient Outreach [facility] [address] Una Webb MD Care Management ([facility]- f/u call) 08/01/2024 Patient Outreach [facility] [place] [address] Una Webb MD Care Coordination ([facility] f/u) 08/01/2024 Telephone [facility] [place] [address] Una Webb MD Chart Prep 08/01/2024 Telephone [facility] [place] [address] Carmen Tellez MA Chart Prep 07/29/2024 Refill [facility] [place] [address] Una Webb MD 07/22/2024 Orders Only [facility] [place] [address] Una Webb MD 07/22/2024 Results Follow-Up [facility] [place] [address] Una Webb MD Albumin, Random Urine W/Creatinine, CBC, Iron And Total Iron Binding Capacity, Additional followed-up results: 12 07/21/2024 Patient Outreach [facility] [address] [place] [phone] Una Webb MD Care Management ([facility]- f/u call) 07/13/2024 Patient Outreach [address] [address] Una Webb MD Care Coordination (SDOH) 07/11/2024 Orders Only [facility] [address] [place] [address], [place] [address] Una Webb MD Type 2 diabetes mellitus without complication, without long-term current use of insulin ([facility]) (Primary Dx) 07/11/2024 Patient Outreach [address] [address] Una Webb MD Care Coordination ([facility] f/u) 07/11/2024 Patient Outreach [address] [address] Una Webb MD Care Management ([facility]- 1st f/u call) 07/07/2024 Patient Outreach [address] [address] Una Webb MD Care Coordination ([facility] f/u) 06/30/[address] [address] Una Webb MD 06/30/2024 Patient Outreach [address] [address] Rita Noble 06/29/2024 Plan of Care Documentation [facility] [address] [place] [phone] 06/29/2024 Patient Outreach [address] [address] Una Webb MD Care Management ([facility]- initial assessment/ enrollment) 06/28/2024 Patient Outreach [address] [address] Una Webb MD Care Coordination (CM/CHW appt reminder) 06/21/2024 Patient Outreach [address] [address] Una Webb MD 06/20/2024 Patient Outreach [address] [address] Una Webb MD 06/14/2024 Patient Outreach [address] [address] Una Webb MD 06/07/2024 10:45 AM EDT Office Visit [address] [address] Una Webb MD Annual physical exam (Primary Dx); Hematuria, unspecified type; Loud snoring; Cognitive impairment; Dietary counseling; Exercise counseling; Bipolar affective disorder, remission status unspecified ([facility]); Type 2 diabetes mellitus without complication, without long-term current use of insulin ([facility]); Health care maintenance; Class 1 obesity due to excess calories with serious comorbidity and body mass index (BMI) of 31.0 to 31.9 in adult; Microscopic hematuria; Iron deficiency anemia secondary to inadequate dietary iron intake 06/07/2024 Travel 06/06/2024 Patient Outreach [address] [address] Una Webb MD Care Coordination (CM/CHW outreach) 06/06/2024 Patient Outreach [address] [address] Una Webb MD Care Coordination (CHW Chart Review) 06/06/2024 Patient Outreach [address] [address] Una Webb MD Care Coordination ([facility]- chart review) 06/06/2024 Patient Outreach [address] [address] Una Webb MD 05/30/[address] [address] Una Webb MD chart prep 05/24/2024 Patient Outreach [facility] [address] [place] [address] Una Webb MD Pre-visit Planning (Pre-visit planning - LVM ) 05/17/2024 Telephone [facility] [address] [place] [address] Una Webb MD Prior Auth Prescription (Ozempic 1mg) 05/16/2024 9:00 AM EDT Office Visit [facility] [address] [place] [address] Lay Yoly Dental calculus (Primary Dx); Dental plaque 05/13/2024 Refill [facility] [address] [place] [address] Una Webb MD Chronic migraine without aura without status migrainosus, not intractable 05/11/2024 Refill [facility] [address] [place], [place] [phone] Una Webb MD Gastroesophageal reflux disease without esophagitis 05/06/2024 Population Health Risk Score [facility] () Department [address] [place] [phone] Provider, Population Health Generic from Last 3 Months Immunizations Immunization Administration [...] is your housing situation today? I have neo geller 06/30/[address] you [...] Sign Reading Time Taken Comments Blood Pressure 126/78 08/02/2024 9:09 AM EDT Pulse 89 08/02/2024 9:09 AM EDT Temperature 37 ??C (98.6 ??F) 08/02/2024 9:09 AM EDT Respiratory Rate 21 08/02/2024 9:09 AM EDT Oxygen Saturation 98% 08/02/2024 9:09 AM EDT Inhaled Oxygen Concentration - - Weight 80.3 kg (177 lb) 08/02/2024 9:09 AM EDT Height 165.1 cm (5' 5 ) 08/02/2024 9:09 AM EDT Body Mass Index 29.45 08/02/2024 9:09 AM EDT Plan of Treatment Upcoming Encounters Date Type Department Care Team (Late st Contact Info) Description 08/03/2024 9:00 AM EDT Office Visit [facility] [address] [place] [address] Yoly Chun Health Maintenance Due Date Last Done Comments Diabetes: Foot Exam 1996 Eye Exam 1996 Family Planning (PISQ) 2001 Hepatitis B Vaccines (1 of 3 - 19+ 3-dose series) 2005 HPV Vaccines (3 - 3-dose series) 12/10/2012 09/17/2012, 05/20/2012 COVID-19 Vaccine ( season) 2023 03/18/2023, 02/18/2021, 08/17/2020, Additional history exists Dental Oral Exam 09/05/2024 03/07/2024, 05/2022, 03/14/2020, Additional history exists Dental Prophylaxis 09/05/2024 03/07/2024, 1 03/29/2022, 03/26/2020, Additional history exists Diabetes: Hemoglobin A1C 01/22/2025 025, 12/21/2023, 11/03/2023, Additional history exists Dental X-Ray: Bitewings 03/08/2025 03/07/19 25, 01/26/2023, 03/27/2020, Additional history exists Alcohol/Substance Use Screening 06/07/2025 06/07/2024 Disability Screening 06/07/2025 06/07/2024 Tobacco Screening 06/07/2025 06/07/2024 Depression Screening 06/29/2025 06/29/2024, 06/30/19 SDOH Screening 07/11/2025 07/11/2024 Pap Smear 07/14/2025 07/14/2022 Diabetes: Urine Protein Screening 07/22/2025 07/22/2024, 02/02/2024, 12/21/2023, Additional history exists Lipid Panel 07/22/2025 07/22/2024, 11/24, 04/14/2023, Additional history exists Dental X-Ray: Full Mouth 01/27/2026 01/26/2023, 11/23 Cervical Cancer Screening 07/15/2027 HPV/Cotest 07/15/2027 07/14/2022 DTaP/Tdap/Td Vaccines (4 - Td or Tdap) 07/30/2032 07/30/2022, 12/22/2011, 08/16/2010 Zoster Vaccines (1 of 2) 2036 RSV Patients and Patients Aged 60 years or older (1 - 1-dose 75+ series) 2061 Pneumococcal Vaccine: Pediatrics (0 to 5 Years) and At-Risk Patients (6 to 49) Years) Completed 07/28/2023 Influenza Vaccine Completed 01/01/2024, , 11/12/2020, Additional history exists HIV Screening Completed 07/22/2024, 04/14/2023 Hepatitis C Screening Completed 07/22/2024 , 04/14/2023, 05/07/2021 HIB Vaccines Aged Out No longer eligi [...] Procedure Name Priority Date/Time Associated Diagnosis Comments POCT GLUCOSE Routine 08/02/2024 9:11 AM EDT Type 2 diabetes mellitus without complication, without long-term current use of insulin ([facility]) CONFIRMATORY SYPHILIS PROFILE Routine 07/22/2024 8:01 AM EDT VITAMIN D,25-OH,TOTAL,IA Routine 07/22/2024 8:01 AM EDT Annual physical exam TSH W/REFLEX TO FT4 Routine 07/22/2024 8 :01 AM EDT Annual physical exam SYPHILIS SCREEN Routine 07/22/2024 8:01 AM EDT Annual physical exam LIPID PANEL, STANDARD Routine 07/22/2024 8:01 AM EDT Annual physical exam HIV 1/2 ANTIGEN/ANTIBODY, FOURTH GENERATION W/RFL Routine 07/22/2024 8:01 AM EDT Annual physical exam HEPATITIS C AB W/REFL TO HCV RNA, QN, PCR Routine 07/22/2024 8:01 AM EDT Annual physical exam HEPATITIS B SURFACE ANTIGEN, EIA Routine 07/22/2024 8:01 AM EDT Annual physical exam HEPATITIS B SURFACE ANTIBODY, QUALITATIVE Routine 07/22/2024 8:01 AM EDT Annual physical exam HEPATITIS B CORE AB TOTAL Routine 07/22/2024 8:01 AM EDT Annual physical exam HEMOGLOBIN A1C Routine 07/22/2024 8:01 AM EDT Annual physical exam COMPREHENSIVE METABOLIC PANEL Routine 07/22/2024 8:01 AM EDT Annual physical exam FERRITIN Routine 07/22/2024 8:01 AM EDT Annual physical exam IRON AND TOTAL IRON BINDING CAPACITY Routine 07/22/2024 8:01 AM EDT Annual physical exam CBC Routine 07/22/2024 8:01 AM EDT Annual physical exam ALBUMIN, RANDOM URINE W/CREATININE Routine 07/22/2024 8:01 AM EDT Annual physical exam CASE PRESENTATION, DETAILED AND EXTENSIVE TREATMENT PLANNING [...] ESTABLISHED PATIENT Routine 03/07/2024 8:00 AM EST INTRAORAL - COMPLETE SERIES OF RADIOGRAPHIC IMAGES Routine 01/26/2023 10:00 AM EST Dental calculus Gingival bleeding Missing teeth, acquired Dental caries Gingivitis due to dental plaque HPV MRNA E6/E7 REFLEX TO HPV 16, 18/45 Routine 07/14/2022 11:43 AM EDT PAP SMEAR Routine 07/14/2022 11:43 AM EDT from Last 3 Months or Most Recently Relevant to Health Maintenance Results * POCT Glucose (08/02/2024 9:11 AM EDT) Pathologist [facility] Glucose Blood, POC 104 60 - 200 mg/dL QC Media Lot # [id number] Lot# Expiration Date [id number] Blood Capillary blood specimen / Unknown 08/02/2024 9:11 AM EDT Una Arenas MD POINT OF CARE EMERITA T ENTER/EDIT ORDERABLES Final Result * (ABNORMAL) Confirmatory Syphilis Profile (07/22/2024 8:01 AM EDT) Pathologist [facility] Rapid Plasma Reagin, Quant Non-React rahat Nonreactive [facility] Treponema pallidum Antibody, Particle Agglutination Reactive( A) Nonreactive [facility] Comment:These results must b e reported by the ordering clinician orclinical facility to [facility] required by state law. 07/22/2024 8:01 AM EDT 07/22/2024 1:18 PM EDT Una Arenas MD LAB BLOOD ORDERAB LES Final Result Performing Organization Address [facility] Co de Phone Number [facility] [address] [place] [phone] * (ABNORMAL) Syphilis Screen (07/22/2024 8:01 AM EDT) Syphilis Screen Reactive( A) Nonreactive [facility] Comment:Reactive specimens a re sent to the [facility] Labfor confirmatory tests. Blood 07/22/2024 8:01 AM EDT 07/22/2024 11:38 AM EDT Una Arenas MD LAB BLOOD ORDERAB LES Final Result Performing Organization Address [facility] Co de Phone Number [facility] [address] [place] [phone] * (ABNORMAL) Vitamin D, 25-Hydroxy, Total, Immunoassay (07/22/2024 8:01 AM EDT) Pathologist [facility] Vitamin D 25-OH Total 21.6(L) >30 ng/mL [facility] Comment: Health Based Reference Values*< 20 ??ng/mL ??Rabgryqfz22-28 ng/mL ??Insufficient> 30 ??ng/mL ??Sufficient*[place] NYE. N Engl J Med. 2007;357:266-280There is no well-established upper level of normal vitamin Dlevels. Some laboratories use 50 ng/mL as an upper limit ofnormal. However, toxicity is patient-dependent and may occurat any level. Careful correlation with the patient'spresentation is necessary and, if there is concern forvitamin D toxicity, treatment should be consideredirrespective of the serum level.Care must be taken in interpreting Vitamin D results fromdifferent laboratories and methodologies. ??Published datademonstrated that results from patients undergoinghemodialysis may show a negative bias when tested withvarious automated 25-OH vitamin D assays when compared toLC- MS/MS.When testing samples from patients whose predominant form ofVitamin D is Vitamin D2, such as patients receiving VitaminD2 supplementation, results that are subtherapeutic shouldbe confirmed with another method such as LC-MS/MS. Blood Venous blood specimen / Unknown 07/22/2024 8:01 AM EDT 07/22/2024 11:38 AM EDT us Una Arenas MD LAB BLOOD ORDERAB LES Final Result Performing Organization Address [facility]/ZIP Co de Phone Number [facility] [address] [place] [phone] * TSH with Reflex to Free T4 (07/22/2024 8:01 AM EDT) TSH reflex Free T4 1.16 0.32 - 4.0 uIU/mL [facility] Blood 07/22/2024 8:01 AM EDT 07/22/2024 11:38 AM EDT us Una Arenas MD LAB BLOOD ORDERAB LES Final Result Performing Organization Address [facility] Co de Phone Number [facility] [address] [place] [phone] * Albumin, Random Urine W/Creatinine (07/22/2024 8:01 AM EDT) Creatinine, Urine 231.74 mg/dL [facility] Microalbumin Urine 33.0 mg/L [facility] Microalbum Creatinine Ratio Ur 14.2 <30 ug/mg cr [facility] Comment:Albumin/Creatinine R atio Reference Ranges: Normal: < 30 ug/mg creatinine Microalbuminuria: 30 - 300 ug/mg creatinineClinical Albuminuria: > 300 ug/mg creatinine Urine (Urine, Random) 07/22/2024 8:01 AM EDT 07/22/2024 11:09 AM EDT us Una Arenas MD LAB URINE ORDERAB LES Final Result Performing Organization Address [facility] Co de Phone Number [facility] [address] [place] [phone] * Hepatitis C Antibody with Reflex to HCV, RNA, Quantitative, Real-Time PCR (07/22/2024 8:01 AM EDT) [facility] Hepatitis C Antibody Nonreactive Nonreactive [facility] Comment:Antibodies to HCV no t detected; does not exclude early acuteHCV infection. Blood Venous blood specimen / Unknown 07/22/2024 8:01 AM EDT 07/22/2024 11:38 AM EDT us Una Arenas MD LAB BLOOD ORDERAB LES Final Result Performing Organization Address [facility] Phone Number [facility] [address] [place] [phone] * (ABNORMAL) Iron And Total Iron Binding Capacity (07/22/2024 8:01 AM EDT) [facility] Iron 40 30 - 160 mcg/dL [facility] Total Iron Binding Capacity 300 228 - 428 mcg/dL [facility] Percent Iron Saturation 13(L) 15 - 50 % [facility] Unsaturated Iron Binding 260 ug/dL [facility] Blood Venous blood specimen / Unknown 07/22/2024 8:01 AM EDT 07/22/2024 11:38 AM EDT us Una Arenas MD LAB BLOOD ORDERAB LES Final Result Performing Organization Address [facility] Co de Phone Number [facility] [address] [place] [phone] * Hepatitis B surface antigen, EIA (07/22/2024 8:01 AM EDT) [facility] Hepatitis B Surface Ag Negative Negative [facility] Blood Venous blood specimen / Unknown 07/22/2024 8:01 AM EDT 07/22/2024 11:38 AM EDT us Una Arenas MD LAB BLOOD ORDERAB LES Final Result Performing Organization Address City/[facility]/ZIP Co de Phone Number [facility] [address] [place] [phone] * Hepatitis B Core Antibody, Total (07/22/2024 8:01 AM EDT) Hepatitis B Core Antibody Nonreactive Nonreactive [facility] Blood Venous blood specimen / Unknown 07/22/2024 8:01 AM EDT 07/22/2024 11:38 AM EDT Una Arenas MD LAB BLOOD ORDERAB LES Final Result Performing Organization Address [facility] Co de Phone Number [facility] [address] [place] [phone] * HIV-1/2 Antigen and Antibodies, Fourth Generation, with Reflexes (07/22/2024 8:01 AM EDT) HIV AB/AG Nonreactive Nonreactive [facility] Comment:HIV-1 p24 Ag and/or HIV-1/HIV-2 Ab not detected.A test result that is nonreactive does not exclude thepossibility of exposure to or infection with HIV-1 and/orHIV-2. Nonreactive results in this assay for individualswith prior exposure to HIV-1 and/or HIV-2 may be due toantigen and antibody levels that are below the limit ofdetection of this assay.The [employer] HIV Ag/Ab Combo assay result andsupplemental assay results should be interpreted inconjunction with the patient's clinical presentation,history and other laboratory results. If the results areinconsistent with clinical evidence, additional testing issuggested to confirm the result. Blood Venous blood specimen / Unknown 07/22/2024 8:01 AM EDT 07/22/2024 11:38 AM EDT us Una Arenas MD LAB BLOOD ORDERAB LES Final Result Performing Organization Address [facility] Co de Phone Number [facility] [address] [place] [phone] * Hepatitis B Surface Antibody, Qualitative (07/22/2024 8:01 AM EDT) [facility] ~Hepatitis B Surface Antibody REACTIVE Nonreactive [facility] Comment:REACTIVE: > 11.99 mI U/mL Blood Venous blood specimen / Unknown 07/22/2024 8:01 AM EDT 07/22/2024 11:38 AM EDT us Una Arenas MD LAB BLOOD ORDERAB LES Final Result Performing Organization Address [facility] Phone Number [facility] [address] [place] [phone] * (ABNORMAL) CBC (07/22/2024 8:01 AM EDT) [facility] White Blood Count 6.5 4.8 - 10.8 X10*3/uL [facility] Red Blood Count 4.58 4.20 - 5.50 X10*6/uL [facility] Hemoglobin 11.9(L) 12.0 - 16.0 g/dl [facility] Hematocrit 37.8 37.0 - 47.0 % [facility] Mean Corpuscular Volume 82.5 80.0 - 98.0 fL [facility] Mean Corpuscular Hemoglobin 26.0(L) 27.0 - 33.0 pg [facility] Mean Corpuscular HGB Conc 31.5 31.0 - 35.0 g/dl [facility] Red Cell Distribution Width 14.7 11.0 - 16.0 % [facility] Platelet Count 501(H) 160 - 400 X10*3/uL [facility] Mean Platelet Volume 9.6 9.4 - 12.3 fL [facility] NRBC Pct Auto 0.0 0.0 - 0.2 /100WBC [facility] NRBC Abs Auto 0.000 0.0 - 0.012 X10*3/uL [facility] Blood Venous blood specimen / Unknown 07/22/2024 8:01 AM EDT 07/22/2024 11:38 AM EDT us Una Arenas MD LAB BLOOD ORDERAB LES Final Result Performing Organization Address City/[facility]/ZIP Co de Phone Number [facility] [address] [place] [phone] * Hemoglobin A1c (07/22/2024 8:01 AM EDT) Hemoglobin A1c 5.1 <6.0 % [facility] Comment:Hemoglobin A1C Refer ence Range Adults: 4.8 - 6.0 % Non diabetic: < 6.0 % Goal: < 7.0 %Additional Action Suggested: > 8.0 %Note: Hemoglobin A1c results are invalid for patients with abnormal amounts of HbF. Blood transfusions may impact the HbA1c concentration in the patient sample. Estimated Average Glucose 100 mg/dL [facility] Comment:eAG = Estimated ave rage glucose which is %A1C expressed asaverage glucose, using the formula of the [id number] Glucose study (ADAG), Diabetes Care, Vol.31,#8,2007 Blood Venous blood specimen / Unknown 07/22/2024 8:01 AM EDT 07/22/2024 11:38 AM EDT us Una Arenas MD LAB BLOOD ORDERAB LES Final Result Performing Organization Address [facility]/ZIP Co de Phone Number [facility] [address] [place] [phone] * Ferritin (07/22/2024 8:01 AM EDT) Ferritin 48 10 - 122 ng/mL [facility] Blood Venous blood specimen / Unknown 07/22/2024 8:01 AM EDT 07/22/2024 11:38 AM EDT us Una Arenas MD LAB BLOOD ORDERAB LES Final Result Performing Organization Address [facility] Co de Phone Number [facility] [address] [place] [phone] * (ABNORMAL) Lipid Panel, Standard (07/22/2024 8:01 AM EDT) Triglycerides 76 <150 mg/dL [facility] Comment:Desirable Triglyceri de: less than 150 mg/dLBorderline High Triglyceride 150-199 mg/dLHigh Triglyceride: 200-499 mg/dLVery High Triglyceride: greater than or equal to 5OO mg/dL Cholesterol 209(H) <200 mg/dL [facility] Comment:Desirable Cholestero l: less than 200 mg/dLBorderline High Cholesterol: 200-239 mg/dLHigh Cholesterol: greater than 239 mg/dL LDL Cholesterol Calculated 144(H) <100 mg/dL [facility] Comment:Desirable LDL: less than 100 mg/dLNear Optimal/Above Optimal LDL: 110- 129 mg/dLBorderline High LDL: 130-159 mg/dLHigh LDL: 160-189 mg/dLVery High LDL: greater than or equal to 190 mg/dL HDL Cholesterol 50 >40 mg/dL [facility] Comment:Desirable HDL: great er than 40 mg/dL Note: This HDL assay may give artificially low results in patients with liver disease. Blood Venous blood specimen / Unknown 07/22/2024 8:01 AM EDT 07/22/2024 11:38 AM EDT us Una Arenas MD LAB BLOOD ORDERAB LES Final Result Performing Organization Address [facility]/ZIP Co de Phone Number [facility] [address] [place] [phone] * (ABNORMAL) Comprehensive Metabolic Panel (07/22/2024 8:01 AM EDT) Sodium 140 135 - 145 mmol/L [facility] Potassium 3.7 3.3 - 5.1 mmol/L [facility] Chloride 104 96 - 108 mmol/L [facility] Carbon Dioxide 28 22 - 29 mmol/L [facility] Anion Gap 12 12 - 20 [facility] Urea Nitrogen (BUN) 8(L) 9 - 16 mg/dL [facility] Creatinine, Serum 0.61 0.5 - 1.4 mg/dL [facility] Estimated Glomerular Filt Rate >60 [facility] Comment:Chronic Kidney Disea se: Estimated GFR < 60 mL/min/[id number] Kidney Disease: Estimated GFR < 15 mL/min/1.73m2 Glucose 86 60 - 115 mg/dL [facility] Calcium 9.7 8.4 - 10.2 mg/dL [facility] Bilirubin, Total 0.6 0.0 - 1.0 mg/dL [facility] Aspartate Amino Transferase 16 5 - 31 U/L [facility] Alanine Aminotransferase 10 0 - 31 U/L [facility] Total Protein 7.8 6.5 - 8.0 g/dL [facility] Albumin Level 4.4 3.5 - 5.0 g/dL [facility] Alkaline Phosphatase 76 39 - 117 U/L [facility] Blood Venous blood specimen / Unknown 07/22/2024 8:01 AM EDT 07/22/2024 11:38 AM EDT us Una Arenas MD LAB BLOOD ORDERAB LES Final Result [facility] [address] [place] [address] [phone] * HPV mRNA E6/E7 w/Reflex to HPV Genotypes 16, 18/45 (07/14/2022 11:43 AM EDT) HPV nRNA E6/E7 Not Detected Not Detected [facility] Comment:Methodology: Transcr iption-Mediated AmplificationThis assay detects E6/E7 viral messenger RNA (mRNA) from 14high-risk HPV types (16,18,31,33,35,39,45,51,52,56,58,59,66,68).Cervical sources are required for HPV testing.If a vaginal source from a patient who has had atotal hysterectomy with removal of cervix wassubmitted, please contact the testing laboratoryfor alternative testing options.For additional information, please refer tohttp://education.[employer]/faq/PSZ838r7(This link if provided for information/educational purposes only.)THIS TEST WAS PERFORMED AT:[facility] [place] [phone] ULLOA MD HPV mRNA E6/E7 [facility] HPV 16 RNA [facility] HPV 18/45 RNA [facility] 07/14/2022 11:4 3 AM EDT 07/15/2022 8:30 AM EDT [facility] External Provider LAB CYT OLOGY ORDERABLES Final Result Performing Organization Address City/State/[facility] Co de Phone Number [facility] [address] [place] [phone] * Pap Smear (07/14/2022 11:43 AM EDT) 07/14/2022 11:4 3 AM EDT 07/15/2022 8:30 AM EDT Narrative [facility] - 07/28/2022 1:14 PM EDT ----- ------- Name: Catalina Castle ? Age/Sex: 36/F ? : 1985 Unit#: [id number] ?? Attend Dr: BridgettRasheeda CNM ?Re07/14/22 ?Status: DEP REF ? Location: HO.LNP ?Disch: ? ----- ------- SPEC : [id number] ? RECD: 07/15/22 ? STATUS: ??SOUT ? REQ NUM: [id number] ? VINCENT: 07/14/22-1143 ? SUBM DR: BridgettRasheeda [...] 66, 68) ?? HPV testing performed by [facility], [place], [place]. ??See reference laboratory ?? pion of the EMR for entire report. ?Clinical Information LMP: 06/23/22 Previous PAP test: 10/30/16, WNL ? Material Received ?? ThinPrep-Cervical Copies To: ?? Sara Newsome DO ?? [address] ?? [place] [address] ? Rasheeda Urias CNM ?? [address] [facility] [place] [facility] [place] ?? [place] [address] ?? [phone] ----- ------- Signed (signature on file) REBECCA Andrade (ASC) 07/28/22 1314 ? ----- ------- ? END OF REPORT ? us [facility] External Provider LAB CYT OLOGY ORDERABLES Final Result [facility] [address] [place] [address] [phone] from Last 3 Months or Most Recently Relevant to Health Maintenance Insurance [facility] C3 DENTAL-[facility] MEDICAID STAND ADULT Care Teams Sr Risk Management Consultant Relationship Specialty Start Date End Date Una Webb MD [address] [place] [phone] PCP - General Internal Medicine 11/17/22 Morris Haney RN [address] [place] [phone] Stockroom AssociateAuto Hiker 06/29/24
[2024-08-02 13:06] LABS: CT PCR NOT DETECTED (Not Detect.); NG PCR NOT DETECTED (Not Detect.)
== END 2024-08-02 08:54 | disposition home or self-care (01) ==
LOC: HO.HHCL 08:53
PROVIDERS: Visit Provider Student in an Organized Health Care Education/Training Program
DX: Z00.00 Encounter for general adult medical examination without abnormal findings (principal)
CPT/HCPCS: 87491; 87591

== ENCOUNTER 2024-09-30 08:23 | Day surgery (SDC) | payer MEDICAID, SELFPAY ==
[2024-09-27 14:12] VITALS: BMI 31.3
--- OUTSIDE RECORDS SUMMARY | 2024-09-27 14:14 | XMS_ITS | Encounter Summary ---
Author Organization [employer] Address [address] [place] [address] [place] [address] Care Team Providers Care Coal Bagger Name Role Phone Una Webb MD Primary Care Pro vider Morris Haney RN Unavailable [phone] Estefany Haney Unavailable Morris Haney RN Unavailable [phone] Encounter Details Date Type Department Care Team (Late Contact Info) Description 11/17/2022 Abstract [facility] MEDICINE [address] [place] [phone] Cora Wolfe FNP [address] [place] [address] Dept [place] [address] Social History Tobacco Use Types Packs/Day Years [...] Department Care Team (Late Contact Info) Description 10/07/2024 9:30 AM EDT Medication Management [facility] [address] [place] [phone] Lisa Lan, PrabhuD [address] [place] [address] 11/02/2024 9:45 AM EDT Office Visit [facility] [address] [place] [address] Una Webb MD [address] [place] [address] documented as of this encounter Visit Diagnoses Not on filedocumented in this encounter Additional Health Concerns Assessment Noted Time PHQ-9 Depression Total Score: 2 02/27/19 10:36 AM EST documented as of this encounter Care Teams Coal Bagger Relationship Specialty Start Date End Date Una Webb MD [address] [place], [place] [phone] PCP - General Internal Medicine 11/17/22 Morris Haney, RN [address] [place] [address] Engine WiperCooling Room Attendant 08/31/23 06/05/24 Estefany Haney Community Health Worker 09/09/2306/05 Morris Haney RN [address] [place] [address] Engine WiperCooling Room Attendant 06/29/24 documented as of this encounter
--- OUTSIDE RECORDS SUMMARY | 2024-09-27 14:14 | XMS_ITS | Clinical Summary ---
Author Organization [facility] Address [address] [place] [address] Phone Care Team Providers Care Sales Agent Insurance Name Role Phone Physician, Pcp Unknown Primary Care Provider Lizz vailable Social History Tobacco Use Types Packs/Day Years Used Date Smoking Tobacco: Never Assessed Comments Unknown Sex and Gender Information Value Date Recorded Sex Assigned at Not on file Legal Sex Female 4:50 AM EST Gender Identity Not on file Sexual Orientation Not on file Plan of Treatment Upcoming Encounters Date Type Department Care Team ([facility] Contact Info) Description 10/03/2024 9:15 AM EDT Consult Orthopedic Surgery - [place] [address] [phone] Torres Hemphill DPM [address] [address] Health Maintenance Due Date Last Done Comments Diabetes: Annual GFR (Glomer ular Filtration Rate) 1986 Diabetes: Annual Foot Exam 1996 Diabetes: Annual Retina Eye Exam 1996 DTaP,Tdap,and Td Vaccines (1 - Tdap) 2005 Hepatitis B Vaccines (1 of 3 - 19+ 3-dose series) 2005 Pneumococcal Vaccine: Pediat rics (0 to 5 Years) and At-Risk Patients (6 to 49 Years) (1 of 2 - PCV) 2005 Cervical Cancer Screening: P ap Smear 10/17/2007 Cholesterol Screening (Lipid Panel) 01/26/2022 HIV Screening 01/26/2022 Hepatitis C Screening 01/26/2022 Social Influencers of Health Screening 01/26/2022 COVID-19 Vaccine ( - 2023-2 5 season) 2023 Diabetes: Annual Urine Albumin-Creatinine Ratio (uACR) 12/23/2023 Diabetes: Blood Sugar Contro l Test (HGBA1C) 12/23/2023 Hypertension/CHF/CAD Annual BMP Blood Test 12/23/2023 Depression Screening 02/24/2024 Influenza Vaccine (#1) 2024 HIB Vaccines Aged Out No longer eligi ble based on patient's age to complete this topic HPV Vaccines Aged Out No longer eligi ble based on patient's age to complete this topic Hepatitis A Vaccines Aged Out No long er eligible based on patient's age to complete this topic IPV Vaccines Aged Out No longer eligi ble based on patient's age to complete this topic MMR Vaccines Aged Out No longer eligi ble based on patient's age to complete this topic Meningococcal ACWY Vaccine Aged Out N o longer eligible based on patient's age to complete this topic Meningococcal B Vaccine Aged Out No l onger eligible based on patient's age to complete this topic RSV Immunization Patients Un joyce 20 months Aged Out No longer eligible b ased on patient's age to complete this topic Varicella Vaccines Aged Out No longer eligible based on patient's age to complete this topic Insurance MEDICAID - [place] Care Teams Sales Agent Insurance Relationship Specialty Start Date End Date Physician, Pcp Unknown PCP - General 07/15/24
--- NOTE | 2024-09-29 09:20 | HO.ANESPROP2 ---
Documented by User: Tatiana Dickens NP 09/29/24 09:21 HPI - Anesthesia Eval Consult details Narrative: 38yo F for Upper Endoscopy with Balloon Dilitation Anesthesia Pre-Procedure Meds Is the patient on any of the following meds?: GLP1/DPP4 PMFSH Active Problems Active Problems: All Active Problems Ulnar collateral ligament sprain (Acute) GERD (gastroesophageal reflux disease) (Acute) COVID-19 (Acute) COVID (Acute) Cervical cancer screening (Acute) Urinary incontinence in female (Acute) Hx of syphilis (Acute) Potential exposure to STD (Acute) Well woman exam with routine gynecological exam (Acute) Right knee pain (Acute) High blood pressure (Acute) Diabetes (Acute) Hx of section (Acute) Prolapsed hemorrhoids (Acute) Fibromyalgia (Acute) Past Medical History Medical History GERD (gastroesophageal reflux disease) Right knee pain Prolapsed hemorrhoids Fibromyalgia High blood pressure Diabetes Family History Family History Father Diabetes Mother HTN (hypertension) Surgical History Surgical History Hx of colonoscopy Hx of section Hx of hernia repair Social History Social History Alcohol intake: never Patient Tobacco Use Status: Never used Tobacco Use of substances other than those prescribed or required for medical reasons: No Advance Directives: No Advance Directives Information Provided: Yes Current occupational status: employed 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 Gender identity: Female Meds Allergies Allergy/AdvReac Type Severity Reaction Status Date / Time Iodinated Contrast Media (IV Allergy Mild NAUSEA & Verified 07/06/24 07:44 CONTRAST) VOMITING Home Medications ?Medication ?Instructions ?Recorded ?Confirmed ?Last Taken ?Type lurasidone 20 mg tablet (Latuda) 20 mg PO DAILY 04/10/20 09/27/24 Unknown History albuterol sulfate 90 mcg/actuation 2 puff PO Q4-6H PRN Shortness Of 01/28/21 09/27/24 Unknown History aerosol inhaler (ProAir HFA) Breath Or Wheezing hydroxyzine pamoate 25 mg capsule 25 mg PO BID PRN Anxiety 01/28/21 09/27/24 Unknown History losartan 25 mg tablet 25 mg PO DAILY 01/28/21 09/27/24 Unknown History zolpidem 5 mg tablet 5 mg PO BEDTIME PRN Insomnia 01/28/21 09/27/24 Unknown History cetirizine 10 mg tablet 10 mg PO QAM 12/09/23 09/27/24 Unknown History ergocalciferol (vitamin D2) 1,250 1,250 mcg PO QWEEK 12/09/23 09/27/24 Unknown History mcg (50,000 unit) capsule esomeprazole magnesium 40 mg 40 mg PO DAILY 12/09/23 09/27/24 Unknown History capsule,delayed release magnesium oxide 400 mg (241.3 mg 400 mg PO DAILY 12/09/23 09/27/24 Unknown History magnesium) tablet blood sugar diagnostic (FreeStyle #10 ea 03/14/24 07/06/24 Unknown History Lite Strips) escitalopram oxalate 10 mg tablet 10 mg PO BEDTIME 03/14/24 09/27/24 Unknown History riboflavin (vitamin B2) 100 mg 100 mg PO DAILY 03/14/24 09/27/24 Unknown History tablet (Vitamin B-2) semaglutide 1 mg/dose (4 mg/3 mL) 1 mg subcut QWEEK 03/14/24 09/27/24 Unknown History subcutaneous pen injector (Ozempic) topiramate 50 mg tablet 50 mg PO DAILY 03/14/24 09/27/24 Unknown History Exam Height,Weight and Vital Signs: Height 5 ft 5 in Weight 85.275 kg Assessment and Plan Assessment Anesthesia Assessment: Chart Reviewed Documented by User: Kim Ashton MD 09/30/24 10:07 [facility] Past Medical History Medical History GERD (gastroesophageal reflux disease) Right knee pain Prolapsed hemorrhoids Fibromyalgia High blood pressure Diabetes Family History Family History Father Diabetes Mother HTN (hypertension) Surgical History Surgical History Hx of colonoscopy Hx of section Hx of hernia repair History of Problems with Anesthesia: No Social History Social History Alcohol intake: never Patient Tobacco Use Status: Never used Tobacco Use of substances other than those prescribed or required for medical reasons: No Advance Directives: No Advance Directives Information Provided: Yes Current occupational status: employed 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 Gender identity: Female Meds Allergies Allergy/AdvReac Type Severity Reaction Status Date / Time Iodinated Contrast Media (IV Allergy Mild NAUSEA & Verified 07/06/24 07:44 CONTRAST) VOMITING Home Medications ?Medication ?Instructions ?Recorded ?Confirmed ?Last Taken ?Type lurasidone 20 mg tablet (Latuda) 20 mg PO DAILY 04/10/20 09/27/24 Unknown History albuterol sulfate 90 mcg/actuation 2 puff PO Q4-6H PRN Shortness Of 01/28/21 09/27/24 Unknown History aerosol inhaler (ProAir HFA) Breath Or Wheezing hydroxyzine pamoate 25 mg capsule 25 mg PO BID PRN Anxiety 01/28/21 09/27/24 Unknown History losartan 25 mg tablet 25 mg PO DAILY 01/28/21 09/27/24 Unknown History zolpidem 5 mg tablet 5 mg PO BEDTIME PRN Insomnia 01/28/21 09/27/24 Unknown History cetirizine 10 mg tablet 10 mg PO QAM 12/09/23 09/27/24 Unknown History ergocalciferol (vitamin D2) 1,250 1,250 mcg PO QWEEK 12/09/23 09/27/24 Unknown History mcg (50,000 unit) capsule esomeprazole magnesium 40 mg 40 mg PO DAILY 12/09/23 09/27/24 Unknown History capsule,delayed release magnesium oxide 400 mg (241.3 mg 400 mg PO DAILY 12/09/23 09/27/24 Unknown History magnesium) tablet blood sugar diagnostic (FreeStyle #10 ea 03/14/24 07/06/24 Unknown History Lite Strips) escitalopram oxalate 10 mg tablet 10 mg PO BEDTIME 03/14/24 09/27/24 Unknown History riboflavin (vitamin B2) 100 mg 100 mg PO DAILY 03/14/24 09/27/24 Unknown History tablet (Vitamin B-2) semaglutide 1 mg/dose (4 mg/3 mL) 1 mg subcut QWEEK 03/14/24 09/27/24 Unknown History subcutaneous pen injector (Ozempic) topiramate 50 mg tablet 50 mg PO DAILY 03/14/24 09/27/24 Unknown History Exam Airway Mallampati Class: II TM Dist: >3cm Neck ROM: Full Loose/Missing/Broken Teeth: No Heart: RRR Lungs: CTA Assessment and Plan Assessment Anesthesia Assessment: Anesthesia Plan Discussed Final Anesthetic Review History of Problems with Anesthesia: No NPO: Yes ASA Class: II Final Preanesthetic Review: Meds/Allgs Chart Reviewed, Consent Obtained/Reviewed and Anes Risks/Benef Reviewed Patient Risk: Low Procedure Risk: Intermediate Anesthetic Plan Anesthetic Plan: MAC: Disposition: Standard PACU
[2024-09-30 08:57] VITALS: BP 122/85; PULSE 89; RESP 16; TEMP 36.6; O2SAT 100; BMI 31.7
[2024-09-30] MEDS: Lactated Ringers 1,000 ML 100 ML IVCONT (09:02)
[2024-09-30 09:08] LABS: UPreg QC Valid YES
--- NOTE | 2024-09-30 09:53 | MHC.SHP ---
Pre-Procedural Eval Section A - 24 Hr Update-Section A only Date of Service: 09/30/24 Section B - Complete if H&P > 30 days Chief Complaint: Abnoraml barium swallow Details of Present Illness: Right knee pain Prolapsed hemorrhoids Fibromyalgia High blood pressure Diabetes Surgical History Hx of colonoscopy Hx of section Hx of hernia repair Present Medications: see Short Stay Collaborative assessment Allergies: Allergies Allergy/AdvReac Type Severity Reaction Status Date / Time Iodinated Contrast Media (IV Allergy Mild NAUSEA & Verified 07/06/24 07:44 CONTRAST) VOMITING Review of Systems Review of Systems Comment: Ten point ROS negative Exam Exam Comment: Gen appear: No acute distress HEENT: no icterus Chest: No overt resp distress Abd: soft, nontender, nondistended Psych: Stable affect, answering questions appropriately Neuro: A/Ox3 noted to move all extremities spontaneously Ext: no peripheral edema Plan Diagnosis/Plan: Unchanged I have reviewed the history and physical and performed a pertinent physical examination on my patient. No changes have occurred unless specified. Time Spent With Patient Time: Total time managing care of this patient today ____ minutes.
--- NOTE | 2024-09-30 10:22 | P.OP_ITS ---
Operative Note Operative Note Date of Service: 09/30/24 Narrative: Procedure: Esophagogastroduodenoscopy Endoscopist: Sabra Godfrey MD Indication: Abnormal barium swallow Anesthesia Provider: Dr Kim Ashton Anesthesia Type: MAC ? EGD Procedure:?? The procedure, indications, preparation and potential complications were revie wed with the patient, who indicated understanding and gave written informed consent to proceed. A physical exam was performed. The endoscope was introduced through the mouth, and advanced to the second part of duodenum. The mucosa was carefully examined on slow withdrawal of the endoscope. The patient tolerated the procedure well. There were no immediate complications.? ? EGD Findings:? * Esophagus:? Mild narrowing noted at the level of upper esophageal sphincter but scope could easily traverse through this. Otherwise, normal mucosa noted in the entire esophagus. The Z line was at 38 cm. Middle and lower esophagus forceps biopsies were obtained to rule out eosinophilic esophagitis. * Stomach:? Normal mucosa was noted in the stomach. Retroflexion was found in the cardia. * Duodenum:? Normal mucosa was noted in the whole of the examined duodenum. Additional intervention: Soft tip Savary wire was introduced through the biopsy channel of the gastroscope and advanced to the antrum. ?The gastroscope was then backed out. ?Savary Betzaida bougie was advanced over the guidewire and the esophagus was dilated from 16 to 17 mm with resistance felt. ?On relook, scant heme was noted confirming successful dilation.. ? ? EGD Impressions:? * Cricopharyngeal narrowing (dilation) * Normal esophageal mucosa (biopsy) * Normal stomach * Normal duodenum ?? Recommendations:?? * Follow biopsy results. Our office will call or send a letter with results within 7-10 days. * Avoid NSAIDs. * EGD with dilation can be repeated as needed for recurrence of symptoms. Above has been reviewed with the patient.
[2024-09-30 10:25] VITALS: BP 111/70; PULSE 102; RESP 18; TEMP 36.3; O2SAT 98
[2024-09-30 10:30] VITALS: BP 125/85; PULSE 93; RESP 18; O2SAT 98
[2024-09-30 10:45] VITALS: BP 123/89; PULSE 88; RESP 18; TEMP 36.3; O2SAT 98
== END 2024-09-30 11:38 | disposition home or self-care (01) ==
PROVIDERS: Nurse Practitioner; PCP Student in an Organized Health Care Education/Training Program; Visit Provider Internal Medicine
PROC: (CPT 43248; principal; 2024-09-30 09:50)
DX: K20.80 Other esophagitis without bleeding (principal); K22.2 Esophageal obstruction; K21.9 Gastro-esophageal reflux disease without esophagitis; R14.0 Abdominal distension (gaseous); K59.00 Constipation, unspecified; K64.8 Other hemorrhoids; M79.7 Fibromyalgia; I10 Essential (primary) hypertension; E11.9 Type 2 diabetes mellitus without complications; M25.561 Pain in right knee; Z91.041 Radiographic dye allergy status; Z98.890 Other specified postprocedural states
CPT/HCPCS: 43248; 43239; 81025; 88305; J2003; J2704

== ENCOUNTER → 2024-09-30 08:23 | Outpatient (BNV) | payer MEDICAID, SELFPAY | PROVIDERS: PCP Student in an Organized Health Care Education/Training Program; Visit Provider Internal Medicine | DX: K21.9 Gastro-esophageal reflux disease without esophagitis (principal); J39.2 Other diseases of pharynx | CPT/HCPCS: 43239; 43248 ==

== ENCOUNTER 2024-12-02 08:40 | Outpatient (REF) | payer MEDICAID, SELFPAY ==
--- OUTSIDE RECORDS SUMMARY | 2024-12-02 08:57 | XMS_ITS | Encounter Summary ---
Author Organization [employer] [facility] Address [address] [place] [address] Care Team Providers Care Rubber Cutter Name Role Phone Cora WolfeP Primary Care Provider Lizz Una Walker MD Primary Care Pro vider Morris Haney RN Unavailable [phone] Estefany Haney Unavailable Morris Haney RN Unavailable [phone] Encounter Details Date Type Department Care Team (Latest Contact Info) Description 03/26/2020 Abstract [facility] CONVERSIONS Dental, Provider, DDS Social History Tobacco [...] on filedocumented in this encounter Care Teams Rubber Cutter Relationship Specialty Start Date End Date Cora Wolfe FNP PCP - General Family Medicine 10/19/21 11/16/22 Una Webb MD [address] [place] [address] PCP - General Internal Medicine 11/17/22 Morris Haney RN [address] [place] [address] [place] [address] Personal Banking OfficerFilm Technician 08/31/23 06/05/24 Estefany Hanye Community Health Worker 09/09/2306/05 Morris Haney RN [address] [place] [address] Personal Banking OfficerFilm Technician 06/29/24 documented as of this encounter
--- OUTSIDE RECORDS SUMMARY | 2024-12-02 08:57 | XMS_ITS | Encounter Summary ---
Author Organization [employer] Address [address] [place] [address] 7 [place] [address] Care Team Providers Care Fourdrinier Machine Tender Name Role Phone Una Webb MD Primary Care Pro vider Morris Haney RN Unavailable [phone] Estefany Haney Unavailable Morris Haney RN Unavailable [phone] Encounter Details Date Type Department Care Team (Late st Contact Info) Description 11/17/2022 Abstract [facility] MEDICINE [address] [place] [address] Cora Wolfe FNP Social History Tobacco Use Types Packs/Day Years [...] documented as of this encounter Care Teams Fourdrinier Machine Tender Relationship Specialty Start Date End Date Una Webb MD [address] [place] [address] PCP - General Internal Medicine 11/17/22 Morris Haney, RN [address] [place] [address] Furniture SprayerSalesperson Yard Goods 08/31/23 06/05/24 Estefany Haney Community Health Worker 09/09/2306/05 Morris Haney RN [address] [place] [address] Furniture SprayerSalesperson Yard Goods 06/29/24 documented as of this encounter
--- OUTSIDE RECORDS SUMMARY | 2024-12-02 08:57 | XMS_ITS | Clinical Summary ---
Author Organization [employer] Address [address] [place] [address] 7[address] [place] [address] Care Team Providers Care Conche Loader And Unloader Name Role Phone Una Webb MD Primary Care Pro vider Morris Haney RN Unavailable [phone] Allergies Active Allergy Reactions Criticality Noted Date Comments Green Dye Anaphylaxis High 11/12/2020 Iodinated Contrast Media 03/07/2024 Ioversol 10/07/2019 Prednisone & Diphenhydramine 022 Medications * This document contains information received from the source organization and may not represent a complete record from that organization. ketotifen (Zaditor) 0.025 % ophthalmic solution Administer [...] DAY 100 each 11 06/06/19 23 Active albuterol 108 (90 Base) MCG/ACT [...] HOURS. 9 tablet 2 01/12/20 24 Active glucose blood (FREESTYLE LITE) test strip USE DIRECTED TO TEST BLOOD SUGAR TWICE DAILY 50 strip 5 05/03/19 25 Active linaCLOtide (Linzess) 145 MCG capsule Take 1 capsule (145 mcg) by mouth before breakfast. Do not crush or chew. 90 capsule 1 08/03/19 25 026 Active Ascorbic Acid (vitamin C) 250 MG tablet Take 1 tablet (250 mg) by mouth 2 (two) times a week. 8 tablet 3 09/09/19 25 026 Active ergocalciferol (Vitamin D2) 1.25 MG (86297 UT) capsule Take 1 capsule (1.25 mg) by mouth every 7 (seven) days. 12 capsule 09/07/19 25 Active ferrous gluconate (Fergon) 324 (38 Fe) MG tablet Take 1 tablet (324 mg) by mouth 2 (two) times a week. 8 tablet 3 09/09/19 25 026 Active olmesartan (BENIcar) 40 MG tabletIndication s:Primary hypertension Take 1 tablet (40 mg) by mouth Once per day. 90 tablet 09/07/19 25 Active omeprazole (PriLOSEC) [address] capsule Take 1 capsule (20 mg) by mouth 2 times daily. 180 capsule 09/07/19 25 025 Active riboflavin (vitamin B2) 100 mg tablet tabletIndication s:Gastroesophage al reflux disease without esophagitis Take 1 tablet (100 mg) by mouth Once per day. 90 tablet 1 09/07/19 25 Active topiramate 50 MG tablet Take 1 tablet (50 mg) by mouth Once per day. 90 tablet 09/07/19 25 Active Ozempic, 2 MG/DOSE, 8 MG/3ML solution pen-injector Inject 2 MG SUBCUTANEOUSLY EVERY 7 DAYS IN THE ABDOMEN, THIGHS OR UPPER ARM. ROTATE INJECTION SITES. 3 mL 3 09/22/19 Active Active Problems Problem Noted Date Diagnosed Date Menorrhagia 11/02/2024 Delay of cognitive development 08/03/2024 Bipolar affective disorder, remission status unspecified (CMS/HCC) 06/07/2024 Microscopic hematuria 06/07/2024 Iron deficiency anemia [...] Lipids: Elevated slightly 10/04/21 Eye exam: appt 05/10/23, no retinopathy or macular edema Dental: Discuss [...] Encounters Date Type Department Care Team Description 11/02/2024 9:45 AM EDT Office Visit [facility] [address] [place] [phone] Una Webb MD Type 2 diabetes mellitus without complication, without long-term current use of insulin ([facility]) (Primary Dx); Iron deficiency anemia secondary to inadequate dietary iron intake; Excessive bleeding in premenopausal period; Primary hypertension; Health care maintenance; Chronic migraine without aura without status migrainosus, not intractable 11/02/2024 Travel 11/01/2024 Telephone [facility] [address] [place] [phone] Una Webb MD CHART PREP 09/30/2024 Orders Only GENERIC EXTERNAL DATA DEPARTMENT Provider, Generic External Data 09/29/2024 Patient Outreach [facility] [address] [place] [phone] Una Webb MD Care Management (C3CM- f/u call) 09/20/2024 Refill [facility] [address] [place] [address] [phone] Una Webb MD 09/19/2024 Patient Outreach [facility] [address] [place] [phone] Una Webb MD 09/19/2024 Patient Outreach [facility] [address] [place] [address] [phone] Una Webb MD Care Coordination (SDTN f/u) 09/19/2024 Patient Outreach [facility] [address] [place] [address] [phone] Una Webb MD Care Management (C3CM- f/u call) 09/06/2024 Orders Only [facility] [address] [place] [address] [phone] Una Webb MD 09/06/2024 Refill [facility] [address] [place] [address] Una Webb MD Primary hypertension; Gastroesophageal reflux disease without esophagitis 09/06/2024 Travel 09/05/2024 Patient Outreach [facility] [address] [place] [address] Una Webb MD Care Management (C3CM- f/u call) from Last 3 Months Immunizations Immunization Administration [...] housing situation today? I have noe yimi 06/30/[address] you li [...] Answer Date Recorded Internet Access Q1 Yes 09/13/2024 Internet Access Q2 Not on file 09/13/2024 Comments No Sex and Gender Information Value Date Recorded Sex Assigned at Female 12/23/2021 10:21 AM EDT Legal Sex Female 10:21 AM EDT Gender Identity Female 12/23/2021 10:21 AM EDT Sexual Orientation Straight 12/23/2021 10 :21 AM EDT Last Filed Vital Signs Vital Sign Reading Time Taken Comments Blood Pressure 112/80 11/02/2024 9:40 AM EDT Pulse 87 11/02/2024 9:40 AM EDT Temperature 37 C (98.6 F) 11/02/2024 9:40 AM EDT Respiratory Rate 16 11/02/2024 9:40 AM EDT Oxygen Saturation 99% 11/02/2024 9:40 AM EDT Inhaled Oxygen Concentration - - Weight 77.7 kg (171 lb 6.4 oz) 11/02/2024 9:40 A M EDT Height 165.1 cm (5' 5 ) 11/02/2024 9:40 AM EDT Body Mass Index 28.52 11/02/2024 9:40 AM EDT Plan of Treatment Health Maintenance Due Date Last Done Comments Diabetes: Foot Exam 1996 Eye Exam 1996 Family Planning (PISQ) 2001 Hepatitis B Vaccines (1 of 3 - 19+ 3-dose series) 2005 HPV Vaccines (3 - 3-dose series) 12/10/2012 09/17/2012, 05/20/2012 Dental Oral Exam 09/05/2024 03/07/2024, 05/2022, 03/14/2020, Additional history exists Dental Prophylaxis 09/05/2024 03/07/2024, 1 03/29/2022, 03/26/2020, Additional history exists COVID-19 Vaccine ( season) 2024 03/18/2023, 02/18/2021, 08/17/2020, Additional history exists Influenza Vaccine (#1) 2024 , 03/18/2023, 11/12/2020, Additional history exists Diabetes: Hemoglobin A1C 02/01/2025 025, 07/22/2024, 12/21/2023, Additional history exists Dental X-Ray: Bitewings 03/08/2025 03/07/19 25, 01/26/2023, 03/27/2020, Additional history exists Alcohol/Substance Use Screening 06/07/2025 06/07/2024 Disability Screening 06/07/2025 06/07/2024 Depression Screening 06/29/2025 06/29/2024, 06/30/19 SDOH Screening 07/11/2025 07/11/2024 Pap Smear 07/14/2025 07/14/2022 Diabetes: Urine Protein Screening 07/22/2025 07/22/2024, 02/02/2024, 12/21/2023, Additional history exists Lipid Panel 07/22/2025 07/22/2024, 11/24, 04/14/2023, Additional history exists Tobacco Screening 11/02/2025 11/02/2024 Dental X-Ray: Full Mouth 01/27/2026 01/26/2023, 11/23 Cervical Cancer Screening 07/15/2027 HPV/Cotest 07/15/2027 07/14/2022 DTaP/Tdap/Td Vaccines (4 - Td or Tdap) 07/30/2032 07/30/2022, 12/22/2011, 08/16/2010 Zoster Vaccines (1 of 2) 2036 RSV Patients and Patients Aged 60 years or older (1 - 1-dose 75+ series) 2061 Pneumococcal Vaccine: Pediatrics (0 to 5 Years) and At-Risk Patients (6 to 49) Years Completed 07/28/2023 HIV Screening Completed 07/22/2024, 04/14/2023 Hepatitis C [...] Name Priority Date/Time Associated Diagnosis Comments POCT GLYCATED HEMOGLOBIN, TOTAL Routine 11/02/2024 9:51 AM EDT Type 2 diabetes mellitus without complication, without long-term current use of insulin ([facility]) POCT GLUCOSE Routine 11/02/2024 9:51 AM EDT Type 2 diabetes mellitus without complication, without long-term current use of insulin ([facility]) GROSS AND MICROSCOPIC LEVEL 4 Routine 09/30/2024 10:14 AM EDT HCG, QL, URINE Routine 09/30/2024 8:43 AM EDT HEPATITIS C AB W/REFL TO HCV RNA, QN, PCR Routine 07/22/2024 8:01 AM EDT Annual physical exam HIV 1/2 ANTIGEN/ANTIBODY, FOURTH GENERATION W/RFL Routine 07/22/2024 8:01 AM EDT Annual physical exam ALBUMIN, RANDOM URINE W/CREATININE Routine 07/22/2024 8:01 AM EDT Annual physical exam LIPID PANEL, STANDARD Routine 07/22/2024 8:01 AM EDT Annual physical exam PROPHYLAXIS - ADULT Routine 03/07/2024 8 :00 [...] Relevant to Health Maintenance Results * POCT Hgb A1c (11/02/2024 9:51 AM EDT) Hemoglobin A1C 5.1 4.0 - 5.7 % QC Media Lot # [id number] Lot# Expiration Date [id number] Blood 11/02/2024 9:51 AM EDT Una Arenas MD POINT OF CARE EMERITA T ENTER/EDIT ORDERABLES Final Result * POCT Glucose (11/02/2024 9:51 AM EDT) Glucose Blood, POC 104 60 - 200 mg/dL QC Media Lot # [id number] Lot# Expiration Date [id number] Blood Capillary blood specimen / Unknown 11/02/2024 9:51 AM EDT Una Arenas MD POINT OF CARE EMERITA T ENTER/EDIT ORDERABLES Final Result * Gross and Microscopic Level 4 (09/30/2024 10:14 AM EDT) 09/30/2024 10:1 4 AM EDT 09/30/2024 11:20 AM EDT Narrative [facility] - 10/03/2024 11:53 AM EDT ----- ------- Name: Catalina Castle Age/Sex: 38/F [facility] 1985 [id number]#: [id number] Attend Dr: Sabra Godfrey MD Re09/30/24 Status: [facility] Location: [facility] Disch: ----- ------- SPEC : [id number] RECD: 09/30/24 STATUS: CARLO POSADA NUM: [id number] VINCENT: 09/30/24-[address] [facility] [address]: Sabra Godfrey MD ENTERED: 09/30/24 SP TYPE: Surgical OTHR DR: Una Webb MD ORDERED: Gross Micro L4/2 Diagnosis A. Esophagus, lower, biopsy: Squamous mucosa with hyperplasia, mild spongiosis, and intraepithelial eosinophils (up to 5 per high power field), consistent with esophagitis; no columnar mucosa present. B. Esophagus, middle, biopsy: Squamous mucosa with no specific change; no columnar mucosa present. Clinical History Pre-Op Dx: Abnormal barium swallow Post-Op Dx: Grade A esophagitis, cricopharyngeal stenosis Microscopic Description Microscopic sections reviewed. Material Received A. Lower esophagus B. Middle esophagus Gross Description Received in 2 parts. A. Received in formalin labeled lower esophagus are 2 fragments of translucent, white soft tissue measuring 0.3 and 0.4 cm in greatest dimension which are wrapped in lens paper and entirely submitted for microscopic examination, 2 pieces in cassette A. B. Received in formalin labeled middle esophagus are 4 fragments of translucent, white soft tissue measuring 0.1-0.3 cm in greatest dimension which are wrapped in lens paper and entirely submitted for microscopic examination, 4 pieces in cassette B. ([facility]) IHC S/NG Disclaimer NOTE: Unless otherwise stated, all tissue is formalin-fixed and paraffin-embedded. Some or all of the immunohistochemical tests reported herein may have been developed and their performance characteristics determined by [facility]. They have not been cleared or approved by the U.S. Food and Drug Administration (FDA). However, the FDA has determined that such clearance or approval is not necessary. This laboratory is certified under the Clinical Laboratory Improvement Amendments of 1988 (CLIA) as qualified to perform high complexity clinical laboratory testing. CONTINUED ON NEXT PAGE ----- ------- Name: Catalina Castle Age/Sex: 38/F : 1985 Unit#: [id number] Attend Dr: Sabra Godfrey MD Re09/30/24 Status: [facility] Location: [facility] Disch: ----- ------- SPEC : [id number] RECD: 09/30/24 STATUS: CARLO POSADA NUM: [id number] VINCENT: 09/30/24-[address] [facility] [address]: Sabra Godfrey MD ENTERED: 09/30/24 SP TYPE: Surgical OTHR DR: Una Webb MD ORDERED: Gross Micro L4/2 Copies To: Una Webb MD [address] [place] [phone] Sabra Godfrey MD [facility] [address] [place] [address] [email or web address] ----- ------- Signed (signature on file) Aixa Whitaker 10/03/24 1153 ----- ------- END OF REPORT Generic External Data Provider LAB CYTOLOGY ORDE RABLES Final Result Performing Organization Address [facility] Co de Phone Number [facility] [address] [place] [address] [phone] * HCG, Qualitative, Urine (09/30/2024 8:43 AM EDT) Pathologist [facility] Urine NEGATIVE NEGATIVE [facility] Comment:This test was develo ped to detect early . Falsenegative results may occur after the 5th - 7th week ofpregnancy when using this test method. If clinicallyindicated, consider a serum hCG. 09/30/2024 8:43 AM EDT 09/30/2024 9:03 AM EDT Generic External Data Provider LAB URINE ORDERAB LES Final Result Performing Organization Address [facility]/ZIP Co de Phone Number [facility] [address] [place] [phone] * Albumin, Random Urine W/Creatinine (07/22/2024 8:01 AM EDT) Creatinine, Urine 231.74 mg/dL [facility] Microalbumin Urine 33.0 mg/L [facility] Microalbum Creatinine Ratio Ur 14.2 <30 ug/mg cr [facility] Comment:Albumin/Creatinine R atio Reference Ranges: Normal: < 30 ug/mg creatinine Microalbuminuria: 30 - 300 ug/mg creatinineClinical Albuminuria: > 300 ug/mg creatinine Urine (Urine, Random) 07/22/2024 8:01 AM EDT 07/22/2024 11:09 AM EDT us Una Arenas MD LAB URINE ORDERAB LES Final Result Performing Organization Address [facility]/ZIP Co de Phone Number [facility] [address] [place] [phone] * Hepatitis C Antibody with Reflex to HCV, RNA, Quantitative, Real-Time PCR (07/22/2024 8:01 AM EDT) Pathologist [facility] Hepatitis C Antibody Nonreactive Nonreactive [facility] Comment:Antibodies to HCV no t detected; does not exclude early acuteHCV infection. Blood Venous blood specimen / Unknown 07/22/2024 8:01 AM EDT 07/22/2024 11:38 AM EDT us Una Arenas MD LAB BLOOD ORDERAB LES Final Result Performing Organization Address [facility]/ZIP Co de Phone Number [facility] [address] [place] [address] [phone] * HIV-1/2 Antigen and Antibodies, Fourth Generation, with Reflexes (07/22/2024 8:01 AM EDT) Pathologist [facility] HIV AB/AG Nonreactive Nonreactive [facility] Comment:HIV-1 p24 Ag and/or HIV-1/HIV-2 Ab not detected.A test result that is nonreactive does not exclude thepossibility of exposure to or infection with HIV-1 and/orHIV-2. Nonreactive results in this assay for individualswith prior exposure to HIV-1 and/or HIV-2 may be due toantigen and antibody levels that are below the limit ofdetection of this assay.[employer] HIV Ag/Ab Combo assay result andsupplemental assay results should be interpreted inconjunction with the patient's clinical presentation,history and other laboratory results. If the results areinconsistent with clinical evidence, additional testing issuggested to confirm the result. Blood Venous blood specimen / Unknown 07/22/2024 8:01 AM EDT 07/22/2024 11:38 AM EDT us Una Arenas MD LAB BLOOD ORDERAB LES Final Result [facility] [address] [place] [address] [phone] * (ABNORMAL) Lipid Panel, Standard (07/22/2024 8:01 AM EDT) Triglycerides 76 <150 mg/dL [facility] Comment:Desirable Triglyceri de: less than 150 mg/dLBorderline High Triglyceride 150-199 mg/dLHigh Triglyceride: 200-499 mg/dLVery High Triglyceride: greater than or equal to 5OO mg/dL Cholesterol 209(H) <200 mg/dL [facility] Comment:Desirable Cholestero l: less than 200 mg/dLBorderline High Cholesterol: 200-239 mg/dLHigh Cholesterol: greater than 239 mg/dL LDL Cholesterol Calculated 144(H) <100 mg/dL [facility] Comment:Desirable LDL: less than 100 mg/dLNear Optimal/Above Optimal LDL: 110- 129 mg/dLBorderline High LDL: 130-159 mg/dLHigh LDL: 160-189 mg/dLVery High LDL: greater than or equal to 190 mg/dL HDL Cholesterol 50 >40 mg/dL [facility] Comment:Desirable HDL: great er than 40 mg/dL Note: This HDL assay may give artificially low results in patients with liver disease. Blood Venous blood specimen / Unknown 07/22/2024 8:01 AM EDT 07/22/2024 11:38 AM EDT Una Arenas MD LAB BLOOD ORDERAB LES Final Result Performing Organization Address [facility]/ZIP Co de Phone Number [facility] [address] [place] [address] [phone] * HPV mRNA E6/E7 w/Reflex to HPV Genotypes 16, 18/45 (07/14/2022 11:43 AM EDT) HPV nRNA E6/E7 Not Detected Not Detected [facility] Comment:Methodology: Transcr iption-Mediated AmplificationThis assay detects E6/E7 viral messenger RNA (mRNA) from 14high-risk HPV types (16,18,31,33,35,39,45,51,52,56,58,59,66,68).Cervical sources are required for HPV testing.If a vaginal source from a patient who has had atotal hysterectomy with removal of cervix wassubmitted, please contact the testing laboratoryfor alternative testing options.For additional information, please refer [email or web address].Text A [email or web address]/[email or web address](This link if provided for information/educational purposes only.)THIS TEST WAS PERFORMED AT:[address] [place] [phone] ULLOA MD HPV mRNA E6/E7 AZP [facility] HPV 16 RNA [facility] HPV 18/45 RNA [facility] 07/14/2022 11:4 3 AM EDT 07/15/2022 8:30 AM EDT [facility] External Provider LAB CYT OLOGY ORDERABLES Final Result Performing Organization Address [facility]/ZIP Co de Phone Number [facility] [address] [place] [phone] * Pap Smear (07/14/2022 11:43 AM EDT) 07/14/2022 11:4 3 AM EDT 07/15/2022 8:30 AM EDT [facility] - 07/28/2022 1:14 PM EDT ----- ------- Name: Catalina Castle Age/Sex: 36/F : 1985 Unit#: [id number] Attend Dr: Rasheeda Urias CNM Re07/14/22 Status: DEP REF Location: HO.LNP Disch: ----- ------- SPEC : [id number] RECD: 07/15/22 STATUS: CARLO POSADA NUM: [id number] VINCENT: 07/14/22-[address] [facility] [address]: Rasheeda Urias CNM ENTERED: 07/15/22-1007 SP TYPE: Pap Smr OT DR: Sara Newsome DO ORDERED: Pap Smear Interpretation Satisfactory for evaluation. Negative for intraepithelial lesion or malignancy. HPV mRNA E6/E7: NOT DETECTED This assay detects E6/E7 viral messenger RNA (mRNA) from 14 high-risk HPV types (16, 18, 31, 33, 35, 39, 45, 51, 52, 56, 58, 59, 66, 68) HPV testing performed by [facility], [place], [place]. See reference laboratory pion of the EMR for entire report. Clinical Information LMP: 06/23/22 Previous PAP test: 10/30/16, WNL Material Received ThinPrep-Cervical Copies To: Sara Newsome DO [address] [place] [address] Rasheeda Urias [address] [place] [address] ----- ------- Signed (signature on file) REBECCA Andrade ([facility]) 07/28/22 1314 ----- ------- END OF REPORT [facility] External Provider LAB CYT OLOGY ORDERABLES Final Result [facility] [address] [place] [address] [phone] from Last 3 Months or Most Recently Relevant to Health Maintenance Insurance [employer] AD[place] Care Teams Conche Loader And Unloader Relationship Specialty Start Date End Date Una Webb MD [address] [place] [phone] PCP - General Internal Medicine 11/17/22 Morris Haney RN [address] [place] [phone] Health Social Work ProfessorLead Nuclear Medicine Technologist 06/29/24
--- OUTSIDE RECORDS SUMMARY | 2024-12-02 08:57 | XMS_ITS | Encounter Summary ---
Author Organization [employer] Address [address] [place] [address] 7 [place] [address] Care Team Providers Care Party Plan Sales Unit Sales Leader Name Role Phone Una Webb MD Primary Care Pro vider Morris Haney RN Unavailable [phone] Estefany Haney Unavailable Morris Haney RN Unavailable [phone] Encounter Details Date Type Department Care Team (Late st Contact Info) Description 11/17/[address] [facility] [address] [place] [address] Cora Wolfe FNP Social History Tobacco Use [...] documented as of this encounter Care Teams Party Plan Sales Unit Sales Leader Relationship Specialty Start Date End Date Una Webb MD [address] [place] [phone] PCP - General Internal Medicine 11/17/22 Morris Haney, RN [address] [place] [address] Director Human ServicesGraphic Art Technician 08/31/23 06/05/24 Estefany Haney Community Health Worker 09/09/2306/05 Morris Haney RN [address] [place] [address] Director Human ServicesGraphic Art Technician 06/29/24 documented as of this encounter
--- OUTSIDE RECORDS SUMMARY | 2024-12-02 08:57 | XMS_ITS | Encounter Summary ---
Author Organization [employer] Address [address] [place] [address] 7 [place] [address] Care Team Providers Care Surgeon Partner Name Role Phone Una Webb MD Primary Care Pro vider Morris Haeny RN Unavailable [phone] Estefany Haney Unavailable Morris Haney RN Unavailable [phone] Reason for Visit * Reason Onset Date Comments Med Refill 11/17/2022 Encounter Details Date Type Department Care Team (Late st Contact Info) Description 11/17/2022 Refill [facility] [address] [place] [address] Cora Wolfe FNP Type 2 diabetes mellitus without complication, without long-term current use of insulin ([facility]); Class 2 obesity due to excess calories [...] complication, without long-term current use of insulin (HCC) Class 2 obesity due to excess calories without serious comorbidity in adult, unspecified BMI documented in this encounter Additional Health Concerns Assessment Noted Time PHQ-9 Depression Total Score: 2 02/27/19 23 10:36 AM EST documented as of this encounter Care Teams Surgeon Partner Relationship Specialty Start Date End Date Una Webb MD [address] [place] [phone] PCP - General Internal Medicine 11/17/22 Morris Haney RN [address] [place] [address] Die SetterProspecting Driller Helper 08/31/23 06/05/24 Estefany Haney Community Health Worker 09/09/2306/05 Morris Haney RN [address] [place] [address] Die SetterProspecting Driller Helper 06/29/24 documented as of this encounter
--- OUTSIDE RECORDS SUMMARY | 2024-12-02 08:57 | XMS_ITS | Encounter Summary ---
Author Organization [employer] Address [address] [place] [address] [address] [place] [address] Care Team Providers Care Medical Office Technology Instructor Name Role Phone Una Webb MD Primary Care Pro vider Morris Haney RN Unavailable [phone] Estefany Haney Unavailable Morris Haney RN Unavailable [phone] Encounter Details Date Type Department Care Team (Late st Contact Info) Description 11/17/2022 Abstract [facility] [address] [place] [address] Cora Wolfe FNP Social History Tobacco Use [...] documented as of this encounter Care Teams Medical Office Technology Instructor Relationship Specialty Start Date End Date Una Webb MD [address] [place] [phone] PCP - General Internal Medicine 11/17/22 Morris Haney, RN [address] [place] [address] Medical Imaging DirectorShot Polisher And Inspector 08/31/23 06/05/24 Estefany Haney Community Health Worker 09/09/2306/05 Morris Haney RN [address] [place] [address] Medical Imaging DirectorShot Polisher And Inspector 06/29/24 documented as of this encounter
--- OUTSIDE RECORDS SUMMARY | 2024-12-02 08:57 | XMS_ITS | Encounter Summary ---
Author Organization [employer] Address 75 [facility] 7t [place] [address] Care Team Providers Care Residential Monitor Name Role Phone Una Webb MD Primary Care Pro vider Morris Haney RN Unavailable [phone] Estefany Haney Unavailable Morris Haney RN Unavailable [phone] Reason for Visit * Reason Onset Date Comments Med Refill 12/10/2022 Encounter Details Date Type Department Care Team (Late st Contact Info) Description 12/10/2022 Refill [facility] MEDICINE 230 [place] [address] Cora Wolfe FNP Primary hypertension Social History Tobacco Use Types [...] documented as of this encounter Care Teams Residential Monitor Relationship Specialty Start Date End Date Una Webb MD [address] [place] [address] PCP - General Internal Medicine 11/17/22 Morris Haney RN 505 [place] [address] Action FinisherTechnical Support Director 08/31/23 06/05/24 Estefany Haney Community Health Worker 09/09/2306/05 Morris Haney RN 505 [place] [address] Action FinisherTechnical Support Director 06/29/24 documented as of this encounter
--- OUTSIDE RECORDS SUMMARY | 2024-12-02 08:57 | XMS_ITS | Encounter Summary ---
Author Organization [employer] Address 75 [facility] 7 [place] [address] Care Team Providers Care Maternal Child Nurse Name Role Phone Una Webb MD Primary Care Pro vider Morris Haney RN Unavailable [phone] Estefany Haney Unavailable Morris Haney RN Unavailable [phone] Reason for Visit * Reason Onset Date Comments Med Refill 12/10/2022 Encounter Details Date Type Department Care Team (Late st Contact Info) Description 12/10/2022 Refill [facility] MEDICINE 230 [place] [address] Cora Wolfe FNP Type 2 diabetes mellitus without complication, without long-term current use of insulin (CMS/[facility]); Class 2 obesity due to [...] documented as of this encounter Care Teams Maternal Child Nurse Relationship Specialty Start Date End Date Una Webb MD [address] [place] [address] PCP - General Internal Medicine 11/17/22 Morris Haney RN 505 [place] [address] Emr AnalystAssistant Warehouse Manager 08/31/23 06/05/24 Estefany Haney Community Health Worker 09/09/2306/05 Morris Haney RN 505 [place] [address] Emr AnalystAssistant Warehouse Manager 06/29/24 documented as of this encounter
--- OUTSIDE RECORDS SUMMARY | 2024-12-02 08:57 | XMS_ITS | Encounter Summary ---
Author Organization [employer] Address [address] [place] [address] Care Team Providers Care Appliance Parts Counter Clerk Name Role Phone Una Webb MD Primary Care Pro vider Morris Haney RN Unavailable [phone] Estefany Haney Unavailable Morris Haney RN Unavailable [phone] Reason for Visit * Reason Comments Med Refill Encounter Details Date Type Department Care Team (Late st Contact Info) Description 05/13/2024 Refill [facility] MEDICINE 230 [place], [place] [phone] Una Webb MD 230 [place], [place] [phone] Chronic migraine without aura without status migrainosus, [...] documented as of this encounter Care Teams Appliance Parts Counter Clerk Relationship Specialty Start Date End Date Una Webb MD [address] [place] [address] PCP - General Internal Medicine 11/17/22 Morris Haney RN [address] [place] [address] Network Operations Center TechnicianOffice Automation Clerk 08/31/23 06/05/24 Estefany Haney Community Health Worker 09/09/2306/05 Morris Haney RN [address] [place] [address] [place] [id number] Network Operations Center TechnicianOffice Automation Clerk 06/29/24 documented as of this encounter
--- OUTSIDE RECORDS SUMMARY | 2024-12-02 08:58 | XMS_ITS | Encounter Summary ---
Author Organization [employer] Address [address] [place] [address] [place] [address] Care Team Providers Care Flarer Name Role Phone Una Webb MD Primary Care Pro vider Morris Haney RN Unavailable [phone] Estefany Haney Unavailable Morris Haney RN Unavailable [phone] Reason for Visit * Reason Comments Med Change Request Encounter Details Date Type Department Care Team (Late st Contact Info) Description 05/21/2023 Refill [facility] MEDICINE 230 [place], [place] [phone] Una Webb MD 230 [place], [place] [phone] Social History Tobacco Use Types Packs/Day Years [...] your housing situation today? I have noe gleler 12/10/[address] you li [...] documented as of this encounter Care Teams Flarer Relationship Specialty Start Date End Date Una Webb MD [address] [place] [address] PCP - General Internal Medicine 11/17/22 Morris Haney RN 505 [place] [address] Oil Spot WasherHead Refrigeration Engineer 08/31/23 06/05/24 Estefany Haney Community Health Worker 09/09/2306/05 Morris Haney RN 505 [place] [address] Oil Spot WasherHead Refrigeration Engineer 06/29/24 documented as of this encounter
--- OUTSIDE RECORDS SUMMARY | 2024-12-02 08:58 | XMS_ITS | Encounter Summary ---
Author Organization [employer] Address [address] [place] [address] [place] [address] Care Team Providers Care Balancer Scale Name Role Phone Una Webb MD Primary Care Pro vider Morris Haney RN Unavailable [phone] Estefany Haney Unavailable Morris Haney RN Unavailable [phone] Reason for Visit * Reason Comments Med Refill Encounter Details Date Type Department Care Team (Late st Contact Info) Description 10/04/2023 Refill [facility] MEDICINE 230 [place], [place] [phone] Una Webb MD 230 [place], [place] [phone] Social History Tobacco Use Types Packs/Day Years [...] documented as of this encounter Care Teams Balancer Scale Relationship Specialty Start Date End Date Una Webb MD [address] [place] [address] PCP - General Internal Medicine 11/17/22 Morris Haney RN 505 [place] [address] Manager GeneralWeatherseal Technician 08/31/23 06/05/24 Estefany Haney Community Health Worker 09/09/2306/05 Morris Haney RN 505 [place] [address] Manager GeneralWeatherseal Technician 06/29/24 documented as of this encounter
[2024-12-02 11:19] LABS: Appearance Urine Clear; Glucose Urine UA Negative (Negative); PH 5.0 (5.0-9.0); Specific Gravity - Urine 1.025 (1.005-1.025); UMIC TRIGGER UACC YES
[2024-12-02 11:24] LABS: UACC Culture Trigger YES
[2024-12-02 11:51] LABS: Hematocrit 37.0 % (37.0-47.0); Hemoglobin 11.7 g/dl (12.0-16.0); Mean Corpuscular HGB Conc 31.6 g/dl (31.0-35.0); Mean Corpuscular Hemoglobin 26.4 pg (27.0-33.0); Mean Corpuscular Volume 83.5 fL (80.0-98.0); NRBC Abs Auto 0.000 X10*3/uL (0.0-0.012); NRBC Pct Auto 0.0 /100WBC (0.0-0.2); Platelet Count 495 X10*3/uL (160-400); Red Blood Count 4.43 X10*6/uL (4.20-5.50); White Blood Count 6.6 X10*3/uL (4.8-10.8)
[2024-12-02 11:54] LABS: Microalbum/Creatinine Ratio Ur 8.2 ug/mg cr (<30)
[2024-12-02 12:30] LABS: Alanine Aminotransferase 7 U/L (0-31); Albumin Level 4.4 g/dL (3.5-5.0); Alkaline Phosphatase 77 U/L (39-117); Anion Gap 11 (12-20); Aspartate Amino Transferase 14 U/L (5-31); Blood Urea Nitrogen 9 mg/dL (9-16); Calcium 9.3 mg/dL (8.4-10.2); Carbon Dioxide 24 mmol/L (22-29); Chloride 108 mmol/L (96-108); Cholesterol 206 mg/dL (<200); Estimated Glomerular Filt Rate > 60; Ferritin 44 ng/mL (10-122); HDL Cholesterol 50 mg/dL (>40); Iron 39 mcg/dL (30-160); Percent Iron Saturation 15 % (15-50); Potassium 3.6 mmol/L (3.3-5.1); Sodium 139 mmol/L (135-145); Total Iron Binding Capacity 262 mcg/dL (228-428); Total Protein 7.5 g/dL (6.5-8.0); Triglycerides 92 mg/dL (<150); Unsaturated Iron Binding 223 ug/dL
[2024-12-02 12:52] LABS: Folate 8.7 ng/mL (> or = 4.0); Vitamin B12 308 pg/mL (200-900)
== END 2024-12-02 08:41 | disposition home or self-care (01) ==
LOC: HO.HHCL 08:40
PROVIDERS: PCP Student in an Organized Health Care Education/Training Program; Visit Provider Student in an Organized Health Care Education/Training Program
DX: E11.9 Type 2 diabetes mellitus without complications (principal); D50.8 Other iron deficiency anemias
CPT/HCPCS: 36415; 80053; 80061; 81001; 82043; 82570; 82607; 82728; 82746; 83036; 83540; 85027; 87086

== ENCOUNTER 2024-12-21 15:18 | Outpatient (REF) | payer MEDICAID, SELFPAY ==
--- NOTE | ~2024-12-21 | US_ITS ---
EXAMINATION: US PELVIS CLINICAL INFORMATION: Heavy menstrual periods. COMPARISON: None available. TECHNIQUE: Ultrasound of the pelvis is performed using both transabdominal and transvaginal transducers along with Doppler. Transvaginal imaging is performed due to inadequate visualization transabdominally. FINDINGS: Uterus: The uterus is anteversion flexion and measures 11 x 4 x 6 cm. Volume: 107 cc. The double wall endometrial thickness is 6 mm. The uterus is smooth in contour and has normal myometrial echogenicity. No visible fibroid. Adnexa: Both ovaries are visualized. There is normal color flow to the adnexa. There is no ovarian torsion. There is no pelvic ascites or fluid collection. No free fluid in the cul-de-sac. Right ovary measures 3 x 1 x 2 cm. Volume 4 cc. No solid or cystic lesion. Left ovary measures 3 x 2 x 1 cm. Volume: 5 cc. US/US pelvic and transvaginal IMPRESSION: No uterine fibroid. No ovarian torsion. Endometrial stripe: 6 mm. No gross abnormality. Electronically signed by: Jann Naylor MD 12/21/2024 03:54 PM EDT
--- OUTSIDE RECORDS SUMMARY | 2024-12-21 19:39 | XMS_ITS | Encounter Summary ---
Author Organization [employer] Address [address] [place] [address] Care Team Providers Care Experimental Machining Lab Manager Name Role Phone Una Webb MD Primary Care Pro vider Morris Haney RN Unavailable [phone] Estefany Haney Unavailable Morris Haney RN Unavailable [phone] Encounter Details Date Type Department Care Team (Late st Contact Info) Description 11/17/2022 Abstract [facility] MEDICINE 230 [place], [place] [phone] Cora Wolfe FNP Social History Tobacco Use [...] Department Care Team (Late Contact Info) Description 02/03/2025 1:00 PM EST Office Visit [facility] MEDICINE 230 [place], [place] [phone] Una Webb MD 230 [place] [address] documented as of this encounter Visit Diagnoses Not on filedocumented in this encounter Additional Health Concerns Assessment Noted Time PHQ-9 Depression Total Score: 2 02/27/19 23 10:36 AM EST documented as of this encounter Care Teams Experimental Machining Lab Manager Relationship Specialty Start Date End Date Una Webb MD 230 [place] [address] PCP - General Internal Medicine 11/17/22 Morris Haney, RN 505 [place] [address] Second Language TutorFurniture Upholsterer Apprentice 08/31/23 06/05/24 Estefany Haney Community Health Worker 09/09/2306/05 Morris Haney, RN 505 [place] [address] Second Language TutorFurniture Upholsterer Apprentice 06/29/24 documented as of this encounter
--- OUTSIDE RECORDS SUMMARY | 2024-12-21 19:39 | XMS_ITS | Encounter Summary ---
Author Organization [employer] Address 75 [facility] 7 [place] [address] Care Team Providers Care Concrete Wall Grinder Operator Name Role Phone Una Webb MD Primary Care Pro vider Morris Haney RN Unavailable [phone] Estefany Haney Unavailable Morris Haney RN Unavailable [phone] Reason for Visit * Reason Onset Date Comments Med Refill 12/10/2022 Encounter Details Date Type Department Care Team (Late st Contact Info) Description 12/10/2022 Refill [facility] MEDICINE 230 [place] [address] Cora Wolfe FNP Type 2 diabetes mellitus without complication, without long-term current use of insulin (CMS/[facility]); Class 2 obesity due to excess calories [...] Care Team (Late st Contact Info) Description 02/03/2025 1:00 PM EST Office Visit [facility] MEDICINE 230 [place] [address] Una Webb MD [address] [place] [address] documented as of this encounter Visit Diagnoses Diagnosis Type 2 diabetes mellitus without complication, without long-term current use of insulin (HCC) Class 2 obesity due to excess calories without serious comorbidity in adult, unspecified BMI documented in this encounter Additional Health Concerns Assessment Noted Time PHQ-9 Depression Total Score: 2 02/27/19 10:36 AM EST documented as of this encounter Care Teams Concrete Wall Grinder Operator Relationship Specialty Start Date End Date Una Webb MD [address] [place] [address] PCP - General Internal Medicine 11/17/22 Morris Haney RN [address] [place] [address] Senior Audit ManagerTruck Leasing Manager 08/31/23 06/05/24 Estefany Haney Community Health Worker 09/09/2306/05 Morris Haney RN [address] [place] [address] Senior Audit ManagerTruck Leasing Manager 06/29/24 documented as of this encounter
--- OUTSIDE RECORDS SUMMARY | 2024-12-21 19:39 | XMS_ITS | Encounter Summary ---
Author Organization [employer] Address [address] [place] [address] 7 [place] [address] Care Team Providers Care Insurance Risk Surveyor Name Role Phone Una Webb MD Primary Care Pro vider Morris Haney RN Unavailable [phone] Estefany Haney Unavailable Morris Haney RN Unavailable [phone] Reason for Visit * Reason Onset Date Comments Med Refill 11/17/2022 Encounter Details Date Type Department Care Team (Late st Contact Info) Description 11/17/2022 Refill [facility] MEDICINE 230 [place] [address] Cora Wolfe FNP Type 2 diabetes mellitus without complication, without long-term current use of insulin (CMS/[facility]); Class 2 obesity due to excess calories [...] Description 02/03/2025 1:00 PM EST Office Visit [facility] MEDICINE 230 [place] [address] Una Webb MD 230 [place] [address] documented as of this encounter Visit Diagnoses Diagnosis Type 2 diabetes mellitus without complication, without long-term current use of insulin (HCC) Class 2 obesity due to excess calories without serious comorbidity in adult, unspecified BMI documented in this encounter Additional Health Concerns Assessment Noted Time PHQ-9 Depression Total Score: 2 02/27/19 10:36 AM EST documented as of this encounter Care Teams Insurance Risk Surveyor Relationship Specialty Start Date End Date Una Webb MD 230 [place] [address] PCP - General Internal Medicine 11/17/22 Morris Haney, JAEL 505 [place] [address] Director Of Community LifeHumidifier Attendant 08/31/23 06/05/24 Estefany Haney Community Health Worker 09/09/2306/05 Morris Haney, JAEL 505 [place] [address] Director Of Community LifeHumidifier Attendant 06/29/24 documented as of this encounter
--- OUTSIDE RECORDS SUMMARY | 2024-12-21 19:39 | XMS_ITS | Encounter Summary ---
Author Organization [employer] Address [address] [place] [address] Care Team Providers Care Chain Sales Representative Name Role Phone Una Webb MD Primary Care Pro vider Morris Haney RN Unavailable [phone] Estefany Haney Unavailable Morris Haney RN Unavailable [phone] Encounter Details Date Type Department Care Team (Late st Contact Info) Description 11/17/2022 Abstract [facility] MEDICINE 230 [place], [place] [phone] Cora Wolfe FNP Social History Tobacco Use [...] Description 02/03/2025 1:00 PM EST Office Visit [facility] MEDICINE 230 [place], [place] [phone] nUa Webb MD 230 [place] [address] documented as of this encounter Visit Diagnoses Not on filedocumented in this encounter Additional Health Concerns Assessment Noted Time PHQ-9 Depression Total Score: 2 02/27/19 23 10:36 AM EST documented as of this encounter Care Teams Chain Sales Representative Relationship Specialty Start Date End Date Una Webb MD 230 [place] [address] PCP - General Internal Medicine 11/17/22 Morris Haney, RN 505 [place] [address] Hogshead SalvageRail Car Unloader 08/31/23 06/05/24 Estefany Haney Community Health Worker 09/09/2306/05 Morris Haney, RN 505 [place] [address] Hogshead SalvageRail Car Unloader 06/29/24 documented as of this encounter
--- OUTSIDE RECORDS SUMMARY | 2024-12-21 19:39 | XMS_ITS | Encounter Summary ---
Author Organization [employer] Address [address] [place] [address] Care Team Providers Care Electroencephalographic Technologist Name Role Phone Una Webb MD Primary Care Pro vider Morris Haney RN Unavailable [phone] Estefany Haney Unavailable Morris Haney RN Unavailable [phone] Reason for Visit * Reason Comments Med Refill Encounter Details Date Type Department Care Team (Late st Contact Info) Description 05/13/2024 Refill [facility] MEDICINE 230 [place], [place] [phone] Una Webb MD 230 [place], [place] [phone] Chronic migraine without aura without status migrainosus, [...] Description 02/03/2025 1:00 PM EST Office Visit [facility] MEDICINE [address] [place] [address] Una Webb MD [address] [place] [address] documented as of this encounter Visit Diagnoses Diagnosis Chronic migraine without aura without status migrainosus, not intractable documented in this encounter Additional Health Concerns Assessment Noted Time PHQ-9 Depression Total Score: 4 03/18/19 24 11:06 AM EST documented as of this encounter Care Teams Electroencephalographic Technologist Relationship Specialty Start Date End Date Una Webb MD [address] [place] [address] PCP - General Internal Medicine 11/17/22 Morris Haney RN [address] [place] [address] Well Service FloorpersonDieing Out Machine Operator 08/31/23 06/05/24 Estefany Haney Community Health Worker 09/09/2306/05 Morris Haney RN 505 [place] [address] Well Service FloorpersonDieing Out Machine Operator 06/29/24 documented as of this encounter
--- OUTSIDE RECORDS SUMMARY | 2024-12-21 19:39 | XMS_ITS | Encounter Summary ---
Author Organization [employer] Address [address] [place] [address] Care Team Providers Care Lending Consultant Name Role Phone Una Webb MD Primary Care Pro vider Morris Haney RN Unavailable [phone] Estfeany Haney Unavailable Morris Haney RN Unavailable [phone] Encounter Details Date Type Department Care Team (Late st Contact Info) Description 11/17/2022 Abstract [facility] MEDICINE 230 [place], [place] [phone] Cora Wolfe FNP Social History Tobacco Use [...] 02/03/2025 1:00 PM EST Office Visit [facility] MEDICINE 230 [place], [place] [phone] Una Webb MD 230 [place] [address] documented as of this encounter Visit Diagnoses Not on filedocumented in this encounter Additional Health Concerns Assessment Noted Time PHQ-9 Depression Total Score: 2 02/27/19 23 10:36 AM EST documented as of this encounter Care Teams Lending Consultant Relationship Specialty Start Date End Date Una Webb MD 230 [place] [address] PCP - General Internal Medicine 11/17/22 Morris Haney, RN 505 [place] [address] Cuff CutterArtist Relationship Manager 08/31/23 06/05/24 Estefany Haney Community Health Worker 09/09/2306/05 Morris Haney, RN 505 [place] [address] Cuff CutterArtist Relationship Manager 06/29/24 documented as of this encounter
--- OUTSIDE RECORDS SUMMARY | 2024-12-21 19:39 | XMS_ITS | Clinical Summary ---
Author Organization [facility] Address [address] [place] [address] Phone Care Team Providers Care Manager Of Maintenance Name Role Phone Physician, Pcp Unknown Primary Care Provider Lizz vailable Allergies No known active allergies Encounters Date Type Department Care Team Description 10/03/2024 9:15 AM EDT Consult Orthopedic Surgery [facility] [address] [place] [phone] Torres Hemphill DPM Controlled type 2 diabetes with neuropathy (CMS/HCC V24, CMS/HCC V28) (Primary Dx); Pain in toes of both feet; Hammertoes of both feet; Dermatophytosis, nail from Last 3 Months Social History Tobacco Use Types Packs/Day Years Used Date Smoking Tobacco: Never Assessed Comments Unknown Sex and Gender Information Value Date Recorded Sex Assigned at Not on file Legal Sex Female 4:50 AM EST Gender Identity Not on file Sexual Orientation Not on file Plan of Treatment Health Maintenance Due Date Last Done Comments Diabetes: Annual Foot Exam 1996 Diabetes: Annual Retina Eye Exam 1996 Hepatitis B Vaccines (1 of 3 - 19+ 3-dose series) 2005 HPV Vaccines (3 - 3-dose series) 12/10/2012 09/17/2012, 05/20/2012 Social Influencers of Health Screening 01/26/2022 Diabetes: Annual Urine Albumin-Creatinine Ratio (uACR) 12/23/2023 Depression Screening 02/24/2024 COVID-19 Vaccine ( season) 2024 03/18/2023, 02/18/2021, 08/17/2020, Additional history exists Influenza Vaccine (#1) 2024 , 03/18/2023, 11/12/2020, Additional history exists Diabetes: Blood Sugar Control Test (HGBA1C) 01/22/2025 07/22/2024 Cervical Cancer Screening: Pap Smear 07/14/2025 07/14/2022 Diabetes: Annual GFR (Glomerular Filtration Rate) 07/22/2025 07/22/2024 Hypertension/CHF/CAD Annual BMP Blood Test 07/22/2025 07/22/2024 Cholesterol Screening (Lipid Panel) 07/22/2029 07/22/2024 DTaP,Tdap,and Td Vaccines (4 - Td or Tdap) 07/30/2032 07/30/2022, 12/22/2011, 08/16/2010 RSV Immunization Adult Patients (1 - 1-dose 75+ series) 2061 Pneumococcal Vaccine: Pediatrics (0 to 5 Years) and At-Risk Patients (6 to 49 Years) Completed 07/28/2023 HIV Screening Completed 07/22/2024 Hepatitis C Screening Completed 07/22/2024 HIB Vaccines Aged Out No longer eligi [...] to complete this topic RSV Immunization Patients Under 20 months Aged Out No longer eligible based on patient's age to complete this topic Varicella Vaccines Aged Out No longer eligible based on patient's age to complete this topic Insurance [place]ICA[place] Care Teams Manager Of Maintenance Relationship Specialty Start Date End Date Physician, Pcp Unknown PCP - General 07/15/24
--- OUTSIDE RECORDS SUMMARY | 2024-12-21 19:39 | XMS_ITS | Clinical Summary ---
Author Organization [employer] Address [address] [place] [address] [address] [place] [address] Care Team Providers Care Commercial Collections Specialist Name Role Phone Una Webb MD Primary Care Pro vider Morris Haney RN Unavailable [phone] Allergies Active Allergy Reactions Criticality Noted [...] morning and 1 drop in the evening. Active Blood Pressure Monitoring (Omron 3 Series BP Monitor) device USE DIRECTED DAILY 022 Active zolpidem (Ambien) 5 MG tablet Take 5 mg by mouth if needed at bedtime. 022 Active Latuda 20 MG tablet Take 20 mg by mouth in the morning. 022 Active hydrOXYzine pamoate (Vistaril) 25 MG capsule TAKE 1 CAPSULE BY MOUTH TWICE DAILY NEEDED Active TRUEplus Lancets 33G misc 1 each 2 times daily. TEST BLOOD SUGAR TWICE A DAY 100 each 11 023 Active albuterol 108 (90 Base) MCG/ACT inhaler Inhale 2 puffs every 4 (four) hours. 18 g 2 024 Active cetirizine (ZyrTEC) 10 MG tabletIndicatio ns:COVID-19 TAKE 1 TABLET BY MOUTH EVERY MORNING 90 tablet Active escitalopram (Lexapro) 10 MG tablet Take 1 tablet (10 mg) by mouth Once per day. 90 tablet 024 Active SUMAtriptan (Imitrex) 25 MG tabletIndicatio ns:Chronic migraine without aura without status migrainosus, not intractable TAKE 1 TABLET BY MOUTH AT ONSET OF MIGRAINE. MAY REPEAT ONCE AFTER 2 HOURS IF NEEDED. DO NOT EXCEED 2 DOSES IN 24 HOURS. 9 tablet 2 Active glucose blood (FREESTYLE LITE) test strip USE DIRECTED TO TEST BLOOD SUGAR TWICE DAILY 50 strip 5 Active linaCLOtide (Linzess) 145 MCG capsule Take 1 capsule (145 mcg) by mouth before breakfast. Do not crush or chew. 90 capsule 1 025 2025 Active ergocalciferol (Vitamin D2) 1.25 MG (74771 UT) capsule Take 1 capsule (1.25 mg) by mouth every 7 (seven) days. 12 capsule Active olmesartan (BENIcar) 40 MG tabletIndicatio ns:Primary hypertension Take 1 tablet (40 mg) by mouth Once per day. 90 tablet 025 Active omeprazole (PriLOSEC) [address] capsule Take 1 capsule (20 mg) by mouth 2 times daily. 180 capsule 025 Active riboflavin (vitamin B2) 100 mg tablet tabletIndicatio ns:Gastroesopha geal reflux disease without esophagitis Take 1 tablet (100 mg) by mouth Once per day. 90 tablet 1 Active topiramate 50 MG tablet Take 1 tablet (50 mg) by mouth Once per day. 90 tablet 025 Active Ozempic, 2 MG/DOSE, 8 MG/3ML solution pen-injector Inject 2 MG SUBCUTANEOUSLY EVERY 7 DAYS IN THE ABDOMEN, THIGHS OR UPPER ARM. ROTATE INJECTION SITES. 3 mL 3 Active Ascorbic Acid (vitamin C) 250 MG tablet Take 1 tablet (250 mg) by mouth Once per day. 90 tablet 1 025 2025 Active ferrous gluconate (Fergon) 324 (38 Fe) MG tablet Take 1 tablet (324 mg) by mouth with breakfast. 90 tablet 1 025 2025 Active Icosapent Ethyl (Vascepa) 1 g capsule Take 2 capsules (2 g) by mouth Once per day. 180 capsule 1 025 2025 Active Ascorbic Acid (vitamin C) 250 MG tablet Take 1 tablet (250 mg) by mouth 2 (two) times a week. 8 tablet 3 025 2024 Discontinued(R eorder (will not trigger notification to Pharmacy)) ferrous gluconate (Fergon) 324 (38 Fe) MG tablet Take 1 tablet (324 mg) by mouth 2 (two) times a week. 8 tablet 3 025 2024 Discontinued(R eorder (will not trigger notification to Pharmacy)) Active Problems Problem Noted Date Diagnosed Date Menorrhagia 11/02/2024 Delay of cognitive development 08/03/2024 Bipolar affective disorder, remission status unspecified ([facility]) 06/07/2024 Microscopic hematuria 06/07/2024 Iron deficiency anemia [...] Encounters Date Type Department Care Team Description 12/02/2024 Results Follow-Up [facility] [address] [place] [phone] Una Webb MD POCT Glucose, POCT Hgb A1c, Albumin, Random Urine W/Creatinine, Additional followed-up results: 8 12/02/2024 Orders Only [facility] [address] [place] [phone] Una Webb MD Microscopic hematuria (Primary Dx); Iron deficiency anemia secondary to inadequate dietary iron intake 11/02/2024 9:45 AM EDT Office Visit [facility] [address] [place] [phone] Una Webb MD Type 2 diabetes mellitus without complication, without long-term current use of insulin ([facility]) (Primary Dx); Iron deficiency anemia secondary to inadequate dietary iron intake; Excessive bleeding in premenopausal period; Primary hypertension; Health care maintenance; Chronic migraine without aura without status migrainosus, not intractable 11/02/2024 Travel 11/01/2024 Telephone [facility] [address] [place] [phone] Una Webb MD CHART PREP 09/30/2024 Orders Only GENERIC EXTERNAL DATA DEPARTMENT Provider, Generic External Data 09/29/2024 Patient Outreach [facility] [address] [place] [address] Una Webb MD Care Management (C3CM- f/u call) 09/20/2024 Refill [facility] [address] [place] [address] Una Webb MD from Last 3 Months [...] is your housing situation today? I have noejeanie geller 06/30/[address] you [...] enough money to get more: Often true 07/ Transportation Answer Date Recorded In the past [...] 11/02/2024 9:40 AM EDT Plan of Treatment Upcoming Encounters Date Type Department Care Team (Late st Contact Info) Description 02/03/2025 1:00 PM EST Office Visit [facility] [address] [place] [address] [phone] Una Webb MD [address] [place], [place] [phone] Health Maintenance Due Date Last Done Comments [...] 11/12/2020, Additional history exists Diabetes: Hemoglobin A1C 03/04/2025 025, 11/02/2024, 07/22/2024, Additional history exists Dental X-Ray: Bitewings 03/08/2025 03/07/19 25, 01/26/2023, 03/27/2020, Additional history exists Alcohol/Substance Use Screening 06/07/2025 06/07/2024 Disability Screening 06/07/2025 06/07/2024 Depression Screening 06/29/2025 06/29/2024, 06/30/19 SDOH Screening 07/11/2025 07/11/2024 Pap Smear 07/14/2025 07/14/2022 Tobacco Screening 11/02/2025 11/02/2024 Diabetes: Urine Protein Screening 12/02/2025 12/02/2024, 07/22/2024, 02/02/2024, Additional history exists Lipid Panel 12/02/2025 12/02/2024, 06/25, 12/21/2023, Additional history exists Dental X-Ray: Full Mouth [...] Procedure Name Priority Date/Time Associated Diagnosis Comments US PELVIS TRANSVAGINAL Routine 12/21/2024 3:34 PM EDT Excessive bleeding in premenopausal period FERRITIN Routine 12/02/2024 8:58 AM EDT Iron deficiency anemia secondary to inadequate dietary iron intake IRON AND TOTAL IRON BINDING CAPACITY Routine 12/02/2024 8:58 AM EDT Iron deficiency anemia secondary to inadequate dietary iron intake CBC Routine 12/02/2024 8:58 AM EDT Iron deficiency anemia secondary to inadequate dietary iron intake URINALYSIS, COMPLETE, WITH REFLEX TO CULTURE Routine 12/02/2024 8:58 AM EDT Type 2 diabetes mellitus without complication, without long-term current use of insulin (HCC) VITAMIN B12/FOLATE, SERUM PANEL Routine 12/02/2024 8:58 AM EDT Type 2 diabetes mellitus without complication, without long-term current use of insulin (HCC) LIPID PANEL, STANDARD Routine 12/02/2024 8:58 AM EDT Type 2 diabetes mellitus without complication, without long-term current use of insulin ([facility]) HEMOGLOBIN A1C Routine 12/02/2024 8:58 AM EDT Type 2 diabetes mellitus without complication, without long-term current use of insulin ([facility]) COMPREHENSIVE METABOLIC PANEL Routine 12/02/2024 8:58 AM EDT Type 2 diabetes mellitus without complication, without long-term current use of insulin ([facility]) ALBUMIN, RANDOM URINE W/CREATININE Routine 12/02/2024 8:58 AM EDT Type 2 diabetes mellitus without complication, without long-term current use of insulin ([facility]) CULTURE, URINE, ROUTINE Routine 12/02/2024 12:00 AM EDT Microscopic hematuria POCT GLYCATED HEMOGLOBIN, TOTAL Routine 11/02/2024 9:51 AM EDT Type 2 diabetes mellitus without complication, without long-term current use of insulin ([facility]) POCT GLUCOSE Routine 11/02/2024 9:51 AM EDT Type 2 diabetes mellitus without complication, without long-term current use of insulin ([facility]) GROSS AND MICROSCOPIC LEVEL 4 Routine 09/30/2024 [...] Recently Relevant to Health Maintenance Results * US Pelvis Transvaginal (12/21/2024 3:34 PM EDT) Anatomical Region Laterality Modality Pelvis Ultrasound 12/21/2024 3:34 PM EDT Narrative 12/21/2024 3:57 PM EDT [place] [address] Ultrasound Report Signed Patient: Catalina Castle Andrzej#: [id number] : 1985 Acct:[id number] Age/Sex: 39 / F ADM Date: 12/21/24 Loc: HO.US Attending Dr: Una Arenas MD Ordering Physician: Una Webb MD Date of Service: 12/21/24 Procedure(s): US pelvic and transvaginal Accession Number(s): [id number] cc: Una Webb MD Reason for Exam: pt w heavy menstrual periods EXAMINATION: US PELVIS CLINICAL INFORMATION: Heavy menstrual periods. COMPARISON: None available. TECHNIQUE: Ultrasound of the pelvis is performed using both transabdominal and transvaginal transducers along with Doppler. Transvaginal imaging is performed due to inadequate visualization transabdominally. FINDINGS: Uterus: The uterus is anteversion flexion and measures 11 x 4 x 6 cm. Volume: 107 cc. The double wall endometrial thickness is 6 mm. The uterus is smooth in contour and has normal myometrial echogenicity. No visible fibroid. Adnexa: Both ovaries are visualized. There is normal color flow to the adnexa. There is no ovarian torsion. There is no pelvic ascites or fluid collection. No free fluid in the cul-de-sac. Right ovary measures 3 x 1 x 2 cm. Volume 4 cc. No solid or cystic lesion. Left ovary measures 3 x 2 x 1 cm. Volume: 5 cc. US/US pelvic and transvaginal IMPRESSION: No uterine fibroid. No ovarian torsion. Endometrial stripe: 6 mm. No gross abnormality. Electronically signed by: Jann Naylor MD 12/21/2024 03:54 PM EDT Dictated By: Jann Mora MD Signed By: <Electronically signed by Jann Ramirez MD in OV> 12/21/24 1554 DD/ 1534 TD/TT: 12/21/24 1542 Lathe Sander: Procedure Note Donotuseinterpreter, Image - 12/21/2024 [place] [address] Ultrasound Report Signed Patient: Catalina Castle AM R#: [id number] : 1985Acct:[id number] Age/Sex: 39 / FADM Date: 12/21/24 Loc: HO.US Attending Dr: Una Arenas MD Ordering Physician: Una Webb MD Date of Service: 12/21/24 Procedure(s): US pelvic and transvaginal Accession Number(s): [id number] cc: Una Webb MD Reason for Exam: pt w heavy menstrual periods EXAMINATION: US PELVIS CLINICAL INFORMATION: Heavy menstrual periods. COMPARISON: None available. TECHNIQUE: Ultrasound of the pelvis is performed using both transabdominal and transvaginal transducers along with Doppler. Transvaginal imaging is performed due to inadequate visualization transabdominally. FINDINGS: Uterus: The uterus is anteversion flexion and measures 11 x 4 x 6 cm. Volume: 107 cc. The double wall endometrial thickness is 6 mm. The uterus is smooth in contour and has normal myometrial echogenicity. No visible fibroid. Adnexa: Both ovaries are visualized. There is normal color flow to the adnexa. There is no ovarian torsion. There is no pelvic ascites or fluid collection. No free fluid in the cul-de-sac. Right ovary measures 3 x 1 x 2 cm. Volume 4 cc. No solid or cystic lesion. Left ovary measures 3 x 2 x 1 cm. Volume: 5 cc. US/US pelvic and transvaginal IMPRESSION: No uterine fibroid. No ovarian torsion. Endometrial stripe: 6 mm. No gross abnormality. Electronically signed by: Jann Naylor MD 12/21/2024 03:54 PM EDT RP Dictated By: Jann Mora MD Signed By: <Electronically signed by Jann Ramirez MDin OV> 12/21/24 1554 DD/ 1534 TD/TT: 12/21/24 1542 Lathe Sander: Una Arenas MD IMG US PROCEDURES Final Result * Vitamin B12 (Cobalamin) and Folate Panel, Serum (12/02/2024 8:58 AM EDT) Vitamin B12 308 200 - 900 pg/mL [facility] Comment:NORMAL 200-900 PG/M L INDETERMINATE 160-199 PG/ML DEFICIENT < 160 PG/ML Folate 8.7 > or = 4.0 ng/mL [facility] Comment:Reference Values:> o r = 4.0 ng/mL< 4.0 ng/mL suggests folate deficiency Methotrexate, aminopterin and folinic acid(leucovorin) are chemotherapeutic agents whose molecularstructures are similar to folate; therefore, the Architectfolate assay cannot be used for patients using these drugs. Blood 12/02/2024 8:58 AM EDT 12/02/2024 11:16 AM EDT Una Arenas MD LAB BLOOD ORDERAB LES Final Result [facility] [address] [place] [phone] * (ABNORMAL) Urinalysis, Complete, with Reflex to Culture (12/02/2024 8:58 AM EDT) Color Urine Dark Yellow [facility] Appearance Urine Clear [facility] PH 5.0 5.0 - 9.0 [facility] Glucose Urine UA Negative Negative mg/dL [facility] Urine Blood Small (1+)(A) Negative [facility] Specific [place] - Urine 1.025 1.005 - 1.025 [facility] Urine Protein Negative Neg-Trace mg/dL [facility] Urine Ketones Negative Negative mg/dL [facility] Nitrite Urine Negative Negative [facility] Leukocyte Esterase Urine Negative Negative [facility] RBC Urine 6-10(A) 0 - 2 /HPF [facility] Urine WBC 6-10(A) 0 - 5 /HPF [facility] Urine Squamous Epithelial Cell 6-10 0 - 2 /HPF [facility] Urine Bacteria 1+ None Seen [facility] Hyaline Casts, Urine 0-2 0 - 2 /LPF [facility] Urine 12/02/2024 8:58 AM EDT 12/02/2024 11:03 AM EDT Narrative [facility] - 12/02/2024 11:24 AM EDT Urine, Clean Catch us Una Arenas MD LAB URINE ORDERAB LES Final Result Performing Organization Address City/State/[facility] Co de Phone Number [facility] [address] [place] [phone] * Albumin, Random Urine W/Creatinine (12/02/2024 8:58 AM EDT) Creatinine, Urine 229.09 mg/dL [facility] Microalbumin Urine 19.0 mg/L [facility] Microalbum Creatinine Ratio Ur 8.2 <30 ug/mg cr [facility] Comment:Albumin/Creatinine R atio Reference Ranges: Normal: < 30 ug/mg creatinine Microalbuminuria: 30 - 300 ug/mg creatinineClinical Albuminuria: > 300 ug/mg creatinine Urine (Urine, Random) 12/02/2024 8:58 AM EDT 12/02/2024 11:03 AM EDT us Una Arenas MD LAB URINE ORDERAB LES Final Result Performing Organization Address [facility]/ZIP Co de Phone Number [facility] [address] [place] [phone] * Iron And Total Iron Binding Capacity (12/02/2024 8:58 AM EDT) Pathologist [facility] Iron 39 30 - 160 mcg/dL [facility] Total Iron Binding Capacity 262 228 - 428 mcg/dL [facility] Percent Iron Saturation 15 15 - 50 % [facility] Unsaturated Iron Binding 223 ug/dL [facility] Blood Venous blood specimen / Unknown 12/02/2024 8:58 AM EDT 12/02/2024 11:32 AM EDT us Una Arenas MD LAB BLOOD ORDERAB LES Final Result Performing Organization Address City/[facility]/ZIP Co de Phone Number [facility] [address] [place] [phone] * (ABNORMAL) CBC (12/02/2024 8:58 AM EDT) [facility] White Blood Count 6.6 4.8 - 10.8 X10*3/uL [facility] Red Blood Count 4.43 4.20 - 5.50 X10*6/uL [facility] Hemoglobin 11.7(L) 12.0 - 16.0 g/dl [facility] Hematocrit 37.0 37.0 - 47.0 % [facility] Mean Corpuscular Volume 83.5 80.0 - 98.0 fL [facility] Mean Corpuscular Hemoglobin 26.4(L) 27.0 - 33.0 pg [facility] Mean Corpuscular HGB Conc 31.6 31.0 - 35.0 g/dl [facility] Red Cell Distribution Width 14.3 11.0 - 16.0 % [facility] Platelet Count 495(H) 160 - 400 X10*3/uL [facility] Mean Platelet Volume 9.5 9.4 - 12.3 fL [facility] NRBC Pct Auto 0.0 0.0 - 0.2 /100WBC [facility] NRBC Abs Auto 0.000 0.0 - 0.012 X10*3/uL [facility] Blood Venous blood specimen / Unknown 12/02/2024 8:58 AM EDT 12/02/2024 11:11 AM EDT Una Arenas MD LAB BLOOD ORDERAB LES Final Result Performing Organization Address [facility]/ZIP Co de Phone Number [facility] [address] [place] [phone] * Hemoglobin A1c (12/02/2024 8:58 AM EDT) Hemoglobin A1c 5.0 <6.0 % [facility] Comment:Hemoglobin A1C Refer ence Range Adults: 4.8 - 6.0 % Non diabetic: < 6.0 % Goal: < 7.0 %Additional Action Suggested: > 8.0 %Note: Hemoglobin A1c results are invalid for patients with abnormal amounts of HbF. Blood transfusions may impact the HbA1c concentration in the patient sample. Estimated Average Glucose 97 mg/dL [facility] Comment:eAG = Estimated ave rage glucose which is %A1C expressed asaverage glucose, using the formula of the M9P-TpvamciPmpessi Glucose study (ADAG), Diabetes Care, Vol.31,#8,Sep. 2007 Blood Venous blood specimen / Unknown 12/02/2024 8:58 AM EDT 12/02/2024 11:11 AM EDT us Una Arenas MD LAB BLOOD ORDERAB LES Final Result Performing Organization Address [facility]/ZIP Co de Phone Number [facility] [address] [place] [phone] * Ferritin (12/02/2024 8:58 AM EDT) Ferritin 44 10 - 122 ng/mL [facility] Blood Venous blood specimen / Unknown 12/02/2024 8:58 AM EDT 12/02/2024 11:32 AM EDT us Una Arenas MD LAB BLOOD ORDERAB LES Final Result Performing Organization Address [facility] Co de Phone Number [facility] [address] [place] [address] [phone] * (ABNORMAL) Lipid Panel, Standard (12/02/2024 8:58 AM EDT) Triglycerides 92 <150 mg/dL [facility] Comment:Desirable Triglyceri de: less than 150 mg/dLBorderline High Triglyceride 150-199 mg/dLHigh Triglyceride: 200-499 mg/dLVery High Triglyceride: greater than or equal to 5OO mg/dL Cholesterol 206(H) <200 mg/dL [facility] Comment:Desirable Cholestero l: less than 200 mg/dLBorderline High Cholesterol: 200-239 mg/dLHigh Cholesterol: greater than 239 mg/dL LDL Cholesterol Calculated 138(H) <100 mg/dL [facility] Comment:Desirable LDL: less than 100 mg/dLNear Optimal/Above Optimal LDL: 110- 129 mg/dLBorderline High LDL: 130-159 mg/dLHigh LDL: 160-189 mg/dLVery High LDL: greater than or equal to 190 mg/dL HDL Cholesterol 50 >40 mg/dL [facility] Comment:Desirable HDL: great er than 40 mg/dL Note: This HDL assay may give artificially low results in patients with liver disease. Blood Venous blood specimen / Unknown 12/02/2024 8:58 AM EDT 12/02/2024 11:32 AM EDT us Una Arenas MD LAB BLOOD ORDERAB LES Final Result Performing Organization Address City/[facility]/ZIP Co de Phone Number [facility] [address] [place] [phone] * (ABNORMAL) Comprehensive Metabolic Panel (12/02/2024 8:58 AM EDT) Sodium 139 135 - 145 mmol/L [facility] Potassium 3.6 3.3 - 5.1 mmol/L [facility] Chloride 108 96 - 108 mmol/L [facility] Carbon Dioxide 24 22 - 29 mmol/L [facility] Anion Gap 11(L) 12 - 20 [facility] Urea Nitrogen (BUN) 9 9 - 16 mg/dL [facility] Creatinine, Serum 0.65 0.5 - 1.4 mg/dL [facility] Estimated Glomerular Filt Rate >60 [facility] Comment:Chronic Kidney Disea se: Estimated GFR < 60 mL/min/1.63m2Qczdge Kidney Disease: Estimated GFR < 15 mL/min/1.73m2 Glucose 85 60 - 115 mg/dL [facility] Calcium 9.3 8.4 - 10.2 mg/dL [facility] Bilirubin, Total 0.4 0.0 - 1.0 mg/dL [facility] Aspartate Amino Transferase 14 5 - 31 U/L [facility] Alanine Aminotransferase 7 0 - 31 U/L [facility] Total Protein 7.5 6.5 - 8.0 g/dL [facility] Albumin Level 4.4 3.5 - 5.0 g/dL [facility] Alkaline Phosphatase 77 39 - 117 U/L [facility] Blood Venous blood specimen / Unknown 12/02/2024 8:58 AM EDT 12/02/2024 11:32 AM EDT us Una Arenas MD LAB BLOOD ORDERAB LES Final Result [facility] [address] [place] [phone] * Culture, Urine, Routine (12/02/2024 12:00 AM EDT) Urine Urine specimen obtained by clean catch procedure / Unknown 12/02/2024 12/02/2024 Comment:UACC Narrative [facility] - 12/03/2024 1:16 PM EDT Urine Culture Report Result Urine Culture 10,000 to 50,000 cfu/ml Urine Culture Mixed bacterial dana characteristic of Urine Culture urogenital contamination. Specimen Source: Urine clean catch Una Arenas MD LAB MICROBIOLOGY - GENERAL ORDERABLES Final Result [facility] [address] [place] [address] [phone] * POCT Hgb A1c (11/02/2024 9:51 AM EDT) Hemoglobin A1C 5.1 4.0 - 5.7 % QC Media Lot # [id number] Lot# Expiration Date ,[id number] Blood 11/02/2024 9:51 AM EDT Una Arenas MD POINT OF CARE EMERITA T ENTER/EDIT ORDERABLES Final Result * POCT Glucose (11/02/2024 9:51 AM EDT) Glucose Blood, POC 104 60 - 200 mg/dL [employer] Lot # [id number] Lot# Expiration Date [id number] Blood Capillary blood specimen / Unknown 11/02/2024 9:51 AM EDT Una Arenas MD POINT OF CARE EMERITA T ENTER/EDIT ORDERABLES Final Result * Gross and Microscopic Level 4 (09/30/2024 10:14 AM EDT) 09/30/2024 10:1 4 AM EDT 09/30/2024 11:20 AM EDT Narrative [facility] - 10/03/2024 11:53 AM EDT ----- ------- Name: Catalina Castle Age/Sex: 38/F : 1985 [id number]#: [id number] Attend Dr: Sabra Godfrey MD Re09/30/24 Status: [facility] Location: [facility] Disch: ----- ------- SPEC : [id number] RECD: 09/30/24 STATUS: CARLO POSADA NUM: [id number] VINCENT: 09/30/24-[address] [facility] [address]: Sabra Godfrey MD ENTERED: 09/30/24 SP [...] microscopic examination, 4 pieces in cassette B. ([facility]) IHC S/NG Disclaimer NOTE: Unless otherwise stated, all tissue is formalin-fixed and paraffin-embedded. Some or all of the immunohistochemical tests reported herein may have been developed and their performance characteristics determined by [facility]. They have not been cleared or approved by the U.S. Food and Drug Administration (FDA). However, the FDA has determined that such clearance or approval is not necessary. This laboratory is certified under the Clinical Laboratory Improvement Amendments of 1988 (CLIA) as qualified to perform high complexity clinical laboratory testing. CONTINUED ON NEXT PAGE ----- ------- Name: Real ArenasCatalina A Age/Sex: 38/F : 1985 Unit#: [id number] Attend Dr: Sabra Godfrey MD Re09/30/24 Status: [facility] Location: [facility] Disch: ----- ------- SPEC : [id number] RECD: 09/30/24 STATUS: CARLO POSADA NUM: [id number] VINCENT: 09/30/24-[address] [facility] [address]: Sabra Godfrey MD ENTERED: 09/30/24 SP TYPE: Surgical OTHR DR: Una Webb MD ORDERED: Gross Micro L4/2 Copies To: Una Webb MD [address] [place] [address] Sabra Godfrey MD [facility] [address] [place] [address] [email or web address] ----- ------- Signed (signature on file) Aixa Sherman 10/03/24 1153 ----- ------- END OF REPORT Generic External Data Provider LAB CYTOLOGY ORDE RABLES Final Result Performing Organization Address [place]/[facility] Co de Phone Number [facility] [address] [place] [address] [phone] * HCG, Qualitative, Urine (09/30/2024 8:43 AM EDT) [facility] Urine NEGATIVE NEGATIVE [facility] Comment:This test was develo ped to detect early . Falsenegative results may occur after the 5th - 7th week ofpregnancy when using this test method. If clinicallyindicated, consider a serum hCG. 09/30/2024 8:43 AM EDT 09/30/2024 9:03 AM EDT Generic External Data Provider LAB URINE ORDERAB LES Final Result Performing Organization Address [facility] Co de Phone Number [facility] [address] [place] [phone] * Hepatitis C Antibody with Reflex to HCV, RNA, Quantitative, Real-Time PCR (07/22/2024 8:01 AM EDT) Hepatitis C Antibody Nonreactive Nonreactive [facility] Comment:Antibodies to HCV no t detected; does not exclude early acuteHCV infection. Blood Venous blood specimen / Unknown 07/22/2024 8:01 AM EDT 07/22/2024 11:38 AM EDT us Una Arenas MD LAB BLOOD ORDERAB LES Final Result Performing Organization Address [facility] Co de Phone Number [facility] [address] [place] [phone] * HIV-1/2 Antigen and Antibodies, Fourth Generation, with Reflexes (07/22/2024 8:01 AM EDT) HIV AB/AG Nonreactive Nonreactive [facility] Comment:HIV-1 p24 Ag and/or HIV-1/HIV-2 Ab not detected.A test result that is nonreactive does not exclude thepossibility of exposure to or infection with HIV-1 and/orHIV-2. Nonreactive results in this assay for individualswith prior exposure to HIV-1 and/or HIV-2 may be due toantigen and antibody levels that are below the limit ofdetection of this assay.The [employer] HIV Ag/Ab Combo assay result andsupplemental assay results should be interpreted inconjunction with the patient's clinical presentation,history and other laboratory results. If the results areinconsistent with clinical evidence, additional testing issuggested to confirm the result. Blood Venous blood specimen / Unknown 07/22/2024 8:01 AM EDT 07/22/2024 11:38 AM EDT us Una Arenas MD LAB BLOOD ORDERAB LES Final Result Performing Organization Address [facility]/ZIP Co de Phone Number [facility] [address] [place] [address] [phone] * HPV mRNA E6/E7 w/Reflex to HPV Genotypes 16, 18/45 (07/14/2022 11:43 AM EDT) HPV nRNA E6/E7 Not Detected Not Detected [facility] Comment:Methodology: Transcr iption-Mediated AmplificationThis assay detects E6/E7 viral messenger RNA (mRNA) from 14high-risk HPV types (16,18,31,33,35,39,45,51,52,56,58,59,66,68).Cervical sources are required for HPV testing.If a vaginal source from a patient who has had atotal hysterectomy with removal of cervix wassubmitted, please contact the testing laboratoryfor alternative testing options.For additional information, please refer [email or web address].[employer]faq/BKR822q7(This link if provided for information/educational purposes only.)THIS TEST WAS PERFORMED AT:[employer] [place] [phone] ULLOA MD HPV mRNA E6/E7 [facility] HPV 16 RNA [facility] HPV 18/45 RNA [facility] 07/14/2022 11:4 3 AM EDT 07/15/2022 8:30 AM EDT us [facility] External Provider LAB CYT OLOGY ORDERABLES Final Result Performing Organization Address [facility]/ZIP Co de Phone Number [facility] [address] [place] [address] [phone] * Pap Smear (07/14/2022 11:43 AM EDT) 07/14/2022 11:4 3 AM EDT 07/15/2022 8:30 AM EDT Narrative [facility] - 07/28/2022 1:14 PM EDT ----- ------- Name: Catalina Castle Age/Sex: 36/F : 1985 Unit#: [id number] Attend Dr: Rasheeda Urias [facility] Re07/14/22 Status: DEP REF Location: [facility] Disch: ----- ------- SPEC : [id number] RECD: 07/15/22 STATUS: CARLO POSADA NUM: [id number] VINCENT: 07/14/[address] [facility] [address]: Rasheeda Urias [facility] ENTERED: 07/15/22-1006 SP TYPE: Pap Smr OTHR DR: Sara Newsome DO ORDERED: Pap Smear Interpretation Satisfactory for evaluation. Negative for intraepithelial lesion or malignancy. HPV mRNA E6/E7: NOT DETECTED This assay detects E6/E7 viral messenger RNA (mRNA) from 14 high-risk HPV types (16, 18, 31, 33, 35, 39, 45, 51, 52, 56, 58, 59, 66, 68) HPV testing performed by [employer], [place], [place]. See reference laboratory pion of the EMR for entire report. Clinical Information LMP: 06/23/22 Previous PAP test: 10/30/16, WNL Material Received ThinPrep-Cervical Copies To: Sara Newsome DO [address] [place] [address] Rasheeda Urias [address] [place] [phone] ----- ------- Signed (signature on file) REBECCA Andrade ([facility]) 07/28/22 1314 ----- ------- END OF REPORT [facility] External Provider LAB CYT [facility] ORDERABLES Final Result [facility] [address] [place] [address] [phone] from Last 3 Months or Most Recently Relevant to Health Maintenance Insurance [facility] [employer] ST[place] AD[place] Care Teams Commercial Collections Specialist Relationship Specialty Start Date End Date Una Webb MD [address] [place] [phone] PCP - General Internal Medicine 11/17/22 Morris Haney RN [address] [place] [address] Blending Kettle TenderNon Destructive Testing Scientist 06/29/24
--- OUTSIDE RECORDS SUMMARY | 2024-12-21 19:39 | XMS_ITS | Encounter Summary ---
Author Organization [employer] Address [address] [place] [address] [place] [address] Care Team Providers Care Needle Setter Name Role Phone Una Webb MD Primary Care Pro vider Morris Haney RN Unavailable [phone] Estefany Haney Unavailable Morris Haney RN Unavailable [phone] Reason for Visit * Reason Comments Med Change Request Encounter Details Date Type Department Care Team (Late st Contact Info) Description 05/21/2023 Refill [facility] MEDICINE [address] [place], [place] [phone] Una Webb MD [address] [place], [place] [phone] Social History Tobacco Use Types Packs/Day Years [...] Description 02/03/2025 1:00 PM EST Office Visit [facility] [address] [place] [phone] nUa Webb MD [address] [place] [address] documented as of this encounter Visit Diagnoses Not on filedocumented in this encounter Additional Health Concerns Assessment Noted Time PHQ-9 Depression Total Score: 4 03/18/19 24 11:06 AM EST documented as of this encounter Care Teams Needle Setter Relationship Specialty Start Date End Date Una Webb MD [address] [place] [address] PCP - General Internal Medicine 11/17/22 Morris Haney RN [address] [place] [address] Gauge Maker ApprenticeDie Tester 08/31/23 06/05/24 Estefany Haney Community Health Worker 09/09/2306/05 Morris Haney RN [address] [place] [address] Gauge Maker ApprenticeDie Tester 06/29/24 documented as of this encounter
--- OUTSIDE RECORDS SUMMARY | 2024-12-21 19:39 | XMS_ITS | Encounter Summary ---
Author Organization [employer] Address [address] [facility] [address] [place] [address] Care Team Providers Care Survey Rodman Name Role Phone Una Webb MD Primary Care Pro vider Morris Haney RN Unavailable [phone] Estefany Haney Unavailable Morris Haney RN Unavailable [phone] Reason for Visit * Reason Onset Date Comments Med Refill 12/10/2022 Encounter Details Date Type Department Care Team (Late st Contact Info) Description 12/10/2022 Refill [facility] MED[facility]INE [address] [place] [address] Cora Wolfe FNP Primary hypertension Social History [...] Description 02/03/2025 1:00 PM EST Office Visit [facility] MED[facility]INE [address] [place] [phone] Una Webb MD [address] [place] [address] documented as of this encounter Visit Diagnoses Diagnosis Primary hypertension Unspecified essential hypertension documented in this encounter Additional Health Concerns Assessment Noted Time PHQ-9 Depression Total Score: 2 02/27/19 10:36 AM EST documented as of this encounter Care Teams Survey Rodman Relationship Specialty Start Date End Date Una Webb MD [address] [place] [address] PCP - General Internal Medicine 11/17/22 Morris Haney RN [address] [place] [address] Grocery Clerk StockingFront Office Help 08/31/23 06/05/24 Estefany Haney Community Health Worker 09/09/2306/05 Morris Haney RN [address] [place] [address] Grocery Clerk [employer] Office Help 06/29/24 documented as of this encounter
--- OUTSIDE RECORDS SUMMARY | 2024-12-21 19:39 | XMS_ITS | Encounter Summary ---
Author Organization [employer] Address [address] [place] [address] [place] [address] Care Team Providers Care Sub Arc Operator Name Role Phone Una Webb MD Primary Care Pro vider Morris Haney RN Unavailable [phone] Estefany Haney Unavailable Morris Haney RN Unavailable [phone] Reason for Visit * Reason Comments Med Refill Encounter Details Date Type Department Care Team (Late st Contact Info) Description 10/04/2023 Refill [facility] MEDICINE [address] [place], [place] [phone] Una Webb MD [address] [place], [place] [phone] Social History Tobacco Use Types Packs/Day Years [...] Description 02/03/2025 1:00 PM EST Office Visit [facility] MEDICINE [address] [place] [address] Una Webb MD [address] [place] [address] documented as of this encounter Visit Diagnoses Not on filedocumented in this encounter Additional Health Concerns Assessment Noted Time PHQ-9 Depression Total Score: 4 03/18/19 24 11:06 AM EST documented as of this encounter Care Teams Sub Arc Operator Relationship Specialty Start Date End Date Una Webb MD [address] [place] [address] PCP - General Internal Medicine 11/17/22 Morris Haney, RN [address] [place] [address] Farmworker VegetableEconomic Developer 08/31/23 06/05/24 Estefany Haney Community Health Worker 09/09/2306/05 Morris Haney RN [address] [place] [address] Farmworker VegetableEconomic Developer 06/29/24 documented as of this encounter
--- OUTSIDE RECORDS SUMMARY | 2024-12-21 19:39 | XMS_ITS | Encounter Summary ---
Author Organization [employer] [facility] Address [address] [place] [address] Care Team Providers Care Shortage Worker Name Role Phone Cora Wolfe Primary Care Provider Lizz Una Walker MD Primary Care Pro vider Morris Haney RN Unavailable [phone] Estefany Haney Unavailable Morris Haney RN Unavailable [phone] Encounter Details Date Type Department Care Team (Latest Contact Info) Description 03/26/2020 Abstract [facility] CONVERSIONS Dental, Provider, DDS Social History Tobacco [...] Upcoming Encounters Date Type Department Care Team ( st Contact Info) Description 02/03/2025 1:00 PM EST Office Visit [facility] MEDICINE [address] [place] [address] Una Webb MD [address] [place], [place] [phone] documented as of this encounter Visit Diagnoses Not on filedocumented in this encounter Care Teams Shortage Worker Relationship Specialty Start Date End Date Cora Wolfe FNP PCP - General Family Medicine 8/27/22 9/24/23 Una Webb MD [address] [place] [address] PCP - General Internal Medicine 11/17/22 Morris Haney, JAEL [address] [place] [address] Testing CoordinatorInspector Advanced Composite 08/31/23 06/05/24 Estefany Haney Community Health Worker 09/09/2306/05 Morris Haney, JAEL [address] [place] [address] Testing CoordinatorInspector Advanced Composite 06/29/24 documented as of this encounter
== END 2024-12-21 15:19 | disposition home or self-care (01) ==
LOC: HO.US 15:18
PROVIDERS: PCP Student in an Organized Health Care Education/Training Program; Visit Provider Student in an Organized Health Care Education/Training Program
DX: N92.4 Excessive bleeding in the premenopausal period (principal)
CPT/HCPCS: 76830; 76856

== ENCOUNTER → 2024-12-21 15:21 | Outpatient (BNV) | payer MEDICAID, SELFPAY | PROVIDERS: PCP Student in an Organized Health Care Education/Training Program; Visit Provider Radiology Diagnostic Radiology | DX: N92.0 Excessive and frequent menstruation with regular cycle (principal) | CPT/HCPCS: 76830; 76856 ==

== ENCOUNTER 2025-01-07 01:42 | Emergency (ER) | payer MEDICAID, SELFPAY ==
[2025-01-07 01:55] VITALS: BP 121/89; PULSE 99; RESP 18; TEMP 36.7; O2SAT 98; BMI 29.6
--- NOTE | 2025-01-07 02:07 | ED.ABDPAIN ---
HPI - Abdominal Pain General Chief Complaint: Abdominal Pain Stated Complaint: N/V fever Time Seen by Provider: 01/07/25 01:57 Source: patient Mode of arrival: ambulatory Limitations: no limitations History of Present Illness ED Provider: Dr. Delaney Calloway HPI narrative: patient comes to the emergency room complaining of 4 days of Chills, nausea vomiting, abdominal discomfort. Patient denies fever chills, denies diarrhea. Related Data Home Medications ?Medication ?Instructions ?Recorded ?Confirmed lurasidone 20 mg tablet (Latuda) 20 mg PO DAILY 04/10/20 09/27/24 albuterol sulfate 90 mcg/actuation 2 puff PO Q4-6H PRN Shortness Of 01/28/21 09/27/24 aerosol inhaler (ProAir HFA) Breath Or Wheezing hydroxyzine pamoate 25 mg capsule 25 mg PO BID PRN Anxiety 01/28/21 09/27/24 losartan 25 mg tablet 25 mg PO DAILY 01/28/21 09/27/24 zolpidem 5 mg tablet 5 mg PO BEDTIME PRN Insomnia 01/28/21 09/27/24 cetirizine 10 mg tablet 10 mg PO QAM 12/09/23 09/27/24 ergocalciferol (vitamin D2) 1,250 1,250 mcg PO QWEEK 12/09/23 09/27/24 mcg (50,000 unit) capsule esomeprazole magnesium 40 mg 40 mg PO DAILY 12/09/23 09/27/24 capsule,delayed release magnesium oxide 400 mg (241.3 mg 400 mg PO DAILY 12/09/23 09/27/24 magnesium) tablet blood sugar diagnostic (FreeStyle #10 ea 03/14/24 07/06/24 Lite Strips) escitalopram oxalate 10 mg tablet 10 mg PO BEDTIME 03/14/24 09/27/24 riboflavin (vitamin B2) 100 mg 100 mg PO DAILY 03/14/24 09/27/24 tablet (Vitamin B-2) semaglutide 1 mg/dose (4 mg/3 mL) 1 mg subcut QWEEK 03/14/24 09/27/24 subcutaneous pen injector (Ozempic) topiramate 50 mg tablet 50 mg PO DAILY 03/14/24 09/27/24 Previous Rx's ?Medication ?Instructions ?Recorded epbatvvhci-ebfyfkcfrlqze-ugvgrgjv 1 cap PO Q6H PRN Headache #20 caps 11/10/20 50 mg-300 mg-40 mg capsule (Fioricet) metronidazole 0.75 % (37.5 mg/5 1 appful vaginal BEDTIME 5 days 07/15/22 gram) vaginal gel #70 grams sodium phosphates 19 gram-7 118 ml WA DAILY PRN constipation 02/21/23 gram/118 mL enema (Fleet Enema) #133 mL ondansetron 4 mg disintegrating 4 mg PO TID PRN nausea and 04/25/23 tablet vomiting 5 days #10 tabs diclofenac sodium 1 % topical gel 4 g topical QID PRN for pain #100 10/28/23 grams cholecalciferol (vitamin D3) 1,250 1,250 mcg PO QWEEK 90 days #13 caps 12/24/23 mcg (50,000 unit) capsule omeprazole 20 mg capsule,delayed 20 mg PO BID #180 caps 03/14/24 release linaclotide 72 mcg capsule 72 mcg PO DAILY #30 caps 06/06/24 (Linzess) cyclobenzaprine 5 mg tablet 5 mg PO BEDTIME PRN muscle spasm 07/06/24 #90 tabs duloxetine 30 mg capsule,delayed 30 mg PO BID #180 caps 07/06/24 release (Cymbalta) Magic Mouthwash 10 ml PO TID PRN throat discomfort 09/30/24 Diphen/Lido/Antacid 1:1:1 240 mL 3 days #240 mL suspension Allergies Allergy/AdvReac Type Severity Reaction Status Date / Time Iodinated Contrast Media (IV Allergy Mild NAUSEA & Verified 01/07/25 01:59 CONTRAST) VOMITING PMFSH Past Medical History Medical History GERD (gastroesophageal reflux disease) Right knee pain Prolapsed hemorrhoids Fibromyalgia High blood pressure Diabetes Surgical History Hx of colonoscopy Hx of section Hx of hernia repair Family History Family History Father Diabetes Mother HTN (hypertension) Social History Social History Alcohol intake: never Patient Tobacco Use Status: Never used Tobacco Smoked in Last 30 Days: No Use of substances other than those prescribed or required for medical reasons: No Advance Directives: No Advance Directives Information Provided: Yes Current occupational status: employed 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 Oriented X3. No acute distress. Eyes: Pupils equal, round and reactive to light. ENT: Pharynx normal. Neck: Normal inspection. Neck supple. No lymph nodes noted. No crepitus CVS: Normal heart rate and rhythm. Pulses normal. Normal S1 and S2 Respiratory: No respiratory distress. Breath sounds normal. No Wheezing. No rales Abdomen: Soft and nontender. No rigidity. No distention. Skin: Skin warm and dry. Normal skin color. Normal skin turgor. Extremities: No lower extremity edema. No Lacerations. No Rash Neuro: Oriented X 3. No motor deficit. No sensory deficit. Moving all extremities. No slurred speech. CN 2 through 12 grossly intact Psych: calm, cooperative, normal affect Vital Signs: Vital Signs - 24 hr 01/07/25 01:55 Temperature 98.1 F Pulse Rate 99 Respiratory Rate 18 Blood Pressure 121/89 Pulse Oximetry 98 Oxygen Delivery Method Room Air BMI result Body Mass Index 29.6 Medical Decision Making Medical Decision Making [facility] Narrative: my interpretation of labs: No significant abnormality in patient's hematology or chemistry. It was noted that patient has chronically blood in the urine. Patient does not have any urinary symptoms. Patient states that she was recently sent to a cobol mainframe developer by her PCP. Patient is not sure if she got sent to Gynecology or Urology. I do not see any current nose from either specialist, only from health information administrator. I discussed with the patient that I will refer her to Urology, she may need a cystoscopy. Patient is a longer having any epigastric pain, nausea or vomiting. Overall feeling better. Patient likely has a viral syndrome Differential Diagnosis Differential Diagnoses: The differential diagnosis associated with the presentation includes ( gastritis, gastroenteritis, viral illness) Admission/Observation Consideration of admission/observation: Escalation of care including admission/observation considered ( given patient's presentation and symptoms, observation was considered) Lab Data [facility] Lab Attestation statement: I reviewed the patient's lab results. 01/07/25 02:12 01/07/25 02:12 Labs: Lab Results 01/07/25 01/07/25 Range/Units 02:12 02:42 WBC 8.7 (4.8-10.8) X10*3/uL RBC 4.31 (4.20-5.50) X10*6/uL Hgb 11.5 L (12.0-16.0) g/dl Hct 35.6 L (37.0-47.0) % MCV 82.6 (80.0-98.0) fL MCH 26.7 L (27.0-33.0) pg MCHC 32.3 (31.0-35.0) g/dl RDW 14.0 (11.0-16.0) % Plt Count 469 H (160-400) X10*3/uL MPV 8.9 L (9.4-12.3) fL Immature Gran % (Auto) 0.2 (0.0-0.4) % Neut % (Auto) 70.9 (45-73) % Lymph % (Auto) 23.1 (20-40) % [place] % (Auto) 4.3 (2-11) % Eos % (Auto) 0.9 (0-4) % Baso % (Auto) 0.6 (0-2) % Lymph # (Auto) 2.0 (1.2-4.9) X10*3/uL [place] # (Auto) 0.4 (0.1-1.2) X10*3/uL Eos # (Auto) 0.1 (0.0-0.4) X10*3/uL Baso # (Auto) 0.1 (0.0-0.2) X10*3/uL Abs Immat Gran (auto) 0.02 (0.00-0.03) X10*3/uL Absolute Neuts (auto) 6.1 (2.0-8.3) x10*3/uL Absolute Nucleated RBC 0.000 (0.0-0.012) X10*3/uL Nucleated RBC % (auto) 0.0 (0.0-0.2) /100WBC Sodium 138 (135-145) mmol/L Potassium 3.7 (3.3-5.1) mmol/L Chloride 105 (96-108) mmol/L Carbon Dioxide 24 (22-29) mmol/L Anion Gap 13 (12-20) BUN 7 L (9-16) mg/dL Creatinine 0.57 (0.5-1.4) mg/dL Estim Creat Clear Calc 140.4 Estimated GFR > 60 Random Glucose 105 (60-115) mg/dL Calcium 9.4 (8.4-10.2) mg/dL Total Bilirubin 0.4 (0.0-1.0) mg/dL AST 14 (5-31) U/L ALT 10 (0-31) U/L Alkaline Phosphatase 75 (39-117) U/L Total Protein 7.6 (6.5-8.0) g/dL Albumin 4.5 (3.5-5.0) g/dL Lipase 20 (8-78) U/L Beta HCG, Quant < 2 mIU/mL Urine Color Yellow Urine Appearance Clear Urine pH 6.0 (5.0-9.0) Ur Specific [place] >= 1.030 H (1.005-1.025) Urine Protein Negative (Neg-Trace) mg/dL Urine Glucose (UA) Negative (Negative) mg/dL Urine Ketones Trace (Negative) mg/dL Urine Blood Moderate (2+) H (Negative) Urine Nitrite Negative (Negative) Ur Leukocyte Esterase Negative (Negative) Urine RBC 11-20 H (0-2) /HPF Urine WBC 0-5 (0-5) /HPF Ur Squamous Epith Cells 6-10 (0-2) /HPF Urine Bacteria 1+ (None Seen) Hyaline Casts 0-2 (0-2) /LPF COVID-19 (TRUPTI) Negative (Negative) COVID-19 Clin Com See Note Influenza Type A (ZENY) Negative (Negative) Influenza Type B (ZENY) Negative (Negative) Influenza A & B Note See Note Medications Administered Discontinued Medications Generic Name Dose Route Start Last Admin Trade Name Freq PRN Reason Stop Dose Admin Famotidine 20 mg 01/07/25 02:07 01/07/25 02:22 Famotidine/Pf 20 Mg/2 Ml Vial IVPUSH 01/07/25 02:08 20 mg ONCE ONE Administration Sodium Chloride 1,000 mls @ 999 mls/hr 01/07/25 02:07 01/07/25 02:22 Ns IVCONT 01/07/25 03:07 999 mls/hr .Q1H1M ONE Administration Ondansetron HCl 4 mg 01/07/25 02:07 01/07/25 02:22 Ondansetron Hcl 4 Mg/2 Ml Vial IVPUSH 01/07/25 02:08 4 mg ONCE ONE Administration Critical Care Time Critical Care Time Critical Care Time: Yes Total Critical Care Time: 35 Attestation: I have personally provided critical care time. Time includes review of lab data, radiology results, discussion with consultants, and monitoring for potential decompensation. Intervention performed as documented. Discharge Plan Discharge Clinical Impression: Acute epigastric pain, Nausea & vomiting, Chronic cystitis with hematuria Patient Disposition: Home, Self-Care Instructions: Abdominal Pain (ED), Acute Nausea and Vomiting (ED) Additional Instructions: Please follow-up with your primary care physician tomorrow. If you have any worsening or new symptoms, please return to the emergency room or call 911 Prescriptions: No Action metronidazole 0.75 % (37.5mg/5 gram) gel 1 appful vaginal BEDTIME 5 Days Qty: 70 0RF diclofenac sodium 1 % gel 4 g topical QID PRN (Reason: for pain) Qty: 100 1RF cholecalciferol (vitamin D3) 1,250 mcg (50,000 unit) capsule 1,250 mcg PO QWEEK 90 Days Qty: 13 0RF Linzess 72 mcg capsule 72 mcg PO DAILY Qty: 30 2RF zpebrclmjr-kjmxlepvyoivv-jsgz [Fioricet] 50-300-40 mg capsule 1 cap PO Q6H PRN (Reason: Headache) Qty: 20 0RF Fleet Enema 19-7 gram/118 mL enema 118 ml WA DAILY PRN (Reason: constipation) Qty: 133 2RF ondansetron 4 mg tablet,disintegrating 4 mg PO TID PRN (Reason: nausea and vomiting) 5 Days Qty: 10 0RF Magic Mouthwash Diphen/Lido/Antacid 1:1:1 240 mL suspension 10 ml PO TID PRN (Reason: throat discomfort) 3 Days Qty: 240 0RF Rx Instructions: Insertion swallow. Avoid eating or drinking anything for 30 minutes after taking this. Latuda 20 mg tablet 20 mg PO DAILY Rx Instructions: must administer with food (at least 350 calories) albuterol sulfate [ProAir HFA] 90 mcg/actuation HFA aerosol inhaler 2 puff PO Q4-6H PRN (Reason: Shortness Of Breath Or Wheezing) zolpidem 5 mg tablet 5 mg PO BEDTIME PRN (Reason: Insomnia) losartan 25 mg tablet 25 mg PO DAILY hydroxyzine pamoate 25 mg capsule 25 mg PO BID PRN (Reason: Anxiety) cetirizine 10 mg tablet 10 mg PO QAM ergocalciferol (vitamin D2) 1,250 mcg (50,000 unit) capsule 1,250 mcg PO QWEEK esomeprazole magnesium 40 mg capsule,delayed release(DR/EC) 40 mg PO DAILY magnesium oxide 400 mg (241.3 mg magnesium) tablet 400 mg PO DAILY cyclobenzaprine 5 mg tablet 5 mg PO BEDTIME PRN (Reason: muscle spasm) Qty: 90 1RF duloxetine [Cymbalta] 30 mg capsule,delayed release(DR/EC) 30 mg PO BID Qty: 180 1RF escitalopram oxalate 10 mg tablet 10 mg PO BEDTIME Ozempic 1 mg/dose (4 mg/3 mL) pen injector 1 mg subcut QWEEK (DME) FreeStyle Lite Strips Strip See Rx Instructions .ROUTE BID Qty: 10 Rx Instructions: As directed riboflavin (vitamin B2) [Vitamin B-2] 100 mg tablet 100 mg PO DAILY topiramate 50 mg tablet 50 mg PO DAILY omeprazole 20 mg capsule,delayed release(DR/EC) 20 mg PO BID Qty: 180 0RF Referrals: Jeanmarie Bridges MD [Physician, Urology] Print Language: Kyrgyz
[2025-01-07 02:25] LABS: MANUAL DIFF FLAG NO
[2025-01-07 02:26] LABS: Hematocrit 35.6 % (37.0-47.0); Hemoglobin 11.5 g/dl (12.0-16.0); Imm Gran Abs Auto 0.02 X10*3/uL (0.00-0.03); Imm Gran Pct Auto 0.2 % (0.0-0.4); Lymphocytes Absolute Auto 2.0 X10*3/uL (1.2-4.9); Mean Corpuscular HGB Conc 32.3 g/dl (31.0-35.0); Mean Corpuscular Hemoglobin 26.7 pg (27.0-33.0); Mean Corpuscular Volume 82.6 fL (80.0-98.0); NRBC Abs Auto 0.000 X10*3/uL (0.0-0.012); NRBC Pct Auto 0.0 /100WBC (0.0-0.2); Platelet Count 469 X10*3/uL (160-400); Red Blood Count 4.31 X10*6/uL (4.20-5.50); White Blood Count 8.7 X10*3/uL (4.8-10.8)
--- OUTSIDE RECORDS SUMMARY | 2025-01-07 02:30 | XMS_ITS | Clinical Summary ---
Author Organization [address] [place] [address] Address [address] [place] [address] Phone Care Team Providers Care Embedded Software Development Engineer Name Role Phone Physician, Pcp Unknown Primary Care Provider Lizz vailable Allergies No known active allergies Social History Tobacco Use Types Packs/Day Years [...] topic Insurance MEDICAID - [place] Care Teams Embedded Software Development Engineer Relationship Specialty Start Date End Date Physician, Pcp Unknown PCP - General 07/15/24
--- OUTSIDE RECORDS SUMMARY | 2025-01-07 02:30 | XMS_ITS | Encounter Summary ---
Author Organization [employer] Address [address] [place] [address] Care Team Providers Care Notcher Name Role Phone Una Webb MD Primary Care Pro vider Morris Haney RN Unavailable [phone] Estefany Haney Unavailable Morris Haney RN Unavailable [phone] Encounter Details Date Type Department Care Team (Late st Contact Info) Description 11/17/2022 Abstract [facility] MEDICINE [address] [place], [place] [phone] Cora Wolfe FNP Social History Tobacco Use [...] 02/03/2025 1:00 PM EST Office Visit [facility] MEDICINE [address] [place] [place], [place] [phone] Una Webb MD [address] [place] [address] documented as of this encounter Visit Diagnoses Not on filedocumented in this encounter Additional Health Concerns Assessment Noted Time PHQ-9 Depression Total Score: 2 02/27/19 23 10:36 AM EST documented as of this encounter Care Teams Notcher Relationship Specialty Start Date End Date Una Webb MD [address] [place] [address] PCP - General Internal Medicine 11/17/22 Morris Haney, RN [address] [place] [address] Oim ConsultantCementer Machine Joiner 08/31/23 06/05/24 Estefany Haney Community Health Worker 09/09/2306/05 Morris Haney, RN [address] [place] [address] Oim ConsultantCementer Machine Joiner 06/29/24 documented as of this encounter
--- OUTSIDE RECORDS SUMMARY | 2025-01-07 02:31 | XMS_ITS | Encounter Summary ---
Author Organization [employer] Address [address] [place] [address] [address] [place] [address] Care Team Providers Care Oil Scout Name Role Phone Una Webb MD Primary Care Pro vider Morris Haney RN Unavailable [phone] Estefany Haney Unavailable Morris Haney RN Unavailable [phone] Reason for Visit * Reason Onset Date Comments Med Refill 11/17/2022 Encounter Details Date Type Department Care Team (Late st Contact Info) Description 11/17/2022 Refill [facility] MEDICINE [address] [place] [address] Cora Wolfe FNP Type 2 diabetes mellitus without complication, without long-term current use of insulin (CMS/[facility]); Class 2 obesity due to excess calories [...] Description 02/03/2025 1:00 PM EST Office Visit [facility] MEDICINE [address] [place] [address] Una Webb MD [address] [place] [address] documented as of this encounter Visit Diagnoses Diagnosis Type 2 diabetes mellitus without complication, without long-term current use of insulin (HCC) Class 2 obesity due to excess calories without serious comorbidity in adult, unspecified BMI documented in this encounter Additional Health Concerns Assessment Noted Time PHQ-9 Depression Total Score: 2 02/27/19 10:36 AM EST documented as of this encounter Care Teams Oil Scout Relationship Specialty Start Date End Date Una Webb MD [address] [place] [address] PCP - General Internal Medicine 11/17/22 Morris Haney, JAEL [address] [place] [address] Offal WorkerGeneral Activities Therapist 08/31/23 06/05/24 Estefany Haney Community Health Worker 09/09/2306/05 Morris Haney, JAEL [address] [place] [address] Offal WorkerGeneral Activities Therapist 06/29/24 documented as of this encounter
--- OUTSIDE RECORDS SUMMARY | 2025-01-07 02:31 | XMS_ITS | Encounter Summary ---
Author Organization [employer] Address [address] [place] [address] Care Team Providers Care Outreach Worker Name Role Phone Una Webb MD Primary Care Pro vider Morris Haney RN Unavailable [phone] Estefany Haney Unavailable Morris Haney RN Unavailable [phone] Encounter Details Date Type Department Care Team (Late st Contact Info) Description 11/17/2022 Abstract [facility] MEDICINE [address] [place], [place] [phone] Cora Wolfe FNP Social History Tobacco Use [...] Description 02/03/2025 1:00 PM EST Office Visit [facility] MEDICINE [address] [place], [place] [phone] Una Webb MD [address] [place] [address] documented as of this encounter Visit Diagnoses Not on filedocumented in this encounter Additional Health Concerns Assessment Noted Time PHQ-9 Depression Total Score: 2 02/27/19 23 10:36 AM EST documented as of this encounter Care Teams Outreach Worker Relationship Specialty Start Date End Date Una Webb MD [address] [place] [address] PCP - General Internal Medicine 11/17/22 Morris Haney, RN [address] [place] [address] Neuro Psych Sales SpecialistMachine Pack Assembler 08/31/23 06/05/24 Estefany Haney Community Health Worker 09/09/2306/05 Morris Haney, RN [address] [place] [address] Neuro Psych Sales SpecialistMachine Pack Assembler 06/29/24 documented as of this encounter
--- OUTSIDE RECORDS SUMMARY | 2025-01-07 02:31 | XMS_ITS | Encounter Summary ---
Author Organization [employer] Address [address] [facility] [address]t [place] [address] Care Team Providers Care Power Plant Mechanic Name Role Phone Una Webb MD Primary Care Pro vider Morris Haney RN Unavailable [phone] Encounter Details Date Type Department Care Team (Late st Contact Info) Description 01/07/2025 Orders Only GENERIC EXTERNAL DATA DEPARTMENT Provider, Generic External Data Social History Tobacco Use Types Packs/Day Years [...] 02/03/2025 1:00 PM EST Office Visit [facility] MEDICINE [address] [place] [address] [phone] Una Webb MD [address] [place], [place] [phone] documented as of this encounter Procedures Procedure Name Priority Date/Time Associated Diagnosis Comments CBC WITH AUTO DIFFERENTIAL Routine 01/07/2025 2:12 AM EST documented in this encounter Results * (ABNORMAL) CBC auto differential (01/07/2025 2:12 AM EST) White Blood Count 8.7 4.8 - 10.8 X10*3/uL [facility] Red Blood Count 4.31 4.20 - 5.50 X10*6/uL [facility] Hemoglobin 11.5(L) 12.0 - 16.0 g/dl [facility] Hematocrit 35.6(L) 37.0 - 47.0 % [facility] Mean Corpuscular Volume 82.6 80.0 - 98.0 fL [facility] Mean Corpuscular Hemoglobin 26.7(L) 27.0 - 33.0 pg [facility] Mean Corpuscular HGB Conc 32.3 31.0 - 35.0 g/dl [facility] Red Cell Distribution Width 14.0 11.0 - 16.0 % [facility] Platelet Count 469(H) 160 - 400 X10*3/uL [facility] Mean Platelet Volume 8.9(L) 9.4 - 12.3 fL [facility] Neutrophils Percent Auto 70.9 45 - 73 % [facility] Imm Gran Pct Auto 0.2 0.0 - 0.4 % [facility] Lymphocytes Percent Auto 23.1 20 - 40 % [facility] Monocytes Percent Auto 4.3 2 - 11 % [facility] Eosinophils Percent Auto 0.9 0 - 4 % [facility] Basophils Percent Auto 0.6 0 - 2 % [facility] NRBC Pct Auto 0.0 0.0 - 0.2 /100WBC [facility] Neutrophils Absolute Auto 6.1 2.0 - 8.3 x10*3/uL [facility] Imm Gran Abs Auto 0.02 0.00 - 0.03 X10*3/uL [facility] Lymphocytes Absolute Auto 2.0 1.2 - 4.9 X10*3/uL [facility] Monocytes Absolute Auto 0.4 0.1 - 1.2 X10*3/uL [facility] Eosinophils Absolute Auto 0.1 0.0 - 0.4 X10*3/uL [facility] Basophils Absolute Auto 0.1 0.0 - 0.2 X10*3/uL [facility] NRBC Abs Auto 0.000 0.0 - 0.012 X10*3/uL [facility] 01/07/2025 2:12 AM EST 01/07/2025 2:23 AM EST us Generic External Data Provider LAB BLOOD ORDERAB LES Final Result [facility] [address] [place] [phone] documented in this encounter Visit Diagnoses Not on filedocumented in this encounter Additional Health Concerns Assessment Noted Time PHQ-9 Depression Total Score: 0 06/30/19 25 6:16 PM EDT documented as of this encounter Care Teams Power Plant Mechanic Relationship Specialty Start Date End Date Una Webb MD [address] [place] [phone] PCP - General Internal Medicine 11/17/22 Morris Haney RN [address] [place] [phone] Watch RepairerForward Air Controller/Air Officer 06/29/24 documented as of this encounter
--- OUTSIDE RECORDS SUMMARY | 2025-01-07 02:31 | XMS_ITS | Encounter Summary ---
Author Organization [employer] Address [address] [facility] [address] [place] [address] Care Team Providers Care Head Of Human Resources Name Role Phone Una Webb MD Primary Care Pro vider Morris Haney RN Unavailable [phone] Estefany Haney Unavailable Morris Haney RN Unavailable [phone] Reason for Visit * Reason Onset Date Comments Med Refill 12/10/2022 Encounter Details Date Type Department Care Team (Late st Contact Info) Description 12/10/2022 Refill [facility] [address] [place] [address] Cora Wolfe FNP Type 2 diabetes mellitus without complication, without long-term current use of insulin (CMS/[facility]); Class 2 obesity due to excess [...] 1:00 PM EST Office Visit [facility] [address] [place] [address] Una Webb MD [address] [place] [address] documented as of this encounter Visit Diagnoses Diagnosis Type 2 diabetes mellitus without complication, without long-term current use of insulin (HCC) Class 2 obesity due to excess calories without serious comorbidity in adult, unspecified BMI documented in this encounter Additional Health Concerns Assessment Noted Time PHQ-9 Depression Total Score: 2 02/27/19 10:36 AM EST documented as of this encounter Care Teams Head Of Human Resources Relationship Specialty Start Date End Date Una Webb MD [address] [place] [address] PCP - General Internal Medicine 11/17/22 Morris Haney RN [address] [place] [address] Digital AssociateFinal Finisher Forging Dies 08/31/23 06/05/24 Estefany Haney Community Health Worker 09/09/2306/05 Morris Haney RN [address] [place] [address] Digital AssociateFinal Finisher Forging Dies 06/29/24 documented as of this encounter
--- OUTSIDE RECORDS SUMMARY | 2025-01-07 02:31 | XMS_ITS | Encounter Summary ---
Author Organization [employer] Address [address] [place] [address] Care Team Providers Care Fur Repairer Name Role Phone Una Webb MD Primary Care Pro vider Morris Haney RN Unavailable [phone] Estefany Haney Unavailable Morris Haney RN Unavailable [phone] Encounter Details Date Type Department Care Team (Late st Contact Info) Description 11/17/2022 Abstract [facility] MEDICINE [address] [place], [place] [phone] Cora Wolfe FNP Social History Tobacco Use [...] Description 02/03/2025 1:00 PM EST Office Visit [facility] [address] [place], [place] [phone] Una Webb MD [address] [place] [address] documented as of this encounter Visit Diagnoses Not on filedocumented in this encounter Additional Health Concerns Assessment Noted Time PHQ-9 Depression Total Score: 2 02/27/19 23 10:36 AM EST documented as of this encounter Care Teams Fur Repairer Relationship Specialty Start Date End Date Una eWbb MD [address] [place] [address] PCP - General Internal Medicine 11/17/22 Morris Haney, RN [address] [place] [address] Business Analytics Faculty MemberProduction Trainer 08/31/23 06/05/24 Estefany Haney Community Health Worker 09/09/2306/05 Morris Haney, RN [address] [place] [address] Business Analytics Faculty MemberProduction Trainer 06/29/24 documented as of this encounter
--- OUTSIDE RECORDS SUMMARY | 2025-01-07 02:31 | XMS_ITS | Encounter Summary ---
Author Organization [employer] Address [address] [place] [address] [place] [address] Care Team Providers Care Fuel Cell Assembler Name Role Phone Una Webb MD Primary Care Pro vider Morris Haney RN Unavailable [phone] Estefany Haney Unavailable Morris Haney RN Unavailable [phone] Reason for Visit * Reason Comments Med Refill Encounter Details Date Type Department Care Team (Late st Contact Info) Description 10/04/2023 Refill [facility] [address] [place], [place] [phone] Una Webb MD [address] [place], [place] [phone] Social History Tobacco Use Types Packs/Day Years [...] Office Visit [facility] [address] [place] [address] Una Webb MD [address] [place] [address] documented as of this encounter Visit Diagnoses Not on filedocumented in this encounter Additional Health Concerns Assessment Noted Time PHQ-9 Depression Total Score: 4 03/18/19 24 11:06 AM EST documented as of this encounter Care Teams Fuel Cell Assembler Relationship Specialty Start Date End Date Una Webb MD [address] [place] [address] PCP - General Internal Medicine 11/17/22 Morris Haney, RN [address] [place] [address] Rehabilitation Services DirectorMachine Fastener 08/31/23 06/05/24 Estefany Haney Community Health Worker 09/09/2306/05 Morris Haney RN [address] [place] [address] Rehabilitation Services DirectorMachine Fastener 06/29/24 documented as of this encounter
--- OUTSIDE RECORDS SUMMARY | 2025-01-07 02:31 | XMS_ITS | Encounter Summary ---
Author Organization [employer] Address [address] [place] [address] [place] [address] Care Team Providers Care Publicity Manager Name Role Phone Una Webb MD Primary Care Pro vider Morris Haney RN Unavailable [phone] Estefany Haney Unavailable Morris Haney RN Unavailable [phone] Reason for Visit * Reason Comments Med Change Request Encounter Details Date Type Department Care Team (Late st Contact Info) Description 05/21/2023 Refill [facility] [address] [place], [place] [phone] Una Webb MD [address] [place], [place] [phone] Social History Tobacco Use Types Packs/Day Years [...] Description 02/03/2025 1:00 PM EST Office Visit [facility] [address] [place] [address] Una Webb MD [address] [place] [address] documented as of this encounter Visit Diagnoses Not on filedocumented in this encounter Additional Health Concerns Assessment Noted Time PHQ-9 Depression Total Score: 4 03/18/19 24 11:06 AM EST documented as of this encounter Care Teams Publicity Manager Relationship Specialty Start Date End Date Una Webb MD [address] [place] [address] PCP - General Internal Medicine 11/17/22 Morris Haney RN [address] [place] [address] Amr PhysicianProject Architect 08/31/23 06/05/24 Estefany Haney Community Health Worker 09/09/2306/05 Morris Haney RN [address] [place] [address] Amr PhysicianProject Architect 06/29/24 documented as of this encounter
--- OUTSIDE RECORDS SUMMARY | 2025-01-07 02:31 | XMS_ITS | Encounter Summary ---
Author Organization [employer] Address [address] [place] [address] Care Team Providers Care Geophysical Support Specialist Name Role Phone Una Webb MD Primary Care Pro vider Morris Haney RN Unavailable [phone] Estefany Haney Unavailable Morris Haney RN Unavailable [phone] Reason for Visit * Reason Comments Med Refill Encounter Details Date Type Department Care Team (Late st Contact Info) Description 05/13/2024 Refill [facility] [address] [place], [place] [phone] Una Webb MD [address] [place], [place] [phone] Chronic migraine without aura without status migrainosus, [...] 1:00 PM EST Office Visit [facility] [address] [place] [address] Una Webb MD [address] [place] [address] documented as of this encounter Visit Diagnoses Diagnosis Chronic migraine without aura without status migrainosus, not intractable documented in this encounter Additional Health Concerns Assessment Noted Time PHQ-9 Depression Total Score: 4 03/18/19 24 11:06 AM EST documented as of this encounter Care Teams Geophysical Support Specialist Relationship Specialty Start Date End Date Una Webb MD [address] [place] [address] PCP - General Internal Medicine 11/17/22 Morris Haney RN [address] [place] [address] Panel Edge PainterRestaurant Culinary Manager 08/31/23 06/05/24 Estefany Haney Community Health Worker 09/09/2306/05 Morris Haney RN [address] [place] [address] Panel Edge PainterRestaurant Culinary Manager 06/29/24 documented as of this encounter
--- OUTSIDE RECORDS SUMMARY | 2025-01-07 02:31 | XMS_ITS | Encounter Summary ---
Author Organization [employer] [facility] Address [address] [place] [address] Care Team Providers Care Inlayer Name Role Phone Cora Wolfe Primary Care Provider Lizz Una Walker MD Primary Care Pro vider Morris Haney RN Unavailable [phone] Estefany Haney Unavailable Morris Haney RN Unavailable [phone] Encounter Details Date Type Department Care Team (Latest Contact Info) Description 03/26/2020 Abstract [facility] CONVERSIONS Dental, Provider, DDS Social History [...] 1:00 PM EST Office Visit [facility] [address] [place] [address] Una Webb MD [address] [place], [place] [phone] documented as of this encounter Visit Diagnoses Not on filedocumented in this encounter Care Teams Inlayer Relationship Specialty Start Date End Date Cora Wolfe FNP PCP - General Family Medicine 8/27/22 9/24/23 Una Webb MD [address] [place] [address] PCP - General Internal Medicine 11/17/22 Morris Haney, JAEL [address] [place] [address] Assistant Baseball CoachBead Inspector 08/31/23 06/05/24 Estefany Haney Community Health Worker 09/09/2306/05 Morris Haney, JAEL [address] [place] [address] Assistant Baseball CoachBead Inspector 06/29/24 documented as of this encounter
--- OUTSIDE RECORDS SUMMARY | 2025-01-07 02:31 | XMS_ITS | Encounter Summary ---
Author Organization [employer] Address [address] [facility] [address] [place] [address] Care Team Providers Care Spirits Model Name Role Phone Una Webb MD Primary Care Pro vider Morris Haney RN Unavailable [phone] Estefany Haney Unavailable Morris Haney RN Unavailable [phone] Reason for Visit * Reason Onset Date Comments Med Refill 12/10/2022 Encounter Details Date Type Department Care Team (Late st Contact Info) Description 12/10/2022 Refill [facility] [address] [place] [address] Cora Wolfe FNP Primary hypertension Social History [...] Description 02/03/2025 1:00 PM EST Office Visit [facility] [address] [place] [address] Una Webb MD [address] [place] [address] documented as of this encounter Visit Diagnoses Diagnosis Primary hypertension Unspecified essential hypertension documented in this encounter Additional Health Concerns Assessment Noted Time PHQ-9 Depression Total Score: 2 02/27/19 10:36 AM EST documented as of this encounter Care Teams Spirits Model Relationship Specialty Start Date End Date Una Webb MD [address] [place] [address] PCP - General Internal Medicine 11/17/22 Morris Haney RN [address] [place] [address] Deicer Inspector ElectricGuide Dog Trainer 08/31/23 06/05/24 Estefany Haney Community Health Worker 09/09/2306/05 Morris Haney RN [address] [place] [address] Deicer Inspector ElectricGuide Dog Trainer 06/29/24 documented as of this encounter
--- OUTSIDE RECORDS SUMMARY | 2025-01-07 02:31 | XMS_ITS | Clinical Summary ---
Author Organization [employer] Address [address] [place] [address] [address] [place] [address] Care Team Providers Care [employer] Supervisor Name Role Phone Una Webb MD Primary Care Pro vider Morris Haney RN Unavailable [phone] Allergies Active Allergy Reactions Criticality Noted [...] 07/28/19 24 Active cetirizine (ZyrTEC) 10 MG tabletIndications: COVID-19 TAKE 1 TABLET BY MOUTH EVERY MORNING 90 tablet 08/10/19 24 Active escitalopram (Lexapro) 10 MG tablet Take 1 tablet (10 mg) by mouth Once per day. 90 tablet 11/03/19 24 Active SUMAtriptan (Imitrex) 25 MG tabletIndications: Chronic migraine without aura without status migrainosus, [...] 90 capsule 1 08/03/19 25 026 Active ergocalciferol (Vitamin D2) 1.25 MG (27604 UT) capsule Take 1 capsule (1.25 mg) by mouth every 7 (seven) days. 12 capsule 09/07/19 25 Active olmesartan (BENIcar) 40 MG tabletIndications: Primary hypertension Take 1 tablet (40 mg) by mouth Once per day. 90 tablet 09/07/19 25 Active omeprazole (PriLOSEC) [address] capsule Take 1 capsule (20 mg) by mouth 2 times daily. 180 capsule 09/07/19 25 Active riboflavin (vitamin B2) 100 mg tablet tabletIndications: Gastroesophageal reflux disease without esophagitis Take 1 tablet [...] ROTATE INJECTION SITES. 3 mL 3 09/22/19 25 Active Ascorbic Acid (vitamin C) 250 MG tablet Take 1 tablet (250 mg) by mouth Once per day. 90 tablet 1 12/03/19 25 026 Active ferrous gluconate (Fergon) 324 (38 Fe) MG tablet Take 1 tablet (324 mg) by mouth with breakfast. 90 tablet 1 12/03/19 25 Active Icosapent Ethyl (Vascepa) 1 g capsule Take 2 capsules (2 g) by mouth Once per day. 180 capsule 1 12/03/19 25 Active norethindrone (Micronor) 0.35 MG tablet Take 1 tablet (0.35 mg) by mouth Once per day. 28 tablet 3 12/27/19 25 Active omega-3 acid ethyl esters (Lovaza) 1 g capsuleIndications :Mixed hyperlipidemia Take 1 capsule (1 g) by mouth 2 times daily. 60 capsule 11 12/31/19 25 Active Active Problems Problem Noted Date Diagnosed Date Menorrhagia 11/02/2024 Delay of cognitive development 08/03/2024 Bipolar affective disorder, remission status unspecified ([facility]) 06/07/2024 Microscopic hematuria 06/07/2024 Iron deficiency anemia [...] Encounters Date Type Department Care Team Description 01/07/2025 Orders Only GENERIC EXTERNAL DATA DEPARTMENT Provider, Generic External Data 12/30/2024 Orders Only [address] [address] Una Guerrero MD Mixed hyperlipidemia (Primary Dx) 12/30/[address] [address] Una Webb MD Prior Authorization 12/26/2024 Orders Only [address] [address] Jaci Greene [facility] 12/02/2024 Results Follow-Up [address] [address] Una Webb MD POCT Glucose, POCT Hgb A1c, Albumin, Random Urine W/Creatinine, Additional followed-up results: 9 12/02/2024 Orders Only [address] [address] Una Webb MD Microscopic hematuria (Primary Dx); Iron deficiency anemia secondary to inadequate dietary iron intake 11/02/2024 9:45 AM EDT Office Visit [address] [address] Una Webb MD Type 2 diabetes mellitus without complication, without long-term current use of insulin ([facility]/H[facility]) (Primary Dx); Iron deficiency anemia secondary to inadequate dietary iron intake; Excessive bleeding in premenopausal period; Primary hypertension; Health care maintenance; Chronic migraine without aura without status migrainosus, not intractable 11/02/2024 Travel 11/01/2024 Telephone [facility] [address] [place] [address] [phone] Una Webb MD CHART PREP from Last 3 Months Immunizations Immunization Administration [...] Description 02/03/2025 1:00 PM EST Office Visit [facility] [address] [place] [phone] Una Webb MD [address] [place] [address] Health Maintenance Due Date Last Done Comments [...] AUTO DIFFERENTIAL Routine 01/07/2025 2:12 AM EST US PELVIS TRANSVAGINAL Routine 12/21/2024 3:34 PM [...] complication, without long-term current use of insulin ([facility]) HEMOGLOBIN A1C Routine 12/02/2024 8:58 AM EDT Type 2 diabetes mellitus without complication, without long-term current use of insulin ([facility]) COMPREHENSIVE METABOLIC PANEL Routine 12/02/2024 8:58 AM EDT Type 2 diabetes mellitus without complication, without long-term current use of insulin ([facility]) ALBUMIN, RANDOM URINE W/CREATININE Routine 12/02/2024 8:58 AM EDT Type 2 diabetes mellitus without complication, without long-term current use of insulin ([facility]) CULTURE, URINE, ROUTINE Routine 12/02/2024 12:00 AM EDT Microscopic hematuria POCT GLYCATED HEMOGLOBIN, TOTAL Routine 11/02/2024 9:51 AM EDT Type 2 diabetes mellitus without complication, without long-term current use of insulin (CMS/HCC) POCT GLUCOSE Routine 11/02/2024 9:51 AM EDT [...] Relevant to Health Maintenance Results * (ABNORMAL) CBC auto differential (01/07/2025 2:12 AM EST) White Blood Count 8.7 4.8 - 10.8 X10*3/uL [facility] Red Blood Count 4.31 4.20 - 5.50 X10*6/uL [facility] Hemoglobin 11.5(L) 12.0 - 16.0 g/dl [facility] Hematocrit 35.6(L) 37.0 - 47.0 % [facility] Mean Corpuscular Volume 82.6 80.0 - 98.0 fL [facility] Mean Corpuscular Hemoglobin 26.7(L) 27.0 - 33.0 pg [facility] Mean Corpuscular HGB Conc 32.3 31.0 - 35.0 g/dl [facility] Red Cell Distribution Width 14.0 11.0 - 16.0 % [facility] Platelet Count 469(H) 160 - 400 X10*3/uL [facility] Mean Platelet Volume 8.9(L) 9.4 - 12.3 fL [facility] Neutrophils Percent Auto 70.9 45 - 73 % [facility] Imm Gran Pct Auto 0.2 0.0 - 0.4 % [facility] Lymphocytes Percent Auto 23.1 20 - 40 % [facility] Monocytes Percent Auto 4.3 2 - 11 % [facility] Eosinophils Percent Auto 0.9 0 - 4 % [facility] Basophils Percent Auto 0.6 0 - 2 % [facility] NRBC Pct Auto 0.0 0.0 - 0.2 /100WBC [facility] Neutrophils Absolute Auto 6.1 2.0 - 8.3 x10*3/uL [facility] Imm Gran Abs Auto 0.02 0.00 - 0.03 X10*3/uL [facility] Lymphocytes Absolute Auto 2.0 1.2 - 4.9 X10*3/uL [facility] Monocytes Absolute Auto 0.4 0.1 - 1.2 X10*3/uL [facility] Eosinophils Absolute Auto 0.1 0.0 - 0.4 X10*3/uL [facility] Basophils Absolute Auto 0.1 0.0 - 0.2 X10*3/uL [facility] NRBC Abs Auto 0.000 0.0 - 0.012 X10*3/uL [facility] 01/07/2025 2:12 AM EST 01/07/2025 2:23 AM EST us Generic External Data Provider LAB BLOOD ORDERAB LES Final Result Performing Organization Address City/State/[facility] Co de Phone Number [facility] [address] [place] [phone] * US Pelvis Transvaginal (12/21/2024 3:34 PM EDT) Anatomical Region Laterality Modality Pelvis Ultrasound 12/21/2024 3:34 PM EDT Narrative 12/21/2024 3:57 PM EDT [address] [address] Ultrasound Report Signed Patient: Tin,Melissa Jorge Luis Donnelly#: [id number] : 1985 Acct:[id number] Age/Sex: 39 / F ADM Date: 12/21/24 Loc: HO.US Attending Dr: Una Arenas MD Ordering Physician: Una Webb MD Date of Service: 12/21/24 Procedure(s): US pelvic and transvaginal Accession Number(s): [id number] cc: Una Webb MD Reason for Exam: [...] 12/21/24 1554 DD/ 1534 TD/TT: 12/21/24 1542 Supervisor Microwave: Procedure Note Donotuseinterpreter, Image - 12/21/2024 [place] [id number] Ultrasound Report Signed Patient: Catalina Castle AM R#: [id number] : 1985Acct:[id number] Age/Sex: 39 / FADM Date: 12/21/24 Loc: HO.US Attending Dr: Una Arenas MD Ordering Physician: Una Webb MD Date of Service: 12/21/24 Procedure(s): US pelvic and transvaginal Accession Number(s): [id number] cc: Una Webb MD Reason for Exam: [...] 12/21/24 1554 DD/ 1534 TD/TT: 12/21/24 1542 Supervisor Microwave: us Una Arenas MD IMG US PROCEDURES Final Result * Vitamin B12 (Cobalamin) and Folate Panel, Serum (12/02/2024 8:58 AM EDT) Vitamin B12 308 200 - 900 pg/mL [facility] Comment:NORMAL 200-900 PG/M L INDETERMINATE 160-199 PG/ML DEFICIENT < 160 PG/ML Folate 8.7 > or = 4.0 ng/mL [facility] Comment:Reference Values:> o r = 4.0 ng/mL< 4.0 ng/mL suggests folate deficiency Methotrexate, aminopterin and folinic acid(leucovorin) are chemotherapeutic agents whose molecularstructures are similar to folate; therefore, the Architectfolate assay cannot be used for patients using these drugs. Blood 12/02/2024 8:58 AM EDT 12/02/2024 11:16 AM EDT us Una Arenas MD LAB BLOOD ORDERAB LES Final Result Performing Organization Address [facility]/ZIP Co de Phone Number [facility] [address] [place] [address] [phone] * (ABNORMAL) Urinalysis, Complete, with Reflex to Culture (12/02/2024 8:58 AM EDT) Color Urine Dark Yellow [facility] Appearance Urine Clear [facility] PH 5.0 5.0 - 9.0 [facility] Glucose Urine UA Negative Negative mg/dL [facility] Urine Blood Small (1+)(A) Negative [facility] Specific [place] - Urine 1.025 1.005 - 1.025 [facility] Urine Protein Negative Neg-Trace mg/dL [facility] Urine Ketones Negative Negative mg/dL [facility] Nitrite Urine Negative Negative [facility] Leukocyte Esterase Urine Negative Negative [facility] RBC Urine 6-10(A) 0 - 2 /HPF [facility] Urine WBC 6-10(A) 0 - 5 /HPF [facility] Urine Squamous Epithelial Cell 6-10 0 - 2 /HPF [facility] Urine Bacteria 1+ None Seen [facility] Hyaline Casts, Urine 0-2 0 - 2 /LPF [facility] Urine 12/02/2024 8:58 AM EDT 12/02/2024 11:03 AM EDT Narrative [facility] - 12/02/2024 11:24 AM EDT Urine, Clean Catch us Una Arenas MD LAB URINE ORDERAB LES Final Result Performing Organization Address [facility] Co de Phone Number [facility] [address] [place] [address] [phone] * Albumin, Random Urine W/Creatinine (12/02/2024 8:58 AM EDT) Creatinine, Urine 229.09 mg/dL [facility] Microalbumin Urine 19.0 mg/L [facility] Microalbum Creatinine Ratio Ur 8.2 <30 ug/mg cr [facility] Comment:Albumin/Creatinine R atio Reference Ranges: Normal: < 30 ug/mg creatinine Microalbuminuria: 30 - 300 ug/mg creatinineClinical Albuminuria: > 300 ug/mg creatinine Urine (Urine, Random) 12/02/2024 8:58 AM EDT 12/02/2024 11:03 AM EDT Una Arenas MD LAB URINE ORDERAB LES Final Result Performing Organization Address City/[facility]/ZIP Co de Phone Number [facility] [address] [place] [phone] * Iron And Total Iron Binding Capacity (12/02/2024 8:58 AM EDT) Pathologist [facility] Iron 39 30 - 160 mcg/dL [facility] Total Iron Binding Capacity 262 228 - 428 mcg/dL [facility] Percent Iron Saturation 15 15 - 50 % [facility] Unsaturated Iron Binding 223 ug/dL [facility] Blood Venous blood specimen / Unknown 12/02/2024 8:58 AM EDT 12/02/2024 11:32 AM EDT us Una Arenas MD LAB BLOOD ORDERAB LES Final Result Performing Organization Address City/[facility]/ZIP Co de Phone Number [facility] [address] [place] [phone] * (ABNORMAL) CBC (12/02/2024 8:58 AM EDT) White Blood Count 6.6 4.8 - 10.8 X10*3/uL [facility] Red Blood Count 4.43 4.20 - 5.50 X10*6/uL [facility] Hemoglobin 11.7(L) 12.0 - 16.0 g/dl [facility] Hematocrit 37.0 37.0 - 47.0 % [facility] Mean Corpuscular Volume 83.5 80.0 - 98.0 fL [facility] Mean Corpuscular Hemoglobin 26.4(L) 27.0 - 33.0 pg [facility] Mean Corpuscular HGB Conc 31.6 31.0 - 35.0 g/dl [facility] Red Cell Distribution Width 14.3 11.0 - 16.0 % [facility] Platelet Count 495(H) 160 - 400 X10*3/uL [facility] Mean Platelet Volume 9.5 9.4 - 12.3 fL [facility] NRBC Pct Auto 0.0 0.0 - 0.2 /100WBC [facility] NRBC Abs Auto 0.000 0.0 - 0.012 X10*3/uL [facility] Blood Venous blood specimen / Unknown 12/02/2024 8:58 AM EDT 12/02/2024 11:11 AM EDT us Una Arenas MD LAB BLOOD ORDERAB LES Final Result [facility] [address] [place] [phone] * Hemoglobin A1c (12/02/2024 8:58 AM EDT) Hemoglobin A1c 5.0 <6.0 % [facility] Comment:Hemoglobin A1C Refer ence Range Adults: 4.8 - 6.0 % Non diabetic: < 6.0 % Goal: < 7.0 %Additional Action Suggested: > 8.0 %Note: Hemoglobin A1c results are invalid for patients with abnormal amounts of HbF. Blood transfusions may impact the HbA1c concentration in the patient sample. Estimated Average Glucose 97 mg/dL [facility] Comment:eAG = Estimated ave rage glucose which is %A1C expressed asaverage glucose, using the formula of the [id number] Glucose study (ADAG), Diabetes Care, Vol.31,#8,Sep. 2007 Blood Venous blood specimen / Unknown 12/02/2024 8:58 AM EDT 12/02/2024 11:11 AM EDT us Una Arenas MD LAB BLOOD ORDERAB LES Final Result Performing Organization Address City/[facility]/ZIP Co de Phone Number [facility] [address] [place] [phone] * Ferritin (12/02/2024 8:58 AM EDT) Ferritin 44 10 - 122 ng/mL [facility] Blood Venous blood specimen / Unknown 12/02/2024 8:58 AM EDT 12/02/2024 11:32 AM EDT us Una Arenas MD LAB BLOOD ORDERAB LES Final Result Performing Organization Address City/[facility]/ZIP Co de Phone Number [facility] [address] [place] [phone] * (ABNORMAL) Lipid Panel, Standard (12/02/2024 8:58 AM EDT) Triglycerides 92 <150 mg/dL [facility] Comment:Desirable Triglyceri de: less than 150 mg/dLBorderline High Triglyceride 150-199 mg/dLHigh Triglyceride: 200-499 mg/dLVery High Triglyceride: greater than or equal to 5OO mg/dL Cholesterol 206(H) <200 mg/dL [facility] Comment:Desirable Cholestero l: less than 200 mg/dLBorderline High Cholesterol: 200-239 mg/dLHigh Cholesterol: greater than 239 mg/dL LDL Cholesterol Calculated 138(H) <100 mg/dL [facility] Comment:Desirable LDL: less than 100 mg/dLNear Optimal/Above Optimal LDL: 110- 129 mg/dLBorderline High LDL: 130-159 mg/dLHigh LDL: 160-189 mg/dLVery High LDL: greater than or equal to 190 mg/dL HDL Cholesterol 50 >40 mg/dL [facility] Comment:Desirable HDL: great er than 40 mg/dL Note: This HDL assay may give artificially low results in patients with liver disease. Blood Venous blood specimen / Unknown 12/02/2024 8:58 AM EDT 12/02/2024 11:32 AM EDT Una Arenas MD LAB BLOOD ORDERAB LES Final Result [facility] [address] [place] [phone] * (ABNORMAL) Comprehensive Metabolic Panel (12/02/2024 8:58 AM EDT) Sodium 139 135 - 145 mmol/L [facility] Potassium 3.6 3.3 - 5.1 mmol/L [facility] Chloride 108 96 - 108 mmol/L [facility] Carbon Dioxide 24 22 - 29 mmol/L [facility] Anion Gap 11(L) 12 - 20 [facility] Urea Nitrogen (BUN) 9 9 - 16 mg/dL [facility] Creatinine, Serum 0.65 0.5 - 1.4 mg/dL [facility] Estimated Glomerular Filt Rate >60 [facility] Comment:Chronic Kidney Disea se: Estimated GFR < 60 mL/min/1.03e1Aqfzyd Kidney Disease: Estimated GFR < 15 mL/min/1.73m2 Glucose 85 60 - 115 mg/dL [facility] Calcium 9.3 8.4 - 10.2 mg/dL [facility] Bilirubin, Total 0.4 0.0 - 1.0 mg/dL [facility] Aspartate Amino Transferase 14 5 - 31 U/L [facility] Alanine Aminotransferase 7 0 - 31 U/L [facility] Total Protein 7.5 6.5 - 8.0 g/dL [facility] Albumin Level 4.4 3.5 - 5.0 g/dL [facility] Alkaline Phosphatase 77 39 - 117 U/L [facility] Blood Venous blood specimen / Unknown 12/02/2024 8:58 AM EDT 12/02/2024 11:32 AM EDT Una Arenas MD LAB BLOOD ORDERAB LES Final Result [facility] [address] [place] [phone] * Culture, Urine, Routine (12/02/2024 12:00 AM EDT) Urine Urine specimen obtained by clean catch procedure / Unknown 12/02/2024 12/02/2024 Comment:UACC Narrative [facility] - 12/03/2024 1:16 PM EDT Urine Culture Report Result Urine Culture 10,000 to 50,000 cfu/ml Urine Culture Mixed bacterial dana characteristic of Urine Culture urogenital contamination. Specimen Source: Urine clean catch Una Arenas MD LAB MICROBIOLOGY - GENERAL ORDERABLES Final Result [facility] [address] [place] [phone] * POCT Hgb A1c (11/02/2024 9:51 AM EDT) Hemoglobin A1C 5.1 4.0 - 5.7 % QC Media Lot # [id number] Lot# Expiration Date [id number] Blood 11/02/2024 9:51 AM EDT Una Arenas MD POINT OF CARE EMERITA T ENTER/EDIT ORDERABLES Final Result * POCT Glucose (11/02/2024 9:51 AM EDT) Glucose Blood, POC 104 60 - 200 mg/dL [employer] Lot # [id number] Lot# Expiration Date [id number] Blood Capillary blood specimen / Unknown 11/02/2024 9:51 AM EDT Result [facility] Una Arenas MD POINT OF CARE EMERITA T ENTER/EDIT ORDERABLES Final Result * Hepatitis C Antibody with Reflex to HCV, RNA, Quantitative, Real-Time PCR (07/22/2024 8:01 AM EDT) Hepatitis C Antibody Nonreactive Nonreactive [facility] Comment:Antibodies to HCV no t detected; does not exclude early acuteHCV infection. Blood Venous blood specimen / Unknown 07/22/2024 8:01 AM EDT 07/22/2024 11:38 AM EDT Una Arenas MD LAB BLOOD ORDERAB LES Final Result Performing Organization Address [facility]/State/ZIP Co de Phone Number [facility] [address] [place] [phone] * HIV-1/2 Antigen and Antibodies, Fourth Generation, with Reflexes (07/22/2024 8:01 AM EDT) HIV AB/AG Nonreactive Nonreactive [facility] Comment:HIV-1 p24 Ag and/or HIV-1/HIV-2 Ab not detected.A test result that is nonreactive does not exclude thepossibility of exposure to or infection with HIV-1 and/orHIV-2. Nonreactive results in this assay for individualswith prior exposure to HIV-1 and/or HIV-2 may be due toantigen and antibody levels that are below the limit ofdetection of this assay.The [employer] HIV Ag/Ab Combo assay result andsupplemental assay results should be interpreted inconjunction with the patient's clinical presentation,history and other laboratory results. If the results areinconsistent with clinical evidence, additional testing issuggested to confirm the result. Blood Venous blood specimen / Unknown 07/22/2024 8:01 AM EDT 07/22/2024 11:38 AM EDT Una Arenas MD LAB BLOOD ORDERAB LES Final Result Performing Organization Address [facility]/ZIP Co de Phone Number [facility] [address] [place] [phone] * HPV mRNA E6/E7 w/Reflex to HPV Genotypes 16, 18/45 (07/14/2022 11:43 AM EDT) HPV nRNA E6/E7 Not Detected Not Detected [facility] Comment:Methodology: Transcr iption-Mediated AmplificationThis assay detects E6/E7 viral messenger RNA (mRNA) from 14high-risk HPV types (16,18,31,33,35,39,45,51,52,56,58,59,66,68).Cervical sources are required for HPV testing.If a vaginal source from a patient who has had atotal hysterectomy with removal of cervix wassubmitted, please contact the testing laboratoryfor alternative testing options.For additional information, please refer [email or web address].[employer]/faq/GTM557b1(This link if provided for information/educational purposes only.)THIS TEST WAS PERFORMED AT:[address] [place] [phone] ULLOA MD HPV mRNA E6/E7 [facility] HPV 16 RNA [facility] HPV 18/45 RNA [facility] 07/14/2022 11:4 3 AM EDT 07/15/2022 8:30 AM EDT us [facility] External Provider LAB CYT OLOGY ORDERABLES Final Result Performing Organization Address [facility]/ZIP Co de Phone Number [facility] [address] [place] [phone] * Pap Smear (07/14/2022 11:43 AM EDT) 07/14/2022 11:4 3 AM EDT 07/15/2022 8:30 AM EDT Narrative [facility] - 07/28/2022 1:14 PM EDT ----- ------- Name: Catalina Castle Age/Sex: 36/F : 1985 Unit#: [id number] Attend Dr: Rasheeda Urias [employer] Re07/14/22 Status: DEP REF Location: [facility] Disch: ----- ------- SPEC : [id number] RECD: 07/15/22 STATUS: CARLO POSADA NUM: [id number] VINCENT: 07/14/22-[address] [facility] [address]: Rasheeda Urias [employer] ENTERED: 07/15/22-1006 SP TYPE: Pap Smr OTHR DR: Sara Newsome DO ORDERED: Pap Smear Interpretation Satisfactory for evaluation. Negative for intraepithelial lesion or malignancy. HPV mRNA E6/E7: NOT DETECTED This assay detects E6/E7 viral messenger RNA (mRNA) from 14 high-risk HPV types (16, 18, 31, 33, 35, 39, 45, 51, 52, 56, 58, 59, 66, 68) HPV testing performed by [facility], [place], [place]. See reference laboratory pion of the EMR for entire report. Clinical Information LMP: 06/23/22 Previous PAP test: 10/30/16, WNL Material Received ThinPrep-Cervical Copies To: Sara Newsome DO [address] [place], [place] [id number] Rasheeda Urias [address] Williamson [address] [place] [id number] ----- ------- Signed (signature on file) REBECCA Andrade ([facility]) 07/28/22 1314 ----- ------- END OF REPORT [facility] External Provider LAB [facility] ORDERABLES Final Result [facility] [address] [place] [address] [phone] from Last 3 Months or Most Recently Relevant to Health Maintenance [facility] ADULT Care Teams [employer] Supervisor Relationship Specialty Start Date End Date Una Webb MD [address] [place] [id number] PCP - General Internal Medicine 11/17/22 Morris Haney RN [address] [place] [phone] Programming InternHistology Manager 06/29/24
[2025-01-07 02:42] LABS: COVID-19 Test Negative (Negative); IDNOW Serial# 16C4AD1C
[2025-01-07 02:44] LABS: IDNOW Serial# 152EDE1D; Influenza B2 Negative (Negative)
[2025-01-07 02:48] LABS: Appearance Urine Clear; Glucose Urine UA Negative (Negative); PH 6.0 (5.0-9.0); Specific Gravity - Urine >= 1.030 (1.005-1.025); UMIC TRIGGER UACC YES
[2025-01-07 02:50] LABS: Alanine Aminotransferase 10 U/L (0-31); Albumin Level 4.5 g/dL (3.5-5.0); Alkaline Phosphatase 75 U/L (39-117); Anion Gap 13 (12-20); Aspartate Amino Transferase 14 U/L (5-31); Blood Urea Nitrogen 7 mg/dL (9-16); Calcium 9.4 mg/dL (8.4-10.2); Carbon Dioxide 24 mmol/L (22-29); Chloride 105 mmol/L (96-108); Creatinine Clr Calc Pharmacy 140.4; Estimated Glomerular Filt Rate > 60; Lipase 20 U/L (8-78); Potassium 3.7 mmol/L (3.3-5.1); Sodium 138 mmol/L (135-145); Total Protein 7.6 g/dL (6.5-8.0)
[2025-01-07 04:18] VITALS: BP 136/93; PULSE 96; RESP 16; TEMP 36.3; O2SAT 100
[2025-01-07 04:24] VITALS: BP 136/93; PULSE 96; RESP 16; TEMP 36.3; O2SAT 100
== END 2025-01-07 04:25 | disposition home or self-care (01) ==
PROVIDERS: Emergency Provider Emergency Medicine; PCP Student in an Organized Health Care Education/Training Program
DX: R11.2 Nausea with vomiting, unspecified (principal); R10.13 Epigastric pain; N30.21 Other chronic cystitis with hematuria; E11.9 Type 2 diabetes mellitus without complications; Z91.041 Radiographic dye allergy status
CPT/HCPCS: 80053; 81001; 81003; 83690; 84702; 85025; 87502; 87635; 96361; 96374; 96375; 99284; J1308; J2405